=== PATIENT | male | born 1950 | race Caucasian/White ===

== ENCOUNTER → 2018-04-02 11:16 | Outpatient (CLI) | payer MEDICARE, OTHER, SELFPAY ==
[2018-04-02 12:12] LABS: Albumin 4.2 g/dL (3.5-5.0); BUN Creatinine Ratio 23.3 (6-22); Blood Urea Nitrogen 21 mg/dL (9-20); Calcium 9.9 mg/dL (8.4-10.2); Carbon Dioxide 26 mmol/L (22-32); Chloride 108 mmol/L (98-107); Estimated Glomerular Filt Rate > 60.0 mL/min (>60); Glucose 103 mg/dL (80-110); HEMOLYSIS < 15 (0-50); Phosphorous 3.5 mg/dL (2.3-3.7); Potassium 4.7 mmol/L (3.4-5.1); Sodium 144 mmol/L (137-145)
== END ==
PROVIDERS: Family Provider Internal Medicine; PCP Internal Medicine; Visit Provider Internal Medicine Nephrology
DX: E26.9 Hyperaldosteronism, unspecified (principal)
CPT/HCPCS: 36415; 80069

== ENCOUNTER → 2018-07-09 14:02 | Outpatient (CLI) | payer MEDICARE, OTHER, SELFPAY ==
[2018-07-09 14:53] LABS: Albumin 4.2 g/dL (3.5-5.0); Blood Urea Nitrogen 21 mg/dL (9-20); Calcium 9.4 mg/dL (8.4-10.2); Carbon Dioxide 25 mmol/L (22-32); Chloride 106 mmol/L (98-107); Estimated Glomerular Filt Rate > 60.0 mL/min (>60); Glucose 106 mg/dL (80-110); HEMOLYSIS < 15 (0-50); Phosphorous 3.3 mg/dL (2.3-3.7); Potassium 4.1 mmol/L (3.4-5.1); Sodium 140 mmol/L (137-145)
== END ==
PROVIDERS: PCP Internal Medicine; Visit Provider Internal Medicine Nephrology
DX: E26.9 Hyperaldosteronism, unspecified (principal)
CPT/HCPCS: 36415; 80069

== ENCOUNTER → 2018-08-05 13:42 | Outpatient (CLI) | payer MEDICARE, OTHER, SELFPAY ==
[2018-08-05 14:01] LABS: Add Manual Diff / Slide Review NO; Basophils Absolute Auto 100 /uL (0-100); Basophils Percent Auto 1.2 % (0-2); Eosinophils Absolute Auto 200 /uL (0-450); Hematocrit 43.5 % (41-53); Hemoglobin 14.8 g/dL (13.5-17.5); Lymphocytes Absolute Auto 1500 /uL (1100-4500); Lymphocytes Percent Auto 25.1 % (25-40); Mean Corpuscular Hemoglobin 28.9 PG (26-34); Mean Corpuscular Volume 84.9 fL (80-100); Monocytes Absolute Auto 700 /uL (0-900); Neutrophils Absolute Auto 3700 /uL (1500-7000); Neutrophils Percent Auto 59.7 % (50-75); Platelet Count 132 X10^3/uL (150-400); Red Blood Cell Count 5.13 X10^6/uL (4.5-5.9); Red Cell Distribution Width 14.1 % (11.6-14.8); White Blood Cell Count 6.1 X10^3/uL (4.5-11.0)
[2018-08-05 14:09] LABS: Prothrombin Time 11.7 SECONDS (10.1-12.7)
[2018-08-05 14:12] LABS: PTT Partial Thromboplastin Tim 37 SECONDS (26.4-36.2)
[2018-08-05 14:14] LABS: Alanine Aminotransferase 44 IU/L (21-72); Albumin 4.4 g/dL (3.5-5.0); Albumin Globulin Ratio 1.4 (1.0-2.8); Alkaline Phosphatase 84 U/L (38-126); Aspartate Aminotransferase 32 IU/L (17-59); BUN Creatinine Ratio 13.6 (6-22); Bilirubin Total 0.5 mg/dL (0.2-1.3); Blood Urea Nitrogen 15 mg/dL (9-20); Calcium 9.4 mg/dL (8.4-10.2); Carbon Dioxide 24 mmol/L (22-32); Chloride 105 mmol/L (98-107); Estimated Glomerular Filt Rate > 60.0 mL/min (>60); Globulin 3.1 g/dL (1.7-4.1); Glucose 84 mg/dL (80-110); HEMOLYSIS < 15 (0-50); Potassium 4.4 mmol/L (3.4-5.1); Sodium 138 mmol/L (137-145); Total Protein 7.5 g/dL (6.3-8.2)
== END ==
PROVIDERS: PCP Internal Medicine; Visit Provider Physician Assistant
DX: K92.1 Melena (principal)
CPT/HCPCS: 36415; 80053; 85025; 85610; 85730

== ENCOUNTER → 2018-08-08 10:45 | Outpatient (CLI) | payer MEDICARE, OTHER, SELFPAY ==
[2018-08-08 11:08] LABS: Occult Blood 1 Negative (Negative); Occult Blood 2 Negative (Negative); Occult Blood 3 Negative (Negative)
== END ==
PROVIDERS: PCP Internal Medicine; Visit Provider Physician Assistant
DX: K92.1 Melena (principal)
CPT/HCPCS: 82270

== ENCOUNTER → 2018-09-24 11:10 | Outpatient (CLI) | payer MEDICARE, OTHER, SELFPAY ==
[2018-09-24 12:48] LABS: Blood Urea Nitrogen 18 mg/dL (9-20); Calcium 9.6 mg/dL (8.4-10.2); Carbon Dioxide 23 mmol/L (22-32); Chloride 108 mmol/L (98-107); Estimated Glomerular Filt Rate > 60.0 mL/min (>60); Glucose 100 mg/dL (80-110); HEMOLYSIS 15 (0-50); Potassium 4.3 mmol/L (3.4-5.1); Sodium 140 mmol/L (137-145)
== END ==
PROVIDERS: Family Provider Internal Medicine; PCP Internal Medicine; Visit Provider Internal Medicine
DX: I25.10 Atherosclerotic heart disease of native coronary artery without angina pectoris (principal)
CPT/HCPCS: 36415; 80048

== ENCOUNTER → 2018-10-27 08:27 | Outpatient (CLI) | payer MEDICARE, OTHER, SELFPAY ==
--- NOTE | 2018-10-27 | DI.US.S_ITS ---
PROCEDURE: US ABDOMEN COMPLETE INDICATIONS: EPIGASTRIC PAIN TECHNIQUE: Real-time scanning was performed of the abdominal and retroperitoneal organs, with image documentation. COMPARISON: [facility], CT, KIDNEY/ URETER/BLADDER, 10/05/2014, 8:01. [facility], CT, ABDOMEN/PELVIS WITH CONTRAST, 09/15/2013, 11:38. FINDINGS: Liver: Liver is diffusely increased in echogenicity. No focal hepatic abnormalities identified. Normal hepatic size. Focal fatty sparing seen adjacent to the gallbladder. Gallbladder: No gallstones identified. Normal gallbladder wall. No pericholecystic fluid. Negative sonographic Oscar sign. Biliary ducts: Intrahepatic bile ducts are non-dilated. Extrahepatic bile duct caliber measures 6.4 mm. Normal is 6-7 mm or less in diameter, or 10 mm or less post-cholecystectomy. Pancreas: Visualized portions of the pancreas are sonographically normal. Spleen: Spleen is increased in size at 14.4 cm and homogeneous in echotexture. Kidneys: Kidneys are normal in size and echotexture. Right kidney measures 11.9 cm long; left kidney measures 13.8 cm long. No hydronephrosis. There are multiple bilateral renal calcifications largest on the right measuring 3.4 cm and 3.0 cm on the left. Simple midpole left renal cyst measuring 2.9 cm. Solitary hypoechoic mass present involving the anterior inferior aspect of the right kidney measuring 2.9 x 2.7 x 2.7 cm. Aorta: Visualized aorta is normal in caliber at less than 3 cm. Iliacs: Not well-seen. IVC: Intrahepatic inferior vena cava is patent. Miscellaneous: No free abdominal fluid. IMPRESSION: 1. Increased hepatic echogenicity noted possibly related to hepatic steatosis but other sources of hepatocellular disease cannot be excluded. Recommend clinical correlation. 2. Solid-appearing hypoechoic mass involving the right kidney. Neoplasm cannot be excluded and renal protocol CT is recommended for further characterization. 3. Multiple bilateral nonobstructing renal calcifications. 4. Sonographic splenomegaly. Dictated by: Jean Claude Yanez Raheem Interpreted: Neisha Romo MD on 10/27/2018 at 13:20 Approved by: Neisha Romo MD, PhD on 10/27/2018 at 15:38
== END ==
PROVIDERS: PCP Internal Medicine; Visit Provider Registered Nurse
DX: N28.89 Other specified disorders of kidney and ureter (principal); R16.1 Splenomegaly, not elsewhere classified
CPT/HCPCS: 76700

== ENCOUNTER → 2018-11-05 13:50 | Outpatient (CLI) | payer MEDICARE, OTHER, SELFPAY ==
--- NOTE | 2018-11-05 | DI.CT.S_ITS ---
PROCEDURE: CT ABDOMEN WO/W CON INDICATIONS: Neoplasm of unspecified behavior of unspecified ki TECHNIQUE: Optional 5 mm thick noncontrast images acquired from the diaphragm to the iliac crests. After the administration of intravenous contrast, 5 mm thick images again acquired from the diaphragm to the iliac crests in the arterial and urographic phases. 5 mm thick coronal and sagittal reformats were then acquired. For radiation dose reduction, the following was used: automated exposure control, adjustment of mA and/or kV according to patient size. COMPARISON: [facility], CT, IVP (ABD & PEL WWO CONTRAST), 01/08/2012, 14:25. [facility], CT, KIDNEY/ URETER/BLADDER, 11/20/2007, 15:26. [facility], US, US ABDOMEN COMPLETE, 10/27/2018, 9:09. [facility], CT, KIDNEY/ URETER/BLADDER, 10/05/2014, 8:01. FINDINGS: Image quality: Excellent. Lung bases: Lung bases are clear. Heart size is normal. Genitourinary: The kidneys demonstrate normal size and symmetric enhancement. Staghorn calculi are visualized bilaterally. These are present within the upper and lower poles of the right kidney and within the lower pole left kidney. No hydronephrosis. No hydroureter or ureterolithiasis. There is a simple cortical cyst within the left midpole. A heterogeneously enhancing 2.1 x 2.3 x 2.5 cm mass is present off the lower pole of the right kidney which corresponds with the findings by ultrasound dated 10/27/18. This was not definitely visualized on the comparison CT of the kidneys dated 01/08/[address] dated 10/05/14. No other suspicious renal mass lesions. Other solid organs: Liver is normal in size and enhancement. Gallbladder is unremarkable. Biliary system is non dilated. Pancreas enhances normally. Spleen is normal in size and enhancement. No adrenal nodules. Peritoneum and bowel: Unenhanced bowel loops are normal in wall thickness and caliber. No free fluid or air. Nodes and vessels: No retroperitoneal or mesenteric adenopathy by size criteria. Aorta and inferior vena cava are normal in caliber. There are scattered atheromatous calcifications throughout the aorta and iliac arteries bilaterally. Bones: No suspicious bony lesions. Severe degenerative changes are visualized throughout the thoracolumbar spine. No vertebral body compression fractures. Miscellaneous: No ventral hernias. IMPRESSION: 1. Heterogeneously enhancing right lower pole renal mass suspicious for small renal neoplasm. This corresponds with the ultrasound abnormality on the study dated 10/27/18. 2. Bilateral staghorn calculi. No hydronephrosis. Dictated by: Allyson Huang M.D. on 11/05/2018 at 16:48 Approved by: Allyson Huang M.D. on 11/05/2018 at 16:56
== END ==
PROVIDERS: Family Provider Internal Medicine Nephrology; PCP Internal Medicine; Visit Provider Registered Nurse
DX: N20.0 Calculus of kidney (principal); N28.89 Other specified disorders of kidney and ureter
CPT/HCPCS: 74160; Q9967

== ENCOUNTER → 2019-05-17 14:15 | Outpatient (CLI) | payer MEDICARE, OTHER, SELFPAY ==
[2019-05-17 19:19] LABS: Alanine Aminotransferase 27 IU/L (<50); Albumin 4.2 g/dL (3.5-5.0); Albumin Globulin Ratio 1.4 (1.0-2.8); Alkaline Phosphatase 89 U/L (38-126); Aspartate Aminotransferase 25 IU/L (17-59); Bilirubin Total 0.3 mg/dL (0.2-1.3); Bilirubin Unconjugated 0.3 mg/dL (0.0-1.1); Globulin 2.9 g/dL (1.7-4.1); HEMOLYSIS < 15 (0-50); Total Protein 7.1 g/dL (6.3-8.2)
[2019-05-17 19:26] LABS: BUN Creatinine Ratio 15.9 (6-22); Blood Urea Nitrogen 18 mg/dL (9-20); Calcium 9.8 mg/dL (8.4-10.2); Carbon Dioxide 24 mmol/L (22-32); Chloride 105 mmol/L (98-107); Estimated Glomerular Filt Rate > 60.0 mL/min (>60); Glucose 91 mg/dL (80-110); HEMOLYSIS < 15 (0-50); Potassium 4.3 mmol/L (3.4-5.1); Sodium 138 mmol/L (137-145)
== END ==
PROVIDERS: Family Provider Internal Medicine Nephrology; PCP Internal Medicine; Referring Provider Urology; Visit Provider Internal Medicine Nephrology
DX: Z85.528 Personal history of other malignant neoplasm of kidney (principal); N20.0 Calculus of kidney
CPT/HCPCS: 36415; 80048; 80076

== ENCOUNTER → 2019-05-21 08:05 | Outpatient (CLI) | payer MEDICARE, OTHER, SELFPAY ==
--- NOTE | 2019-05-21 | DI.CT.S_ITS ---
PROCEDURE: CT ABDOMEN PELVIS WO/W CON INDICATIONS: Personal history of other malignant neoplasm of right kidney TECHNIQUE: Optional 5 mm thick noncontrast images acquired from the diaphragm to the symphysis pubis. After the administration of intravenous contrast, 5 mm thick images acquired from the diaphragm to the symphysis pubis after a 10-minute delay. 2 mm thick coronal and sagittal reformats were then performed of the kidneys and ureters. For radiation dose reduction, the following was used: automated exposure control, adjustment of mA and/or kV according to patient size. COMPARISON: [facility], CT, KIDNEY/ URETER/BLADDER, 10/05/2014, 8:01. [facility], CT, CT ABDOMEN WO/W CON, 11/05/2018, 14:57. FINDINGS: Image quality: Excellent. Lung bases: Mild bibasilar atelectasis. No effusion. Heart size is normal. Gynecomastia. Post median sternotomy. Urinary system: Right kidney inferior pole of related lesion measures 2.5 x 2.2 cm, (3/87), previously 2.9 x 2.4 cm. On the precontrast images the lesion measures 12 Hounsfield units and on the 10 minute delayed images the lesion measures 19 Hounsfield units; where previously the lesion demonstrate enhancement on the 10 minute delayed series. Mild scarring at at the inferior pole the right kidney. No renal vein thrombosis seen. Large bilateral renal calculi which are not significantly changed compared to 11/05/2018. No hydronephrosis. Simple cyst in the mid left kidney. There are several cortical hypodensities which are too small to further characterize which appear similar to the prior exam. Opacified portions of both ureters demonstrate normal caliber. No ureteral filling defect identified. Bladder is within normal limits. No calcified bladder stones. Other solid organs: Liver is normal in size. Hepatic steatosis. Gallbladder is unremarkable. Biliary system is non dilated. Pancreas enhances normally. Spleen is mildly enlarged measuring 14.1 cm in craniocaudal dimension, (5/150). No adrenal nodules. Peritoneum and bowel: Bowel loops demonstrate normal wall thickness and caliber. Sigmoid colon diverticulosis. No free fluid or air. Appendix not identified. Nodes and vessels: No retroperitoneal or mesenteric adenopathy by size criteria. Aorta and inferior vena cava are normal in size. Mild calcified atherosclerotic plaque. Abdominal wall: Tiny fat-containing periumbilical hernia. Pelvis: No pathologic free pelvic fluid. Bilateral fat containing inguinal hernias. No adenopathy. Bones: No suspicious bony lesions. Mild sclerosis and ankylosis of the SI joints. Ankylosis of L4-L5 and multiple bridging anterior osteophytes. Extensive degenerative change in the lumbar spine. No vertebral body compression fractures. IMPRESSION: 1. Slight interval decrease in size in the right lower pole renal mass. There is decreased enhancement post ablation. -Recommend continued surveillance with CT or MRI (renal protocol with multiphase enhancement) in 6-12 months to ensure that the lesion continues to decrease in size and for further confirmation that the lesion is nonenhancing. 2. No hydronephrosis. Multiple large kidney stones bilaterally. 3. Hepatic steatosis. Dictated by: Elmer Hinojosa M.D. on 05/21/2019 at 9:06 Approved by: Elmer Hinojosa M.D. on 05/21/2019 at 9:28
== END ==
PROVIDERS: Family Provider Internal Medicine Nephrology; PCP Internal Medicine; Referring Provider Urology; Visit Provider Urology
DX: N28.89 Other specified disorders of kidney and ureter (principal); N20.0 Calculus of kidney; N28.1 Cyst of kidney, acquired; Z85.528 Personal history of other malignant neoplasm of kidney; K76.0 Fatty (change of) liver, not elsewhere classified; M47.816 Spondylosis without myelopathy or radiculopathy, lumbar region; K40.20 Bilateral inguinal hernia, without obstruction or gangrene, not specified as recurrent; K57.30 Diverticulosis of large intestine without perforation or abscess without bleeding; N62 Hypertrophy of breast; R16.1 Splenomegaly, not elsewhere classified
CPT/HCPCS: 74178; Q9967

== ENCOUNTER → 2019-09-02 10:00 | Outpatient (CLI) | payer MEDICARE, OTHER, SELFPAY ==
--- NOTE | 2019-09-02 10:03 | DI.RAD.S_ITS ---
PROCEDURE: XR KUB INDICATIONS: Kidney stones TECHNIQUE: One view of the abdomen acquired. COMPARISON: [facility], CT, CT ABDOMEN PELVIS WO/W CON, 05/21/2019, 8:06. [facility], CR, KUB XRAY (1 VIEW ABDOMEN), 10/22/2016, 11:12. [facility], CR, KUB XRAY (1 VIEW ABDOMEN), 12/20/2013, 8:47. FINDINGS: Surgical changes and devices: None. Bowel: Bowel gas pattern is normal. Soft tissues: Central large calculi are present bilaterally at the kidneys, without visualized evidence of obstructive hydrocephalus, and these calculi can be seen by plain film imaging and CT scanning, but are relatively faintly visualized and partially obscured by overlying bowel content and bowel gas.. Visualized solid organ contours appear normal in size. Bones: No suspicious bony lesions. IMPRESSION: Large central calculi have been documented by prior recent CT scanning, and considering differences in technique no definite change has occurred. As discussed calculi are relatively lucent and easily obscured by overlying stool and bowel gas which is relatively prominent in this patient. No change when this is taken into account. Dictated by: Zachary Schwarz M.D. on 09/02/2019 at 12:05 Approved by: Zachary Schwarz M.D. on 09/02/2019 at 12:07
[2019-09-02 10:42] LABS: Blood Urea Nitrogen 20 mg/dL (9-20); Calcium 10.3 mg/dL (8.4-10.2); Carbon Dioxide 23 mmol/L (22-32); Chloride 109 mmol/L (98-107); Estimated Glomerular Filt Rate > 60.0 mL/min (>60); Glucose 130 mg/dL (80-110); HEMOLYSIS < 15 (0-50); Potassium 4.4 mmol/L (3.4-5.1); Sodium 139 mmol/L (137-145)
== END ==
PROVIDERS: Family Provider Internal Medicine Nephrology; PCP Internal Medicine; Referring Provider Specialist; Visit Provider Specialist
DX: N20.0 Calculus of kidney (principal)
CPT/HCPCS: 36415; 74018; 80048

== ENCOUNTER → 2019-12-04 10:50 | Outpatient (CLI) | payer MEDICARE, OTHER, SELFPAY ==
[2019-12-04 12:26] LABS: BUN Creatinine Ratio 21.2 (6-22); Blood Urea Nitrogen 24 mg/dL (9-20); Calcium 9.6 mg/dL (8.4-10.2); Carbon Dioxide 24 mmol/L (22-32); Chloride 109 mmol/L (98-107); Estimated Glomerular Filt Rate > 60.0 mL/min (>60); Glucose 119 mg/dL (80-110); HEMOLYSIS < 15 (0-50); Potassium 4.5 mmol/L (3.4-5.1); Sodium 141 mmol/L (137-145)
== END ==
PROVIDERS: Family Provider Internal Medicine Nephrology; PCP Internal Medicine; Referring Provider Internal Medicine; Visit Provider Internal Medicine
DX: I25.10 Atherosclerotic heart disease of native coronary artery without angina pectoris (principal)
CPT/HCPCS: 36415; 80048

== ENCOUNTER → 2019-12-21 15:11 | Outpatient (CLI) | payer MEDICARE, OTHER, SELFPAY ==
--- NOTE | 2019-12-21 15:12 | DI.RAD.S_ITS ---
PROCEDURE: XR KUB INDICATIONS: kidney stone TECHNIQUE: One view of the abdomen acquired. COMPARISON: [facility], , XR KUB, 09/02/2019, 9:13. FINDINGS: Surgical changes and devices: None. Bowel: Bowel gas pattern is normal. Soft tissues: No change in calcifications projecting over the bilateral kidneys.. Visualized solid organ contours appear normal in size. Bones: No suspicious bony lesions. IMPRESSION: No change in bilateral renal calcifications. Dictated by: Stephie Wheatley M.D. on 12/21/2019 at 17:05 Approved by: Stephie Wheatley M.D. on 12/21/2019 at 17:05
== END ==
PROVIDERS: Family Provider Internal Medicine Nephrology; PCP Internal Medicine; Referring Provider Internal Medicine; Visit Provider Specialist
DX: N20.0 Calculus of kidney (principal)
CPT/HCPCS: 74018

== ENCOUNTER → 2020-02-16 13:05 | Outpatient (CLI) | payer MEDICARE, OTHER, SELFPAY | PROVIDERS: Family Provider Internal Medicine Nephrology; PCP Internal Medicine; Visit Provider Specialist | DX: N39.0 Urinary tract infection, site not specified (principal); N20.0 Calculus of kidney; N40.1 Benign prostatic hyperplasia with lower urinary tract symptoms; N13.8 Other obstructive and reflux uropathy; N18.9 Chronic kidney disease, unspecified | CPT/HCPCS: 51798; 81002; 87086; 99214 ==

== ENCOUNTER → 2020-04-13 10:01 | Outpatient (CLI) | payer MEDICARE, OTHER, SELFPAY ==
[2020-04-13] MEDS: COVID-19 VACC #1, MRNA(MOD) 100 MCG/0.5 ML VIAL IM (10:11)
== END ==
PROVIDERS: Family Provider Internal Medicine Nephrology; PCP Internal Medicine; Visit Provider Internal Medicine
DX: Z23 Encounter for immunization (principal)
CPT/HCPCS: 0011A; 91301

== ENCOUNTER → 2020-05-11 12:10 | Outpatient (CLI) | payer MEDICARE, OTHER, SELFPAY ==
[2020-05-11] MEDS: COVID-19 VACC #2, MRNA(MOD) 100 MCG/0.5 ML VIAL IM (12:17)
== END ==
PROVIDERS: Family Provider Internal Medicine Nephrology; PCP Internal Medicine; Visit Provider Internal Medicine
DX: Z23 Encounter for immunization (principal)
CPT/HCPCS: 0012A; 91301

== ENCOUNTER → 2020-05-18 12:58 | Outpatient (CLI) | payer MEDICARE, OTHER, SELFPAY ==
--- NOTE | 2020-05-18 13:00 | DI.CT.S_ITS ---
PROCEDURE: CT KIDNEY URETER BLADDER (KUB) INDICATIONS: Kidney stones TECHNIQUE: Noncontrast 5 mm thick sections acquired from the diaphragms to the symphysis. 5 mm thick coronal and sagittal reformats were then performed. For radiation dose reduction, the following was used: automated exposure control, adjustment of mA and/or kV according to patient size. COMPARISON: [facility], CT, CT ABDOMEN PELVIS WO/W CON, 05/21/2019, 8:06. [facility], CT, KIDNEY/ URETER/BLADDER, 10/05/2014, 8:01. FINDINGS: Image quality: Excellent. Lung bases: Lung bases are clear. Heart size is normal. Median sternotomy wires and surgical clips are seen. Moderate atherosclerotic calcifications are noted in coronary vessels. Urinary system: Both kidneys are normal in size. Large bilateral nonobstructing renal stones are again seen, not significantly changed in size and appearance from 2019 study. Patient's known lower pole right renal lesion as further decreased in size compared to previous study in 2019 with evidence of ablation. Well-circumscribed hypodensity in midpole of left kidney is again seen consistent with left renal cyst. No hydronephrosis or perinephric fat stranding. Both ureters appear non-dilated throughout their expected courses. Bladder wall thickness is normal; no calcified bladder stones. Other solid organs: Liver is normal in size. Gallbladder is within normal limits. Pancreas is normal in contours. Spleen is normal in size. No adrenal nodules. Peritoneum and bowel: Unenhanced bowel loops demonstrate normal wall thickness and caliber. No free fluid or air. Nodes and vessels: No retroperitoneal or mesenteric adenopathy by size criteria. Aorta and inferior vena cava are normal in caliber. Abdominal wall: No ventral hernias. Pelvis: No free pelvic fluid. No adenopathy. Small bilateral inguinal hernia are seen containing fat only. Bones: No suspicious bony lesions. No vertebral body compression fractures. IMPRESSION: 1. Interval further decrease in size of patient's known lower pole right renal lesion with evidence of prior ablation. Stable appearing left renal cyst. 2. Multiple large bilateral renal stones unchanged in size and appearance from previous study in 2019. No hydronephrosis. No gross abnormality is seen in bilateral ureters and urinary bladder. 3. No abdominal or pelvic lymphadenopathy. Dictated by: Ben Montilla M.D. on 05/18/2020 at 14:37 Approved by: Ben Montilla M.D. on 05/18/2020 at 14:58
[2020-05-18 14:17] LABS: Prostate Specific Antigen 1.13 ng/mL (0.10-4.00)
== END ==
PROVIDERS: Family Provider Internal Medicine Nephrology; PCP Internal Medicine; Referring Provider Specialist; Visit Provider Specialist
DX: N20.0 Calculus of kidney (principal); N28.1 Cyst of kidney, acquired; R97.20 Elevated prostate specific antigen [PSA]
CPT/HCPCS: 36415; 74176; 84153

== ENCOUNTER → 2020-07-20 08:21 | Outpatient (CLI) | payer MEDICARE, OTHER, SELFPAY | PROVIDERS: Family Provider Internal Medicine Nephrology; PCP Internal Medicine; Visit Provider Specialist | DX: N39.0 Urinary tract infection, site not specified (principal); N20.0 Calculus of kidney; N40.1 Benign prostatic hyperplasia with lower urinary tract symptoms; N13.8 Other obstructive and reflux uropathy; N18.9 Chronic kidney disease, unspecified | CPT/HCPCS: 51798; 81002; 87077; 87086; 87186; 99215 ==

== ENCOUNTER → 2020-07-27 19:12 | Outpatient (ROUT) | payer MEDICARE, OTHER, SELFPAY ==
[2020-07-27 19:41] LABS: Add Manual Diff / Slide Review NO; Basophils Absolute Auto 100 /uL (0-100); Basophils Percent Auto 0.9 % (0-2); Eosinophils Absolute Auto 200 /uL (0-450); Eosinophils Percent Auto 3.2 % (2-4); Hematocrit 41.5 % (41-53); Hemoglobin 13.6 g/dL (13.5-17.5); Lymphocytes Absolute Auto 1400 /uL (1100-4500); Mean Corpuscular HGB Conc 32.7 % (30-36); Mean Corpuscular Volume 88.6 fL (80-100); Monocytes Absolute Auto 700 /uL (0-900); Monocytes Percent Auto 11.8 % (3-14); Neutrophils Absolute Auto 3800 /uL (1500-7000); Neutrophils Percent Auto 61.1 % (50-75); Platelet Count 144 X10^3/uL (150-400); Red Blood Cell Count 4.68 X10^6/uL (4.5-5.9); Red Cell Distribution Width 13.6 % (11.6-14.8); White Blood Cell Count 6.3 X10^3/uL (4.5-11.0)
[2020-07-27 19:51] LABS: Aspartate Aminotransferase 23 IU/L (17-59); BUN Creatinine Ratio 17.5 (6-22); Blood Urea Nitrogen 20 mg/dL (9-20); Calcium 9.5 mg/dL (8.4-10.2); Carbon Dioxide 24 mmol/L (22-32); Chloride 108 mmol/L (98-107); Cholesterol 184 mg/dL (140-199); Estimated Glomerular Filt Rate > 60.0 mL/min (>60); Glucose 104 mg/dL (80-110); HDL Cholesterol 30 mg/dL (40-60); HEMOLYSIS 19 (0-50); LDL Cholesterol Calculated 124 mg/dL (<100); Potassium 4.4 mmol/L (3.4-5.1); Sodium 142 mmol/L (137-145); Triglycerides 148 mg/dL (35-150); Uric Acid 5.8 mg/dL (3.5-8.5)
[2020-07-27 20:00] LABS: Hemoglobin A1C% w Est Avg Glu 5.7 % (4.0-6.0)
== END ==
PROVIDERS: Family Provider Internal Medicine Nephrology; PCP Internal Medicine; Visit Provider Internal Medicine
DX: N20.0 Calculus of kidney (principal); E11.59 Type 2 diabetes mellitus with other circulatory complications; I10 Essential (primary) hypertension; E78.2 Mixed hyperlipidemia
CPT/HCPCS: 80048; 80061; 83036; 84450; 84550; 85025

== ENCOUNTER → 2021-03-27 09:04 | Outpatient (CLI) | payer MEDICARE, OTHER, SELFPAY ==
--- NOTE | 2021-03-27 09:08 | DI.RAD.S_ITS ---
PROCEDURE: XR KUB INDICATIONS: calculi of kidney. benign prostatic hyperplasia. TECHNIQUE: One view of the abdomen acquired. COMPARISON: [facility], CT, CT KIDNEY URETER BLADDER (KUB), 05/18/2020, 13:26. [facility], CR, XR KUB, 12/21/2019, 15:00. [facility], CR, XR KUB, 09/02/2019, 9:13. FINDINGS: Surgical changes and devices: Post CABG. Bowel: Bowel gas pattern is normal. Soft tissues: Right renal calculus measuring 2.5 cm. Left renal calculus measuring 4 cm. No suspicious abdominal calcifications. Bones: No suspicious bony lesions. IMPRESSION: Staghorn like renal calcifications are similar to the prior CT. Dictated by: Elmer Hinojosa M.D. on 03/27/2021 at 10:07 Approved by: Elmer Hinojosa M.D. on 03/27/2021 at 10:09
[2021-03-27 11:38] LABS: Prostate Specific Antigen 0.402 ng/mL (0.10-4.00)
== END ==
PROVIDERS: Family Provider Internal Medicine Nephrology; PCP Internal Medicine; Referring Provider Specialist; Visit Provider Specialist
DX: N20.0 Calculus of kidney (principal); N40.1 Benign prostatic hyperplasia with lower urinary tract symptoms; N13.8 Other obstructive and reflux uropathy
CPT/HCPCS: 36415; 74018; 84153

== ENCOUNTER → 2021-09-20 16:46 | Outpatient (CLI) | payer MEDICARE, OTHER, SELFPAY ==
--- NOTE | 2021-09-20 | DI.US.S_ITS ---
PROCEDURE: US RENAL COMPLETE INDICATIONS: personal history of urinary calculis TECHNIQUE: Real-time scanning was performed of the kidneys and bladder, with image documentation. COMPARISON: [facility], CT, CT KIDNEY URETER BLADDER (KUB), 05/18/2020, 13:26. [facility], CR, XR KUB, 03/27/2021, 9:12. FINDINGS: Kidneys: Kidneys are normal in size. Right kidney measures 11.1 cm long; left kidney measures 11.9 cm long. Renal cortical echotexture is normal. No hydronephrosis. Multiple shadowing bilateral renal stones are again noted. On the right, 2 renal stones are visualized. 1 noted superiorly and 1 noted inferiorly. Largest is noted inferiorly and measures 2.1 x 1.8 cm. There is a inferior right renal pole hypoechoic lesion measuring 1.7 x 1.5 x 2.0 cm. This is compatible with previously described inferior pole right renal lesion that was treated with ablation. No suspicious cyst noted on the right. In the left kidney, there is also a shadowing stone measuring 2.7 x 2.4 cm. This is seen in the inferior pole. There also 2 midpole renal cysts. Largest measures 3.5 x 3.8 x 4.3 cm. Bladder: Pre-void bladder volume is 88.7 mL. Post-void residual is 48.3 mL. Pre-void images demonstrate no intraluminal masses or stones. On pre-void images, bilateral ureteral jets are noted with color Doppler interrogation. (Of note, ureteral jets may not be detectable in up to 25% of cases due to insufficient differences in specific gravity between ureteral and bladder urine). Miscellaneous: No free pelvic fluid. IMPRESSION: 1. Bilateral nephrolithiasis without evidence for hydronephrosis. 2. Redemonstration of 2.0 cm inferior right renal lesion compatible with previously ablated lesion. 3. Left renal cysts. Dictated by: Vicente Portillo M.D. on 09/21/2021 at 10:07 Approved by: Vicente Portillo M.D. on 09/21/2021 at 10:24
== END ==
PROVIDERS: Family Provider Internal Medicine Nephrology; PCP Internal Medicine
DX: N18.30 Chronic kidney disease, stage 3 unspecified (principal); Z87.442 Personal history of urinary calculi; N20.0 Calculus of kidney; N28.1 Cyst of kidney, acquired
CPT/HCPCS: 76770

== ENCOUNTER → 2021-10-03 09:04 | Outpatient (CLI) | payer MEDICARE, OTHER, SELFPAY ==
[2021-10-03 09:57] LABS: Add Manual Diff / Slide Review NO; Basophils Absolute Auto 100 /uL (0-100); Basophils Percent Auto 0.9 % (0-2); Eosinophils Absolute Auto 200 /uL (0-450); Hematocrit 38.9 % (41-53); Lymphocytes Absolute Auto 1400 /uL (1100-4500); Lymphocytes Percent Auto 21.3 % (25-40); Mean Corpuscular HGB Conc 33.5 % (30-36); Mean Corpuscular Hemoglobin 29.2 PG (26-34); Mean Corpuscular Volume 87.3 fL (80-100); Monocytes Absolute Auto 900 /uL (0-900); Monocytes Percent Auto 14.1 % (3-14); Neutrophils Absolute Auto 3900 /uL (1500-7000); Neutrophils Percent Auto 60.7 % (50-75); Platelet Count 139 X10^3/uL (150-400); Red Blood Cell Count 4.46 X10^6/uL (4.5-5.9); Red Cell Distribution Width 13.4 % (11.6-14.8); White Blood Cell Count 6.4 X10^3/uL (4.5-11.0)
[2021-10-03 10:10] LABS: Alanine Aminotransferase 12 IU/L (<50); Albumin Globulin Ratio 1.5 (1.0-2.8); Alkaline Phosphatase 68 U/L (38-126); Aspartate Aminotransferase 17 IU/L (17-59); BUN Creatinine Ratio 16.1 (6-22); Bilirubin Total 0.6 mg/dL (0.2-1.3); Blood Urea Nitrogen 23 mg/dL (9-20); Calcium 9.1 mg/dL (8.4-10.2); Carbon Dioxide 24 mmol/L (22-32); Chloride 103 mmol/L (98-107); Estimated Glomerular Filt Rate 52 mL/min (>60); Globulin 2.6 g/dL (1.7-4.1); Glucose 101 mg/dL (80-110); HEMOLYSIS < 15 (0-50); Potassium 4.8 mmol/L (3.4-5.1); Sodium 138 mmol/L (137-145); Total Protein 6.6 g/dL (6.3-8.2); Uric Acid 7.5 mg/dL (3.5-8.5)
== END ==
PROVIDERS: Family Provider Internal Medicine Nephrology; PCP Internal Medicine; Referring Provider Internal Medicine Nephrology; Visit Provider Internal Medicine Nephrology
DX: N17.9 Acute kidney failure, unspecified (principal)
CPT/HCPCS: 36415; 80053; 84550; 85025

== ENCOUNTER → 2021-10-04 12:41 | Outpatient (CLI) | payer MEDICARE, OTHER, SELFPAY ==
--- NOTE | 2021-10-04 12:43 | DI.US.S_ITS ---
PROCEDURE: US ARTERIAL DUPLEX LE BI INDICATIONS: Other specified peripheral vascular diseases TECHNIQUE: Color and pulse Doppler interrogation was performed of both lower extremity arterial systems, with image documentation. COMPARISON: None. FINDINGS: Right lower extremity: Common femoral artery: 100 cm/sec, with triphasic flow. Deep femoral artery: 104 cm/sec, with triphasic flow. Proximal superficial femoral artery: 93 cm/sec, with triphasic flow. Mid superficial femoral artery: 101 cm/sec, with triphasic flow. Distal superficial femoral artery: 82 cm/sec, with triphasic flow. Popliteal artery: 60 cm/sec, with triphasic flow. Posterior tibial artery: 48 cm/sec, with monophasic flow. Anterior tibial artery/dorsalis pedis: 118 cm/sec, with monophasic flow. Zamudio-scale imaging description: Mild diffuse plaque. No stenosis from the common femoral through the popliteal. Monophasic waveforms in the anterior tibial and posterior tibial arteries are consistent with distal disease. Left lower extremity: Common femoral artery: 123 cm/sec, with triphasic flow. Deep femoral artery: 80 cm/sec, with triphasic flow. Proximal superficial femoral artery: 83 cm/sec, with triphasic flow. Mid superficial femoral artery: 81 cm/sec, with triphasic flow. Distal superficial femoral artery: 103 cm/sec, with triphasic flow. Popliteal artery: 68 cm/sec, with triphasic flow. Posterior tibial artery: 34 cm/sec, with biphasic flow. Anterior tibial artery/dorsalis pedis: 47 cm/sec, with biphasic flow. Zamudio-scale imaging description: Diffuse plaque. No significant stenosis from the common femoral through the popliteal. Luminal narrowings involving the posterior tibial and dorsalis pedis are consistent with small vessel disease. IMPRESSION: 1. No evidence of inflow stenosis. 2. No hemodynamically significant stenosis from the common femoral through the popliteal bilaterally. All waveforms from the common femoral through the popliteals are triphasic. 3. Evidence of bilateral infrapopliteal disease, right greater than left. Dictated by: Yeyo Valenzuela M.D. on 10/04/2021 at 16:15 Approved by: Yeyo Valenzuela M.D. on 10/04/2021 at 16:20
== END ==
PROVIDERS: Family Provider Internal Medicine Nephrology; PCP Internal Medicine; Referring Provider Podiatrist; Visit Provider Podiatrist
DX: I73.89 Other specified peripheral vascular diseases (principal)
CPT/HCPCS: 93925

== ENCOUNTER → 2021-10-24 11:08 | Outpatient (CLI) | payer MEDICARE, OTHER, SELFPAY ==
--- NOTE | 2021-10-24 | DI.CT.S_ITS ---
PROCEDURE: CT KIDNEY URETER BLADDER (KUB) INDICATIONS: Calculus of kidney TECHNIQUE: Axial sections were acquired from the lung bases to the pubic symphysis. Coronal and sagittal reformats were performed. For radiation dose reduction, the following was used: automated exposure control, adjustment of mA and/or kV according to patient size. COMPARISON: [facility], CT, CT KIDNEY URETER BLADDER (KUB), 05/18/2020, 13:26. FINDINGS: Image quality: Excellent. Lung bases: No pleural effusion. URINARY: Right Kidney: Previously demonstrated lamellated stone at the inferior kidney measuring 2.2 centimeters has slightly migrated downstream, and is now near the renal pelvis. There is dilation of the upstream calices. Two small stones are also present in the dilated upstream calyx. A large calyceal stone at the upper kidney is not substantially changed. Probable post treatment change at the inferior kidney not obviously changed. Right Ureter: No ureteral stone or hydroureter. Left Kidney: Large calyceal stone at the inferior kidney is similar to before. No hydronephrosis. Similar cortical cyst at the mid kidney without definite suspicious features. Left Ureter: No ureteral stone or hydroureter. Bladder: Normal wall thickness. No stones. ABDOMEN: Liver: Unremarkable. Gallbladder: Unremarkable. Biliary ducts: Unremarkable. Pancreas: Unremarkable. Spleen: Unremarkable. 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 Stomach and Bowel: No evidence of mechanical bowel obstruction. Peritoneum: No abnormal intraperitoneal fluid. No free air. Ventral Wall: No hernia. Abdominal Nodes: No enlarged retroperitoneal or mesenteric lymph nodes. Vessels: Aorta and inferior vena cava are normal in size. PELVIS: Pelvic Organs: Unremarkable. Pelvic Nodes: Unremarkable. Bones: Multilevel degenerative change of the visualized spine. IMPRESSION: 1. Large bilateral renal stones are present as before. Since the previous examination, one large stone at the right inferior kidney has migrated slightly downstream, now near the renal pelvis. There is now dilation of the upstream calices. 2. No ureteral stone or hydroureter bilaterally. Dictated by: Corey Calderon M.D. on 10/24/2021 at 20:44 Approved by: Corey Calderon M.D. on 10/24/2021 at 21:01
== END ==
PROVIDERS: Family Provider Internal Medicine Nephrology; PCP Internal Medicine; Referring Provider Physician Assistant Surgical; Visit Provider Physician Assistant Surgical
DX: N20.0 Calculus of kidney (principal); N20.9 Urinary calculus, unspecified
CPT/HCPCS: 74176

== ENCOUNTER → 2021-11-07 10:05 | Outpatient (CLI) | payer MEDICARE, OTHER, SELFPAY | PROVIDERS: Family Provider Internal Medicine Nephrology; PCP Internal Medicine; Visit Provider Specialist | DX: N13.8 Other obstructive and reflux uropathy (principal); N20.0 Calculus of kidney; N40.1 Benign prostatic hyperplasia with lower urinary tract symptoms | CPT/HCPCS: 81002; 87086; 99215 ==

== ENCOUNTER → 2021-12-13 11:04 | Outpatient (CLI) | payer MEDICARE, OTHER, SELFPAY ==
[2021-12-13 12:25] LABS: Respiratory Syncytial Virus NEGATIVE (Not Detect)
== END ==
PROVIDERS: Family Provider Internal Medicine Nephrology; PCP Internal Medicine; Visit Provider Student in an Organized Health Care Education/Training Program
DX: R05.9 Cough, unspecified (principal)
CPT/HCPCS: 87634

== ENCOUNTER → 2021-12-13 11:12 | Outpatient (CLI) | payer MEDICARE, OTHER, SELFPAY ==
[2021-12-13 11:50] LABS: Appearance Urine UA CLEAR; Bilirubin Urine UA NEGATIVE (NEGATIVE); Color Urine UA YELLOW; Glucose Urine UA NEGATIVE (Negative); Ketones Urine UA NEGATIVE (NEGATIVE); Leukocyte Esterase Urine UA 1+ (NEGATIVE); Nitrite Urine UA NEGATIVE (Negative); Occult Blood Urine UA 2+ (Negative); Protein Urine UA NEGATIVE (Negative); Urobilinogen Urine UA 0.2 E.U./dL (0.2); pH Urine UA 6.5 (4.5-8.0)
[2021-12-13 11:56] LABS: Bacteria Urine None Seen; RBC Urine 1-5/HPF (0-5/HPF); Squamous Epithelial Cell Urine 0-1 /HPF (0-5/HPF); WBC Urine 5-10/HPF (0-5/HPF)
== END ==
PROVIDERS: Family Provider Internal Medicine Nephrology; PCP Internal Medicine; Referring Provider Physician Assistant Surgical; Visit Provider Physician Assistant Surgical
DX: N20.0 Calculus of kidney (principal); R05.9 Cough, unspecified
CPT/HCPCS: 81001; 87086; 87634

== ENCOUNTER 2021-12-16 00:51 | Emergency (ER) | payer MEDICARE, OTHER, SELFPAY ==
[2021-12-16] VITALS (13 sets, daily range): BP systolic 96–169; BP diastolic 52–77; PULSE 75–100; RESP 20; TEMP 36.6; O2SAT 90–96; BMI 31.4
--- NOTE | 2021-12-16 00:52 | DI.RAD.S_ITS ---
PROCEDURE: XR CHEST 2V INDICATIONS: SOB TECHNIQUE: 2 views of the chest were acquired. COMPARISON: [facility], CHEST 1 VIEW, 09/19/2016, 11:56. [facility], CHEST 2 VIEW, 04/21/2006, 14:10. FINDINGS: Surgical changes and devices: None. Lungs and pleura: Lungs are mildly edematous. No pleural effusions or pneumothorax. Mediastinum: Mediastinal contours are normal. Heart size is at the upper limits of normal. Bones and chest wall: No suspicious bony abnormalities. Soft tissues appear unremarkable. IMPRESSION: Mild pulmonary edema pattern, heart size at the upper limits of normal. No focal pneumonia found. Dictated by: Zachary Schwarz M.D. on 12/16/2021 at 1:27 Approved by: Zachary Schwarz M.D. on 12/16/2021 at 1:28
--- NOTE | 2021-12-16 00:58 | ED_ITS ---
HPI - SOB/Dyspnea General Chief Complaint: Upper Respiratory Symptoms Stated Complaint: resp s/s x 3 weeks Time Seen by Provider: 12/16/21 00:57 History of Present Illness HPI Narrative: 71-year-old male former smoker with history of kidney stones, cardiac disease with prior NSTEMI, and chronic kidney disease presents by EMS with a chief complaint of 3 weeks of mild, dry hacking cough and shortness of breath. He is had other upper respiratory symptoms including nasal congestion and runny nose but denies sore throat. He denies any chest pain or significant fatigue. He denies any nausea, vomiting or diarrhea. He denies abdominal pain or constipation. She denies dysuria, frequency or urgency. He had been seen by primary care and there was some discussion about whether not he may benefit from a cough suppressant but they decided against it. He called EMS tonight because his cough and shortness of breath seemed to worsen and he developed subjective fever and shaking chills. Related Data Home Medications Medication Instructions Recorded Confirmed cholecalciferol (vitamin D3) 125 125 mcg PO DAILY 06/11/19 12/16/21 mcg (5,000 unit) capsule losartan 100 mg tablet 100 mg PO DAILY 06/11/19 12/16/21 vitamin k2 480 mg PO DAILY 06/11/19 12/16/21 carvedilol 25 mg tablet 25 mg BID 12/16/21 12/16/21 magnesium citrate 417 mg DAILY 12/16/21 12/16/21 melatonin 15 mg BEDTIME 12/16/21 12/16/21 nitroglycerin 0.4 mg/hr 1 patch DAILY 12/16/21 12/16/21 transdermal 24 hour patch rosuvastatin 5 mg BEDTIME 12/16/21 12/16/21 spironolactone 25 mg tablet 75 mg DAILY 12/16/21 12/16/21 Previous Rx's Medication Instructions Recorded finasteride 5 mg tablet 5 mg PO DAILY #90 tabs 03/28/21 tamsulosin 0.4 mg capsule 0.8 mg PO BEDTIME #28 caps 10/15/21 amoxicillin 875 mg-potassium 1 tab PO Q12H #10 tabs 12/16/21 clavulanate 125 mg tablet doxycycline hyclate 100 mg tablet 100 mg PO BID #10 tabs 12/16/21 Allergies Allergy/AdvReac Type Severity Reaction Status Date / Time No Known Drug Allergies Allergy Verified 11/07/21 09:58 Review of Systems Review of Systems Narrative: GENERAL: See HPI HEENT: See HPI RESPIRATORY: See HPI CARDIOVASCULAR: Denies chest pain, palpitations, orthopnea, edema, GASTROINTESTINAL: See HPI : Denies dysuria, frequency, incontinence, hematuria, urinary retention. MUSCULOSKELETAL: denies weakness, joint pain, or bony pain SKIN: Denies rash, skin lesions, or other NEUROLOGIC: Denies weakness, headache, numbness, change in speech, confusion, seizures, incoordination. PSYCHIATRIC: No concerning psychosocial issues. 12 point review of systems is negative except for those stated above Patient History Medical History Anemia Angina pectoris Arthritis Atrial fibrillation Bilateral nephrolithiasis BPH (benign prostatic hyperplasia) BPH w urinary obs/LUTS CAD (coronary artery disease) Cardiomyopathy Cataracts, bilateral Chicken pox Chronic kidney disease Detached retina, right (~1983) Diabetes Duodenal ulcer hemorrhage Hearing loss (~2012) HLD (hyperlipidemia) Hx of nephrolithotomy with removal of calculi (2008) Hyperaldosteronism Hypertension Measles Mumps Myocardial infarction (~2016) Nephrolithiasis ANA (obstructive sleep apnea) Osteoarthritis Partial blindness (~1948) Peptic ulcer disease (~2015) Peripheral neuropathy Right renal mass Sleep apnea Staph infection (1979) Tinnitus Upper GI bleed Vision disorder Surgical History Anesthesia H/O circumcision H/O lithotripsy H/O vasectomy History of appendectomy Hx of coronary angioplasty Hx of heart artery stent S/P CABG x 3 (1991) Family History Father History of heart disease Mother History of heart disease Hypertension Brother Leukemia Social History household members: spouse Smoking Status: Former smoker alcohol intake: current substance use type: does not use Smoking Status: Former smoker alcohol intake frequency: holidays/special occasions only Substance Use Type: does not use Exam Narrative Exam Narrative: GENERAL: [71] year old patient appears stated age. Well-developed patient, in mild distress. Occasional dry hacking cough HEAD: Atraumatic. Normocephalic. EYES: Pupils equal round and reactive. Extraocular motions intact. No scleral icterus. No injection or drainage. ENT: Nose without bleeding, purulent drainage. Throat without erythema, tonsillar hypertrophy or exudate. Airway patent. NECK: Trachea midline. Non tender CARDIOVASCULAR: Regular rate and rhythm without murmurs, gallops, or rubs. RESPIRATORY: Prolonged expiratory phase without obvious rales, rhonchi or wheeze GASTROINTESTINAL: Abdomen soft, non-tender, nondistended. EXTREMITIES: No edema or joint tenderness. BACK: Nontender without deformity or crepitance. No flank tenderness. NEURO: AOx3. SKIN: No rash or erythema of visible areas Initial Vital Signs Initial Vital Signs: Vital Signs Temperature 97.9 F 12/16/21 00:56 Pulse Rate 75 12/16/21 00:56 Respiratory Rate 20 12/16/21 00:56 Blood Pressure 169/77 H 12/16/21 00:56 Pulse Oximetry 96 12/16/21 00:56 Oxygen Delivery Method 12/16/21 00:56 Course Orders Ordered: ED Orders 12/16/21 00:52 XR chest 2V Stat EKG-12 Lead Stat 12/16/21 01:00 Blood Culture Stat C-Reactive Protein Quant Stat COVID19 -Nasal RAPID/Pre-Proc Stat Complete Blood Count AUTO DIFF Stat Comprehensive Metabolic Panel Stat D Dimer Stat Lactate (Lactic Acid) Stat NT-proBNP (BNP-Adult 18+) Stat Procalcitonin Stat Troponin & CK Cardiac Panel Stat 12/16/21 01:58 CT angio chest PE protocol Stat Discontinued Medications Amoxicillin/Clavulanate Potassium (Amoxicillin/Clav 875/125 Mg) 1 tab PO NOW ONE Stop: 12/16/21 04:41 Doxycycline Hyclate (Doxycycline Hyclate 100 Mg Tablet) 100 mg PO NOW ONE Stop: 12/16/21 04:41 Furosemide (Furosemide 40 Mg/4 Ml Vial) 40 mg IV NOW ONE Stop: 12/16/21 01:45 Last Admin: 12/16/21 01:55 Dose: 40 mg Documented By: KRISTEN Vital Signs Vital signs: Vital Signs - 8 hr 12/16/21 00:56 12/16/21 01:39 12/16/21 02:00 Temperature 97.9 F Pulse Rate 75 76 Respiratory Rate 20 Blood Pressure 169/77 H 157/75 H Pulse Oximetry 96 96 Oxygen Delivery Method Room Air 12/16/21 02:00 12/16/21 02:30 12/16/21 02:30 Temperature Pulse Rate 79 86 Respiratory Rate Blood Pressure 157/71 H Pulse Oximetry 96 95 Oxygen Delivery Method 12/16/21 03:00 Temperature Pulse Rate 86 Respiratory Rate Blood Pressure Pulse Oximetry 94 Oxygen Delivery Method MDM - SOB/Dyspnea Lab Data Result diagrams: 12/16/21 01:00 12/16/21 01:00 Labs: Lab Results 12/16/21 12/16/21 12/16/21 Range/Units 01:00 01:00 01:00 WBC 14.9 H (4.5-11.0) X10^3/uL RBC 4.37 L (4.5-5.9) X10^6/uL Hgb 12.3 L (13.5-17.5) g/dL Hct 37.9 L (41-53) % MCV 86.8 (80-100) fL MCH 28.2 (26-34) PG MCHC 32.5 (30-36) % RDW 13.2 (11.6-14.8) % Plt Count 183 (150-400) X10^3/uL Neut % (Auto) 87.6 H (50-75) % Lymph % (Auto) 5.1 L (25-40) % [place] % (Auto) 6.1 (3-14) % Eos % (Auto) 0.6 L (2-4) % Baso % (Auto) 0.6 (0-2) % Neut # (Auto) 42898 H (1541-2928) /uL Lymph # (Auto) 800 L (7250-3089) /uL [place] # (Auto) 900 (0-900) /uL Eos # (Auto) 100 (0-450) /uL Baso # (Auto) 100 (0-100) /uL D-Dimer (<500) ng/ml Sodium 141 (137-145) mmol/L Potassium 4.5 (3.4-5.1) mmol/L Chloride 104 (98-107) mmol/L Carbon Dioxide 29 (22-32) mmol/L BUN 29 H (9-20) mg/dL Creatinine 1.56 H (0.66-1.25) mg/dL Estimated GFR 47 L (>60) mL/min BUN/Creatinine Ratio 18.6 (6-22) Glucose 124 H (80-110) mg/dL Lactate 1.4 (0.7-2.1) mmol/L Calcium 9.0 (8.4-10.2) mg/dL Total Bilirubin 0.3 (0.2-1.3) mg/dL AST 15 L (17-59) IU/L ALT 12 (<50) IU/L Alkaline Phosphatase 72 (38-126) U/L Total Creatine Kinase 37 L (55-170) U/L CK-MB (CK-2) TNP CK-MB (CK-2) Rel Index TNP Troponin I 0.059 H (0.01-0.034) ng/mL C-Reactive Protein 1.8 H (<1.0) mg/dL NT-Pro-B Natriuret Pep 2030 H (<125) pg/mL Total Protein 7.4 (6.3-8.2) g/dL Albumin 3.9 (3.5-5.0) g/dL Globulin 3.5 (1.7-4.1) g/dL Albumin/Globulin Ratio 1.1 (1.0-2.8) Procalcitonin (<0.5) ng/mL SARS-CoV-2 (PCR) (Negative) 12/16/21 12/16/21 12/16/21 Range/Units 01:00 01:00 01:00 WBC (4.5-11.0) X10^3/uL RBC (4.5-5.9) X10^6/uL Hgb (13.5-17.5) g/dL Hct (41-53) % MCV (80-100) fL MCH (26-34) PG MCHC (30-36) % RDW (11.6-14.8) % Plt Count (150-400) X10^3/uL Neut % (Auto) (50-75) % Lymph % (Auto) (25-40) % [place] % (Auto) (3-14) % Eos % (Auto) (2-4) % Baso % (Auto) (0-2) % Neut # (Auto) (2443-8044) /uL Lymph # (Auto) (9588-4799) /uL [place] # (Auto) (0-900) /uL Eos # (Auto) (0-450) /uL Baso # (Auto) (0-100) /uL D-Dimer 755 H (<500) ng/ml Sodium (137-145) mmol/L Potassium (3.4-5.1) mmol/L Chloride (98-107) mmol/L Carbon Dioxide (22-32) mmol/L BUN (9-20) mg/dL Creatinine (0.66-1.25) mg/dL Estimated GFR (>60) mL/min BUN/Creatinine Ratio (6-22) Glucose (80-110) mg/dL Lactate (0.7-2.1) mmol/L Calcium (8.4-10.2) mg/dL Total Bilirubin (0.2-1.3) mg/dL AST (17-59) IU/L ALT (<50) IU/L Alkaline Phosphatase (38-126) U/L Total Creatine Kinase (55-170) U/L CK-MB (CK-2) CK-MB (CK-2) Rel Index Troponin I (0.01-0.034) ng/mL C-Reactive Protein (<1.0) mg/dL NT-Pro-B Natriuret Pep (<125) pg/mL Total Protein (6.3-8.2) g/dL Albumin (3.5-5.0) g/dL Globulin (1.7-4.1) g/dL Albumin/Globulin Ratio (1.0-2.8) Procalcitonin 0.09 (<0.5) ng/mL SARS-CoV-2 (PCR) Negative (Negative) [facility] Narrative Medical decision making narrative: Patient with reassuring history and physical exam with report of subjective fever and chills with elevated white blood cell count and a harsh sounding cough. CT angiogram performed given ongoing respiratory symptoms with elevated D-dimer demonstrates no large central clot but does suggest an infectious process consistent with pneumonia. Patient is ambulatory to the department and requires no supplemental oxygen. Blood pressures in the 110s, heart rate in the 80s with pulse ox in the upper 90s. Patient given return precautions and questions answered to his apparent satisfaction. He does have multiple comorbidities hence decision to use Augmentin and doxycycline Discharge Plan Departure Patient Disposition: Home Clinical Impression: Pneumonia Instructions: DI for Pneumonia -- Adult Activity Restrictions/Additional Instructions: *You have been diagnosed with [community-acquired pneumonia] *What to do: *Please continue to take your regular medications as directed. [x ] New medication prescriptions sent to your pharmacy: [[facility] ] [ ] New medication written as a paper prescription [ ] No new medications given *Please follow up with your primary care provider in 2-3 days, call for an ap pointment. Let them know you were seen in the Emergency Department and that we ask that you be seen in follow up. We will electronically transmit a record of today's note if your PCP is in our system *If you do not have a primary care provider please contact the [facility] Resource line at [phone]. They will ask some questions about your medical history and help get you set up with a doctor in the community. *Return to Emergency Department if you should have any new, worsening or co ncerning symptoms, such as [fever greater than 101 F, shaking chills, worsening pain, persistent vomiting or other bothersome symptoms] Prescriptions: New doxycycline hyclate 100 mg tablet 100 mg PO BID Qty: 10 0RF amoxicillin-pot clavulanate 875-125 mg tablet 1 tab PO Q12H Qty: 10 0RF No Action tamsulosin 0.4 mg capsule 0.8 mg PO BEDTIME Qty: 28 0RF losartan 100 mg tablet 100 mg PO DAILY cholecalciferol (vitamin D3) 125 mcg (5,000 unit) capsule 125 mcg PO DAILY vitamin k2 480 mg 480 mg PO DAILY carvedilol 25 mg tablet 25 mg BID spironolactone 25 mg tablet 75 mg DAILY nitroglycerin 0.4 mg/hr patch 24 hour 1 patch DAILY magnesium citrate tablet 417 mg DAILY melatonin 3 mg tablet 15 mg BEDTIME rosuvastatin 5 mg 5 mg BEDTIME finasteride 5 mg tablet 5 mg PO DAILY Qty: 90 3RF Referrals: Koko Ramires MD [Primary Care Provider] -
[2021-12-16 01:22] LABS: Add Manual Diff / Slide Review NO; Basophils Absolute Auto 100 /uL (0-100); Basophils Percent Auto 0.6 % (0-2); Eosinophils Absolute Auto 100 /uL (0-450); Eosinophils Percent Auto 0.6 % (2-4); Hematocrit 37.9 % (41-53); Hemoglobin 12.3 g/dL (13.5-17.5); Lymphocytes Absolute Auto 800 /uL (1100-4500); Lymphocytes Percent Auto 5.1 % (25-40); Mean Corpuscular HGB Conc 32.5 % (30-36); Mean Corpuscular Hemoglobin 28.2 PG (26-34); Mean Corpuscular Volume 86.8 fL (80-100); Monocytes Absolute Auto 900 /uL (0-900); Monocytes Percent Auto 6.1 % (3-14); Neutrophils Absolute Auto 13100 /uL (1500-7000); Neutrophils Percent Auto 87.6 % (50-75); Platelet Count 183 X10^3/uL (150-400); Red Blood Cell Count 4.37 X10^6/uL (4.5-5.9); Red Cell Distribution Width 13.2 % (11.6-14.8); White Blood Cell Count 14.9 X10^3/uL (4.5-11.0)
[2021-12-16 01:24] LABS: Lactate (Lactic Acid) 1.4 mmol/L (0.7-2.1)
[2021-12-16 01:25] LABS: Alanine Aminotransferase 12 IU/L (<50); Albumin 3.9 g/dL (3.5-5.0); Albumin Globulin Ratio 1.1 (1.0-2.8); Alkaline Phosphatase 72 U/L (38-126); Aspartate Aminotransferase 15 IU/L (17-59); BUN Creatinine Ratio 18.6 (6-22); Bilirubin Total 0.3 mg/dL (0.2-1.3); Blood Urea Nitrogen 29 mg/dL (9-20); Carbon Dioxide 29 mmol/L (22-32); Chloride 104 mmol/L (98-107); Creatine Kinase 37 U/L (55-170); Estimated Glomerular Filt Rate 47 mL/min (>60); Globulin 3.5 g/dL (1.7-4.1); Glucose 124 mg/dL (80-110); HEMOLYSIS 18 (0-50); Potassium 4.5 mmol/L (3.4-5.1); Sodium 141 mmol/L (137-145); Total Protein 7.4 g/dL (6.3-8.2)
[2021-12-16 01:36] LABS: NT-proBNP (BNP-Adult 18+) 2030 pg/mL (<125); Troponin I 0.059 ng/mL (0.01-0.034)
[2021-12-16 01:42] LABS: Procalcitonin 0.09 ng/mL (<0.5)
[2021-12-16 01:47] LABS: C-Reactive Protein Quant 1.8 mg/dL (<1.0)
[2021-12-16 01:50] LABS: COVID19 -Nasal RAPID Negative (Negative)
[2021-12-16 01:52] LABS: D Dimer 755 ng/ml (<500)
[2021-12-16] MEDS: FUROSEMIDE 40 MG/4 ML VIAL IV (01:55)
--- NOTE | 2021-12-16 01:58 | DI.CT.S_ITS ---
PROCEDURE: CT ANGIO CHEST PE PROTOCOL INDICATIONS: Short of breath, cough, elevated Dimer TECHNIQUE: After the administration of intravenous contrast, 2 mm thick sections acquired from the pulmonary apices to the posterior costophrenic angles. 3-dimensional maximum intensity projection (MIP) coronal and sagittal reformats were then acquired through the thorax. For radiation dose reduction, the following was used: automated exposure control, adjustment of mA and/or kV according to patient size. COMPARISON: [facility], CT, CT KIDNEY URETER BLADDER (KUB), 10/24/2021, 11:17. [facility], CR, XR CHEST 2V, 12/16/2021, 0:56. FINDINGS: Image quality: This examination is limited by involuntary motion artifact. Pulmonary arteries: Pulmonary arteries are normal in size, and demonstrate no intraluminal filling defects to suggest central pulmonary embolism. Lungs and pleura: Lungs are clear. No pleural effusions or pneumothorax. Central and peripheral airways are patent. Mediastinum: Post CABG changes are seen. Heart size is mildly enlarged, without pericardial effusion. No mediastinal or hilar adenopathy. Thoracic aorta is normal in caliber and enhancement. These in the thoracic aorta measures within normal limits transversely on coronal images, measuring up to 3.8 cm. The aorta is tortuous. Esophagus is normal in caliber, without hiatal hernia. Bones and chest wall: No suspicious bony lesions. Ribs and thoracic spine appear intact throughout. Accentuated thoracic kyphosis is seen. Age-appropriate bony degenerative changes are seen. Thyroid gland demonstrates no significant abnormality. No axillary or supraclavicular adenopathy. Incidental note is made of bilateral gynecomastia. Abdomen: Visualized upper abdominal solid organs appear normal in the early arterial phase of enhancement. IMPRESSION: Negative for pulmonary embolism. Left lower lobe infiltrate. There is mild cardiomegaly. Borderline enlargement of the ascending thoracic aorta, 3.8 cm, without arline enlargement. Incidental note is made of: CABG Dependent atelectasis Note: No significant discrepancy from the preliminary report. Dictated by: Remberto García M.D. on 12/16/2021 at 6:59 Approved by: Remberto García M.D. on 12/16/2021 at 7:04
[2021-12-16] MEDS: DOXYCYCLINE HYCLATE 100 MG TABLET PO (04:51)
[2021-12-16] MEDS: AMOXICILLIN/CLAV 875/125 MG 1 TAB PO (04:51)
== END 2021-12-16 05:15 | disposition home or self-care (01) ==
PROVIDERS: Emergency Provider Emergency Medicine; Family Provider Internal Medicine Nephrology; PCP Internal Medicine
DX: J18.9 Pneumonia, unspecified organism (principal); R06.02 Shortness of breath; Z20.822 Contact with and (suspected) exposure to COVID-19
CPT/HCPCS: 36415; 71046; 71275; 80053; 82550; 83605; 83880; 84145; 84484; 85025; 85379; 86140; 87040; 87635; 93005; 93010; 96374; 99284; C9803; J1940; Q9967

== ENCOUNTER 2021-12-30 00:43 | Emergency (ER) | payer MEDICARE, OTHER, SELFPAY ==
--- NOTE | 2021-12-30 00:59 | DI.RAD.S_ITS ---
PROCEDURE: XR ABDOMEN 1V INDICATIONS: constipation and ABD distention TECHNIQUE: One view of the abdomen acquired. COMPARISON: None. FINDINGS: Surgical changes and devices: A double pigtail right ureteral catheter has been placed with upper tip in the expected position of the right renal pelvis and lower tip at the central portion of the low bladder area.. Bowel: Bowel gas pattern is normal. Soft tissues: No suspicious abdominal calcifications. Visualized solid organ contours appear normal in size. Bones: No suspicious bony lesions. IMPRESSION: Normal placement of double pigtail right ureteral stent. Dictated by: Zachary Schwarz M.D. on 12/30/2021 at 1:23 Approved by: Zachary Schwarz M.D. on 12/30/2021 at 1:24
--- NOTE | 2021-12-30 00:59 | ED.GENADULT ---
HPI - General Adult General Chief complaint: Abdominal Pain Stated complaint: constipation Time Seen by Provider: 12/30/21 00:44 Source: patient Mode of arrival: Ambulatory Limitations: no limitations History of Present Illness HPI narrative: Patient is a 71-year-old male who is here for evaluation what he states is constipation. He states it is abdomen feels distended. No nausea vomiting. Is still passing flatus. No urinary symptoms. He did recently have a lithotripsy. Has not had a bowel movement in several days. Was on opioid medications but not currently. For the past couple days he has been using MiraLax without any resolution. He states he does feel like there is stool in his rectum. Has not tried an enema. Related Data Home Medications Medication Instructions Recorded Confirmed cholecalciferol (vitamin D3) 125 125 mcg PO DAILY 06/11/19 12/16/21 mcg (5,000 unit) capsule losartan 100 mg tablet 100 mg PO DAILY 06/11/19 12/16/21 vitamin k2 480 mg PO DAILY 06/11/19 12/16/21 carvedilol 25 mg tablet 25 mg BID 12/16/21 12/16/21 magnesium citrate 417 mg DAILY 12/16/21 12/16/21 melatonin 15 mg BEDTIME 12/16/21 12/16/21 nitroglycerin 0.4 mg/hr 1 patch DAILY 12/16/21 12/16/21 transdermal 24 hour patch rosuvastatin 5 mg BEDTIME 12/16/21 12/16/21 spironolactone 25 mg tablet 75 mg DAILY 12/16/21 12/16/21 Previous Rx's Medication Instructions Recorded finasteride 5 mg tablet 5 mg PO DAILY #90 tabs 03/28/21 tamsulosin 0.4 mg capsule 0.8 mg PO BEDTIME #28 caps 10/15/21 amoxicillin 875 mg-potassium 1 tab PO Q12H #10 tabs 12/16/21 clavulanate 125 mg tablet doxycycline hyclate 100 mg tablet 100 mg PO BID #10 tabs 12/16/21 ondansetron 4 mg disintegrating 4 mg PO TID-QID PRN nausea and 12/16/21 tablet vomiting #20 tabs Allergies Allergy/AdvReac Type Severity Reaction Status Date / Time No Known Drug Allergies Allergy Verified 12/30/21 00:57 Review of Systems Constitutional Constitutional: Reports system reviewed and no additional complaints, except as documented Cardiovascular Cardiovascular: Reports system reviewed and no additional complaints, except as documented Respiratory Respiratory: Reports system reviewed and no additional complaints, except as documented Gastrointestinal Gastrointestinal: Reports system reviewed and no additional complaints, except as documented Genitourinary Genitourinary: Reports system reviewed and no additional complaints, except as documented Integumentary/Breasts Skin/Breast: Reports system reviewed and no additional complaints, except as documented Patient History Medical History Anemia Angina pectoris Arthritis Atrial fibrillation Bilateral nephrolithiasis BPH (benign prostatic hyperplasia) BPH w urinary obs/LUTS CAD (coronary artery disease) Cardiomyopathy Cataracts, bilateral Chicken pox Chronic kidney disease Detached retina, right (~1983) Diabetes Duodenal ulcer hemorrhage Hearing loss (~2012) HLD (hyperlipidemia) Hx of nephrolithotomy with removal of calculi (2008) Hyperaldosteronism Hypertension Measles Mumps Myocardial infarction (~2016) Nephrolithiasis ANA (obstructive sleep apnea) Osteoarthritis Partial blindness (~1948) Peptic ulcer disease (~2015) Peripheral neuropathy Right renal mass Sleep apnea Staph infection (1979) Tinnitus Upper GI bleed Vision disorder Surgical History Anesthesia H/O circumcision H/O lithotripsy H/O vasectomy History of appendectomy Hx of coronary angioplasty Hx of heart artery stent S/P CABG x 3 (1991) Family History Father History of heart disease Mother History of heart disease Hypertension Brother Leukemia Social History household members: spouse Smoking Status: Former smoker alcohol intake: current substance use type: does not use Smoking Status: Former smoker alcohol intake frequency: holidays/special occasions only Substance Use Type: does not use Exam Initial Vital Signs Initial Vital Signs: Vital Signs Temperature 97.6 F 12/30/21 01:00 Pulse Rate 67 12/30/21 01:00 Respiratory Rate 14 12/30/21 01:00 Blood Pressure 174/75 H 12/30/21 01:00 Pulse Oximetry 98 12/30/21 01:00 Oxygen Delivery Method 12/30/21 01:00 HENMT Head: normal to inspection and normocephalic Resp Effort & Inspection: normal respiratory effort Auscultation: clear to auscultation bilaterally Cardio Rate: regular rate Rhythm: regular rhythm GI Palpation: soft and No firm Skin General: no rashes or lesions noted Neuro General: patient alert, patient awake and moves all extremities Extrem General: normal to inspection and capillary refill normal Psych Appearance: well kempt Course Orders Ordered: ED Orders 12/30/21 00:59 XR abdomen 1V Stat Discontinued Medications Magnesium Citrate (Magnesium Citrate 300 Ml Solution) 300 ml PO NOW ONE Stop: 12/30/21 02:29 Last Admin: 12/30/21 02:53 Dose: Not Given Documented By: KRISTEN Mineral Oil (Mineral Oil 1 Each Enema) 1 each [place] NOW ONE Stop: 12/30/21 02:28 Last Admin: 12/30/21 02:35 Dose: 1 each Documented By: KRISTEN Sodium Biphosphate/Sodium Phosphate (Fleets Enema) 1 each [place] NOW ONE Stop: 12/30/21 01:00 Last Admin: 12/30/21 01:55 Dose: 1 each Documented By: KRISTEN Vital Signs Vital signs: Vital Signs - 8 hr 12/30/21 01:00 Temperature 97.6 F Pulse Rate 67 Respiratory Rate 14 Blood Pressure 174/75 H Pulse Oximetry 98 Oxygen Delivery Method Room Air Medical Decision Making Imaging Data Abdominal x-ray: Radiologist's Impression: [address] [address] XRay Report Signed Patient: Rc Bray MR#: [id number] : 1950 Acct:[id number] Age/Sex: 71 / M Date of Service: 12/30/21 Loc: ED Accession Number: [id number] ?? Procedure: XR abdomen 1V Ordering Provider: Brian Rendon D.O. PROCEDURE:? XR ABDOMEN 1V ? INDICATIONS:? constipation and ABD distention ? TECHNIQUE:? One view of the abdomen acquired.? ? COMPARISON:? None. ? FINDINGS:? ? Surgical changes and devices:? A double pigtail right ureteral catheter has been placed with upper tip in the expected position of the right renal pelvis and lower tip at the central portion of the low bladder area..? ? Bowel:? Bowel gas pattern is normal.? ? Soft tissues:? No suspicious abdominal calcifications.? Visualized solid organ contours appear normal in size.? ? Bones:? No suspicious bony lesions.? ? IMPRESSION:? Normal placement of double pigtail right ureteral stent. ? ? Dictated by: Zachary Schwarz M.D. on 12/30/2021 at 1:23 ? ? Approved by: Zachary Schwarz M.D. on 12/30/2021 at 1:24?? MDM Narrative Medical decision making narrative: His abdominal x-ray shows no signs of obstructions. Initially tried a Fleet's enema without any resolution. We then tried a mineral oil enema and again without any resolution. I then performed a manual disimpaction. We were able to remove quite a bit of fairly hard stool. He was able to have a very small bowel movement after that. He states that he feels much better/resolved. We did discuss use of stool softeners at home. He was given return precautions. He expressed understanding and agreement. Discharge Plan Departure Patient Disposition: Home Clinical Impression: Constipation Instructions: DI for Constipation Activity Restrictions/Additional Instructions: Recommend that she stay hydrated. Use the stool softeners and laxatives like we discussed. Return to the emergency department for any new or worsening symptoms. Prescriptions: No Action tamsulosin 0.4 mg capsule 0.8 mg PO BEDTIME Qty: 28 0RF losartan 100 mg tablet 100 mg PO DAILY cholecalciferol (vitamin D3) 125 mcg (5,000 unit) capsule 125 mcg PO DAILY vitamin k2 480 mg 480 mg PO DAILY carvedilol 25 mg tablet 25 mg BID spironolactone 25 mg tablet 75 mg DAILY nitroglycerin 0.4 mg/hr patch 24 hour 1 patch DAILY magnesium citrate tablet 417 mg DAILY melatonin 3 mg tablet 15 mg BEDTIME rosuvastatin 5 mg 5 mg BEDTIME doxycycline hyclate 100 mg tablet 100 mg PO BID Qty: 10 0RF amoxicillin-pot clavulanate 875-125 mg tablet 1 tab PO Q12H Qty: 10 0RF ondansetron 4 mg tablet,disintegrating 4 mg PO TID-QID PRN (Reason: nausea and vomiting) Qty: 20 0RF finasteride 5 mg tablet 5 mg PO DAILY Qty: 90 3RF Referrals: Koko Ramires MD [Primary Care Provider] -
[2021-12-30 01:00] VITALS: BP 174/75; PULSE 67; RESP 14; TEMP 36.4; O2SAT 98; BMI 30.8
[2021-12-30] MEDS: FLEETS ENEMA 1 EACH PR (01:55)
[2021-12-30] MEDS: MINERAL OIL 1 EACH ENEMA PR (02:35)
== END 2021-12-30 04:03 | disposition home or self-care (01) ==
PROVIDERS: Emergency Provider Emergency Medicine; Family Provider Internal Medicine Nephrology; PCP Internal Medicine
DX: K59.00 Constipation, unspecified (principal)
CPT/HCPCS: 74018; 99283; 99284

== ENCOUNTER 2022-01-11 17:53 | Inpatient (IN) | payer MEDICARE, OTHER, SELFPAY ==
[2022-01-11] VITALS (45 sets, daily range): BP systolic 106–163; BP diastolic 51–70; PULSE 78–99; RESP 20–32; TEMP 37.3–39.6; O2SAT 88–97; BMI 30.8
--- NOTE | 2022-01-11 17:59 | DI.RAD.S_ITS ---
PROCEDURE: XR CHEST 1V INDICATIONS: suspected sepsis TECHNIQUE: One view of the chest was acquired. COMPARISON: [facility], CT, CT ANGIO CHEST PE PROTOCOL, 12/16/2021, 2:05. [facility], CR, XR CHEST 2V, 12/16/2021, 0:56. FINDINGS: Surgical changes and devices: Sternotomy wires and mediastinal clips are again seen. Lungs and pleura: On this semiupright portable chest examination, no large pneumothorax or large pleural effusions are seen. No focal infiltrates are seen. Low lung volumes are noted. This causes a crowded appearance to the lung markings and limits evaluation. Mediastinum: The cardiac contours are within normal limits. The aorta demonstrates calcification and tortuosity. Bones and chest wall: Age-appropriate bony degenerative changes are seen. No suspicious bony lesions. Overlying soft tissues appear unremarkable. IMPRESSION: Limited portable chest examination, without a significant cardiopulmonary abnormality identified. Dictated by: Remberto García M.D. on 01/11/2022 at 18:08 Approved by: Remberto García M.D. on 01/11/2022 at 18:09
--- NOTE | 2022-01-11 18:12 | DI.CT.S_ITS ---
PROCEDURE: CT ABDOMEN PELVIS W CON INDICATIONS: Perc lithotripsy 12/26, R sided abd pain TECHNIQUE: After the administration of oral and IV contrast, axial sections were acquired from the lung bases to the pubic symphysis. Coronal and sagittal reformats were performed. For radiation dose reduction, the following was used: automated exposure control, adjustment of mA and/or kV according to patient size. COMPARISON: [facility], CT, CT KIDNEY URETER BLADDER (KUB), 05/18/2020, 13:26. [facility], CT, ABDOMEN/PELVIS WITH CONTRAST, 09/15/2013, 11:38. [facility], CR, XR CHEST 1V, 01/11/2022, 18:06. [facility], CT, CT KIDNEY URETER BLADDER (KUB), 10/24/2021, 11:17. FINDINGS: Image quality: Excellent. Lung bases: Mild areas of lung consolidation can be seen involving both dependent lower lobes. Incidental note is made of bilateral gynecomastia. Heart: No significant findings. Prior CABG change. Moderate coronary artery calcification is seen. ABDOMEN: Liver: Unremarkable. Gallbladder: Unremarkable. Biliary ducts: Unremarkable. Pancreas: Unremarkable. Spleen: Unremarkable. Adrenal Glands: Unremarkable. Kidneys and Ureters: There is a staghorn type calculus seen involving the left kidney that measures at least 3.9 cm. This measures 500 Hounsfield units. Along the lateral aspect of the left kidney, there is a simple nonenhancing cyst that measures water density and 4 cm. No hydronephrosis can be seen on either side. No stone fragments are seen along the courses of the ureters. The right kidney is mildly atrophic. Stomach and Bowel: Stomach, small bowel loops, and colon are unremarkable. Peritoneum: No abnormal intraperitoneal fluid. No free air. Ventral Wall: No hernia. Abdominal Nodes: No retroperitoneal or mesenteric adenopathy by size criteria. Vessels: Aorta and inferior vena cava are normal in size. Atherosclerotic calcification is noted. PELVIS: Pelvic Organs: Unremarkable. Bladder: Unremarkable. Pelvic Nodes: No enlarged lymph nodes. Miscellaneous: Bilateral fat containing inguinal hernias are seen. Bones: Relatively prominent lumbar spine degenerative changes are seen. Fusion of the sacroiliac joints can be seen. IMPRESSION: No hydronephrosis is seen on either side. The previously seen prominent right-sided kidney stone is no longer seen. There remains a large left staghorn type calculus, without findings of obstruction. At the lung bases, likely dependent atelectasis is seen. Differential diagnosis includes mild infiltrate, yet this is considered to be less likely. Incidental note is made of: Gynecomastia Prior CABG Moderate coronary artery calcification Simple appearing left lateral renal cyst Mild right renal atrophy. Relatively prominent lumbar spine degenerative change Fusion of the sacroiliac joints Bilateral fat containing inguinal hernias Dictated by: Remberto García M.D. on 01/11/2022 at 19:11 Approved by: Remberto García M.D. on 01/11/2022 at 19:16
[2022-01-11] MEDS: SODIUM CHLORIDE 0.9% 1,000 ML 1000 ML IV (18:15)
--- NOTE | 2022-01-11 18:18 | ED_ITS ---
HPI - Sepsis General Chief Complaint: Fever Mode of arrival: Family Vehicle Source: patient Evaluation Sepsis Infection Criteria Present: Suspected New Infection Narrative: This is a 71-year-old male with history of CABG, cardiac stents, hypertension, dyslipidemia, chronic kidney disease and recent percutaneous lithotripsy at [facility] on December 26. Patient presents today with complaint of fever, cough and some mild right lower abdominal pain. Patient notes he is had some difficulty initiating stream to urinate but no dysuria, urgency or frequency. He denies any flank pain. Patient denies any chest pain or shortness of breath. He states his cough has been nonproductive. He denies rc al congestion. Patient denies vomiting but has felt very nauseated. He has not had any diarrhea he describes some constipation but has had bowel movements. Patient denies any rash or skin change. He denies any confusion or mentation changes. Patient notes he is had a prior CABG, cardiac stents and has percutaneous lithotripsy for kidney stone. 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 Campo for Urology locally and Dr. Ramires for his primary care. No known drug allergies. Denies tobacco, alcohol or recreational drug use. Review of Systems Review of Systems ROS Unobtainable: All systems reviewed & are unremarkable except as noted in HPI and below Patient History Medical History Anemia Angina pectoris Arthritis Atrial fibrillation Bilateral nephrolithiasis BPH (benign prostatic hyperplasia) BPH w urinary obs/LUTS CAD (coronary artery disease) Cardiomyopathy Cataracts, bilateral Chicken pox Chronic kidney disease Detached retina, right (~1983) Diabetes Duodenal ulcer hemorrhage Hearing loss (~2012) HLD (hyperlipidemia) Hx of nephrolithotomy with removal of calculi (2008) Hyperaldosteronism Hypertension Measles Mumps Myocardial infarction (~2017) Nephrolithiasis ANA (obstructive sleep apnea) Osteoarthritis Partial blindness (~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) Peptic ulcer disease (~2015) Peripheral neuropathy Right renal mass Sleep apnea Staph infection (1979) Tinnitus Upper GI bleed Vision disorder Surgical History Anesthesia H/O circumcision H/O lithotripsy H/O vasectomy History of appendectomy Hx of coronary angioplasty Hx of heart artery stent S/P CABG x 3 (1991) Family History Father History of heart disease Aneurysm Mother History of heart disease Hypertension Heart failure Brother Leukemia Social History household members: spouse Smoking Status: Former smoker alcohol intake: current substance use type: does not use Smoking Status: Former smoker alcohol intake frequency: holidays/special occasions only Substance Use Type: does not use Exam Narrative Exam Narrative: GEN: well nourished, well appearing male, alert and oriented x 3, patient appears to be in mild distress. HEENT: Atraumatic, pupils show anisocoria bilaterally (patient states is his usual), patient states is his normal, they are round reactive to light, extraocular movements are intact, nares are clear, TMs are clear with no fluid, there is no conjunctival pallor. Throat is clear without any exudates, erythema, tonsillar enlargement or uvular deviation HEART: Regular rate and rhythm without murmur, clicks, rubs. Pulses are equal in upper and lower extremities LUNGS:Lungs clear to auscultation, no wheezes, rales, crackles, chest moves symmetrically, patient has mild dry cough. No tachypnea. ABD:bowel sounds normal, soft, non-tender, no guarding, rebound, rigidity, no masses noted, no hepatosplenomegaly :No CVA tenderness, patient has healing incision right flank which is clean, dry and intact and nontender. There is no erythema or drainage. MSCL: Non-tender, no muscle atrophy, muscles strength 5/5 upper and lower extremities, full range of motion, normal gait NEURO:CN 2-12 intact, sensation normal SKIN: No rash, erythema or other skin changes. Initial Vital Signs Initial Vital Signs: Vital Signs Temperature 103.2 F H 01/11/22 17:55 Pulse Rate 99 H 01/11/22 17:55 Respiratory Rate 30 H 01/11/22 17:55 Blood Pressure 148/68 H 01/11/22 17:55 Pulse Oximetry 94 01/11/22 17:55 Oxygen Delivery Method 01/11/22 17:55 Scores CURB-65 Respiratory rate greater or equal to 30: No SBP <90mmHg or DBP less or equal to 60mmHg: No Age 65 or Older: Yes Score 0-1 Outpatient care, Score 2 Inpt vs. Obs, Score 3 or over Inpt admit with ICU for score of 4-5 GCS [place] coma scale eye opening: Spontaneous [place] coma scale verbal response: Orientated [place] coma scale motor response: Obey commands Reggie coma scale total score: 15 Course Orders Ordered: ED Orders 01/11/22 20:47 Trop I [Troponin I] Stat Hydrocodone Bitart/Acetaminophen (Hydrocodone/Acet 5/325 Tablet) 1 tab PO Q4H PRN PRN Reason: Pain, Moderate (4-6) Atorvastatin Calcium (Atorvastatin 20 Mg Tablet) 10 mg PO BEDTIME KELLE Carvedilol (Carvedilol 12.5 Mg Tablet) 25 mg PO BID [facility] Dexamethasone (Dexamethasone 10 Mg/Ml Vial) 6 mg IV DAILY [facility] Last Admin: 01/11/22 23:37 Dose: 6 mg Documented By: Enoxaparin Sodium (Enoxaparin 150 Mg/Ml Syringe) 40 mg SUBCUT DAILY [facility] Remdesivir 100 mg/ Sodium (Chloride) 250 mls @ 250 mls/hr IV Q24H KELLE Stop: 01/15/22 21:59 Ceftriaxone Sodium 1,000 mg/ (Sodium Chloride) 100 mls @ 200 mls/hr IV Q24H KELLE Last Admin: 01/12/22 01:23 Dose: 200 mls/hr Documented By: DAT Losartan Potassium (Losartan 50 Mg Tablet) 100 mg PO DAILY [facility] Melatonin (Melatonin 3 Mg Tablet) 15 mg PO BEDTIME [facility] Naloxone HCl (Naloxone 0.4 Mg/Ml Vial) 0.2 mg IV Q2MIN PRN PRN Reason: Opiate Reversal Ondansetron HCl (Ondansetron 4 Mg/2 Ml Inj) 4 mg IV Q6HR PRN PRN Reason: Nausea And Vomiting Polyethylene Glycol (Polyethylene Glycol 3350 17 Gm Powd.Pack) 17 gm PO DAILY PRN PRN Reason: Constipation Sodium Chloride (Sodium Chloride 0.9% Flush) 10 ml IV PRN PRN PRN Reason: Flush Last Admin: 01/11/22 23:38 Dose: 10 ml Documented By: Sodium Chloride (Sodium Chloride 0.9% Flush) 10 ml IV BID [facility] Tamsulosin HCl (Tamsulosin 0.4 Mg Capsule) 0.8 mg PO BEDTIME [facility] Discontinued Medications Acetaminophen (Acetaminophen 325 Mg Tablet) 975 mg PO NOW ONE Stop: 01/11/22 18:16 Last Admin: 01/11/22 18:28 Dose: 975 mg Documented By: MINERVA Dexamethasone (Dexamethasone 10 Mg/Ml Vial) 6 mg IV DAILY [facility] Enoxaparin Sodium (Enoxaparin 150 Mg/Ml Syringe) 110 mg SUBCUT DAILY KELLE Sodium Chloride (Normal Saline 0.9%) 1,000 mls @ 1,000 mls/hr IV BOLUS ONE Stop: 01/11/22 18:58 Last Infusion: 01/11/22 19:32 Dose: 0 mls/hr Documented By: Admin: 01/11/22 18:15 Dose: 1,000 mls/hr Documented By: JEWELL Piperacillin Sod/Tazobactam (Sod 4.5 gm/ Sodium Chloride) 100 mls @ 200 mls/hr IV NOW ONE Stop: 01/11/22 20:04 Last Infusion: 01/11/22 21:28 Dose: 0 mls/hr Documented By: Admin: 01/11/22 20:18 Dose: 200 mls/hr Documented By: PHILLY Remdesivir 200 mg/ Sodium (Chloride) 250 mls @ 250 mls/hr IV NOW ONE Stop: 01/11/22 23:06 Last Infusion: 01/12/22 01:24 Dose: 0 mls/hr Documented By: Admin: 01/11/22 23:35 Dose: 250 mls/hr Documented By: Ondansetron HCl (Ondansetron 4 Mg/2 Ml Inj) 4 mg IV NOW ONE Stop: 01/11/22 18:16 Last Admin: 01/11/22 18:27 Dose: 4 mg Documented By: MINERVA Vital Signs Vital signs: Vital Signs - 8 hr 01/11/22 17:55 01/11/22 18:28 01/11/22 18:07 Temperature 103.2 F H 103 F H Pulse Rate 99 H 92 H Respiratory Rate 30 H 25 H Blood Pressure 148/68 H Pulse Oximetry 94 95 Oxygen Delivery Method Room Air Oxygen Flow Rate 01/11/22 18:08 01/11/22 18:08 01/11/22 18:10 Temperature Pulse Rate 92 H Respiratory Rate 25 H Blood Pressure 163/70 H 149/67 H Pulse Oximetry 96 Oxygen Delivery Method Oxygen Flow Rate 01/11/22 18:10 01/11/22 18:15 01/11/22 18:15 Temperature Pulse Rate 91 H 91 H Respiratory Rate 27 H 29 H Blood Pressure 148/68 H Pulse Oximetry 96 95 Oxygen Delivery Method Room Air Oxygen Flow Rate 01/11/22 18:20 01/11/22 18:20 01/11/22 18:25 Temperature Pulse Rate 91 H Respiratory Rate 32 H Blood Pressure 146/67 H 146/65 H Pulse Oximetry 96 Oxygen Delivery Method Oxygen Flow Rate 01/11/22 18:25 01/11/22 18:30 01/11/22 18:30 Temperature Pulse Rate 91 H 93 H Respiratory Rate 31 H 27 H Blood Pressure 153/67 H Pulse Oximetry 97 92 Oxygen Delivery Method Oxygen Flow Rate 01/11/22 18:35 01/11/22 18:40 01/11/22 18:45 Temperature Pulse Rate 91 H 92 H Respiratory Rate 27 H 24 Blood Pressure 140/58 L Pulse Oximetry 94 94 Oxygen Delivery Method Oxygen Flow Rate 01/11/22 18:45 01/11/22 18:50 01/11/22 18:55 Temperature Pulse Rate 92 H 92 H 92 H Respiratory Rate 24 24 24 Blood Pressure Pulse Oximetry 92 94 92 Oxygen Delivery Method Oxygen Flow Rate 01/11/22 19:12 01/11/22 19:23 01/11/22 19:25 Temperature 101.6 F H Pulse Rate 92 H 95 H Respiratory Rate 22 Blood Pressure 128/58 L Pulse Oximetry 95 Oxygen Delivery Method Oxygen Flow Rate 01/11/22 19:30 01/11/22 19:30 01/11/22 19:35 Temperature Pulse Rate 91 H 91 H Respiratory Rate 25 H 24 Blood Pressure 110/53 L Pulse Oximetry 90 L 91 Oxygen Delivery Method Oxygen Flow Rate 01/11/22 19:40 01/11/22 19:45 01/11/22 19:45 Temperature Pulse Rate 93 H 93 H Respiratory Rate 27 H 28 H Blood Pressure 116/58 L Pulse Oximetry 88 L 90 L Oxygen Delivery Method Oxygen Flow Rate 01/11/22 19:50 01/11/22 19:55 01/11/22 20:00 Temperature Pulse Rate 93 H 91 H Respiratory Rate 29 H 24 Blood Pressure 116/58 L Pulse Oximetry 88 L 92 Oxygen Delivery Method Room Air Nasal Cannula Oxygen Flow Rate 2 01/11/22 20:00 01/11/22 20:05 01/11/22 20:10 Temperature Pulse Rate 91 H 88 90 Respiratory Rate 24 Blood Pressure Pulse Oximetry 94 92 92 Oxygen Delivery Method Oxygen Flow Rate 01/11/22 20:15 01/11/22 20:15 01/11/22 20:20 Temperature Pulse Rate 90 90 Respiratory Rate 23 27 H Blood Pressure 122/60 Pulse Oximetry 94 93 Oxygen Delivery Method Oxygen Flow Rate 01/11/22 20:25 01/11/22 20:30 01/11/22 20:30 Temperature Pulse Rate 89 93 H Respiratory Rate 32 H 22 Blood Pressure 127/59 L Pulse Oximetry 93 93 Oxygen Delivery Method Oxygen Flow Rate 01/11/22 20:35 01/11/22 20:40 01/11/22 20:45 Temperature 99.8 F H Pulse Rate 91 H 91 H 93 H Respiratory Rate 24 21 23 Blood Pressure Pulse Oximetry 95 94 94 Oxygen Delivery Method Nasal Cannula Oxygen Flow Rate 2 01/11/22 20:46 01/11/22 20:46 01/11/22 20:50 Temperature Pulse Rate 91 H 91 H Respiratory Rate 21 28 H Blood Pressure 106/51 L Pulse Oximetry 95 94 Oxygen Delivery Method Oxygen Flow Rate 01/11/22 20:55 01/11/22 21:00 01/11/22 21:01 Temperature Pulse Rate 87 83 84 Respiratory Rate 22 24 28 H Blood Pressure Pulse Oximetry 95 92 92 Oxygen Delivery Method Nasal Cannula Oxygen Flow Rate 2 01/11/22 21:01 Temperature Pulse Rate Respiratory Rate Blood Pressure 113/55 L Pulse Oximetry Oxygen Delivery Method Oxygen Flow Rate Sepsis Evaluation (ED) Level 1 - Infection Sepsis Infection Criteria Present: Suspected New Infection Level 2 - SIRS Sepsis SIRS Criteria Present: Temperature > 101.0 or < 96.8 F Response It is my opinion that his patient have a likely infectious etiology for meeting sepsis criteria: Does Fluid calculation based on 30 mL/kg within 1hr of criteria: ABW used (30cc/kg bolus not given 2nd to CHF) Antibiotics initiated within 1 hr of Sepis dx: Yes Tissue Perfusion Reassessed within 6 hrs of infusion start time: Yes Date of Tissue Perfusion Reassessment completed: 01/12/22 Time Tissue Perfusion Reassessment completed: 22:00 MDM - Sepsis Lab Data Result diagrams: 01/12/22 03:13 01/12/22 03:13 Labs: Lab Results 01/11/22 01/11/22 01/11/22 Range/Units 18:00 18:00 18:00 WBC 9.1 (4.5-11.0) X10^3/uL RBC 4.47 L (4.5-5.9) X10^6/uL Hgb 12.8 L (13.5-17.5) g/dL Hct 38.5 L (41-53) % MCV 86.1 (80-100) fL MCH 28.7 (26-34) PG MCHC 33.4 (30-36) % RDW 14.9 H (11.6-14.8) % Plt Count 141 L (150-400) X10^3/uL Neut % (Auto) 87.7 H (50-75) % Lymph % (Auto) 5.3 L (25-40) % Esmeralda % (Auto) 5.7 (3-14) % Eos % (Auto) 0.7 L (2-4) % Baso % (Auto) 0.6 (0-2) % Neut # (Auto) 8000 H (2475-4785) /uL Lymph # (Auto) 500 L (4509-0213) /uL Esmeralda # (Auto) 500 (0-900) /uL Eos # (Auto) 100 (0-450) /uL Baso # (Auto) 100 (0-100) /uL PT (10.1-12.7) SECONDS INR (0.9-1.3) APTT (26-36) SECONDS Sodium 137 (137-145) mmol/L Potassium 4.0 (3.4-5.1) mmol/L Chloride 101 (98-107) mmol/L Carbon Dioxide 26 (22-32) mmol/L BUN 24 H (9-20) mg/dL Creatinine 1.41 H (0.66-1.25) mg/dL Estimated GFR 53 L (>60) mL/min BUN/Creatinine Ratio 17.0 (6-22) Glucose 106 (80-110) mg/dL Lactate 1.3 (0.7-2.1) mmol/L Calcium 9.2 (8.4-10.2) mg/dL Magnesium (1.6-2.3) mg/dL Total Bilirubin 0.5 (0.2-1.3) mg/dL AST 18 (17-59) IU/L ALT 17 (<50) IU/L Alkaline Phosphatase 77 (38-126) U/L Total Creatine Kinase (55-170) U/L CK-MB (CK-2) CK-MB (CK-2) Rel Index Troponin I (0.01-0.034) ng/mL NT-Pro-B Natriuret Pep (<125) pg/mL Total Protein 7.7 (6.3-8.2) g/dL Albumin 4.2 (3.5-5.0) g/dL Globulin 3.5 (1.7-4.1) g/dL Albumin/Globulin Ratio 1.2 (1.0-2.8) Lipase 85 (23-300) U/L Procalcitonin 0.17 (<0.5) ng/mL TSH (0.47-4.68) uIU/mL Urine Color Urine Appearance Urine pH (4.5-8.0) Ur Specific [place] (1.000-1.035) Urine Protein (Negative) Urine Glucose (UA) (Negative) g/dL Urine Ketones (NEGATIVE) Urine Occult Blood (Negative) Urine Nitrate (Negative) Urine Bilirubin (NEGATIVE) Urine Urobilinogen (0.2) E.U./dL Ur Leukocyte Esterase (NEGATIVE) Urine RBC (0-5/HPF) Urine WBC (0-5/HPF) Ur Renal Epithelial Cell (0-1/HPF) Amorphous Sediment Urine Bacteria (None) Ur Culture Indicated? SARS-CoV-2 (PCR) (Negative) Influenza A (RT-PCR) (NEGATIVE) Influenza B (RT-PCR) (NEGATIVE) RSV (PCR) (Negative) 01/11/22 01/11/22 01/11/22 Range/Units 18:00 18:00 18:00 WBC (4.5-11.0) X10^3/uL RBC (4.5-5.9) X10^6/uL Hgb (13.5-17.5) g/dL Hct (41-53) % MCV (80-100) fL MCH (26-34) PG MCHC (30-36) % RDW (11.6-14.8) % Plt Count (150-400) X10^3/uL Neut % (Auto) (50-75) % Lymph % (Auto) (25-40) % Esmeralda % (Auto) (3-14) % Eos % (Auto) (2-4) % Baso % (Auto) (0-2) % Neut # (Auto) (1570-7886) /uL Lymph # (Auto) (3686-6036) /uL Esmeralda # (Auto) (0-900) /uL Eos # (Auto) (0-450) /uL Baso # (Auto) (0-100) /uL PT (10.1-12.7) SECONDS INR (0.9-1.3) APTT (26-36) SECONDS Sodium (137-145) mmol/L Potassium (3.4-5.1) mmol/L Chloride (98-107) mmol/L Carbon Dioxide (22-32) mmol/L BUN (9-20) mg/dL Creatinine (0.66-1.25) mg/dL Estimated GFR (>60) mL/min BUN/Creatinine Ratio (6-22) Glucose (80-110) mg/dL Lactate (0.7-2.1) mmol/L Calcium (8.4-10.2) mg/dL Magnesium (1.6-2.3) mg/dL Total Bilirubin (0.2-1.3) mg/dL AST (17-59) IU/L ALT (<50) IU/L Alkaline Phosphatase (38-126) U/L Total Creatine Kinase 37 L (55-170) U/L CK-MB (CK-2) TNP CK-MB (CK-2) Rel Index TNP Troponin I 0.071 H (0.01-0.034) ng/mL NT-Pro-B Natriuret Pep 2760 H (<125) pg/mL Total Protein (6.3-8.2) g/dL Albumin (3.5-5.0) g/dL Globulin (1.7-4.1) g/dL Albumin/Globulin Ratio (1.0-2.8) Lipase (23-300) U/L Procalcitonin (<0.5) ng/mL TSH (0.47-4.68) uIU/mL Urine Color Urine Appearance Urine pH (4.5-8.0) Ur Specific [place] (1.000-1.035) Urine Protein (Negative) Urine Glucose (UA) (Negative) g/dL Urine Ketones (NEGATIVE) Urine Occult Blood (Negative) Urine Nitrate (Negative) Urine Bilirubin (NEGATIVE) Urine Urobilinogen (0.2) E.U./dL Ur Leukocyte Esterase (NEGATIVE) Urine RBC (0-5/HPF) Urine WBC (0-5/HPF) Ur Renal Epithelial Cell (0-1/HPF) Amorphous Sediment Urine Bacteria (None) Ur Culture Indicated? SARS-CoV-2 (PCR) Positive H (Negative) Influenza A (RT-PCR) Flu a negative (NEGATIVE) Influenza B (RT-PCR) Flu b negative (NEGATIVE) RSV (PCR) Negative (Negative) 01/11/22 01/11/22 01/11/22 Range/Units 18:00 18:00 18:04 WBC (4.5-11.0) X10^3/uL RBC (4.5-5.9) X10^6/uL Hgb (13.5-17.5) g/dL Hct (41-53) % MCV (80-100) fL MCH (26-34) PG MCHC (30-36) % RDW (11.6-14.8) % Plt Count (150-400) X10^3/uL Neut % (Auto) (50-75) % Lymph % (Auto) (25-40) % Esmeralda % (Auto) (3-14) % Eos % (Auto) (2-4) % Baso % (Auto) (0-2) % Neut # (Auto) (0540-0468) /uL Lymph # (Auto) (1300-5851) /uL Esmeralda # (Auto) (0-900) /uL Eos # (Auto) (0-450) /uL Baso # (Auto) (0-100) /uL PT 14.1 H (10.1-12.7) SECONDS INR 1.2 (0.9-1.3) APTT (26-36) SECONDS Sodium (137-145) mmol/L Potassium (3.4-5.1) mmol/L Chloride (98-107) mmol/L Carbon Dioxide (22-32) mmol/L BUN (9-20) mg/dL Creatinine (0.66-1.25) mg/dL Estimated GFR (>60) mL/min BUN/Creatinine Ratio (6-22) Glucose (80-110) mg/dL Lactate (0.7-2.1) mmol/L Calcium (8.4-10.2) mg/dL Magnesium 1.8 (1.6-2.3) mg/dL Total Bilirubin (0.2-1.3) mg/dL AST (17-59) IU/L ALT (<50) IU/L Alkaline Phosphatase (38-126) U/L Total Creatine Kinase (55-170) U/L CK-MB (CK-2) CK-MB (CK-2) Rel Index Troponin I (0.01-0.034) ng/mL NT-Pro-B Natriuret Pep (<125) pg/mL Total Protein (6.3-8.2) g/dL Albumin (3.5-5.0) g/dL Globulin (1.7-4.1) g/dL Albumin/Globulin Ratio (1.0-2.8) Lipase (23-300) U/L Procalcitonin (<0.5) ng/mL TSH 0.432 L (0.47-4.68) uIU/mL Urine Color Urine Appearance Urine pH (4.5-8.0) Ur Specific [place] (1.000-1.035) Urine Protein (Negative) Urine Glucose (UA) (Negative) g/dL Urine Ketones (NEGATIVE) Urine Occult Blood (Negative) Urine Nitrate (Negative) Urine Bilirubin (NEGATIVE) Urine Urobilinogen (0.2) E.U./dL Ur Leukocyte Esterase (NEGATIVE) Urine RBC (0-5/HPF) Urine WBC (0-5/HPF) Ur Renal Epithelial Cell (0-1/HPF) Amorphous Sediment Urine Bacteria (None) Ur Culture Indicated? SARS-CoV-2 (PCR) (Negative) Influenza A (RT-PCR) (NEGATIVE) Influenza B (RT-PCR) (NEGATIVE) RSV (PCR) (Negative) 01/11/22 01/11/22 01/11/22 Range/Units 18:04 19:25 20:47 WBC (4.5-11.0) X10^3/uL RBC (4.5-5.9) X10^6/uL Hgb (13.5-17.5) g/dL Hct (41-53) % MCV (80-100) fL MCH (26-34) PG MCHC (30-36) % RDW (11.6-14.8) % Plt Count (150-400) X10^3/uL Neut % (Auto) (50-75) % Lymph % (Auto) (25-40) % Esmeralda % (Auto) (3-14) % Eos % (Auto) (2-4) % Baso % (Auto) (0-2) % Neut # (Auto) (0866-2007) /uL Lymph # (Auto) (4164-8444) /uL Esmeralda # (Auto) (0-900) /uL Eos # (Auto) (0-450) /uL Baso # (Auto) (0-100) /uL PT (10.1-12.7) SECONDS INR (0.9-1.3) APTT 31 (26-36) SECONDS Sodium (137-145) mmol/L Potassium (3.4-5.1) mmol/L Chloride (98-107) mmol/L Carbon Dioxide (22-32) mmol/L BUN (9-20) mg/dL Creatinine (0.66-1.25) mg/dL Estimated GFR (>60) mL/min BUN/Creatinine Ratio (6-22) Glucose (80-110) mg/dL Lactate (0.7-2.1) mmol/L Calcium (8.4-10.2) mg/dL Magnesium (1.6-2.3) mg/dL Total Bilirubin (0.2-1.3) mg/dL AST (17-59) IU/L ALT (<50) IU/L Alkaline Phosphatase (38-126) U/L Total Creatine Kinase (55-170) U/L CK-MB (CK-2) CK-MB (CK-2) Rel Index Troponin I 0.082 H (0.01-0.034) ng/mL NT-Pro-B Natriuret Pep (<125) pg/mL Total Protein (6.3-8.2) g/dL Albumin (3.5-5.0) g/dL Globulin (1.7-4.1) g/dL Albumin/Globulin Ratio (1.0-2.8) Lipase (23-300) U/L Procalcitonin (<0.5) ng/mL TSH (0.47-4.68) uIU/mL Urine Color Yellow Urine Appearance Clear Urine pH 5.0 (4.5-8.0) Ur Specific [place] 1.015 (1.000-1.035) Urine Protein Trace H (Negative) Urine Glucose (UA) Negative (Negative) g/dL Urine Ketones Negative (NEGATIVE) Urine Occult Blood 3+ H (Negative) Urine Nitrate Negative (Negative) Urine Bilirubin Negative (NEGATIVE) Urine Urobilinogen 0.2 (0.2) E.U./dL Ur Leukocyte Esterase Negative (NEGATIVE) Urine RBC 10-30/hpf H (0-5/HPF) Urine WBC 0-1/hpf (0-5/HPF) Ur Renal Epithelial Cell 0-1/hpf (0-1/HPF) Amorphous Sediment 1+ Urine Bacteria Occasional (0-1) (None) Ur Culture Indicated? Cult not indicated SARS-CoV-2 (PCR) (Negative) Influenza A (RT-PCR) (NEGATIVE) Influenza B (RT-PCR) (NEGATIVE) RSV (PCR) (Negative) Imaging Data Chest x-ray: Radiologist's Impression: [address] [address] XRay Report Signed Patient: Rc Bray MR#: [id number] : 1950 Acct:[id number] Age/Sex: 71 / M Date of Service: 01/11/22 Loc: ED Accession Number: [id number] ?? Procedure: XR chest 1V Ordering Provider: Joi Goodwin D.O. PROCEDURE:? XR CHEST 1V ? INDICATIONS:? suspected sepsis ? TECHNIQUE:? One view of the chest was acquired.? ? COMPARISON:? [facility], CT, CT ANGIO CHEST PE PROTOCOL, 12/16/2021, 2:05.? [facility], CR, XR CHEST 2V, 12/16/2021, 0:56. ? FINDINGS:? ? Surgical changes and devices:? Sternotomy wires and mediastinal clips are again seen. ? Lungs and pleura:? On this semiupright portable chest examination, no large pneumothorax or large pleural effusions are seen.? No focal infiltrates are seen.? Low lung volumes are noted. This causes a crowded appearance to the lung markings and limits evaluation.? ? Mediastinum:? The cardiac contours are within normal limits. The aorta demonstrates calcification and tortuosity. ? Bones and chest wall:? Age-appropriate bony degenerative changes are seen.? No suspicious bony lesions.? Overlying soft tissues appear unremarkable.? IMPRESSION:? ? Limited portable chest examination, without a significant cardiopulmonary abnormality identified.? ? ? Dictated by: Remberto García M.D. on 01/11/2022 at 18:08 ? ? Approved by: Remberto García M.D. on 01/11/2022 at 18:09?? ECG Data Attestation: I personally reviewed and interpreted this ECG as follows: Prior ECG tracings: available for review Interpretation: Flutter, 41 av conduction, rate of 92 QRS of [address] QTC [address] No acute ST elevation, depression in 1, 2 and aVL, V4 through V6. Patient has prior EKGs from 12/16/2021 as well as 09/19/2016 which showed depression in same leads. Sinus rhythm first-degree AV block with a rate of 78 MN 1-58 QRS of 104 and QTC 440. Patient has frequent PVC occasionally almost a bigeminal pattern. MDM Narrative Medical decision making narrative: This is a 71-year-old male who presents with fever, tachycardia, tachypnea and meets sepsis criteria. Patient it is COVID positive, chest x-ray does not show significant change, CT PE does show quite a bit atelectasis versus infiltrate. He was covered with IV antibiotics, patient has no major electrolyte abnormalities, BUN 21 creatinine 1.3 which appears close to his baseline, troponin was indeterminate, has been indeterminate in the past on prior visit with a slight upward trend but no positive on repeated [address] changes appreciated. Patient does require 2 L O2, patient is not having significant work of breathing and O2 improves with 2 L not requiring high-flow a t this time but was requested by hospitalist be evaluated for this with the respiratory therapist. They do not feel patient requires high-flow O2 currently. Patient did not receive a 30 cc/kilos bolus secondary to CHF 3, no hypotension and felt would actually worsen patient's outcome if given a large fluid bolus. Patient accepted by hospitalist for admission. Discharge Plan Departure Patient Disposition: Admitted As Inpatient Clinical Impression: COVID-19 virus infection, Hypoxia Admit Date/Time: 01/11/22 21:02 Admit Provider: Kiana Dc
[2022-01-11 18:22] LABS: Add Manual Diff / Slide Review NO; Basophils Absolute Auto 100 /uL (0-100); Basophils Percent Auto 0.6 % (0-2); Eosinophils Absolute Auto 100 /uL (0-450); Eosinophils Percent Auto 0.7 % (2-4); Hematocrit 38.5 % (41-53); Hemoglobin 12.8 g/dL (13.5-17.5); Lymphocytes Absolute Auto 500 /uL (1100-4500); Lymphocytes Percent Auto 5.3 % (25-40); Mean Corpuscular HGB Conc 33.4 % (30-36); Mean Corpuscular Hemoglobin 28.7 PG (26-34); Mean Corpuscular Volume 86.1 fL (80-100); Monocytes Absolute Auto 500 /uL (0-900); Monocytes Percent Auto 5.7 % (3-14); Neutrophils Absolute Auto 8000 /uL (1500-7000); Neutrophils Percent Auto 87.7 % (50-75); Platelet Count 141 X10^3/uL (150-400); Red Blood Cell Count 4.47 X10^6/uL (4.5-5.9); Red Cell Distribution Width 14.9 % (11.6-14.8); White Blood Cell Count 9.1 X10^3/uL (4.5-11.0)
[2022-01-11] MEDS: ONDANSETRON 4 MG/2 ML INJ IV (18:27)
[2022-01-11] MEDS: ACETAMINOPHEN 325 MG TABLET 975 MG PO (18:28)
[2022-01-11 18:37] LABS: Alanine Aminotransferase 17 IU/L (<50); Albumin 4.2 g/dL (3.5-5.0); Albumin Globulin Ratio 1.2 (1.0-2.8); Alkaline Phosphatase 77 U/L (38-126); Aspartate Aminotransferase 18 IU/L (17-59); Bilirubin Total 0.5 mg/dL (0.2-1.3); Blood Urea Nitrogen 24 mg/dL (9-20); Calcium 9.2 mg/dL (8.4-10.2); Carbon Dioxide 26 mmol/L (22-32); Chloride 101 mmol/L (98-107); Estimated Glomerular Filt Rate 53 mL/min (>60); Globulin 3.5 g/dL (1.7-4.1); Glucose 106 mg/dL (80-110); HEMOLYSIS < 15 (0-50); Lactate (Lactic Acid) 1.3 mmol/L (0.7-2.1); Lipase 85 U/L (23-300); Sodium 137 mmol/L (137-145); Total Protein 7.7 g/dL (6.3-8.2)
[2022-01-11 18:38] LABS: INR 1.2 (0.9-1.3); Prothrombin Time 14.1 SECONDS (10.1-12.7)
[2022-01-11 18:52] LABS: PTT Partial Thromboplastin Tim 31 SECONDS (26-36)
[2022-01-11 18:53] LABS: Procalcitonin 0.17 ng/mL (<0.5)
[2022-01-11 19:31] LABS: NT-proBNP (BNP-Adult 18+) 2760 pg/mL (<125)
[2022-01-11 19:36] LABS: Appearance Urine UA CLEAR; Bilirubin Urine UA NEGATIVE (NEGATIVE); Color Urine UA YELLOW; Glucose Urine UA NEGATIVE (Negative); Ketones Urine UA NEGATIVE (NEGATIVE); Leukocyte Esterase Urine UA NEGATIVE (NEGATIVE); Nitrite Urine UA NEGATIVE (Negative); Occult Blood Urine UA 3+ (Negative); Protein Urine UA TRACE (Negative); Specific Gravity Urine UA 1.015 (1.000-1.035); Urobilinogen Urine UA 0.2 E.U./dL (0.2)
[2022-01-11 19:46] LABS: Influenza A - CEPHEID Flu A NEGATIVE (NEGATIVE); Influenza B - CEPHEID Flu B NEGATIVE (NEGATIVE); Respiratory Syncytial Virus Negative (Negative)
[2022-01-11 19:52] LABS: RBC Urine 10-30/HPF (0-5/HPF); Renal Epithelial Cells Urine 0-1/HPF (0-1/HPF); WBC Urine 0-1/HPF (0-5/HPF)
[2022-01-11 19:53] LABS: Amorphous Sediment Urine 1+; Bacteria Urine Occasional (0-1); Culture Indicated Urine Cult Not Indicated
[2022-01-11 20:07] LABS: Creatine Kinase 37 U/L (55-170)
[2022-01-11 20:11] LABS: COVID-19 CEPHEID 4-PLEX PCR POSITIVE (Negative)
[2022-01-11] MEDS: PIPERACILLIN/TAZO 4.5 GM in SODIUM CHLORIDE 0.9% 100 ML IV (20:18)
[2022-01-11 20:20] LABS: Troponin I 0.071 ng/mL (0.01-0.034)
[2022-01-11 21:13] LABS: Troponin I 0.082 ng/mL (0.01-0.034)
--- NOTE | 2022-01-11 21:29 | PC.NURSE ---
Pt assessed for high flow oxygen. Per RT not necessary at this time. Noted to now be in bigeminy, RT in room for EKG. Provider notified of cardiac rhythm. Pt denies chest pain.
[2022-01-11 23:06] LABS: Thyroid Stimulating Hormone 0.432 uIU/mL (0.47-4.68)
[2022-01-11 23:07] LABS: Magnesium 1.8 mg/dL (1.6-2.3)
--- NOTE | 2022-01-11 23:12 | P.HP_ITS ---
History of Present Illness History of Present Illness Date Patient Seen: 01/11/22 Time Patient Seen: 23:12 Chief complaint: Fever, cough found to be COVID positive Narrative: Rc is a pleasant 71 y.o. male with a history of cardiac stants, CABG, hypertension, dyslipidemia, CKD, and recent percutaneous lithotripsy done at the [facility] on December 26 presented with complaints of fever and mildly productive cough, he is unable to tell me the color of his sputum because he states he swallowed it. He did endorse having some nausea. He denies s hortness of breath chest pain, vomiting, constipation or diarrhea. Patient is fully vaccinated and boostered with the exception of the last omicron variant booster. He was concerned because this is the 2nd time he is ever had pneumonia. Patient was administered IV Zosyn 4.5 g in the ED. Chest x-ray was unremarkable, CT of the abdomen and pelvis noted staghorn kidney stones seen on priors, and l ikely dependent bilateral atelectasis seen at the lung bases. His T-max was 103.2?, current temperature is 99.1? blood pressure 122/58, heart rate 80, respiratory rate 20, oxygen saturation of 94% on 3 L he weighs 109 kg with a BMI of 30.8. He is mildly anemic with a H&H of 12.8 and 30.5 respectively, his platelet count is 141 does have a mild elevation in neutrophils of 8000 he is lymphopenic his creatinine is 1.41 with an EGFR of 53 BUN 24 total creatinine kinase is 37 units, 2nd troponin 0.082 which is increased over the 1st and the 3rd is pending at 3:00 a.m., proBNP is 27 60 and TSH is low at 0.432,. UA is clear with some occult blood and RBCs but no nitrites, bacteria or leukocytes COVID 19 PCR is positive FH: Reviewed with the patient and updated as below. Patient History Medical History Anemia Angina pectoris Arthritis Atrial fibrillation Bilateral nephrolithiasis BPH (benign prostatic hyperplasia) BPH w urinary obs/LUTS CAD (coronary artery disease) Cardiomyopathy Cataracts, bilateral Chicken pox Chronic kidney disease Detached retina, right (~1983) Diabetes Duodenal ulcer hemorrhage Hearing loss (~2012) HLD (hyperlipidemia) Hx of nephrolithotomy with removal of calculi (2008) Hyperaldosteronism Hypertension Measles Mumps Myocardial infarction (~2017) Nephrolithiasis ANA (obstructive sleep apnea) Osteoarthritis Partial blindness (~1949) Peptic ulcer disease (~2016) Peripheral neuropathy Right renal mass Sleep apnea Staph infection (1979) Tinnitus Upper GI bleed Vision disorder Surgical History Anesthesia H/O circumcision H/O lithotripsy H/O vasectomy History of appendectomy Hx of coronary angioplasty Hx of heart artery stent S/P CABG x 3 (1991) Family & Social History Family History Father History of heart disease Aneurysm Mother History of heart disease Hypertension Heart failure Brother Leukemia Social History: household members spouse Prior Living Arrangements House Safety & Behavioral: Feels Safe in Current Yes Environment Been Physically Hurt or No Threatened By a Person Tobacco & Substance use: Tobacco type cigarettes Smoking Status Former smoker alcohol intake current alcohol intake frequency holiday/special occasion Substance Use Type does not use Comment: 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 Meds Home Medications and Allergies Home Medications Medication Instructions Recorded Confirmed Type cholecalciferol (vitamin D3) 125 125 mcg PO DAILY 06/11/19 12/16/21 History mcg (5,000 unit) capsule losartan 100 mg tablet 100 mg PO DAILY 06/11/19 12/16/21 History vitamin k2 480 mg PO DAILY 06/11/19 12/16/21 History finasteride 5 mg tablet 5 mg PO DAILY #90 tabs 03/28/21 12/16/21 Rx tamsulosin 0.4 mg capsule 0.8 mg PO BEDTIME #28 caps 10/15/21 12/16/21 Rx amoxicillin 875 mg-potassium 1 tab PO Q12H #10 tabs 12/16/21 Rx clavulanate 125 mg tablet carvedilol 25 mg tablet 25 mg BID 12/16/21 12/16/21 History doxycycline hyclate 100 mg tablet 100 mg PO BID #10 tabs 12/16/21 Rx magnesium citrate 417 mg DAILY 12/16/21 12/16/21 History melatonin 15 mg BEDTIME 12/16/21 12/16/21 History nitroglycerin 0.4 mg/hr 1 patch DAILY 12/16/21 12/16/21 History transdermal 24 hour patch ondansetron 4 mg disintegrating 4 mg PO TID-QID PRN nausea and 12/16/21 Rx tablet vomiting #20 tabs rosuvastatin 5 mg BEDTIME 12/16/21 12/16/21 History spironolactone 25 mg tablet 75 mg DAILY 12/16/21 12/16/21 History Allergies Allergy/AdvReac Type Severity Reaction Status Date / Time No Known Drug Allergies Allergy Verified 12/30/21 00:57 Review of Systems Review of Systems ROS: Yes All systems reviewed with the patient and are negative except as otherwise documented Exam Vital Signs (past 8 hours): - 01/11/22 17:55 01/11/22 18:28 01/11/22 18:07 Temperature 103.2 F H 103 F H Pulse Rate 99 H 92 H Respiratory Rate 30 H 25 H Blood Pressure 148/68 H Pulse Oximetry 94 95 Oxygen Delivery Method Room Air Oxygen Flow Rate 01/11/22 18:08 01/11/22 18:08 01/11/22 18:10 Temperature Pulse Rate 92 H Respiratory Rate 25 H Blood Pressure 163/70 H 149/67 H Pulse Oximetry 96 Oxygen Delivery Method Oxygen Flow Rate 01/11/22 18:10 01/11/22 18:15 01/11/22 18:15 Temperature Pulse Rate 91 H 91 H Respiratory Rate 27 H 29 H Blood Pressure 148/68 H Pulse Oximetry 96 95 Oxygen Delivery Method Room Air Oxygen Flow Rate 01/11/22 18:20 01/11/22 18:20 01/11/22 18:25 Temperature Pulse Rate 91 H Respiratory Rate 32 H Blood Pressure 146/67 H 146/65 H Pulse Oximetry 96 Oxygen Delivery Method Oxygen Flow Rate 01/11/22 18:25 01/11/22 18:30 01/11/22 18:30 Temperature Pulse Rate 91 H 93 H Respiratory Rate 31 H 27 H Blood Pressure 153/67 H Pulse Oximetry 97 92 Oxygen Delivery Method Oxygen Flow Rate 01/11/22 18:35 01/11/22 18:40 01/11/22 18:45 Temperature Pulse Rate 91 H 92 H Respiratory Rate 27 H 24 Blood Pressure 140/58 L Pulse Oximetry 94 94 Oxygen Delivery Method Oxygen Flow Rate 01/11/22 18:45 01/11/22 18:50 01/11/22 18:55 Temperature Pulse Rate 92 H 92 H 92 H Respiratory Rate 24 24 24 Blood Pressure Pulse Oximetry 92 94 92 Oxygen Delivery Method Oxygen Flow Rate 01/11/22 19:12 01/11/22 19:23 01/11/22 19:25 Temperature 101.6 F H Pulse Rate 92 H 95 H Respiratory Rate 22 Blood Pressure 128/58 L Pulse Oximetry 95 Oxygen Delivery Method Oxygen Flow Rate 01/11/22 19:30 01/11/22 19:30 01/11/22 19:35 Temperature Pulse Rate 91 H 91 H Respiratory Rate 25 H 24 Blood Pressure 110/53 L Pulse Oximetry 90 L 91 Oxygen Delivery Method Oxygen Flow Rate 01/11/22 19:40 01/11/22 19:45 01/11/22 19:45 Temperature Pulse Rate 93 H 93 H Respiratory Rate 27 H 28 H Blood Pressure 116/58 L Pulse Oximetry 88 L 90 L Oxygen Delivery Method Oxygen Flow Rate 01/11/22 19:50 01/11/22 19:55 01/11/22 20:00 Temperature Pulse Rate 93 H 91 H Respiratory Rate 29 H 24 Blood Pressure 116/58 L Pulse Oximetry 88 L 92 Oxygen Delivery Method Room Air Nasal Cannula Oxygen Flow Rate 2 01/11/22 20:00 01/11/22 20:05 01/11/22 20:10 Temperature Pulse Rate 91 H 88 90 Respiratory Rate 24 Blood Pressure Pulse Oximetry 94 92 92 Oxygen Delivery Method Oxygen Flow Rate 01/11/22 20:15 01/11/22 20:15 01/11/22 20:20 Temperature Pulse Rate 90 90 Respiratory Rate 23 27 H Blood Pressure 122/60 Pulse Oximetry 94 93 Oxygen Delivery Method Oxygen Flow Rate 01/11/22 20:25 01/11/22 20:30 01/11/22 20:30 Temperature Pulse Rate 89 93 H Respiratory Rate 32 H 22 Blood Pressure 127/59 L Pulse Oximetry 93 93 Oxygen Delivery Method Oxygen Flow Rate 01/11/22 20:35 01/11/22 20:40 01/11/22 20:45 Temperature 99.8 F H Pulse Rate 91 H 91 H 93 H Respiratory Rate 24 21 23 Blood Pressure Pulse Oximetry 95 94 94 Oxygen Delivery Method Nasal Cannula Oxygen Flow Rate 2 01/11/22 20:46 01/11/22 20:46 01/11/22 20:50 Temperature Pulse Rate 91 H 91 H Respiratory Rate 21 28 H Blood Pressure 106/51 L Pulse Oximetry 95 94 Oxygen Delivery Method Oxygen Flow Rate 01/11/22 20:55 01/11/22 21:00 01/11/22 21:01 Temperature Pulse Rate 87 83 84 Respiratory Rate 22 24 28 H Blood Pressure Pulse Oximetry 95 92 92 Oxygen Delivery Method Nasal Cannula Oxygen Flow Rate 2 01/11/22 21:01 01/11/22 21:05 01/11/22 21:10 Temperature Pulse Rate 83 79 Respiratory Rate 24 23 Blood Pressure 113/55 L Pulse Oximetry 91 92 Oxygen Delivery Method Oxygen Flow Rate 01/11/22 21:15 01/11/22 21:15 01/11/22 21:20 Temperature Pulse Rate 79 82 Respiratory Rate 25 H 26 H Blood Pressure 107/53 L Pulse Oximetry 93 95 Oxygen Delivery Method Oxygen Flow Rate 01/11/22 21:25 01/11/22 21:30 01/11/22 21:30 Temperature Pulse Rate 82 78 Respiratory Rate 21 21 Blood Pressure 113/56 L Pulse Oximetry 95 94 Oxygen Delivery Method Nasal Cannula Oxygen Flow Rate 3 Oxygen Delivery Method Nasal Cannula Oxygen Flow Rate 3 Narrative Exam Narrative: Gen: Alert, oriented, well-developed 71 y.o. male, NAD HEENT: normocephalic, atraumatic, conjunctiva clear, sclera non-icteric, oral mucosa pink and moist Neck: supple, full ROM, no JVD, trachea is midline Resp: Lungs CTA, non-labored breathing CV: RRR, no murmur or rubs Abd: soft, non-tender, normoactive BTs Skin: no lesions or rashes, dry and intact Neuro: Alert and oriented X 4 w/no focal deficits. Speech clear and coherent. Extremities: moves all 4 extremities, is ambulatory, negative Matthew?s sign Psyche: normal mood and affect. Objective Labs Result Diagrams: 01/11/22 18:00 01/11/22 18:00 Labs: Laboratory Results - last 24 hr 01/11/22 01/11/22 01/11/22 18:00 18:00 18:00 WBC 9.1 RBC 4.47 L Hgb 12.8 L Hct 38.5 L MCV 86.1 MCH 28.7 MCHC 33.4 RDW 14.9 H Plt Count 141 L Neut % (Auto) 87.7 H Lymph % (Auto) 5.3 L [place] % (Auto) 5.7 Eos % (Auto) 0.7 L Baso % (Auto) 0.6 Neut # (Auto) 8000 H Lymph # (Auto) 500 L [place] # (Auto) 500 Eos # (Auto) 100 Baso # (Auto) 100 PT INR APTT Sodium 137 Potassium 4.0 Chloride 101 Carbon Dioxide 26 BUN 24 H Creatinine 1.41 H Estimated GFR 53 L BUN/Creatinine Ratio 17.0 Glucose 106 Lactate 1.3 Calcium 9.2 Magnesium Total Bilirubin 0.5 AST 18 ALT 17 Alkaline Phosphatase 77 Total Creatine Kinase CK-MB (CK-2) CK-MB (CK-2) Rel Index Troponin I NT-Pro-B Natriuret Pep Total Protein 7.7 Albumin 4.2 Globulin 3.5 Albumin/Globulin Ratio 1.2 Lipase 85 Procalcitonin 0.17 TSH Urine Color Urine Appearance Urine pH Ur Specific [place] Urine Protein Urine Glucose (UA) Urine Ketones Urine Occult Blood Urine Nitrate Urine Bilirubin Urine Urobilinogen Ur Leukocyte Esterase Urine RBC Urine WBC Ur Renal Epithelial Cell Amorphous Sediment Urine Bacteria Ur Culture Indicated? SARS-CoV-2 (PCR) Influenza A (RT-PCR) Influenza B (RT-PCR) RSV (PCR) 01/11/22 01/11/22 01/11/22 18:00 18:00 18:00 WBC RBC Hgb Hct MCV MCH MCHC RDW Plt Count Neut % (Auto) Lymph % (Auto) [place] % (Auto) Eos % (Auto) Baso % (Auto) Neut # (Auto) Lymph # (Auto) [place] # (Auto) Eos # (Auto) Baso # (Auto) PT INR APTT Sodium Potassium Chloride Carbon Dioxide BUN Creatinine Estimated GFR BUN/Creatinine Ratio Glucose Lactate Calcium Magnesium Total Bilirubin AST ALT Alkaline Phosphatase Total Creatine Kinase 37 L CK-MB (CK-2) TNP CK-MB (CK-2) Rel Index TNP Troponin I 0.071 H NT-Pro-B Natriuret Pep 2760 H Total Protein Albumin Globulin Albumin/Globulin Ratio Lipase Procalcitonin TSH Urine Color Urine Appearance Urine pH Ur Specific [place] Urine Protein Urine Glucose (UA) Urine Ketones Urine Occult Blood Urine Nitrate Urine Bilirubin Urine Urobilinogen Ur Leukocyte Esterase Urine RBC Urine WBC Ur Renal Epithelial Cell Amorphous Sediment Urine Bacteria Ur Culture Indicated? SARS-CoV-2 (PCR) Positive H Influenza A (RT-PCR) Flu a negative Influenza B (RT-PCR) Flu b negative RSV (PCR) Negative 01/11/22 01/11/22 01/11/22 18:00 18:00 18:04 WBC RBC Hgb Hct MCV MCH MCHC RDW Plt Count Neut % (Auto) Lymph % (Auto) [place] % (Auto) Eos % (Auto) Baso % (Auto) Neut # (Auto) Lymph # (Auto) [place] # (Auto) Eos # (Auto) Baso # (Auto) PT 14.1 H INR 1.2 APTT Sodium Potassium Chloride Carbon Dioxide BUN Creatinine Estimated GFR BUN/Creatinine Ratio Glucose Lactate Calcium Magnesium 1.8 Total Bilirubin AST ALT Alkaline Phosphatase Total Creatine Kinase CK-MB (CK-2) CK-MB (CK-2) Rel Index Troponin I NT-Pro-B Natriuret Pep Total Protein Albumin Globulin Albumin/Globulin Ratio Lipase Procalcitonin TSH 0.432 L Urine Color Urine Appearance Urine pH Ur Specific [place] Urine Protein Urine Glucose (UA) Urine Ketones Urine Occult Blood Urine Nitrate Urine Bilirubin Urine Urobilinogen Ur Leukocyte Esterase Urine RBC Urine WBC Ur Renal Epithelial Cell Amorphous Sediment Urine Bacteria Ur Culture Indicated? SARS-CoV-2 (PCR) Influenza A (RT-PCR) Influenza B (RT-PCR) RSV (PCR) 01/11/22 01/11/22 01/11/22 18:04 19:25 20:47 WBC RBC Hgb Hct MCV MCH MCHC RDW Plt Count Neut % (Auto) Lymph % (Auto) [place] % (Auto) Eos % (Auto) Baso % (Auto) Neut # (Auto) Lymph # (Auto) [place] # (Auto) Eos # (Auto) Baso # (Auto) PT INR APTT 31 Sodium Potassium Chloride Carbon Dioxide BUN Creatinine Estimated GFR BUN/Creatinine Ratio Glucose Lactate Calcium Magnesium Total Bilirubin AST ALT Alkaline Phosphatase Total Creatine Kinase CK-MB (CK-2) CK-MB (CK-2) Rel Index Troponin I 0.082 H NT-Pro-B Natriuret Pep Total Protein Albumin Globulin Albumin/Globulin Ratio Lipase Procalcitonin TSH Urine Color Yellow Urine Appearance Clear Urine pH 5.0 Ur Specific [place] 1.015 Urine Protein Trace H Urine Glucose (UA) Negative Urine Ketones Negative Urine Occult Blood 3+ H Urine Nitrate Negative Urine Bilirubin Negative Urine Urobilinogen 0.2 Ur Leukocyte Esterase Negative Urine RBC 10-30/hpf H Urine WBC 0-1/hpf Ur Renal Epithelial Cell 0-1/hpf Amorphous Sediment 1+ Urine Bacteria Occasional (0-1) Ur Culture Indicated? Cult not indicated SARS-CoV-2 (PCR) Influenza A (RT-PCR) Influenza B (RT-PCR) RSV (PCR) Assessment & Plan Assessment & Plan narrative: Rc Bray is admitted for symptomatic COVID-19. COVID-19, acute an present on admission * He is started on a loading dose of IV remdesivir 200 mg today and will be con tinued on 100 mg daily for 5 days * IV dexamethasone 6 mg IV daily * Oral Tylenol for fevers * Initially was placed on intermediate dose enoxaparin however upon review of the guidelines it appears that the patient only needs DVT prophylaxis with normal dose low molecular weight heparin. * RT consult to closely monitory respiratory status and possible, now unlikely need for heated high flow humidified O1. Coronary artery disease, chronic * Continue carvedilol 25 mg p.o. b.i.d. * Continue atorvastatin 10 mg Essential hypertension, chronic * Continue losartan 100 mg p.o. daily BPH, chronic * Continue home dose of tamsulosin 0.8 mg p.o. at bedtime VTE Prophylaxis: Wells risk score 0 X Enoxaparin 40 mg subQ once daily Bilateral SCDs Patient is admitted to the inpatient service due to the severity of disease, risks of further disease progression and this stay is expected to exceed 2 midnights. FEN: IV fluids: saline lock, diet: heart healthy, labs: CBC, C/BMP, liver enzymes, Mag, PT/INR Consultants None Dispo: likely discharge to home Code status: Full code as discussed with the patient who identifies his daughter Precious Newman as his surrogate and POA. [X] I have utilized all available immediate resources to obtain, update, or review of the patient's current medications VTE Deep Vein Thrombosis/Pulmonary Embolism Present on Admission: No MIPS - Admit I confirm the patient?s Advance Care Plan is present, Code status is documented, Surrogate decision maker is in patient?s record: Yes MIPS - DC The patient has current or prior documentation of left ventricular ejection f raction (LVEF) less than 40%, or moderate or severely depressed left ventricular systolic function.: No COVID-19 COVID-19 status: Positive Result date/Date tested (Pos, Neg/Pending): 01/11/22 Scores Wells' Criteria for PE Clinical signs and symptoms of DVT: No PE is #1 Dx or equally likely: No Heart rate > 100: No Immobilization at least 3 days or surg in previous 4 weeks: No History of PE or DVT: No Hemoptysis: No Malignancy w/Treatment within 6 months or palliative: No Wells' PE Score total: 0 Quality VTE Deep Vein Thrombosis/Pulmonary Embolism Present on Admission: No
[2022-01-11] MEDS: REMDESIVIR 200 MG in SODIUM CHLORIDE 0.9% 210 ML 250 MG IV (23:35)
[2022-01-11] MEDS: DEXAMETHASONE 10 MG/ML VIAL 6 MG IV (23:37)
[2022-01-11] MEDS: SODIUM CHLORIDE 0.9% FLUSH 10 ML IV (23:38)
[2022-01-12] VITALS (9 sets, daily range): BP systolic 106–128; BP diastolic 53–61; PULSE 59–71; RESP 16–24; TEMP 35.9–36.9; O2SAT 93–97
[2022-01-12] MEDS: cefTRIAXone 1,000 MG in SODIUM CHLORIDE 0.9% 100 ML 200 MG IV (01:23)
[2022-01-12 03:30] LABS: Add Manual Diff / Slide Review NO; Basophils Absolute Auto 0 /uL (0-100); Basophils Percent Auto 0.2 % (0-2); Eosinophils Absolute Auto 0 /uL (0-450); Hematocrit 36.3 % (41-53); Hemoglobin 11.9 g/dL (13.5-17.5); Lymphocytes Absolute Auto 500 /uL (1100-4500); Lymphocytes Percent Auto 4.8 % (25-40); Mean Corpuscular HGB Conc 32.7 % (30-36); Mean Corpuscular Hemoglobin 28.4 PG (26-34); Mean Corpuscular Volume 86.8 fL (80-100); Monocytes Absolute Auto 500 /uL (0-900); Monocytes Percent Auto 5.3 % (3-14); Neutrophils Absolute Auto 8500 /uL (1500-7000); Neutrophils Percent Auto 89.7 % (50-75); Platelet Count 113 X10^3/uL (150-400); Red Blood Cell Count 4.19 X10^6/uL (4.5-5.9); White Blood Cell Count 9.5 X10^3/uL (4.5-11.0)
[2022-01-12 03:43] LABS: Alanine Aminotransferase 15 IU/L (<50); Albumin 3.5 g/dL (3.5-5.0); Albumin Globulin Ratio 1.1 (1.0-2.8); Alkaline Phosphatase 59 U/L (38-126); Aspartate Aminotransferase 18 IU/L (17-59); BUN Creatinine Ratio 16.2 (6-22); Bilirubin Total 0.4 mg/dL (0.2-1.3); Blood Urea Nitrogen 21 mg/dL (9-20); C-Reactive Protein Quant 5.2 mg/dL (<1.0); Calcium 8.6 mg/dL (8.4-10.2); Carbon Dioxide 24 mmol/L (22-32); Chloride 103 mmol/L (98-107); Creatine Kinase 31 U/L (55-170); Estimated Glomerular Filt Rate 58 mL/min (>60); Globulin 3.1 g/dL (1.7-4.1); Glucose 131 mg/dL (80-110); HEMOLYSIS < 15 (0-50); Lactate Dehydrogenase 128 U/L (120-246); Magnesium 1.8 mg/dL (1.6-2.3); Potassium 4.1 mmol/L (3.4-5.1); Sodium 139 mmol/L (137-145); Total Protein 6.6 g/dL (6.3-8.2)
[2022-01-12 03:54] LABS: Troponin I 0.181 ng/mL (0.01-0.034)
[2022-01-12 04:15] LABS: Ferritin 106 ng/mL (18-464)
--- NOTE | 2022-01-12 06:25 | PC.NURSE ---
Admit/Night Note-Patient brought to ICU Isolation room 230, Covid positive. A/Ox4, blind right eye and [place], steady during transfer to bed. On 3L NC SpO2 >92%, mild shortness of breath with activity, no cough, breath sounds diminished with underlying coarseness. SR, 1st degree AVB, BBB. Troponin I increased to 0.181, reported to Provider, no new orders, patient denies chest pain or pressure. Remdesivir, Decadron, and ceftriaxone started. Wallet sent to [facility].
[2022-01-12] MEDS: ENOXAPARIN 40 MG/0.4 ML SYRINGE SUBCUT (08:29)
[2022-01-12] MEDS: DEXAMETHASONE 10 MG/ML VIAL 6 MG IV (08:29)
[2022-01-12] MEDS: SODIUM CHLORIDE 0.9% FLUSH 10 ML IV ×2 (08:31→21:15)
[2022-01-12] MEDS: carvediloL 12.5 MG TABLET 25 MG PO ×2 (08:34→21:13)
--- NOTE | 2022-01-12 10:45 | DI.ECHO.S_ITS ---
[facility] +---------+ Hospital +---------+ : : [address] : [address] [place] : : : : [id number] : : : : Phone: [phone] Echocardiogram Report + + :Name: RYAN PARKER Study Date: 01/12/2022 Height: 74 in : :[facility] ReadingLocation: Weight: 240 lb : : Gender: Male BSA: 2.3 m2 : :: 1950 Age: 71 yrs BP: 121/61 mmHg: :Reason For Study: NSTEMI : :Ordering Physician: WALE, : :MARYAN PEARCE Performed By: Nohelia Herrera : :Referring: MARYAN ECHEVARRIA : + + Interpretation Summary Patient states he had prior reaction after using echo contrast The patient was in sinus bradycardia with heart rates between 53-59 bpm during the exam. The left ventricle is normal in size. There is mild concentric left ventricular hypertrophy. The ejection fraction is estimated to be 45-50%. Hypokinesis of the basal to apical inferior, inferoseptal wall segments. Similar to 09/20/2016 given chronic wall motion abnormalites redemonstrated as noted above. Procedure: A two-dimensional transthoracic echocardiogram with color flow and Doppler was performed in limited views only to assess ejection fraction and wall motion. The study quality was technically adequate. Comparison is made with the echocardiogram of 09/20/2016. The patient was in sinus bradycardia with heart rates between 53-59 bpm during the exam. Left Ventricle: The left ventricle is normal in size. There is mild concentric left ventricular hypertrophy. The ejection fraction is estimated to be 45-50%. Hypokinesis of the basal to apical inferior, inferoseptal wall segments. Atria: Right atrial size is normal. Pericardium/ Pleura There is no pericardial effusion. There is no pleural effusion. MMode/2D Measurements & Calculations LVIDd: 5.1 cm LA A4 area: 21.9 cm2 LVIDs: 3.9 cm LA length (vol): 5.6 cm FS: 24.7 % EPSS: 1.2 cm IVSd: 1.5 cm LVPWd: 1.1 cm LV sow. diameter/BSA (cm/m^2): 2.2 LV sys. diameter/BSA (cm/m^2): 1.6 RA long axis: 5.0 cm RA area: 20.6 cm2 RA vol: 71.6 ml RA : 30.5 ml/m2 Reading Physician:REY
[2022-01-12] MEDS: HEPARIN DRIP 25,000 UNIT/500 ML IV.SOLN 20 UNIT IV (11:20)
[2022-01-12 11:41] LABS: PTT Partial Thromboplastin Tim 35 SECONDS (26-36)
[2022-01-12] MEDS: INSULIN LISPRO 100 UNIT/ML 3ML VIAL SUBCUT ×2 (12:21→17:01)
[2022-01-12] MEDS: NITROGLYCERIN 0.4 MG PATCH TOP (12:23)
[2022-01-12] MEDS: polyethylene glycoL 3350 17 GM POWD.PACK PO ×2 (12:23→21:40)
--- NOTE | 2022-01-12 13:13 | P.PN_ITS ---
Subjective Subjective Date Patient Seen: 01/12/22 Interval history: Patient feels well today, denies chest pain and shortness of breath. No longer on oxygen, remdesevir and decadron was stopped. He does have some new T wave inversions on lateral leads, with a rising troponin today he was started on heparin infusion. Caridology recommended medical management at this time, no need for further evaluation with [facility]. Exam Vital Signs (past 8 hours): - 01/12/22 08:34 01/12/22 07:00 01/12/22 09:13 Temperature 96.7 F L Pulse Rate 67 65 Respiratory Rate 18 Blood Pressure 121/61 121/61 Pulse Oximetry 94 Oxygen Delivery Method Room Air Oxygen Flow Rate 3 01/12/22 12:23 01/12/22 12:00 Temperature 96.8 F L Pulse Rate 68 65 Respiratory Rate 16 Blood Pressure 114/60 115/53 L Pulse Oximetry 95 Oxygen Delivery Method Oxygen Flow Rate 0 Oxygen Delivery Method Room Air Oxygen Flow Rate 0 Narrative Exam Narrative: Gen: Alert, oriented, well-developed 71 y.o. male, NAD HEENT: normocephalic, atraumatic, conjunctiva clear, sclera non-icteric, oral mucosa pink and moist Neck: supple, full ROM, no JVD, trachea is midline Resp: Lungs CTA, non-labored breathing CV: RRR, no murmur or rubs Abd: soft, non-tender, normoactive BTs Skin: no lesions or rashes, dry and intact Neuro: Alert and oriented X 4 w/no focal deficits. Speech clear and coherent. Extremities: no edema or joint effusions Psyche: normal mood and affect. Objective Labs Result Diagrams: 01/12/22 03:13 01/12/22 03:13 Labs: Laboratory Results - last 24 hr 01/11/22 01/11/22 01/11/22 18:00 18:00 18:00 WBC 9.1 RBC 4.47 L Hgb 12.8 L Hct 38.5 L MCV 86.1 MCH 28.7 MCHC 33.4 RDW 14.9 H Plt Count 141 L Neut % (Auto) 87.7 H Lymph % (Auto) 5.3 L [place] % (Auto) 5.7 Eos % (Auto) 0.7 L Baso % (Auto) 0.6 Neut # (Auto) 8000 H Lymph # (Auto) 500 L [place] # (Auto) 500 Eos # (Auto) 100 Baso # (Auto) 100 PT INR APTT Sodium 137 Potassium 4.0 Chloride 101 Carbon Dioxide 26 BUN 24 H Creatinine 1.41 H Estimated GFR 53 L BUN/Creatinine Ratio 17.0 Glucose 106 Lactate 1.3 Calcium 9.2 Magnesium Ferritin Total Bilirubin 0.5 AST 18 ALT 17 Alkaline Phosphatase 77 Lactate Dehydrogenase Total Creatine Kinase CK-MB (CK-2) CK-MB (CK-2) Rel Index Troponin I C-Reactive Protein NT-Pro-B Natriuret Pep Total Protein 7.7 Albumin 4.2 Globulin 3.5 Albumin/Globulin Ratio 1.2 Lipase 85 Procalcitonin 0.17 TSH Urine Color Urine Appearance Urine pH Ur Specific [place] Urine Protein Urine Glucose (UA) Urine Ketones Urine Occult Blood Urine Nitrate Urine Bilirubin Urine Urobilinogen Ur Leukocyte Esterase Urine RBC Urine WBC Ur Renal Epithelial Cell Amorphous Sediment Urine Bacteria Ur Culture Indicated? Nasal Screen MRSA (PCR) SARS-CoV-2 (PCR) Influenza A (RT-PCR) Influenza B (RT-PCR) RSV (PCR) 01/11/22 01/11/22 01/11/22 18:00 18:00 18:00 WBC RBC Hgb Hct MCV MCH MCHC RDW Plt Count Neut % (Auto) Lymph % (Auto) [place] % (Auto) Eos % (Auto) Baso % (Auto) Neut # (Auto) Lymph # (Auto) [place] # (Auto) Eos # (Auto) Baso # (Auto) PT INR APTT Sodium Potassium Chloride Carbon Dioxide BUN Creatinine Estimated GFR BUN/Creatinine Ratio Glucose Lactate Calcium Magnesium Ferritin Total Bilirubin AST ALT Alkaline Phosphatase Lactate Dehydrogenase Total Creatine Kinase 37 L CK-MB (CK-2) TNP CK-MB (CK-2) Rel Index TNP Troponin I 0.071 H C-Reactive Protein NT-Pro-B Natriuret Pep 2760 H Total Protein Albumin Globulin Albumin/Globulin Ratio Lipase Procalcitonin TSH Urine Color Urine Appearance Urine pH Ur Specific [place] Urine Protein Urine Glucose (UA) Urine Ketones Urine Occult Blood Urine Nitrate Urine Bilirubin Urine Urobilinogen Ur Leukocyte Esterase Urine RBC Urine WBC Ur Renal Epithelial Cell Amorphous Sediment Urine Bacteria Ur Culture Indicated? Nasal Screen MRSA (PCR) SARS-CoV-2 (PCR) Positive H Influenza A (RT-PCR) Flu a negative Influenza B (RT-PCR) Flu b negative RSV (PCR) Negative 01/11/22 01/11/22 01/11/22 18:00 18:00 18:04 WBC RBC Hgb Hct MCV MCH MCHC RDW Plt Count Neut % (Auto) Lymph % (Auto) [place] % (Auto) Eos % (Auto) Baso % (Auto) Neut # (Auto) Lymph # (Auto) [place] # (Auto) Eos # (Auto) Baso # (Auto) PT 14.1 H INR 1.2 APTT Sodium Potassium Chloride Carbon Dioxide BUN Creatinine Estimated GFR BUN/Creatinine Ratio Glucose Lactate Calcium Magnesium 1.8 Ferritin Total Bilirubin AST ALT Alkaline Phosphatase Lactate Dehydrogenase Total Creatine Kinase CK-MB (CK-2) CK-MB (CK-2) Rel Index Troponin I C-Reactive Protein NT-Pro-B Natriuret Pep Total Protein Albumin Globulin Albumin/Globulin Ratio Lipase Procalcitonin TSH 0.432 L Urine Color Urine Appearance Urine pH Ur Specific [place] Urine Protein Urine Glucose (UA) Urine Ketones Urine Occult Blood Urine Nitrate Urine Bilirubin Urine Urobilinogen Ur Leukocyte Esterase Urine RBC Urine WBC Ur Renal Epithelial Cell Amorphous Sediment Urine Bacteria Ur Culture Indicated? Nasal Screen MRSA (PCR) SARS-CoV-2 (PCR) Influenza A (RT-PCR) Influenza B (RT-PCR) RSV (PCR) 01/11/22 01/11/22 01/11/22 18:04 19:25 20:47 WBC RBC Hgb Hct MCV MCH MCHC RDW Plt Count Neut % (Auto) Lymph % (Auto) [place] % (Auto) Eos % (Auto) Baso % (Auto) Neut # (Auto) Lymph # (Auto) [place] # (Auto) Eos # (Auto) Baso # (Auto) PT INR APTT 31 Sodium Potassium Chloride Carbon Dioxide BUN Creatinine Estimated GFR BUN/Creatinine Ratio Glucose Lactate Calcium Magnesium Ferritin Total Bilirubin AST ALT Alkaline Phosphatase Lactate Dehydrogenase Total Creatine Kinase CK-MB (CK-2) CK-MB (CK-2) Rel Index Troponin I 0.082 H C-Reactive Protein NT-Pro-B Natriuret Pep Total Protein Albumin Globulin Albumin/Globulin Ratio Lipase Procalcitonin TSH Urine Color Yellow Urine Appearance Clear Urine pH 5.0 Ur Specific [place] 1.015 Urine Protein Trace H Urine Glucose (UA) Negative Urine Ketones Negative Urine Occult Blood 3+ H Urine Nitrate Negative Urine Bilirubin Negative Urine Urobilinogen 0.2 Ur Leukocyte Esterase Negative Urine RBC 10-30/hpf H Urine WBC 0-1/hpf Ur Renal Epithelial Cell 0-1/hpf Amorphous Sediment 1+ Urine Bacteria Occasional (0-1) Ur Culture Indicated? Cult not indicated Nasal Screen MRSA (PCR) SARS-CoV-2 (PCR) Influenza A (RT-PCR) Influenza B (RT-PCR) RSV (PCR) 01/11/22 01/12/22 01/12/22 22:00 03:13 03:13 WBC 9.5 RBC 4.19 L Hgb 11.9 L Hct 36.3 L MCV 86.8 MCH 28.4 MCHC 32.7 RDW 15.0 H Plt Count 113 L Neut % (Auto) 89.7 H Lymph % (Auto) 4.8 L [place] % (Auto) 5.3 Eos % (Auto) 0.0 L Baso % (Auto) 0.2 Neut # (Auto) 8500 H Lymph # (Auto) 500 L [place] # (Auto) 500 Eos # (Auto) 0 Baso # (Auto) 0 PT INR APTT Sodium Potassium Chloride Carbon Dioxide BUN Creatinine Estimated GFR BUN/Creatinine Ratio Glucose Lactate Calcium Magnesium Ferritin Total Bilirubin AST ALT Alkaline Phosphatase Lactate Dehydrogenase Total Creatine Kinase CK-MB (CK-2) CK-MB (CK-2) Rel Index Troponin I 0.181 H* C-Reactive Protein NT-Pro-B Natriuret Pep Total Protein Albumin Globulin Albumin/Globulin Ratio Lipase Procalcitonin TSH Urine Color Urine Appearance Urine pH Ur Specific [place] Urine Protein Urine Glucose (UA) Urine Ketones Urine Occult Blood Urine Nitrate Urine Bilirubin Urine Urobilinogen Ur Leukocyte Esterase Urine RBC Urine WBC Ur Renal Epithelial Cell Amorphous Sediment Urine Bacteria Ur Culture Indicated? Nasal Screen MRSA (PCR) Negative for mrsa SARS-CoV-2 (PCR) Influenza A (RT-PCR) Influenza B (RT-PCR) RSV (PCR) 01/12/22 01/12/22 01/12/22 03:13 09:06 11:15 WBC RBC Hgb Hct MCV MCH MCHC RDW Plt Count Neut % (Auto) Lymph % (Auto) [place] % (Auto) Eos % (Auto) Baso % (Auto) Neut # (Auto) Lymph # (Auto) [place] # (Auto) Eos # (Auto) Baso # (Auto) PT INR APTT 35 Sodium 139 Potassium 4.1 Chloride 103 Carbon Dioxide 24 BUN 21 H Creatinine 1.30 H Estimated GFR 58 L BUN/Creatinine Ratio 16.2 Glucose 131 H Lactate Calcium 8.6 Magnesium 1.8 Ferritin 106 Total Bilirubin 0.4 AST 18 ALT 15 Alkaline Phosphatase 59 Lactate Dehydrogenase 128 Total Creatine Kinase 31 L CK-MB (CK-2) CK-MB (CK-2) Rel Index Troponin I 0.320 H* C-Reactive Protein 5.2 H NT-Pro-B Natriuret Pep Total Protein 6.6 Albumin 3.5 Globulin 3.1 Albumin/Globulin Ratio 1.1 Lipase Procalcitonin TSH Urine Color Urine Appearance Urine pH Ur Specific [place] Urine Protein Urine Glucose (UA) Urine Ketones Urine Occult Blood Urine Nitrate Urine Bilirubin Urine Urobilinogen Ur Leukocyte Esterase Urine RBC Urine WBC Ur Renal Epithelial Cell Amorphous Sediment Urine Bacteria Ur Culture Indicated? Nasal Screen MRSA (PCR) SARS-CoV-2 (PCR) Influenza A (RT-PCR) Influenza B (RT-PCR) RSV (PCR) PFSH Medical History Anemia Angina pectoris Arthritis Atrial fibrillation Bilateral nephrolithiasis BPH (benign prostatic hyperplasia) BPH w urinary obs/LUTS CAD (coronary artery disease) Cardiomyopathy Cataracts, bilateral Chicken pox Chronic kidney disease Detached retina, right (~1983) Diabetes Duodenal ulcer hemorrhage Hearing loss (~2012) HLD (hyperlipidemia) Hx of nephrolithotomy with removal of calculi (2008) Hyperaldosteronism Hypertension Measles Mumps Myocardial infarction (~2016) Nephrolithiasis ANA (obstructive sleep apnea) Osteoarthritis Partial blindness (~194) Peptic ulcer disease (~2015) Peripheral neuropathy Right renal mass Sleep apnea Staph infection (1979) Tinnitus Upper GI bleed Vision disorder Surgical History Anesthesia H/O circumcision H/O lithotripsy H/O vasectomy History of appendectomy Hx of coronary angioplasty Hx of heart artery stent S/P CABG x 3 (1991) Family History Father History of heart disease Aneurysm Mother History of heart disease Hypertension Heart failure Brother Leukemia Social History household members: spouse Smoking Status: Former smoker alcohol intake: current substance use type: does not use Assessment & Plan Assessment & Plan narrative: Sepsis secondary to COVID-19, acute an present on admission, with acute respiratory failure, hyperbilirubinemia, NSTEMI, thrombocytopenia, and possible BALBINA * was given decadron and remdesevir in setting of covid 19 infection. Will stop as he is much improved today and no longer on oxygen. * initially started on antibiotics for possible bacterial infection but no evidence of this thus far so will stop antibiotic therapy. * mild thrombocytopenia and possible BALBINA as well. Creatinine 1 month ago was 1.56, but previously was around 1.0 one year ago. Baseline not apparent at this time. NSTEMI with hx of Coronary artery disease, chronic - Rising troponin since admission with new ST depression in lateral leads. Patient without chest pain. Will start on heparin infusion. Discussed with cardiology whom recommended medical management, no need for LHC at this time. - Continue carvedilol 25 mg p.o. b.i.d. - patient no longer taking aspirin or statin therapy at home. Will restart. - follow troponins until downtrending, currently 0.320 Essential hypertension, chronic * Continue losartan 100 mg p.o. daily BPH, chronic * Continue home dose of tamsulosin 0.8 mg p.o. at bedtime VTE Prophylaxis: Wells risk score 0 X Enoxaparin 40 mg subQ once daily Bilateral SCDs Patient is admitted to the inpatient service due to the severity of disease, risks of further disease progression and this stay is expected to exceed 2 midnights. Dispo: likely discharge to home Code status: Full code as discussed with the patient who identifies his daughter Precious Newman as his surrogate and POA. [X] I have utilized all available immediate resources to obtain, update, or review of the patient's current medications VTE Deep Vein Thrombosis/Pulmonary Embolism Present on Admission: No MIPS - Admit I confirm the patient?s Advance Care Plan is present, Code status is documented, Surrogate decision maker is in patient?s record: Yes MIPS - DC The patient has current or prior documentation of left ventricular ejection fraction (LVEF) less than 40%, or moderate or severely depressed left ventricular systolic function.: No COVID-19 COVID-19 status: Positive Result date/Date tested (Pos, Neg/Pending): 01/11/22 Time Spent With Patient Critical Care time: I spent a total of [] minutes of critical care time on this patient's care today; this time is exclusive of procedural time. Scores SOFA PaO2/FIO2: < 400 mmHg Platelets: < 150 Bilirubin: 1.2-1.9 mg/dL Hypotension: MAP >= 70 mmHg Winger Coma Scale: 15 Renal: Creatinine 1.2-1.9 mg/dL SOFA Score: 4 Quality VTE Deep Vein Thrombosis/Pulmonary Embolism Present on Admission: No
--- NOTE | 2022-01-12 14:50 | CM.DANOTE ---
Initial DCP Assessment Note Pt is a 71 yo male, resident of [place], arrives w/suspected infection, found to be COVID+ w/recent pneumonia, and very recent loss of his spouse Nov 2021; admitted for management of resp failure related to COVID-19 and rising troponin, started on heparin drip today PMH includes CABG, cardiac stents, hypertension, dyslipidemia, chronic kidney disease and recent percutaneous lithotripsy at [facility] on December 26 PCP: Koko Ramires Payer: ROBERT/Valente Reviewed chart, placed call into patient's room d/t COVID-19 precautions. Patient familiar to this QA TECH as his late spouse, Amanda Bray, worked as a Grain Loader at for many years; discussed patient's grief, briefly, and patient explains he is trying to keep busy, but it's been hard Patient eager to return home as soon as possible, states his dtr Precious or son, Efe can transport him home and check on him during his recovery once home. Patient denies needs or barriers, at this time, to safe discharge home w/family to assist; close outpatient f/u recommended. CM team will plan to follow closely in case any DC needs or concerns arise ALYSON Acuna Discharge Planning/Care Management CM Discharge Assessment Start: 01/12/22 14:47 Freq: Status: Active Protocol: Document 01/12/22 14:47 BILL (Rec: 01/12/22 14:50 BILL [id number]) Discharge Planning Assessment Assigned Veterinary Virus Serum Inspector ALYSON Villagran DPOA/Assigned Designee Name Precious Newman dtr Contact Information [phone] Advance Directives? No History Provided By Patient,Medical Record Prior Living Arrangements House Household Members none Type of transporation used prior to Drives own vehicle admit Independent with ADL's Yes Is patient alert and oriented? Yes Barriers to Discharge No Comment Home w/family and friends Discharge Plan Home Transportation Arrangement Family Referrals Initiated None needed
[2022-01-12 15:46] LABS: Troponin I 0.331 ng/mL (0.01-0.034)
[2022-01-12] MEDS: guaiFENesin Solution 100 MG/5 ML UDC PO (16:37)
[2022-01-12 17:08] LABS: PTT Partial Thromboplastin Tim 54 SECONDS (26-36)
[2022-01-12] MEDS: ATORVASTATIN 20 MG TABLET 40 MG PO (21:13)
[2022-01-12] MEDS: TAMSULOSIN 0.4 MG CAPSULE 0.8 MG PO (21:13)
[2022-01-12] MEDS: ENOXAPARIN 150 MG/ML SYRINGE 110 MG SUBCUT (21:14)
[2022-01-12] MEDS: MELATONIN 3 MG TABLET 15 MG PO (21:14)
[2022-01-12 23:09] LABS: Troponin I 0.278 ng/mL (0.01-0.034)
--- NOTE | 2022-01-12 23:43 | PC.NURSE ---
Pt hr lowering down to low 40s. Other vitals WNL and pt stated he feels fine. Hospitalist notified. No new orders given.
[2022-01-13] VITALS (8 sets, daily range): BP systolic 101–126; BP diastolic 49–62; PULSE 51–62; RESP 15–22; TEMP 36.3–36.8; O2SAT 94–97
[2022-01-13] MEDS: LORazepam 1 MG TABLET PO ×2 (01:59→20:47)
[2022-01-13 06:16] LABS: Add Manual Diff / Slide Review NO; Basophils Absolute Auto 0 /uL (0-100); Basophils Percent Auto 0.1 % (0-2); Eosinophils Absolute Auto 0 /uL (0-450); Hematocrit 34.1 % (41-53); Hemoglobin 11.3 g/dL (13.5-17.5); Lymphocytes Absolute Auto 800 /uL (1100-4500); Lymphocytes Percent Auto 12.3 % (25-40); Mean Corpuscular HGB Conc 33.1 % (30-36); Mean Corpuscular Hemoglobin 28.5 PG (26-34); Mean Corpuscular Volume 86.1 fL (80-100); Monocytes Absolute Auto 800 /uL (0-900); Monocytes Percent Auto 12.3 % (3-14); Neutrophils Absolute Auto 5200 /uL (1500-7000); Neutrophils Percent Auto 75.3 % (50-75); Platelet Count 124 X10^3/uL (150-400); Red Blood Cell Count 3.96 X10^6/uL (4.5-5.9); White Blood Cell Count 6.9 X10^3/uL (4.5-11.0)
[2022-01-13 06:25] LABS: C-Reactive Protein Quant 8.2 mg/dL (<1.0); Creatine Kinase 22 U/L (55-170); Lactate Dehydrogenase 112 U/L (120-246); Magnesium 1.9 mg/dL (1.6-2.3)
[2022-01-13 06:38] LABS: Troponin I 0.171 ng/mL (0.01-0.034)
[2022-01-13 06:58] LABS: Ferritin 200 ng/mL (18-464)
[2022-01-13 07:26] LABS: PTT Partial Thromboplastin Tim 71 SECONDS (26-36)
[2022-01-13] MEDS: NITROGLYCERIN 0.4 MG PATCH TOP (08:09)
[2022-01-13] MEDS: polyethylene glycoL 3350 17 GM POWD.PACK PO ×2 (08:09→20:28)
[2022-01-13] MEDS: carvediloL 12.5 MG TABLET 25 MG PO (08:09)
[2022-01-13] MEDS: SPIRONOLACTONE 25 MG TABLET 75 MG PO (08:09)
[2022-01-13] MEDS: ENOXAPARIN 150 MG/ML SYRINGE 110 MG SUBCUT ×2 (08:09→20:32)
[2022-01-13] MEDS: FINASTERIDE 5 MG TABLET PO (08:09)
[2022-01-13] MEDS: SODIUM CHLORIDE 0.9% FLUSH 10 ML IV (08:10)
--- NOTE | 2022-01-13 10:34 | CM.DPC ---
DCP Cont: Discussed patient during team rounds. He will not be yet ready for discharge today, possibly tomorrow. Patient is here with NSTEMI, and is COVID positive. Patient had recently lost his spouse, lives alone, but has supportive family. P: DCP to continue to follow for any needs. Plan is for patient to go home when deemed medically stable. Anneliese Chang RN/Paint Mixer Hand
[2022-01-13] MEDS: INSULIN LISPRO 100 UNIT/ML 3ML VIAL SUBCUT (11:49)
[2022-01-13] MEDS: MAGNESIUM HYDROXIDE 30 ML UDC PO (12:05)
--- NOTE | 2022-01-13 17:56 | P.PN_ITS ---
Subjective Subjective Date Patient Seen: 01/13/22 Time Patient Seen: 08:00 Interval history: He feels improved. He has no shortness of breath or chest pain. Exam Vital Signs (past 8 hours): - 01/13/22 13:04 Temperature 98.1 F Pulse Rate 60 Respiratory Rate 17 Blood Pressure 114/59 L Pulse Oximetry 97 Oxygen Flow Rate 0 Oxygen Delivery Method Room Air Oxygen Flow Rate 0 Narrative Exam Narrative: GEN: no acute distress CV: regular rate and rhythm, no murmurs PULM: clear bilaterally Objective Labs Result Diagrams: 01/13/22 06:00 01/12/22 03:13 Labs: Laboratory Results - last 24 hr 01/12/22 01/13/22 01/13/22 21:30 06:00 06:00 WBC 6.9 RBC 3.96 L Hgb 11.3 L Hct 34.1 L MCV 86.1 MCH 28.5 MCHC 33.1 RDW 15.0 H Plt Count 124 L Neut % (Auto) 75.3 H Lymph % (Auto) 12.3 L [place] % (Auto) 12.3 Eos % (Auto) 0.0 L Baso % (Auto) 0.1 Neut # (Auto) 5200 Lymph # (Auto) 800 L [place] # (Auto) 800 Eos # (Auto) 0 Baso # (Auto) 0 APTT Magnesium 1.9 Ferritin 200 Lactate Dehydrogenase 112 L Total Creatine Kinase 22 L Troponin I 0.278 H* C-Reactive Protein 8.2 H 01/13/22 01/13/22 06:00 07:10 WBC RBC Hgb Hct MCV MCH MCHC RDW Plt Count Neut % (Auto) Lymph % (Auto) [place] % (Auto) Eos % (Auto) Baso % (Auto) Neut # (Auto) Lymph # (Auto) [place] # (Auto) Eos # (Auto) Baso # (Auto) APTT 71 H D Magnesium Ferritin Lactate Dehydrogenase Total Creatine Kinase Troponin I 0.171 H* C-Reactive Protein [facility] Medical History Anemia Angina pectoris Arthritis Atrial fibrillation Bilateral nephrolithiasis BPH (benign prostatic hyperplasia) BPH w urinary obs/LUTS CAD (coronary artery disease) Cardiomyopathy Cataracts, bilateral Chicken pox Chronic kidney disease Detached retina, right (~1983) Diabetes Duodenal ulcer hemorrhage Hearing loss (~2012) HLD (hyperlipidemia) Hx of nephrolithotomy with removal of calculi (2008) Hyperaldosteronism Hypertension Measles Mumps Myocardial infarction (~2017) Nephrolithiasis ANA (obstructive sleep apnea) Osteoarthritis Partial blindness (~1949) Peptic ulcer disease (~2016) Peripheral neuropathy Right renal mass Sleep apnea Staph infection (1979) Tinnitus Upper GI bleed Vision disorder Surgical History Anesthesia H/O circumcision H/O lithotripsy H/O vasectomy History of appendectomy Hx of coronary angioplasty Hx of heart artery stent S/P CABG x 3 (1991) Family History Father History of heart disease Aneurysm Mother History of heart disease Hypertension Heart failure Brother Leukemia Social History household members: none Smoking Status: Former smoker alcohol intake: current substance use type: does not use Assessment & Plan Assessment & Plan narrative: Sepsis secondary to COVID-19, acute an present on admission, with acute respiratory failure, hyperbilirubinemia, NSTEMI, thrombocytopenia, and possible BALBINA -was given decadron and remdesevir in setting of covid 19 infection. now stopped as off oxygen -initially started on antibiotics for possible bacterial infection, but this is unlikely so abx were stopped Thrombocytopenia -mild, no indication for transfusion Elevated creatinine -possilby mild CKD vs BALBINA -continue to trend NSTEMI with hx of Coronary artery disease, chronic -no chest pain, possibly in setting of COVID -plan 48 hrs of anticoagulation - Continue carvedilol 25 mg p.o. b.i.d. - patient no longer taking aspirin or statin therapy at home. Will restart. Essential hypertension, chronic -Continue losartan 100 mg p.o. daily BPH, chronic -Continue home dose of tamsulosin 0.8 mg p.o. at bedtime COVID-19 COVID-19 status: Positive Result date/Date tested (Pos, Neg/Pending): 01/11/22 Time Spent With Patient Critical Care time: I spent a total of [] minutes of critical care time on this patient's care today; this time is exclusive of procedural time. Quality VTE Deep Vein Thrombosis/Pulmonary Embolism Present on Admission: No
[2022-01-13] MEDS: ATORVASTATIN 20 MG TABLET 40 MG PO (20:28)
[2022-01-13] MEDS: TAMSULOSIN 0.4 MG CAPSULE 0.8 MG PO (20:28)
[2022-01-13] MEDS: MELATONIN 3 MG TABLET 15 MG PO (20:30)
[2022-01-14] VITALS: BP 118/56; PULSE 67; RESP 18; TEMP 36.6; O2SAT 94
[2022-01-14 04:00] VITALS: BP 126/62; PULSE 60; RESP 18; TEMP 37; O2SAT 91
[2022-01-14 06:08] LABS: Add Manual Diff / Slide Review NO; Basophils Absolute Auto 0 /uL (0-100); Basophils Percent Auto 0.9 % (0-2); Eosinophils Absolute Auto 0 /uL (0-450); Eosinophils Percent Auto 0.4 % (2-4); Hematocrit 36.3 % (41-53); Hemoglobin 11.9 g/dL (13.5-17.5); Lymphocytes Absolute Auto 1200 /uL (1100-4500); Lymphocytes Percent Auto 22.7 % (25-40); Mean Corpuscular HGB Conc 32.6 % (30-36); Mean Corpuscular Hemoglobin 28.1 PG (26-34); Mean Corpuscular Volume 86.1 fL (80-100); Monocytes Absolute Auto 800 /uL (0-900); Monocytes Percent Auto 14.6 % (3-14); Neutrophils Absolute Auto 3200 /uL (1500-7000); Neutrophils Percent Auto 61.4 % (50-75); Platelet Count 121 X10^3/uL (150-400); Red Blood Cell Count 4.22 X10^6/uL (4.5-5.9); Red Cell Distribution Width 14.6 % (11.6-14.8); White Blood Cell Count 5.2 X10^3/uL (4.5-11.0)
[2022-01-14 06:14] LABS: PTT Partial Thromboplastin Tim 40 SECONDS (26-36)
[2022-01-14 06:16] LABS: BUN Creatinine Ratio 26.2 (6-22); Blood Urea Nitrogen 32 mg/dL (9-20); Calcium 8.4 mg/dL (8.4-10.2); Carbon Dioxide 26 mmol/L (22-32); Chloride 104 mmol/L (98-107); Estimated Glomerular Filt Rate > 60 mL/min (>60); Glucose 86 mg/dL (80-110); HEMOLYSIS 21 (0-50); Potassium 4.2 mmol/L (3.4-5.1); Sodium 136 mmol/L (137-145)
[2022-01-14 06:24] LABS: Magnesium 1.7 mg/dL (1.6-2.3)
[2022-01-14 07:55] VITALS: BP 120/68; PULSE 69
[2022-01-14] MEDS: NITROGLYCERIN 0.4 MG PATCH TOP (07:55)
[2022-01-14 07:56] VITALS: BP 122/68; PULSE 68
[2022-01-14] MEDS: carvediloL 12.5 MG TABLET 25 MG PO (07:56)
[2022-01-14] MEDS: ENOXAPARIN 150 MG/ML SYRINGE 110 MG SUBCUT (07:56)
[2022-01-14] MEDS: FINASTERIDE 5 MG TABLET PO (07:58)
[2022-01-14] MEDS: SPIRONOLACTONE 25 MG TABLET 75 MG PO (07:58)
--- NOTE | 2022-01-14 09:17 | PC.NURSE ---
0991 Pt discharged with instructions to see PCP in 3-4 days, quarantine for remainder of the week. Belonging from safe given to the patient. Left with son, discharged per WC
--- NOTE | 2022-01-14 17:33 | PM.DS.1 ---
History of Present Illness History of Present Illness Date Patient Seen: 01/11/22 Time Patient Seen: 23:12 Chief complaint: Fever, cough found to be COVID positive Narrative: Per admitting provider: Rc is a pleasant 71 y.o. male with a history of cardiac stants, CABG, hypertension, dyslipidemia, CKD, and recent percutaneous lithotripsy done at the [facility] on December 26 presented with complaints of fever and mildly productive cough, he is unable to tell me the color of his sputum because he states he swallowed it. He did endorse having some nausea. He denies shortness of breath chest pain, vomiting, constipation or diarrhea. Patient is fully vaccinated and boostered with the exception of the last omicron variant booster. He was concerned because this is the 2nd time he is ever had pneumonia. Patient was administered IV Zosyn 4.5 g in the ED. Chest x-ray was unremarkable, CT of the abdomen and pelvis noted staghorn kidney stones seen on priors, and likely dependent bilateral atelectasis seen at the lung bases. His T-max was 103.2?, current temperature is 99.1? blood pressure 122/58, heart rate 80, respiratory rate 20, oxygen saturation of 94% on 3 L he weighs 109 kg with a BMI of 30.8. He is mildly anemic with a H&H of 12.8 and 30.5 respectively, his platelet count is 141 does have a mild elevation in neutrophils of 8000 he is lymphopenic his creatinine is 1.41 with an EGFR of 53 BUN 24 total creatinine kinase is 37 units, 2nd troponin 0.082 which is increased over the 1st and the 3rd is pending at 3:00 a.m., proBNP is 27 60 and TSH is low at 0.432,. UA is clear with some occult blood and RBCs but no nitrites, bacteria or leukocytes COVID 19 PCR is positive FH: Reviewed with the patient and updated as below. Discharge Providers Provider Date of admission: 01/11/22 21:02 Discharge Date: 01/14/22 Primary care physician: Koko Ramires MD Discharge provider: Can Reagan MD Summary Hospital Course Discharge Diagnosis: 1. Sepsis, acute hypoxic respiratory failure secondary to COVID 2. NSTEMI and history of CAD 3. Thrombocytopenia 4. HTN 5. BPH 6. [place] Hospital Course: Mr. Bray was initially admitted with COVID and difficulty breathing with hypoxia. He improved with treatment quickly and this was stopped. However he also developed a rising troponin, possibly secondary to COVID, consistent with NSTEMI. Case was discussed with engineer specialist who recommended medical management and he was anticoagulated for 48 hours. His ECHO showed chronic focal wall motion abnormality and EF 45-50% no significant change from prior. He was able to be discharged home. He should follow up with his PCP within one week and also follow up with cardiology. On day of discharge he had no respiratory symptoms and no chest pain. Exam Vital Signs (past 8 hours): Oxygen Delivery Method Room Air Oxygen Flow Rate 0 Narrative Exam Narrative: GEN: no acute distress CV: regular rate and rhythm, no murmurs PULM: clear bilaterally Objective Labs Result Diagrams: 01/14/22 05:51 01/14/22 05:51 Labs: Laboratory Results - last 24 hr 01/14/22 01/14/22 01/14/22 05:51 05:51 05:51 WBC 5.2 RBC 4.22 L Hgb 11.9 L Hct 36.3 L MCV 86.1 MCH 28.1 MCHC 32.6 RDW 14.6 Plt Count 121 L Neut % (Auto) 61.4 Lymph % (Auto) 22.7 L Burnet % (Auto) 14.6 H Eos % (Auto) 0.4 L Baso % (Auto) 0.9 Neut # (Auto) 3200 Lymph # (Auto) 1200 Burnet # (Auto) 800 Eos # (Auto) 0 Baso # (Auto) 0 APTT 40 H D Sodium Potassium Chloride Carbon Dioxide BUN Creatinine Estimated GFR BUN/Creatinine Ratio Glucose Calcium Magnesium 1.7 01/14/22 05:51 WBC RBC Hgb Hct MCV MCH MCHC RDW Plt Count Neut % (Auto) Lymph % (Auto) Burnet % (Auto) Eos % (Auto) Baso % (Auto) Neut # (Auto) Lymph # (Auto) Burnet # (Auto) Eos # (Auto) Baso # (Auto) APTT Sodium 136 L Potassium 4.2 Chloride 104 Carbon Dioxide 26 BUN 32 H Creatinine 1.22 Estimated GFR > 60 BUN/Creatinine Ratio 26.2 H Glucose 86 Calcium 8.4 Magnesium [facility] Medical History Anemia Angina pectoris Arthritis Atrial fibrillation Bilateral nephrolithiasis BPH (benign prostatic hyperplasia) BPH w urinary obs/LUTS CAD (coronary artery disease) Cardiomyopathy Cataracts, bilateral Chicken pox Chronic kidney disease Detached retina, right (~1983) Diabetes Duodenal ulcer hemorrhage Hearing loss (~2012) HLD (hyperlipidemia) Hx of nephrolithotomy with removal of calculi (2008) Hyperaldosteronism Hypertension Measles Mumps Myocardial infarction (~2017) Nephrolithiasis ANA (obstructive sleep apnea) Osteoarthritis Partial blindness (~1949) Peptic ulcer disease (~2015) Peripheral neuropathy Right renal mass Sleep apnea Staph infection (1979) Tinnitus Upper GI bleed Vision disorder Surgical History Anesthesia H/O circumcision H/O lithotripsy H/O vasectomy History of appendectomy Hx of coronary angioplasty Hx of heart artery stent S/P CABG x 3 (1991) Family History Father History of heart disease Aneurysm Mother History of heart disease Hypertension Heart failure Brother Leukemia Social History household members: none Smoking Status: Former smoker alcohol intake: current substance use type: does not use Discharge Plan Discharge Plan Patient Disposition: Home Provider Discharge Comment: Mr. Bray came in to the hospital with COVID. He improved with treatment. He also appeared to have a minor heart attack, which was possibly secondary to COVID. He was restarted on aspirin and a statin to help protect his heart. He should try to isolate as best as possible for one week. Discharge orders & Medications Prescriptions: New atorvastatin [Lipitor] 20 mg Tablet 40 mg PO BEDTIME Qty: 30 0RF aspirin 81 mg tablet,delayed release (DR/EC) 81 mg PO DAILY Qty: 30 0RF Continued tamsulosin 0.4 mg capsule 0.8 mg PO BEDTIME Qty: 28 0RF cholecalciferol (vitamin D3) 125 mcg (5,000 unit) capsule 125 mcg PO DAILY vitamin k2 480 mg 480 mg PO DAILY carvedilol 25 mg tablet 25 mg BID spironolactone 25 mg tablet 75 mg DAILY nitroglycerin 0.4 mg/hr patch 24 hour 1 patch DAILY magnesium citrate tablet 417 mg DAILY melatonin 3 mg tablet 15 mg BEDTIME finasteride 5 mg tablet 5 mg PO DAILY Qty: 90 3RF Follow up/Referrals: Koko Ramires MD [Primary Care Provider] - 3-5 Days (hospitalized for covid and nstemi) Diet/Activity/Treatments Diet: Regular Visit Report/Discharge Packet Instructions: DI for Heart Failure Discharge Data Primary Care Provider: Koko Ramires Quality VTE Deep Vein Thrombosis/Pulmonary Embolism Present on Admission: No
== END 2022-01-14 09:19 | disposition home or self-care (01) | DRG 871 ==
LOC: ED 18:05 → AC 21:03 → ICU 21:20
PROVIDERS: Internal Medicine; Admitting Provider Nurse Practitioner Family; Emergency Provider Emergency Medicine; Family Provider Internal Medicine Nephrology; PCP Internal Medicine; Referring Provider Emergency Medicine; Visit Provider Nurse Practitioner Family
DX: A41.9 Sepsis, unspecified organism (principal); I21.4 Non-ST elevation (NSTEMI) myocardial infarction; U07.1 COVID-19; J96.01 Acute respiratory failure with hypoxia; N17.9 Acute kidney failure, unspecified; R65.20 Severe sepsis without septic shock; I25.10 Atherosclerotic heart disease of native coronary artery without angina pectoris; I10 Essential (primary) hypertension; N40.0 Benign prostatic hyperplasia without lower urinary tract symptoms; D69.6 Thrombocytopenia, unspecified; Z95.1 Presence of aortocoronary bypass graft; Z95.5 Presence of coronary angioplasty implant and graft; Z87.891 Personal history of nicotine dependence
CPT/HCPCS: 0241U; 36415; 51798; 71045; 74177; 80048; 80053; 81001; 82550; 82728; 82962; 83605; 83615; 83690; 83735; 83880; 84145; 84443; 84484; 85025; 85610; 85730; 86140; 87040; 87797; 93005; 93307; 96365; 96375; 99285; J0696; J1100; J1644; J1650; J1815; J2405; J2543; Q9967

== ENCOUNTER → 2022-01-17 09:23 | Outpatient (CLI) | payer MEDICARE, OTHER, SELFPAY ==
[2022-01-11 21:53] VITALS: BMI 30.8
[2022-01-17 11:44] LABS: Appearance Urine UA CLEAR; Bilirubin Urine UA NEGATIVE (NEGATIVE); Color Urine UA YELLOW; Glucose Urine UA NEGATIVE (Negative); Ketones Urine UA NEGATIVE (NEGATIVE); Leukocyte Esterase Urine UA TRACE (NEGATIVE); Nitrite Urine UA NEGATIVE (Negative); Occult Blood Urine UA 1+ (Negative); Protein Urine UA NEGATIVE (Negative); Specific Gravity Urine UA 1.015 (1.000-1.035); Urobilinogen Urine UA 0.2 E.U./dL (0.2); pH Urine UA 6.5 (4.5-8.0)
[2022-01-17 11:55] LABS: RBC Urine 1-5/HPF (0-5/HPF); Squamous Epithelial Cell Urine None Seen (0-5/HPF); WBC Urine 0-1/HPF (0-5/HPF)
[2022-01-17 11:56] LABS: Bacteria Urine None Seen; Culture Indicated Urine Specimen Cultured
== END ==
PROVIDERS: Family Provider Internal Medicine Nephrology; PCP Internal Medicine; Referring Provider Physician Assistant Surgical; Visit Provider Physician Assistant Surgical
DX: R35.0 Frequency of micturition (principal)
CPT/HCPCS: 81001; 87086

== ENCOUNTER 2022-01-21 07:55 | Emergency (ER) | payer MEDICARE, OTHER, SELFPAY ==
[2022-01-11 21:53] VITALS: BMI 30.8
[2022-01-21 08:03] VITALS: BP 154/69; PULSE 68; RESP 22; TEMP 35.9; O2SAT 98; BMI 30.8
--- NOTE | 2022-01-21 08:03 | ED_ITS ---
HPI - SOB/Dyspnea General Chief Complaint: Shortness of Breath/Dyspnea Stated Complaint: SOB t-7 covid+ 11/4 history of heart attack Time Seen by Provider: 01/21/22 08:02 Source: patient Mode of arrival: Ambulatory Limitations: no limitations History of Present Illness HPI Narrative: This is a 71-year-old male with history of CABG, cardiac stents, hypertension, dyslipidemia, chronic kidney disease and had percutaneous lithotripsy at [facility] in December. Patient developed COVID-19 infection and was hospi talized here for sepsis, acute hypoxic respiratory failure secondary to COVID on 01/11/2022 had a subsequent NSTEMI during his hospital stay and was discharged home on 01/14/2022. Is echo showed chronic focal wall motion abnormality and EF of 45-50% with no significant change from prior during his hospital stay. Patient was discharged home on atorvastatin and aspirin in addition his normal medications. Patient states he has had persistent shortness of breath since his hospitalization but does not have worsening shortness of breath. He notes he has a home pulse oximetry which has been in the mid to high 90s without any dips or lows. He denies fevers or chills he states he is had clear productive sputum. He denies chest pain or pressure. Patient denies any nausea or vomiting, no constipation but has had frequent diarrhea, no black or bloody stools. No dysuria urgency or frequency. He denies any new swelling in his extremities. Patient is quite clear he does not wish to be admitted to the hospital again. Related Data Home Medications Medication Instructions Recorded Confirmed cholecalciferol (vitamin D3) 125 125 mcg PO DAILY 06/11/19 01/12/22 mcg (5,000 unit) capsule vitamin k2 480 mg PO DAILY 06/11/19 01/12/22 carvedilol 25 mg tablet 25 mg BID 12/16/21 01/12/22 magnesium citrate 417 mg DAILY 12/16/21 01/12/22 melatonin 15 mg BEDTIME 12/16/21 01/12/22 nitroglycerin 0.4 mg/hr 1 patch DAILY 12/16/21 01/12/22 transdermal 24 hour patch spironolactone 25 mg tablet 75 mg DAILY 12/16/21 01/12/22 Previous Rx's Medication Instructions Recorded finasteride 5 mg tablet 5 mg PO DAILY #90 tabs 03/28/21 tamsulosin 0.4 mg capsule 0.8 mg PO BEDTIME #28 caps 10/15/21 aspirin 81 mg tablet,delayed 81 mg PO DAILY #30 tabs 01/14/22 release atorvastatin 20 mg tablet (Lipitor) 40 mg PO BEDTIME #30 tabs 01/14/22 benzonatate 100 mg capsule 100 mg PO QID PRN cough #14 caps 01/21/22 Allergies Allergy/AdvReac Type Severity Reaction Status Date / Time No Known Drug Allergies Allergy Verified 01/21/22 08:04 Review of Systems Review of Systems ROS Unobtainable: All systems reviewed & are unremarkable except as noted in HPI and below Patient History Medical History Anemia Angina pectoris Arthritis Atrial fibrillation Bilateral nephrolithiasis BPH (benign prostatic hyperplasia) BPH w urinary obs/LUTS CAD (coronary artery disease) Cardiomyopathy Cataracts, bilateral Chicken pox Chronic kidney disease Detached retina, right (~1983) Diabetes Duodenal ulcer hemorrhage Hearing loss (~2012) HLD (hyperlipidemia) Hx of nephrolithotomy with removal of calculi (2008) Hyperaldosteronism Hypertension Measles Mumps Myocardial infarction (~2016) Nephrolithiasis ANA (obstructive sleep apnea) Osteoarthritis Partial blindness (~1948) Peptic ulcer disease (~2015) Peripheral neuropathy Right renal mass Sleep apnea Staph infection (1979) Tinnitus Upper GI bleed Vision disorder Surgical History Anesthesia H/O circumcision H/O lithotripsy H/O vasectomy History of appendectomy Hx of coronary angioplasty Hx of heart artery stent S/P CABG x 3 (1991) Family History Father History of heart disease Aneurysm Mother History of heart disease Hypertension Heart failure Brother Leukemia Social History household members: none Smoking Status: Former smoker alcohol intake: current substance use type: does not use Smoking Status: Former smoker alcohol intake frequency: holidays/special occasions only Substance Use Type: does not use Exam Narrative Exam Narrative: GENERAL: Alert and oriented x three, mild distress HEENT: Head normocephalic, atraumatic, EOMI, pupils reactive patient does have anisocoria, right pupil is enlarged compared to left patient states this is his baseline, face symmetric, moist mucous membranes NECK: Supple, full range of motion CARDIOVASCULAR: Regular rate and rhythm without murmurs, rubs or gallops. RESPIRATORY: Breath sounds equal bilaterally, no wheezes rales or rhonchi. ABDOMEN: Soft, nontender. Normoactive bowel sounds all 4 quadrants. No guarding or rebound, rigidity, no mass : No CVA tenderness EXTREMITIES: Normal range of motion, no clubbing or edema. Neurovascularly intact NEUROLOGICAL: Cranial nerves II through XII grossly intact. Moving all extremities SKIN: Warm, dry, no petechiae, no rashes or lesions. Initial Vital Signs Initial Vital Signs: Vital Signs Temperature 96.6 F L 01/21/22 08:03 Pulse Rate 68 01/21/22 08:03 Respiratory Rate 22 01/21/22 08:03 Blood Pressure 154/69 H 01/21/22 08:03 Pulse Oximetry 98 01/21/22 08:03 Oxygen Delivery Method 01/21/22 08:03 Course Orders Ordered: ED Orders 01/21/22 08:05 Chest [XR chest 2V] Stat EKG-12 Lead Stat 01/21/22 08:20 BNP [NT-proBNP (BNP-Adult 18+)] Stat CBC Auto Diff [Complete Blood Count AUTO DIFF] Stat CMP [Comprehensive Metabolic Panel] Stat Lipase Stat Troponin & CK Cardiac Panel Stat Vital Signs Vital signs: Vital Signs - 8 hr 01/21/22 08:03 Temperature 96.6 F L Pulse Rate 68 Respiratory Rate 22 Blood Pressure 154/69 H Pulse Oximetry 98 Oxygen Delivery Method Room Air MDM - SOB/Dyspnea Lab Data Result diagrams: 01/21/22 08:20 01/21/22 08:20 Labs: Lab Results 01/21/22 01/21/22 Range/Units 08:20 08:20 WBC 5.0 (4.5-11.0) X10^3/uL RBC 4.36 L (4.5-5.9) X10^6/uL Hgb 12.3 L (13.5-17.5) g/dL Hct 37.0 L (41-53) % MCV 84.7 (80-100) fL MCH 28.1 (26-34) PG MCHC 33.2 (30-36) % RDW 14.9 H (11.6-14.8) % Plt Count 114 L (150-400) X10^3/uL Neut % (Auto) 64.5 (50-75) % Lymph % (Auto) 18.6 L (25-40) % Orange % (Auto) 15.5 H (3-14) % Eos % (Auto) 1.0 L (2-4) % Baso % (Auto) 0.4 (0-2) % Neut # (Auto) 3200 (0997-4534) /uL Lymph # (Auto) 900 L (8306-9839) /uL Orange # (Auto) 800 (0-900) /uL Eos # (Auto) 100 (0-450) /uL Baso # (Auto) 0 (0-100) /uL Sodium 139 (137-145) mmol/L Potassium 4.4 (3.4-5.1) mmol/L Chloride 106 (98-107) mmol/L Carbon Dioxide 27 (22-32) mmol/L BUN 30 H (9-20) mg/dL Creatinine 1.26 H (0.66-1.25) mg/dL Estimated GFR > 60 (>60) mL/min BUN/Creatinine Ratio 23.8 H (6-22) Glucose 92 (80-110) mg/dL Calcium 8.7 (8.4-10.2) mg/dL Total Bilirubin 0.5 (0.2-1.3) mg/dL AST 22 (17-59) IU/L ALT 22 (<50) IU/L Alkaline Phosphatase 72 (38-126) U/L Total Creatine Kinase 26 L (55-170) U/L CK-MB (CK-2) TNP CK-MB (CK-2) Rel Index TNP Troponin I 0.039 H (0.01-0.034) ng/mL NT-Pro-B Natriuret Pep 929 H (<125) pg/mL Total Protein 7.0 (6.3-8.2) g/dL Albumin 3.8 (3.5-5.0) g/dL Globulin 3.2 (1.7-4.1) g/dL Albumin/Globulin Ratio 1.2 (1.0-2.8) Lipase 146 D (23-300) U/L Imaging Data Chest x-ray: Radiologist's Impression: [address] [address] XRay Report Signed Patient: Rc Bray MR#: [id number] : 1950 Acct:[id number] Age/Sex: 71 / M Date of Service: 01/21/22 Loc: ED Accession Number: [id number] ?? Procedure: XR chest 2V Ordering Provider: Joi Goodwin D.O. PROCEDURE:? XR CHEST 2V ? INDICATIONS:? sob ? TECHNIQUE:? 2 views of the chest were acquired.? ? COMPARISON:? [facility], CR, XR CHEST 1V, 01/11/2022, 18:06. ? FINDINGS:? ? Surgical changes and devices:? Median sternotomy. ? Lungs and pleura:? Lungs are clear.? No pleural effusions or pneumothorax.? ? Mediastinum:? Mediastinal contours are normal.? Heart size is normal.? ? Bones and chest wall:? No suspicious bony abnormalities.? Soft tissues appear unremarkable.? ? IMPRESSION:? No acute process. ? ? Dictated by: Stephie Wheatley M.D. on 01/21/2022 at 8:50 ? ? Approved by: Stephie Wheatley M.D. on 01/21/2022 at 8:51? ECG Data Attestation: I personally reviewed and interpreted this ECG as follows: Prior ECG tracings: available for review Interpretation: Patient has sinus bradycardia with first-degree AV block, rate of 58 TX 246 QRS 100 and QTC of 404. Patient has ST depression 1 and aVL, lateral leads slight elevation in 3 but not appreciated in AVF or 2. Patient has prior from 01/12/2022 which appears similar with no dynamic changes. Patient rate was 60- 90s on prior EKGs. MDM Narrative Medical decision making narrative: This is a 71-year-old male with recent hospitalization for acute hypoxic respiratory failure with COVID/sepsis responded well to treatment but had an NSTEMI during stay was anticoagulated had echo which showed chronic focal wall motion changes but no acute changes and was medically managed. Patient presents with complaint of persistent shortness of breath. Patient chronic kidney disease appears stable. CBC and CMP otherwise do not show any other major acute changes patient does have some baseline anemia. EKG does not show any acute changes. Chest x-ray does not show any acute changes as well. Troponin and BNP show indeterminant which is improved from his prior 01/13/2022, BNP is 929 also significantly improved from 2700. Patient is only 10 days from his initial hospitalization for COVID infection required a short course of oxygen and likely is having some persistent symptoms as they are not worsening with normal O2 at home. Discharge Plan Departure Patient Disposition: Home Clinical Impression: Dyspnea Instructions: DI for Shortness of Breath Activity Restrictions/Additional Instructions: Follow-up with your physician for recheck. Your labs today show improvement from your prior hospitalization. I suspect your shortness of breath is persistent from your recent COVID infection. Prescription for Cristian Segura sent to [facility] in [place]. Please return if you are having new or worsening chest pain, increasing shortness of breath, low oxygen below 90% on your pulse oximetry, persistent vomiting, black or bloody stools, new swelling in her extremities or other new or concerning changes. Prescriptions: New benzonatate 100 mg capsule 100 mg PO QID PRN (Reason: cough) Qty: 14 0RF No Action tamsulosin 0.4 mg capsule 0.8 mg PO BEDTIME Qty: 28 0RF cholecalciferol (vitamin D3) 125 mcg (5,000 unit) capsule 125 mcg PO DAILY vitamin k2 480 mg 480 mg PO DAILY carvedilol 25 mg tablet 25 mg BID spironolactone 25 mg tablet 75 mg DAILY nitroglycerin 0.4 mg/hr patch 24 hour 1 patch DAILY magnesium citrate tablet 417 mg DAILY melatonin 3 mg tablet 15 mg BEDTIME atorvastatin [Lipitor] 20 mg Tablet 40 mg PO BEDTIME Qty: 30 0RF aspirin 81 mg tablet,delayed release (DR/EC) 81 mg PO DAILY Qty: 30 0RF finasteride 5 mg tablet 5 mg PO DAILY Qty: 90 3RF Referrals: Koko Ramires MD [Primary Care Provider] - Visit Report Forms: Patient Portal/API
--- NOTE | 2022-01-21 08:05 | DI.RAD.S_ITS ---
PROCEDURE: XR CHEST 2V INDICATIONS: sob TECHNIQUE: 2 views of the chest were acquired. COMPARISON: [facility], , XR CHEST 1V, 01/11/2022, 18:06. FINDINGS: Surgical changes and devices: Median sternotomy. Lungs and pleura: Lungs are clear. No pleural effusions or pneumothorax. Mediastinum: Mediastinal contours are normal. Heart size is normal. Bones and chest wall: No suspicious bony abnormalities. Soft tissues appear unremarkable. IMPRESSION: No acute process. Dictated by: Stephie Wheatley M.D. on 01/21/2022 at 8:50 Approved by: Stephie Wheatley M.D. on 01/21/2022 at 8:51
[2022-01-21 08:32] LABS: Add Manual Diff / Slide Review NO; Basophils Absolute Auto 0 /uL (0-100); Basophils Percent Auto 0.4 % (0-2); Eosinophils Absolute Auto 100 /uL (0-450); Hemoglobin 12.3 g/dL (13.5-17.5); Lymphocytes Absolute Auto 900 /uL (1100-4500); Lymphocytes Percent Auto 18.6 % (25-40); Mean Corpuscular HGB Conc 33.2 % (30-36); Mean Corpuscular Hemoglobin 28.1 PG (26-34); Mean Corpuscular Volume 84.7 fL (80-100); Monocytes Absolute Auto 800 /uL (0-900); Monocytes Percent Auto 15.5 % (3-14); Neutrophils Absolute Auto 3200 /uL (1500-7000); Neutrophils Percent Auto 64.5 % (50-75); Platelet Count 114 X10^3/uL (150-400); Red Blood Cell Count 4.36 X10^6/uL (4.5-5.9); Red Cell Distribution Width 14.9 % (11.6-14.8)
[2022-01-21 08:45] LABS: Alanine Aminotransferase 22 IU/L (<50); Albumin 3.8 g/dL (3.5-5.0); Albumin Globulin Ratio 1.2 (1.0-2.8); Alkaline Phosphatase 72 U/L (38-126); Aspartate Aminotransferase 22 IU/L (17-59); BUN Creatinine Ratio 23.8 (6-22); Bilirubin Total 0.5 mg/dL (0.2-1.3); Blood Urea Nitrogen 30 mg/dL (9-20); Calcium 8.7 mg/dL (8.4-10.2); Carbon Dioxide 27 mmol/L (22-32); Chloride 106 mmol/L (98-107); Creatine Kinase 26 U/L (55-170); Estimated Glomerular Filt Rate > 60 mL/min (>60); Globulin 3.2 g/dL (1.7-4.1); Glucose 92 mg/dL (80-110); HEMOLYSIS 40 (0-50); Lipase 146 U/L (23-300); Potassium 4.4 mmol/L (3.4-5.1); Sodium 139 mmol/L (137-145)
[2022-01-21 08:57] LABS: NT-proBNP (BNP-Adult 18+) 929 pg/mL (<125); Troponin I 0.039 ng/mL (0.01-0.034)
[2022-01-21 09:00] VITALS: BP 112/59; PULSE 59; RESP 18; O2SAT 98
== END 2022-01-21 09:10 | disposition home or self-care (01) ==
PROVIDERS: Emergency Provider Emergency Medicine; Family Provider Internal Medicine Nephrology; PCP Internal Medicine
DX: R06.00 Dyspnea, unspecified (principal); R00.1 Bradycardia, unspecified; Z86.16 Personal history of COVID-19
CPT/HCPCS: 36415; 71046; 80053; 82550; 83690; 83880; 84484; 85025; 93005; 99284

== ENCOUNTER 2022-01-22 10:21 | Emergency (ER) | payer MEDICARE, OTHER, SELFPAY ==
[2022-01-11 21:53] VITALS: BMI 30.8
[2022-01-22] VITALS (45 sets, daily range): BP systolic 90–157; BP diastolic 51–76; PULSE 51–113; RESP 16–23; TEMP 36.5; O2SAT 92–100; BMI 32.5
--- NOTE | 2022-01-22 10:45 | ED.SOB ---
HPI - SOB/Dyspnea <Joi Goodwin, DO - Last Filed: 01/26/22 14:52> General Chief Complaint: Shortness of Breath/Dyspnea Stated Complaint: difficulty breathing Time Seen by Provider: 01/22/22 10:44 Source: patient Mode of arrival: Wheelchair Limitations: no limitations History of Present Illness HPI Narrative: This is a 71-year-old male with history of CABG, cardiac stents, hypertension, dyslipidemia, chronic kidney disease, percutaneous lithotripsy and recent COVID-19 infection was hospitalized with sepsis, acute hypoxic respiratory failure and subsequent NSTEMI and was discharged home on 01/14/2022. Patient re-presented yesterday with complaint of shortness of breath had indeterminate troponin significantly lower than his priors in the hospital. He returns today he states he had an episode where he felt much more short of breath this morning. He denies any chest pain or pressure at any point. He felt like he be lightheaded earlier today but no syncope. He denies nausea or vomiting. He did feel sweaty and felt chilled earlier. He denies any new swelling in his extremities. He does note some cramping yesterday in his legs. States he was discharged home with aspirin and statin on top of his normal home medications. He is in appreciated any low pulse ox extremities yesterday but was having trouble picking up today. Patient does follow with Dr. Blanco for Cardiology. Dr. Ramires is his primary care. Related Data Home Medications Medication Instructions Recorded Confirmed cholecalciferol (vitamin D3) 125 125 mcg PO DAILY 06/11/19 05/14/22 mcg (5,000 unit) capsule nitroglycerin 0.4 mg/hr 1 patch transdermal DAILY 12/16/21 05/14/22 transdermal 24 hour patch magnesium citrate 4 gram oral 400 mg PO DAILY 01/24/22 05/14/22 packet melatonin 3 mg tablet 3 mg PO BEDTIME PRN Insomnia 01/24/22 05/14/22 vitamin K2 100 mcg capsule 480 mcg PO DAILY 01/24/22 05/14/22 amlodipine 5 mg tablet 5 mg PO DAILY 04/16/22 05/14/22 buspirone 10 mg tablet 10 mg PO BID 04/16/22 05/14/22 clopidogrel 75 mg tablet 75 mg PO DAILY 04/16/22 05/14/22 ipratropium bromide 42 mcg (0.06 intranasal 04/16/22 05/14/22 %) nasal spray metoprolol tartrate 50 mg tablet 50 mg PO BID 04/16/22 05/14/22 rosuvastatin 40 mg tablet 40 mg PO DAILY 04/16/22 05/14/22 valsartan 40 mg tablet 20 mg PO DAILY 04/16/22 05/14/22 Previous Rx's Medication Instructions Recorded finasteride 5 mg tablet 5 mg PO DAILY #90 tabs 03/28/21 tamsulosin 0.4 mg capsule 0.8 mg PO BEDTIME #28 caps 10/15/21 aspirin 81 mg tablet,delayed 81 mg PO DAILY #30 tabs 01/14/22 release temazepam 30 mg capsule 30 mg PO BEDTIME PRN sleep #30 caps 05/24/22 Allergies Allergy/AdvReac Type Severity Reaction Status Date / Time gabapentin Allergy Verified 05/14/22 09:01 Review of Systems <Joi Goodwin DO - Last Filed: 01/26/22 14:52> Review of Systems ROS Unobtainable: All systems reviewed & are unremarkable except as noted in HPI and below Patient History <Joi Goodwin DO - Last Filed: 01/26/22 14:52> Medical History (Updated 05/24/22 @ 00:00 by ) Anemia Angina pectoris Arthritis Atrial fibrillation Bilateral nephrolithiasis BPH (benign prostatic hyperplasia) BPH w urinary obs/LUTS CAD (coronary artery disease) CAD (coronary artery disease) (~1991) Cardiomyopathy Chicken pox Chronic kidney disease Detached retina, right (~1983) Diabetes Duodenal ulcer hemorrhage Grieving Hearing loss Hemorrhoid History of nephrolithiasis HLD (hyperlipidemia) Hx of nephrolithotomy with removal of calculi (2008) Hyperaldosteronism Hypertension Insomnia Measles Mumps Myocardial infarction (~2016) ANA (obstructive sleep apnea) Partial blindness (~194) Peptic ulcer disease (~2015) Peripheral arterial disease Peripheral neuropathy Right renal mass Sleep apnea Staph infection (1979) Tinnitus Upper GI bleed Surgical History Anesthesia H/O circumcision H/O lithotripsy H/O vasectomy History of appendectomy Hx of coronary angioplasty Hx of heart artery stent S/P CABG x 3 (1991) Family History Father History of heart disease Aneurysm Mother History of heart disease Hypertension Heart failure Brother Leukemia Social History household members: none Smoking Status: Former smoker alcohol intake: current substance use type: does not use Smoking Status: Former smoker alcohol intake frequency: holidays/special occasions only Substance Use Type: does not use Exam <Joi Goodwin DO - Last Filed: 01/26/22 14:52> Narrative Exam Narrative: GENERAL: Alert and oriented x three, male in mild distress. HEENT: Head normocephalic, atraumatic, EOMI, pupils reactive, face symmetric, moist mucous membranes NECK: Supple, full range of motion CARDIOVASCULAR: Regular rate and rhythm without murmurs, rubs or gallops. RESPIRATORY: Breath sounds equal bilaterally, no wheezes rales or rhonchi. Tachypnea. No accessory muscle use. Patient speaks in full sentences. ABDOMEN: Soft, nontender. Normoactive bowel sounds all 4 quadrants. No guarding or rebound, rigidity, no mass : No CVA tenderness EXTREMITIES: Normal range of motion, no clubbing or edema. Neurovascularly intact NEUROLOGICAL: Cranial nerves II through XII grossly intact. Moving all extremities SKIN: Warm, dry, no petechiae, no rashes or lesions. Initial Vital Signs Initial Vital Signs: Vital Signs Pulse Rate 60 01/22/22 10:31 Respiratory Rate 20 01/22/22 10:31 Blood Pressure 108/55 L 01/22/22 10:31 Pulse Oximetry 99 01/22/22 10:31 Oxygen Delivery Method Room Air 01/22/22 10:31 <Eleuterio Strickland DO - Last Filed: 01/26/22 18:24> Initial Vital Signs Initial Vital Signs: Vital Signs Pulse Rate 60 01/22/22 10:31 Respiratory Rate 20 01/22/22 10:31 Blood Pressure 108/55 L 01/22/22 10:31 Pulse Oximetry 99 01/22/22 10:31 Oxygen Delivery Method Room Air 01/22/22 10:31 <Karel Julian MD - Last Filed: 02/02/22 08:22> Initial Vital Signs Initial Vital Signs: Vital Signs Pulse Rate 60 01/22/22 10:31 Respiratory Rate 20 01/22/22 10:31 Blood Pressure 108/55 L 01/22/22 10:31 Pulse Oximetry 99 01/22/22 10:31 Oxygen Delivery Method Room Air 01/22/22 10:31 <Jo Saucedo MD - Last Filed: 02/07/22 18:30> Initial Vital Signs Initial Vital Signs: Vital Signs Pulse Rate 60 01/22/22 10:31 Respiratory Rate 20 01/22/22 10:31 Blood Pressure 108/55 L 01/22/22 10:31 Pulse Oximetry 99 01/22/22 10:31 Oxygen Delivery Method Room Air 01/22/22 10:31 Course <Joi Goodwin DO - Last Filed: 01/26/22 14:52> Course Course Narrative: January 23, 2022 at 7:00 p.m.. Sign out from Dr. Strickland, patient has been boarding awaiting for bed placement. Non-STEMI protocol placed with heparin on board. Medications are automated already. May need Valium as needed tilt for anxiety. Troponins have been trending down. January 24, 2022 at 7:00 a.m.. Sign out to Dr. Goodwin, patient remains on waiting list for several hospitalist for transfer needing hospital or heart catheterization. Patient remains on heparin drip. Of recent, [facility] was contacted earlier this morning and will call back after 7:00 a.m. in hopes of more staff to accommodate transfer of patient. Orders Ordered: Discontinued Medications Aspirin (Aspirin 81 Mg Chew Tab) 324 mg PO NOW ONE Stop: 01/22/22 12:45 Last Admin: 01/22/22 13:23 Dose: 324 mg Documented By: RB Aspirin (Aspirin Ec 325 Mg Tablet) 325 mg PO DAILY [facility] Last Admin: 01/26/22 09:59 Dose: 325 mg Documented By: Admin: 01/25/22 09:22 Dose: 325 mg Documented By: Admin: 01/24/22 10:30 Dose: 325 mg Documented By: Admin: 01/23/22 09:21 Dose: 325 mg Documented By: KRISTEN Atorvastatin Calcium (Atorvastatin 20 Mg Tablet) 80 mg PO BEDTIME [facility] Last Admin: 01/25/22 21:32 Dose: 80 mg Documented By: Admin: 01/24/22 23:30 Dose: 80 mg Documented By: Admin: 01/23/22 21:53 Dose: 80 mg Documented By: Admin: 01/22/22 21:17 Dose: 80 mg Documented By: RADHA Atorvastatin Calcium (Atorvastatin 20 Mg Tablet) 20 mg PO NOW ONE Stop: 01/22/22 21:12 Last Admin: 01/22/22 21:14 Dose: Not Given Documented By: RB Carvedilol (Carvedilol 12.5 Mg Tablet) 25 mg PO BID KELLE Last Admin: 01/26/22 09:58 Dose: 25 mg Documented By: Admin: 01/25/22 21:32 Dose: 25 mg Documented By: Admin: 01/25/22 09:22 Dose: 25 mg Documented By: Admin: 01/24/22 23:29 Dose: 25 mg Documented By: Admin: 01/24/22 10:29 Dose: 25 mg Documented By: Admin: 01/23/22 21:53 Dose: 25 mg Documented By: Admin: 01/23/22 09:21 Dose: 25 mg Documented By: Admin: 01/22/22 21:06 Dose: Not Given Documented By: RADHA Carvedilol (Carvedilol 12.5 Mg Tablet) 25 mg PO NOW ONE Stop: 01/22/22 19:26 Last Admin: 01/22/22 19:42 Dose: 25 mg Documented By: RADHA Diazepam (Diazepam 10 Mg/2 Ml Syringe) 2 mg IV NOW ONE Stop: 01/23/22 09:33 Last Admin: 01/23/22 10:04 Dose: 2 mg Documented By: KRISTEN Diazepam (Diazepam 10 Mg/2 Ml Syringe) 2 mg IV NOW ONE Stop: 01/23/22 12:46 Last Admin: 01/23/22 12:52 Dose: 2 mg Documented By: RADHA Diazepam (Diazepam 5 Mg Tablet) 5 mg PO NOW ONE Stop: 01/24/22 04:57 Last Admin: 01/24/22 05:04 Dose: 5 mg Documented By: LENORE Diazepam (Diazepam 5 Mg Tablet) 5 mg PO Q6HR PRN PRN Reason: Anxiety Last Admin: 01/26/22 15:22 Dose: 5 mg Documented By: Admin: 01/25/22 22:46 Dose: 5 mg Documented By: Admin: 01/24/22 23:28 Dose: 5 mg Documented By: Admin: 01/24/22 16:31 Dose: 5 mg Documented By: Admin: 01/24/22 10:30 Dose: 5 mg Documented By: DELMER Finasteride (Finasteride 5 Mg Tablet) 5 mg PO DAILY [facility] Last Admin: 01/26/22 09:59 Dose: 5 mg Documented By: Admin: 01/25/22 09:22 Dose: 5 mg Documented By: Admin: 01/24/22 14:11 Dose: 5 mg Documented By: ZAINAB Furosemide (Furosemide 40 Mg/4 Ml Vial) 40 mg IV NOW ONE Stop: 01/22/22 15:45 Last Admin: 01/22/22 16:03 Dose: 40 mg Documented By: RB Furosemide (Furosemide 40 Mg/4 Ml Vial) 40 mg IV NOW ONE Stop: 01/24/22 10:02 Last Admin: 01/24/22 10:46 Dose: 40 mg Documented By: DELMER Furosemide (Furosemide 100 Mg/10 Ml Vial) 80 mg IV NOW ONE Stop: 01/25/22 00:11 Last Admin: 01/25/22 00:50 Dose: 80 mg Documented By: LENORE Guaifenesin/Codeine Phosphate (Codeine/Guaifenesin Liquid 5ml Udc) 10 ml PO NOW ONE Stop: 01/22/22 15:21 Last Admin: 01/22/22 15:36 Dose: Not Given Documented By: RADHA Heparin Sodium (Porcine) (Heparin 5,000 Unit/Ml Vial) 5,000 unit IV NOW ONE Stop: 01/22/22 13:21 Last Admin: 01/22/22 13:28 Dose: 5,000 unit Documented By: PHILLY Sodium Chloride (Normal Saline 0.9%) 1,000 mls @ 500 mls/hr IV BOLUS ONE Stop: 01/22/22 14:20 Last Infusion: 01/22/22 14:30 Dose: 0 mls/hr Documented By: Admin: 01/22/22 12:38 Dose: 500 mls/hr Documented By: RADHA Heparin Sodium/Dextrose (Heparin Drip) 25,000 unit in 500 mls @ 20 mls/hr IV CONT KELLE; Protocol Last Titration: 01/23/22 12:25 Dose: 0 units/hr, 0 mls/hr Documented By: Titration: 01/23/22 10:15 Dose: 1,150 units/hr, 23 mls/hr Documented By: Titration: 01/23/22 03:30 Dose: 1,100 units/hr, 22 mls/hr Documented By: Titration: 01/22/22 20:21 Dose: 1,050 units/hr, 21 mls/hr Documented By: Admin: 01/22/22 13:28 Dose: 1,000 units/hr, 20 mls/hr Documented By: PHILLY Heparin Sodium/Dextrose (Heparin Drip) 25,000 unit in 500 mls @ 20 mls/hr IV CONT KELLE; Protocol Last Titration: 01/26/22 15:36 Dose: 1,250 units/hr, 25 mls/hr Documented By: Admin: 01/25/22 22:47 Dose: 1,250 units/hr, 25 mls/hr Documented By: Titration: 01/25/22 22:33 Dose: 1,250 units/hr, 25 mls/hr Documented By: Admin: 01/25/22 02:33 Dose: 1,250 units/hr, 25 mls/hr Documented By: Titration: 01/25/22 02:33 Dose: 1,250 units/hr, 25 mls/hr Documented By: Admin: 01/24/22 09:21 Dose: 1,250 units/hr, 25 mls/hr Documented By: Titration: 01/24/22 08:55 Dose: 1,250 units/hr, 25 mls/hr Documented By: Titration: 01/24/22 01:00 Dose: 1,250 units/hr, 25 mls/hr Documented By: Titration: 01/23/22 17:30 Dose: 1,200 units/hr, 24 mls/hr Documented By: Admin: 01/23/22 12:11 Dose: 1,150 units/hr, 23 mls/hr Documented By: LORENZA Ceftriaxone Sodium 1,000 mg/ (Sodium Chloride) 100 mls @ 200 mls/hr IV NOW ONE Stop: 01/23/22 17:52 Last Infusion: 01/23/22 20:20 Dose: 0 mls/hr Documented By: Admin: 01/23/22 19:46 Dose: 200 mls/hr Documented By: RB Ceftriaxone Sodium 2,000 mg/ (Sodium Chloride) 100 mls @ 200 mls/hr IV NOW ONE Stop: 01/25/22 22:24 Last Infusion: 01/25/22 23:45 Dose: 0 mls/hr Documented By: Admin: 01/25/22 22:46 Dose: 200 mls/hr Documented By: DKB Nitroglycerin (Nitroglycerin 0.4 Mg Sl Tab) 0.4 mg SL NOW ONE Stop: 01/22/22 22:36 Last Admin: 01/22/22 22:38 Dose: 0.4 mg Documented By: RB Spironolactone (Spironolactone 25 Mg Tablet) 25 mg PO DAILY [facility] Last Admin: 01/26/22 09:58 Dose: 25 mg Documented By: Admin: 01/25/22 09:22 Dose: 25 mg Documented By: Admin: 01/24/22 14:11 Dose: 25 mg Documented By: KB Tamsulosin HCl (Tamsulosin 0.4 Mg Capsule) 0.8 mg PO BEDTIME [facility] Last Admin: 01/25/22 21:32 Dose: 0.8 mg Documented By: Admin: 01/24/22 23:29 Dose: 0.8 mg Documented By: AT Temazepam (Temazepam 15 Mg Capsule) 15 mg PO BEDTIME PRN PRN Reason: Sleep Last Admin: 01/24/22 01:52 Dose: 15 mg Documented By: Admin: 01/23/22 21:53 Dose: 15 mg Documented By: Admin: 01/23/22 04:10 Dose: 15 mg Documented By: FANNIE Consultations Consultation #1: Tanya, patient could potentially have COVID induced myocarditis but would recommend transfer for cardiac catheterization to rule out ACS as well. Heparin started, statin, difficult treatment. Recommend CK if not done will often be elevated with myocarditis. Consultation #2: [facility], agrees with current plan for, 80 mg statin, continue patient's beta-veronica, they are unable to accept this time they have multiple patient's bending that need treatment but do recommend echo has not been obtained. Consultation #3: 01/25 1207am bed was available at [facility]. Spoke with the hospitalist service who felt that this was a purely cardiac presentation and should be admitted by the cardiology service. Spoke with the cardiology service who felt that this had ?many other reasons to explain his type 2 NSTEMI? and did not need immediate cardiac pathology evaluation she was not entirely sure that she felt catheterization would even be recommended. In reviewing his records, again he has been dyspneic with no chest pain. He has been heparinized now for greater than 55 hours. His BNP is slightly elevated and he has been given a single dose of Lasix. He had an echocardiogram with his January 11 hospital admission with an ejection fraction in the 40-50% range and no significant changes to the left wall motion abnormalities appreciated in comparison to prior echocardiograms. He has had no chest pain, palpitations or arrhythmias while observed in the emergency department. At this time, with no other beds available this evening, I am going to give him an additional dose of Lasix now and again in the morning. We will see if echocardiogram can be repeated in the morning. If not significantly changed may be an appropriate candidate for home discharge and outpatient follow-up with his acid treater. Vital Signs Vital signs: Vital Signs - 8 hr 01/26/22 14:55 Pulse Rate 88 Respiratory Rate 16 Blood Pressure 119/73 Pulse Oximetry 93 Oxygen Delivery Method Room Air <Eleuterio Strickland DO - Last Filed: 01/26/22 18:24> Orders Ordered: Discontinued Medications Aspirin (Aspirin 81 Mg Chew Tab) 324 mg PO NOW ONE Stop: 01/22/22 12:45 Last Admin: 01/22/22 13:23 Dose: 324 mg Documented By: RB Aspirin (Aspirin Ec 325 Mg Tablet) 325 mg PO DAILY [facility] Last Admin: 01/26/22 09:59 Dose: 325 mg Documented By: Admin: 01/25/22 09:22 Dose: 325 mg Documented By: Admin: 01/24/22 10:30 Dose: 325 mg Documented By: Admin: 01/23/22 09:21 Dose: 325 mg Documented By: KRISTEN Atorvastatin Calcium (Atorvastatin 20 Mg Tablet) 80 mg PO BEDTIME [facility] Last Admin: 01/25/22 21:32 Dose: 80 mg Documented By: Admin: 01/24/22 23:30 Dose: 80 mg Documented By: Admin: 01/23/22 21:53 Dose: 80 mg Documented By: Admin: 01/22/22 21:17 Dose: 80 mg Documented By: RB Atorvastatin Calcium (Atorvastatin 20 Mg Tablet) 20 mg PO NOW ONE Stop: 01/22/22 21:12 Last Admin: 01/22/22 21:14 Dose: Not Given Documented By: RADHA Carvedilol (Carvedilol 12.5 Mg Tablet) 25 mg PO BID [facility] Last Admin: 01/26/22 09:58 Dose: 25 mg Documented By: Admin: 01/25/22 21:32 Dose: 25 mg Documented By: Admin: 01/25/22 09:22 Dose: 25 mg Documented By: Admin: 01/24/22 23:29 Dose: 25 mg Documented By: Admin: 01/24/22 10:29 Dose: 25 mg Documented By: Admin: 01/23/22 21:53 Dose: 25 mg Documented By: Admin: 01/23/22 09:21 Dose: 25 mg Documented By: Admin: 01/22/22 21:06 Dose: Not Given Documented By: RADHA Carvedilol (Carvedilol 12.5 Mg Tablet) 25 mg PO NOW ONE Stop: 01/22/22 19:26 Last Admin: 01/22/22 19:42 Dose: 25 mg Documented By: RADHA Diazepam (Diazepam 10 Mg/2 Ml Syringe) 2 mg IV NOW ONE Stop: 01/23/22 09:33 Last Admin: 01/23/22 10:04 Dose: 2 mg Documented By: KRISTEN Diazepam (Diazepam 10 Mg/2 Ml Syringe) 2 mg IV NOW ONE Stop: 01/23/22 12:46 Last Admin: 01/23/22 12:52 Dose: 2 mg Documented By: RADHA Diazepam (Diazepam 5 Mg Tablet) 5 mg PO NOW ONE Stop: 01/24/22 04:57 Last Admin: 01/24/22 05:04 Dose: 5 mg Documented By: LENORE Diazepam (Diazepam 5 Mg Tablet) 5 mg PO Q6HR PRN PRN Reason: Anxiety Last Admin: 01/26/22 15:22 Dose: 5 mg Documented By: Admin: 01/25/22 22:46 Dose: 5 mg Documented By: Admin: 01/24/22 23:28 Dose: 5 mg Documented By: Admin: 01/24/22 16:31 Dose: 5 mg Documented By: Admin: 01/24/22 10:30 Dose: 5 mg Documented By: DELMER Finasteride (Finasteride 5 Mg Tablet) 5 mg PO DAILY [facility] Last Admin: 01/26/22 09:59 Dose: 5 mg Documented By: Admin: 01/25/22 09:22 Dose: 5 mg Documented By: Admin: 01/24/22 14:11 Dose: 5 mg Documented By: ZAINAB Furosemide (Furosemide 40 Mg/4 Ml Vial) 40 mg IV NOW ONE Stop: 01/22/22 15:45 Last Admin: 01/22/22 16:03 Dose: 40 mg Documented By: RB Furosemide (Furosemide 40 Mg/4 Ml Vial) 40 mg IV NOW ONE Stop: 01/24/22 10:02 Last Admin: 01/24/22 10:46 Dose: 40 mg Documented By: DELMER Furosemide (Furosemide 100 Mg/10 Ml Vial) 80 mg IV NOW ONE Stop: 01/25/22 00:11 Last Admin: 01/25/22 00:50 Dose: 80 mg Documented By: LENORE Guaifenesin/Codeine Phosphate (Codeine/Guaifenesin Liquid 5ml Udc) 10 ml PO NOW ONE Stop: 01/22/22 15:21 Last Admin: 01/22/22 15:36 Dose: Not Given Documented By: RADHA Heparin Sodium (Porcine) (Heparin 5,000 Unit/Ml Vial) 5,000 unit IV NOW ONE Stop: 01/22/22 13:21 Last Admin: 01/22/22 13:28 Dose: 5,000 unit Documented By: PHILLY Sodium Chloride (Normal Saline 0.9%) 1,000 mls @ 500 mls/hr IV BOLUS ONE Stop: 01/22/22 14:20 Last Infusion: 01/22/22 14:30 Dose: 0 mls/hr Documented By: Admin: 01/22/22 12:38 Dose: 500 mls/hr Documented By: RADHA Heparin Sodium/Dextrose (Heparin Drip) 25,000 unit in 500 mls @ 20 mls/hr IV CONT KELLE; Protocol Last Titration: 01/23/22 12:25 Dose: 0 units/hr, 0 mls/hr Documented By: Titration: 01/23/22 10:15 Dose: 1,150 units/hr, 23 mls/hr Documented By: Titration: 01/23/22 03:30 Dose: 1,100 units/hr, 22 mls/hr Documented By: Titration: 01/22/22 20:21 Dose: 1,050 units/hr, 21 mls/hr Documented By: Admin: 01/22/22 13:28 Dose: 1,000 units/hr, 20 mls/hr Documented By: PHILLY Heparin Sodium/Dextrose (Heparin Drip) 25,000 unit in 500 mls @ 20 mls/hr IV CONT KELLE; Protocol Last Titration: 01/26/22 15:36 Dose: 1,250 units/hr, 25 mls/hr Documented By: Admin: 01/25/22 22:47 Dose: 1,250 units/hr, 25 mls/hr Documented By: Titration: 01/25/22 22:33 Dose: 1,250 units/hr, 25 mls/hr Documented By: Admin: 01/25/22 02:33 Dose: 1,250 units/hr, 25 mls/hr Documented By: Titration: 01/25/22 02:33 Dose: 1,250 units/hr, 25 mls/hr Documented By: Admin: 01/24/22 09:21 Dose: 1,250 units/hr, 25 mls/hr Documented By: Titration: 01/24/22 08:55 Dose: 1,250 units/hr, 25 mls/hr Documented By: Titration: 01/24/22 01:00 Dose: 1,250 units/hr, 25 mls/hr Documented By: Titration: 01/23/22 17:30 Dose: 1,200 units/hr, 24 mls/hr Documented By: Admin: 01/23/22 12:11 Dose: 1,150 units/hr, 23 mls/hr Documented By: LORENZA Ceftriaxone Sodium 1,000 mg/ (Sodium Chloride) 100 mls @ 200 mls/hr IV NOW ONE Stop: 01/23/22 17:52 Last Infusion: 01/23/22 20:20 Dose: 0 mls/hr Documented By: Admin: 01/23/22 19:46 Dose: 200 mls/hr Documented By: RB Ceftriaxone Sodium 2,000 mg/ (Sodium Chloride) 100 mls @ 200 mls/hr IV NOW ONE Stop: 01/25/22 22:24 Last Infusion: 01/25/22 23:45 Dose: 0 mls/hr Documented By: Admin: 01/25/22 22:46 Dose: 200 mls/hr Documented By: LENORE Nitroglycerin (Nitroglycerin 0.4 Mg Sl Tab) 0.4 mg SL NOW ONE Stop: 01/22/22 22:36 Last Admin: 01/22/22 22:38 Dose: 0.4 mg Documented By: RB Spironolactone (Spironolactone 25 Mg Tablet) 25 mg PO DAILY [facility] Last Admin: 01/26/22 09:58 Dose: 25 mg Documented By: Admin: 01/25/22 09:22 Dose: 25 mg Documented By: Admin: 01/24/22 14:11 Dose: 25 mg Documented By: ZAINAB Tamsulosin HCl (Tamsulosin 0.4 Mg Capsule) 0.8 mg PO BEDTIME [facility] Last Admin: 01/25/22 21:32 Dose: 0.8 mg Documented By: Admin: 01/24/22 23:29 Dose: 0.8 mg Documented By: AT Temazepam (Temazepam 15 Mg Capsule) 15 mg PO BEDTIME PRN PRN Reason: Sleep Last Admin: 01/24/22 01:52 Dose: 15 mg Documented By: Admin: 01/23/22 21:53 Dose: 15 mg Documented By: Admin: 01/23/22 04:10 Dose: 15 mg Documented By: FANNIE Vital Signs Vital signs: Vital Signs - 8 hr 01/26/22 14:55 Pulse Rate 88 Respiratory Rate 16 Blood Pressure 119/73 Pulse Oximetry 93 Oxygen Delivery Method Room Air <Karel Julian MD - Last Filed: 02/02/22 08:22> Course Course Narrative: January 23, 2022 at 7:00 p.m.. Sign out from Dr. Strickland, patient has been boarding awaiting for bed placement. Non-STEMI protocol placed with heparin on board. Medications are automated already. May need Valium as needed tilt for anxiety. Troponins have been trending down. January 24, 2022 at 7:00 a.m.. Sign out to Dr. Goodwin, patient remains on waiting list for several hospitalist for transfer needing hospital or heart catheterization. Patient remains on heparin drip. Of recent, [facility] was contacted earlier this morning and will call back after 7:00 a.m. in hopes of more staff to accommodate transfer of patient. Orders Ordered: Discontinued Medications Aspirin (Aspirin 81 Mg Chew Tab) 324 mg PO NOW ONE Stop: 01/22/22 12:45 Last Admin: 01/22/22 13:23 Dose: 324 mg Documented By: RADHA Aspirin (Aspirin Ec 325 Mg Tablet) 325 mg PO DAILY [facility] Last Admin: 01/26/22 09:59 Dose: 325 mg Documented By: Admin: 01/25/22 09:22 Dose: 325 mg Documented By: Admin: 01/24/22 10:30 Dose: 325 mg Documented By: Admin: 01/23/22 09:21 Dose: 325 mg Documented By: KRISTEN Atorvastatin Calcium (Atorvastatin 20 Mg Tablet) 80 mg PO BEDTIME [facility] Last Admin: 01/25/22 21:32 Dose: 80 mg Documented By: Admin: 01/24/22 23:30 Dose: 80 mg Documented By: Admin: 01/23/22 21:53 Dose: 80 mg Documented By: Admin: 01/22/22 21:17 Dose: 80 mg Documented By: RADHA Atorvastatin Calcium (Atorvastatin 20 Mg Tablet) 20 mg PO NOW ONE Stop: 01/22/22 21:12 Last Admin: 01/22/22 21:14 Dose: Not Given Documented By: RADHA Carvedilol (Carvedilol 12.5 Mg Tablet) 25 mg PO BID [facility] Last Admin: 01/26/22 09:58 Dose: 25 mg Documented By: Admin: 01/25/22 21:32 Dose: 25 mg Documented By: Admin: 01/25/22 09:22 Dose: 25 mg Documented By: Admin: 01/24/22 23:29 Dose: 25 mg Documented By: Admin: 01/24/22 10:29 Dose: 25 mg Documented By: Admin: 01/23/22 21:53 Dose: 25 mg Documented By: Admin: 01/23/22 09:21 Dose: 25 mg Documented By: Admin: 01/22/22 21:06 Dose: Not Given Documented By: RADHA Carvedilol (Carvedilol 12.5 Mg Tablet) 25 mg PO NOW ONE Stop: 01/22/22 19:26 Last Admin: 01/22/22 19:42 Dose: 25 mg Documented By: RADHA Diazepam (Diazepam 10 Mg/2 Ml Syringe) 2 mg IV NOW ONE Stop: 01/23/22 09:33 Last Admin: 01/23/22 10:04 Dose: 2 mg Documented By: KRISTEN Diazepam (Diazepam 10 Mg/2 Ml Syringe) 2 mg IV NOW ONE Stop: 01/23/22 12:46 Last Admin: 01/23/22 12:52 Dose: 2 mg Documented By: RADHA Diazepam (Diazepam 5 Mg Tablet) 5 mg PO NOW ONE Stop: 01/24/22 04:57 Last Admin: 01/24/22 05:04 Dose: 5 mg Documented By: LENORE Diazepam (Diazepam 5 Mg Tablet) 5 mg PO Q6HR PRN PRN Reason: Anxiety Last Admin: 01/26/22 15:22 Dose: 5 mg Documented By: Admin: 01/25/22 22:46 Dose: 5 mg Documented By: Admin: 01/24/22 23:28 Dose: 5 mg Documented By: Admin: 01/24/22 16:31 Dose: 5 mg Documented By: Admin: 01/24/22 10:30 Dose: 5 mg Documented By: DELMER Finasteride (Finasteride 5 Mg Tablet) 5 mg PO DAILY [facility] Last Admin: 01/26/22 09:59 Dose: 5 mg Documented By: Admin: 01/25/22 09:22 Dose: 5 mg Documented By: Admin: 01/24/22 14:11 Dose: 5 mg Documented By: ZAINAB Furosemide (Furosemide 40 Mg/4 Ml Vial) 40 mg IV NOW ONE Stop: 01/22/22 15:45 Last Admin: 01/22/22 16:03 Dose: 40 mg Documented By: RADHA Furosemide (Furosemide 40 Mg/4 Ml Vial) 40 mg IV NOW ONE Stop: 01/24/22 10:02 Last Admin: 01/24/22 10:46 Dose: 40 mg Documented By: DELMER Furosemide (Furosemide 100 Mg/10 Ml Vial) 80 mg IV NOW ONE Stop: 01/25/22 00:11 Last Admin: 01/25/22 00:50 Dose: 80 mg Documented By: LENORE Guaifenesin/Codeine Phosphate (Codeine/Guaifenesin Liquid 5ml Udc) 10 ml PO NOW ONE Stop: 01/22/22 15:21 Last Admin: 01/22/22 15:36 Dose: Not Given Documented By: RADHA Heparin Sodium (Porcine) (Heparin 5,000 Unit/Ml Vial) 5,000 unit IV NOW ONE Stop: 01/22/22 13:21 Last Admin: 01/22/22 13:28 Dose: 5,000 unit Documented By: PHILLY Sodium Chloride (Normal Saline 0.9%) 1,000 mls @ 500 mls/hr IV BOLUS ONE Stop: 01/22/22 14:20 Last Infusion: 01/22/22 14:30 Dose: 0 mls/hr Documented By: Admin: 01/22/22 12:38 Dose: 500 mls/hr Documented By: RB Heparin Sodium/Dextrose (Heparin Drip) 25,000 unit in 500 mls @ 20 mls/hr IV CONT KELLE; Protocol Last Titration: 01/23/22 12:25 Dose: 0 units/hr, 0 mls/hr Documented By: Titration: 01/23/22 10:15 Dose: 1,150 units/hr, 23 mls/hr Documented By: Titration: 01/23/22 03:30 Dose: 1,100 units/hr, 22 mls/hr Documented By: Titration: 01/22/22 20:21 Dose: 1,050 units/hr, 21 mls/hr Documented By: Admin: 01/22/22 13:28 Dose: 1,000 units/hr, 20 mls/hr Documented By: PHILLY Heparin Sodium/Dextrose (Heparin Drip) 25,000 unit in 500 mls @ 20 mls/hr IV CONT KELLE; Protocol Last Titration: 01/26/22 15:36 Dose: 1,250 units/hr, 25 mls/hr Documented By: Admin: 01/25/22 22:47 Dose: 1,250 units/hr, 25 mls/hr Documented By: Titration: 01/25/22 22:33 Dose: 1,250 units/hr, 25 mls/hr Documented By: Admin: 01/25/22 02:33 Dose: 1,250 units/hr, 25 mls/hr Documented By: Titration: 01/25/22 02:33 Dose: 1,250 units/hr, 25 mls/hr Documented By: Admin: 01/24/22 09:21 Dose: 1,250 units/hr, 25 mls/hr Documented By: Titration: 01/24/22 08:55 Dose: 1,250 units/hr, 25 mls/hr Documented By: Titration: 01/24/22 01:00 Dose: 1,250 units/hr, 25 mls/hr Documented By: Titration: 01/23/22 17:30 Dose: 1,200 units/hr, 24 mls/hr Documented By: Admin: 01/23/22 12:11 Dose: 1,150 units/hr, 23 mls/hr Documented By: LORENZA Ceftriaxone Sodium 1,000 mg/ (Sodium Chloride) 100 mls @ 200 mls/hr IV NOW ONE Stop: 01/23/22 17:52 Last Infusion: 01/23/22 20:20 Dose: 0 mls/hr Documented By: Admin: 01/23/22 19:46 Dose: 200 mls/hr Documented By: RB Ceftriaxone Sodium 2,000 mg/ (Sodium Chloride) 100 mls @ 200 mls/hr IV NOW ONE Stop: 01/25/22 22:24 Last Infusion: 01/25/22 23:45 Dose: 0 mls/hr Documented By: Admin: 01/25/22 22:46 Dose: 200 mls/hr Documented By: LENORE Nitroglycerin (Nitroglycerin 0.4 Mg Sl Tab) 0.4 mg SL NOW ONE Stop: 01/22/22 22:36 Last Admin: 01/22/22 22:38 Dose: 0.4 mg Documented By: RADHA Spironolactone (Spironolactone 25 Mg Tablet) 25 mg PO DAILY [facility] Last Admin: 01/26/22 09:58 Dose: 25 mg Documented By: Admin: 01/25/22 09:22 Dose: 25 mg Documented By: Admin: 01/24/22 14:11 Dose: 25 mg Documented By: ZAINAB Tamsulosin HCl (Tamsulosin 0.4 Mg Capsule) 0.8 mg PO BEDTIME [facility] Last Admin: 01/25/22 21:32 Dose: 0.8 mg Documented By: Admin: 01/24/22 23:29 Dose: 0.8 mg Documented By: AT Temazepam (Temazepam 15 Mg Capsule) 15 mg PO BEDTIME PRN PRN Reason: Sleep Last Admin: 01/24/22 01:52 Dose: 15 mg Documented By: Admin: 01/23/22 21:53 Dose: 15 mg Documented By: Admin: 01/23/22 04:10 Dose: 15 mg Documented By: FANNIE Vital Signs Vital signs: Vital Signs - 8 hr 01/26/22 14:55 Pulse Rate 88 Respiratory Rate 16 Blood Pressure 119/73 Pulse Oximetry 93 Oxygen Delivery Method Room Air <Jo Saucedo MD - Last Filed: 02/07/22 18:30> Orders Ordered: Discontinued Medications Aspirin (Aspirin 81 Mg Chew Tab) 324 mg PO NOW ONE Stop: 01/22/22 12:45 Last Admin: 01/22/22 13:23 Dose: 324 mg Documented By: RB Aspirin (Aspirin Ec 325 Mg Tablet) 325 mg PO DAILY [facility] Last Admin: 01/26/22 09:59 Dose: 325 mg Documented By: Admin: 01/25/22 09:22 Dose: 325 mg Documented By: Admin: 01/24/22 10:30 Dose: 325 mg Documented By: Admin: 01/23/22 09:21 Dose: 325 mg Documented By: KRISTEN Atorvastatin Calcium (Atorvastatin 20 Mg Tablet) 80 mg PO BEDTIME [facility] Last Admin: 01/25/22 21:32 Dose: 80 mg Documented By: Admin: 01/24/22 23:30 Dose: 80 mg Documented By: Admin: 01/23/22 21:53 Dose: 80 mg Documented By: Admin: 01/22/22 21:17 Dose: 80 mg Documented By: RADHA Atorvastatin Calcium (Atorvastatin 20 Mg Tablet) 20 mg PO NOW ONE Stop: 01/22/22 21:12 Last Admin: 01/22/22 21:14 Dose: Not Given Documented By: RADHA Carvedilol (Carvedilol 12.5 Mg Tablet) 25 mg PO BID [facility] Last Admin: 01/26/22 09:58 Dose: 25 mg Documented By: Admin: 01/25/22 21:32 Dose: 25 mg Documented By: Admin: 01/25/22 09:22 Dose: 25 mg Documented By: Admin: 01/24/22 23:29 Dose: 25 mg Documented By: Admin: 01/24/22 10:29 Dose: 25 mg Documented By: Admin: 01/23/22 21:53 Dose: 25 mg Documented By: Admin: 01/23/22 09:21 Dose: 25 mg Documented By: Admin: 01/22/22 21:06 Dose: Not Given Documented By: RB Carvedilol (Carvedilol 12.5 Mg Tablet) 25 mg PO NOW ONE Stop: 01/22/22 19:26 Last Admin: 01/22/22 19:42 Dose: 25 mg Documented By: RADHA Diazepam (Diazepam 10 Mg/2 Ml Syringe) 2 mg IV NOW ONE Stop: 01/23/22 09:33 Last Admin: 01/23/22 10:04 Dose: 2 mg Documented By: KRISTEN Diazepam (Diazepam 10 Mg/2 Ml Syringe) 2 mg IV NOW ONE Stop: 01/23/22 12:46 Last Admin: 01/23/22 12:52 Dose: 2 mg Documented By: RADHA Diazepam (Diazepam 5 Mg Tablet) 5 mg PO NOW ONE Stop: 01/24/22 04:57 Last Admin: 01/24/22 05:04 Dose: 5 mg Documented By: LENORE Diazepam (Diazepam 5 Mg Tablet) 5 mg PO Q6HR PRN PRN Reason: Anxiety Last Admin: 01/26/22 15:22 Dose: 5 mg Documented By: Admin: 01/25/22 22:46 Dose: 5 mg Documented By: Admin: 01/24/22 23:28 Dose: 5 mg Documented By: Admin: 01/24/22 16:31 Dose: 5 mg Documented By: Admin: 01/24/22 10:30 Dose: 5 mg Documented By: DELMER Finasteride (Finasteride 5 Mg Tablet) 5 mg PO DAILY [facility] Last Admin: 01/26/22 09:59 Dose: 5 mg Documented By: Admin: 01/25/22 09:22 Dose: 5 mg Documented By: Admin: 01/24/22 14:11 Dose: 5 mg Documented By: ZAINAB Furosemide (Furosemide 40 Mg/4 Ml Vial) 40 mg IV NOW ONE Stop: 01/22/22 15:45 Last Admin: 01/22/22 16:03 Dose: 40 mg Documented By: RADHA Furosemide (Furosemide 40 Mg/4 Ml Vial) 40 mg IV NOW ONE Stop: 01/24/22 10:02 Last Admin: 01/24/22 10:46 Dose: 40 mg Documented By: DELMER Furosemide (Furosemide 100 Mg/10 Ml Vial) 80 mg IV NOW ONE Stop: 01/25/22 00:11 Last Admin: 01/25/22 00:50 Dose: 80 mg Documented By: LENORE Guaifenesin/Codeine Phosphate (Codeine/Guaifenesin Liquid 5ml Udc) 10 ml PO NOW ONE Stop: 01/22/22 15:21 Last Admin: 01/22/22 15:36 Dose: Not Given Documented By: RADHA Heparin Sodium (Porcine) (Heparin 5,000 Unit/Ml Vial) 5,000 unit IV NOW ONE Stop: 01/22/22 13:21 Last Admin: 01/22/22 13:28 Dose: 5,000 unit Documented By: PHILLY Sodium Chloride (Normal Saline 0.9%) 1,000 mls @ 500 mls/hr IV BOLUS ONE Stop: 01/22/22 14:20 Last Infusion: 01/22/22 14:30 Dose: 0 mls/hr Documented By: Admin: 01/22/22 12:38 Dose: 500 mls/hr Documented By: RADHA Heparin Sodium/Dextrose (Heparin Drip) 25,000 unit in 500 mls @ 20 mls/hr IV CONT KELLE; Protocol Last Titration: 01/23/22 12:25 Dose: 0 units/hr, 0 mls/hr Documented By: Titration: 01/23/22 10:15 Dose: 1,150 units/hr, 23 mls/hr Documented By: Titration: 01/23/22 03:30 Dose: 1,100 units/hr, 22 mls/hr Documented By: Titration: 01/22/22 20:21 Dose: 1,050 units/hr, 21 mls/hr Documented By: Admin: 01/22/22 13:28 Dose: 1,000 units/hr, 20 mls/hr Documented By: PHILLY Heparin Sodium/Dextrose (Heparin Drip) 25,000 unit in 500 mls @ 20 mls/hr IV CONT KELLE; Protocol Last Titration: 01/26/22 15:36 Dose: 1,250 units/hr, 25 mls/hr Documented By: Admin: 01/25/22 22:47 Dose: 1,250 units/hr, 25 mls/hr Documented By: Titration: 01/25/22 22:33 Dose: 1,250 units/hr, 25 mls/hr Documented By: Admin: 01/25/22 02:33 Dose: 1,250 units/hr, 25 mls/hr Documented By: Titration: 01/25/22 02:33 Dose: 1,250 units/hr, 25 mls/hr Documented By: Admin: 01/24/22 09:21 Dose: 1,250 units/hr, 25 mls/hr Documented By: Titration: 01/24/22 08:55 Dose: 1,250 units/hr, 25 mls/hr Documented By: Titration: 01/24/22 01:00 Dose: 1,250 units/hr, 25 mls/hr Documented By: Titration: 01/23/22 17:30 Dose: 1,200 units/hr, 24 mls/hr Documented By: Admin: 01/23/22 12:11 Dose: 1,150 units/hr, 23 mls/hr Documented By: LORENZA Ceftriaxone Sodium 1,000 mg/ (Sodium Chloride) 100 mls @ 200 mls/hr IV NOW ONE Stop: 01/23/22 17:52 Last Infusion: 01/23/22 20:20 Dose: 0 mls/hr Documented By: Admin: 01/23/22 19:46 Dose: 200 mls/hr Documented By: RB Ceftriaxone Sodium 2,000 mg/ (Sodium Chloride) 100 mls @ 200 mls/hr IV NOW ONE Stop: 01/25/22 22:24 Last Infusion: 01/25/22 23:45 Dose: 0 mls/hr Documented By: Admin: 01/25/22 22:46 Dose: 200 mls/hr Documented By: LENORE Nitroglycerin (Nitroglycerin 0.4 Mg Sl Tab) 0.4 mg SL NOW ONE Stop: 01/22/22 22:36 Last Admin: 01/22/22 22:38 Dose: 0.4 mg Documented By: RB Spironolactone (Spironolactone 25 Mg Tablet) 25 mg PO DAILY [facility] Last Admin: 01/26/22 09:58 Dose: 25 mg Documented By: Admin: 01/25/22 09:22 Dose: 25 mg Documented By: Admin: 01/24/22 14:11 Dose: 25 mg Documented By: ZAINAB Tamsulosin HCl (Tamsulosin 0.4 Mg Capsule) 0.8 mg PO BEDTIME [facility] Last Admin: 01/25/22 21:32 Dose: 0.8 mg Documented By: Admin: 01/24/22 23:29 Dose: 0.8 mg Documented By: AT Temazepam (Temazepam 15 Mg Capsule) 15 mg PO BEDTIME PRN PRN Reason: Sleep Last Admin: 01/24/22 01:52 Dose: 15 mg Documented By: Admin: 01/23/22 21:53 Dose: 15 mg Documented By: Admin: 01/23/22 04:10 Dose: 15 mg Documented By: FANNIE Consultations Consultation #3: 01/25 1207am bed was available at [facility]. Spoke with the hospitalist service who felt that this was a purely cardiac presentation and should be admitted by the cardiology service. Spoke with the cardiology service who felt that this had ?many other reasons to explain his type 2 NSTEMI? and did not need immediate cardiac pathology evaluation she was not entirely sure that she felt catheterization would even be recommended. In reviewing his records, again he has been dyspneic with no chest pain. He has been heparinized now for greater than 55 hours. His BNP is slightly elevated and he has been given a single dose of Lasix. He had an echocardiogram with his January 11 hospital admission with an ejection fraction in the 40-50% range and no significant changes to the left wall motion abnormalities appreciated in comparison to prior echocardiograms. He has had no chest pain, palpitations or arrhythmias while observed in the emergency department. At this time, with no other beds available this evening, I am going to give him an additional dose of Lasix now and again in the morning. We will see if echocardiogram can be repeated in the morning. If not significantly changed may be an appropriate candidate for home discharge and outpatient follow-up with his acid treater. Vital Signs Vital signs: Vital Signs - 8 hr 01/26/22 14:55 Pulse Rate 88 Respiratory Rate 16 Blood Pressure 119/73 Pulse Oximetry 93 Oxygen Delivery Method Room Air MDM - SOB/Dyspnea <Joi Goodwin, DO - Last Filed: 01/26/22 14:52> Lab Data 01/26/22 06:30 01/26/22 06:30 Labs: Lab Results 01/22/22 01/22/22 01/22/22 Range/Units 10:50 10:50 10:50 WBC 6.5 (4.5-11.0) X10^3/uL RBC 4.41 L (4.5-5.9) X10^6/uL Hgb 12.2 L (13.5-17.5) g/dL Hct 37.8 L (41-53) % MCV 85.6 (80-100) fL MCH 27.7 (26-34) PG MCHC 32.4 (30-36) % RDW 14.9 H (11.6-14.8) % Plt Count 134 L (150-400) X10^3/uL Neut % (Auto) 69.6 (50-75) % Lymph % (Auto) 17.5 L (25-40) % [place] % (Auto) 12.1 (3-14) % Eos % (Auto) 0.6 L (2-4) % Baso % (Auto) 0.2 (0-2) % Neut # (Auto) 4500 (3622-3900) /uL Lymph # (Auto) 1100 (3775-8230) /uL [place] # (Auto) 800 (0-900) /uL Eos # (Auto) 0 (0-450) /uL Baso # (Auto) 0 (0-100) /uL PT 13.4 H (10.1-12.7) SECONDS INR 1.2 (0.9-1.3) APTT 29 (26-36) SECONDS D-Dimer 620 H (<500) ng/ml Sodium 139 (137-145) mmol/L Potassium 4.4 (3.4-5.1) mmol/L Chloride 105 (98-107) mmol/L Carbon Dioxide 24 (22-32) mmol/L BUN 23 H (9-20) mg/dL Creatinine 1.25 (0.66-1.25) mg/dL Estimated GFR > 60 (>60) mL/min BUN/Creatinine Ratio 18.4 (6-22) Glucose 103 (80-110) mg/dL Calcium 8.7 (8.4-10.2) mg/dL Total Bilirubin 0.6 (0.2-1.3) mg/dL AST 29 (17-59) IU/L ALT 21 (<50) IU/L Alkaline Phosphatase 74 (38-126) U/L Total Creatine Kinase 60 (55-170) U/L CK-MB (CK-2) TNP CK-MB (CK-2) Rel Index TNP Troponin I 2.820 H* (0.01-0.034) ng/mL NT-Pro-B Natriuret Pep 2070 H (<125) pg/mL Total Protein 6.8 (6.3-8.2) g/dL Albumin 3.7 (3.5-5.0) g/dL Globulin 3.1 (1.7-4.1) g/dL Albumin/Globulin Ratio 1.2 (1.0-2.8) Lipase 107 (23-300) U/L Urine Color Urine Appearance Urine pH (4.5-8.0) Ur Specific [place] (1.000-1.035) Urine Protein (Negative) Urine Glucose (UA) (Negative) g/dL Urine Ketones (NEGATIVE) Urine Occult Blood (Negative) Urine Nitrate (Negative) Urine Bilirubin (NEGATIVE) Urine Urobilinogen (0.2) E.U./dL Ur Leukocyte Esterase (NEGATIVE) Urine RBC (0-5/HPF) Urine WBC (0-5/HPF) Ur Squamous Epith Cells (0-5/HPF) Other Crystals Urine Bacteria (None) Ur Culture Indicated? SARS-CoV-2 (PCR) (Negative) Influenza A (RT-PCR) (NEGATIVE) Influenza B (RT-PCR) (NEGATIVE) RSV (PCR) (Negative) 01/22/22 01/22/22 01/22/22 Range/Units 12:25 14:28 19:30 WBC (4.5-11.0) X10^3/uL RBC (4.5-5.9) X10^6/uL Hgb (13.5-17.5) g/dL Hct (41-53) % MCV (80-100) fL MCH (26-34) PG MCHC (30-36) % RDW (11.6-14.8) % Plt Count (150-400) X10^3/uL Neut % (Auto) (50-75) % Lymph % (Auto) (25-40) % [place] % (Auto) (3-14) % Eos % (Auto) (2-4) % Baso % (Auto) (0-2) % Neut # (Auto) (4694-8430) /uL Lymph # (Auto) (5382-0634) /uL [place] # (Auto) (0-900) /uL Eos # (Auto) (0-450) /uL Baso # (Auto) (0-100) /uL PT (10.1-12.7) SECONDS INR (0.9-1.3) APTT 42 H D (26-36) SECONDS D-Dimer (<500) ng/ml Sodium (137-145) mmol/L Potassium (3.4-5.1) mmol/L Chloride (98-107) mmol/L Carbon Dioxide (22-32) mmol/L BUN (9-20) mg/dL Creatinine (0.66-1.25) mg/dL Estimated GFR (>60) mL/min BUN/Creatinine Ratio (6-22) Glucose (80-110) mg/dL Calcium (8.4-10.2) mg/dL Total Bilirubin (0.2-1.3) mg/dL AST (17-59) IU/L ALT (<50) IU/L Alkaline Phosphatase (38-126) U/L Total Creatine Kinase (55-170) U/L CK-MB (CK-2) CK-MB (CK-2) Rel Index Troponin I 2.940 H* (0.01-0.034) ng/mL NT-Pro-B Natriuret Pep (<125) pg/mL Total Protein (6.3-8.2) g/dL Albumin (3.5-5.0) g/dL Globulin (1.7-4.1) g/dL Albumin/Globulin Ratio (1.0-2.8) Lipase (23-300) U/L Urine Color Urine Appearance Urine pH (4.5-8.0) Ur Specific [place] (1.000-1.035) Urine Protein (Negative) Urine Glucose (UA) (Negative) g/dL Urine Ketones (NEGATIVE) Urine Occult Blood (Negative) Urine Nitrate (Negative) Urine Bilirubin (NEGATIVE) Urine Urobilinogen (0.2) E.U./dL Ur Leukocyte Esterase (NEGATIVE) Urine RBC (0-5/HPF) Urine WBC (0-5/HPF) Ur Squamous Epith Cells (0-5/HPF) Other Crystals Urine Bacteria (None) Ur Culture Indicated? SARS-CoV-2 (PCR) Positive H (Negative) Influenza A (RT-PCR) Flu a negative (NEGATIVE) Influenza B (RT-PCR) Flu b negative (NEGATIVE) RSV (PCR) Negative (Negative) 01/22/22 01/23/22 01/23/22 Range/Units 20:30 01:31 08:51 WBC 5.8 (4.5-11.0) X10^3/uL RBC 4.47 L (4.5-5.9) X10^6/uL Hgb 12.3 L (13.5-17.5) g/dL Hct 38.1 L (41-53) % MCV 85.0 (80-100) fL MCH 27.5 (26-34) PG MCHC 32.3 (30-36) % RDW 15.0 H (11.6-14.8) % Plt Count 112 L (150-400) X10^3/uL Neut % (Auto) 68.1 (50-75) % Lymph % (Auto) 17.5 L (25-40) % [place] % (Auto) 13.4 (3-14) % Eos % (Auto) 0.8 L (2-4) % Baso % (Auto) 0.2 (0-2) % Neut # (Auto) 3900 (5218-6861) /uL Lymph # (Auto) 1000 L (3582-1956) /uL [place] # (Auto) 800 (0-900) /uL Eos # (Auto) 0 (0-450) /uL Baso # (Auto) 0 (0-100) /uL PT (10.1-12.7) SECONDS INR (0.9-1.3) APTT 43 H (26-36) SECONDS D-Dimer (<500) ng/ml Sodium (137-145) mmol/L Potassium (3.4-5.1) mmol/L Chloride (98-107) mmol/L Carbon Dioxide (22-32) mmol/L BUN (9-20) mg/dL Creatinine (0.66-1.25) mg/dL Estimated GFR (>60) mL/min BUN/Creatinine Ratio (6-22) Glucose (80-110) mg/dL Calcium (8.4-10.2) mg/dL Total Bilirubin (0.2-1.3) mg/dL AST (17-59) IU/L ALT (<50) IU/L Alkaline Phosphatase (38-126) U/L Total Creatine Kinase (55-170) U/L CK-MB (CK-2) CK-MB (CK-2) Rel Index Troponin I 2.480 H* (0.01-0.034) ng/mL NT-Pro-B Natriuret Pep (<125) pg/mL Total Protein (6.3-8.2) g/dL Albumin (3.5-5.0) g/dL Globulin (1.7-4.1) g/dL Albumin/Globulin Ratio (1.0-2.8) Lipase (23-300) U/L Urine Color Urine Appearance Urine pH (4.5-8.0) Ur Specific [place] (1.000-1.035) Urine Protein (Negative) Urine Glucose (UA) (Negative) g/dL Urine Ketones (NEGATIVE) Urine Occult Blood (Negative) Urine Nitrate (Negative) Urine Bilirubin (NEGATIVE) Urine Urobilinogen (0.2) E.U./dL Ur Leukocyte Esterase (NEGATIVE) Urine RBC (0-5/HPF) Urine WBC (0-5/HPF) Ur Squamous Epith Cells (0-5/HPF) Other Crystals Urine Bacteria (None) Ur Culture Indicated? SARS-CoV-2 (PCR) (Negative) Influenza A (RT-PCR) (NEGATIVE) Influenza B (RT-PCR) (NEGATIVE) RSV (PCR) (Negative) 01/23/22 01/23/22 01/23/22 Range/Units 08:51 08:58 16:30 WBC (4.5-11.0) X10^3/uL RBC (4.5-5.9) X10^6/uL Hgb (13.5-17.5) g/dL Hct (41-53) % MCV (80-100) fL MCH (26-34) PG MCHC (30-36) % RDW (11.6-14.8) % Plt Count (150-400) X10^3/uL Neut % (Auto) (50-75) % Lymph % (Auto) (25-40) % [place] % (Auto) (3-14) % Eos % (Auto) (2-4) % Baso % (Auto) (0-2) % Neut # (Auto) (6665-2301) /uL Lymph # (Auto) (6690-1361) /uL [place] # (Auto) (0-900) /uL Eos # (Auto) (0-450) /uL Baso # (Auto) (0-100) /uL PT (10.1-12.7) SECONDS INR (0.9-1.3) APTT 45 H 39 H (26-36) SECONDS D-Dimer (<500) ng/ml Sodium 140 (137-145) mmol/L Potassium 3.8 (3.4-5.1) mmol/L Chloride 104 (98-107) mmol/L Carbon Dioxide 27 (22-32) mmol/L BUN 18 (9-20) mg/dL Creatinine 1.28 H (0.66-1.25) mg/dL Estimated GFR 59 L (>60) mL/min BUN/Creatinine Ratio 14.1 (6-22) Glucose 88 (80-110) mg/dL Calcium 8.6 (8.4-10.2) mg/dL Total Bilirubin 0.4 (0.2-1.3) mg/dL AST 22 (17-59) IU/L ALT 18 (<50) IU/L Alkaline Phosphatase 75 (38-126) U/L Total Creatine Kinase 29 L (55-170) U/L CK-MB (CK-2) TNP CK-MB (CK-2) Rel Index TNP Troponin I 1.410 H* (0.01-0.034) ng/mL NT-Pro-B Natriuret Pep 2570 H (<125) pg/mL Total Protein 6.6 (6.3-8.2) g/dL Albumin 3.6 (3.5-5.0) g/dL Globulin 3.0 (1.7-4.1) g/dL Albumin/Globulin Ratio 1.2 (1.0-2.8) Lipase (23-300) U/L Urine Color Urine Appearance Urine pH (4.5-8.0) Ur Specific [place] (1.000-1.035) Urine Protein (Negative) Urine Glucose (UA) (Negative) g/dL Urine Ketones (NEGATIVE) Urine Occult Blood (Negative) Urine Nitrate (Negative) Urine Bilirubin (NEGATIVE) Urine Urobilinogen (0.2) E.U./dL Ur Leukocyte Esterase (NEGATIVE) Urine RBC (0-5/HPF) Urine WBC (0-5/HPF) Ur Squamous Epith Cells (0-5/HPF) Other Crystals Urine Bacteria (None) Ur Culture Indicated? SARS-CoV-2 (PCR) (Negative) Influenza A (RT-PCR) (NEGATIVE) Influenza B (RT-PCR) (NEGATIVE) RSV (PCR) (Negative) 01/23/22 01/23/22 01/24/22 Range/Units 16:40 23:20 05:55 WBC (4.5-11.0) X10^3/uL RBC (4.5-5.9) X10^6/uL Hgb (13.5-17.5) g/dL Hct (41-53) % MCV (80-100) fL MCH (26-34) PG MCHC (30-36) % RDW (11.6-14.8) % Plt Count (150-400) X10^3/uL Neut % (Auto) (50-75) % Lymph % (Auto) (25-40) % [place] % (Auto) (3-14) % Eos % (Auto) (2-4) % Baso % (Auto) (0-2) % Neut # (Auto) (0557-5243) /uL Lymph # (Auto) (6660-5923) /uL [place] # (Auto) (0-900) /uL Eos # (Auto) (0-450) /uL Baso # (Auto) (0-100) /uL PT (10.1-12.7) SECONDS INR (0.9-1.3) APTT 37 H 49 H D (26-36) SECONDS D-Dimer (<500) ng/ml Sodium (137-145) mmol/L Potassium (3.4-5.1) mmol/L Chloride (98-107) mmol/L Carbon Dioxide (22-32) mmol/L BUN (9-20) mg/dL Creatinine (0.66-1.25) mg/dL Estimated GFR (>60) mL/min BUN/Creatinine Ratio (6-22) Glucose (80-110) mg/dL Calcium (8.4-10.2) mg/dL Total Bilirubin (0.2-1.3) mg/dL AST (17-59) IU/L ALT (<50) IU/L Alkaline Phosphatase (38-126) U/L Total Creatine Kinase (55-170) U/L CK-MB (CK-2) CK-MB (CK-2) Rel Index Troponin I (0.01-0.034) ng/mL NT-Pro-B Natriuret Pep (<125) pg/mL Total Protein (6.3-8.2) g/dL Albumin (3.5-5.0) g/dL Globulin (1.7-4.1) g/dL Albumin/Globulin Ratio (1.0-2.8) Lipase (23-300) U/L Urine Color Yellow Urine Appearance Sl cloudy Urine pH 5.0 (4.5-8.0) Ur Specific [place] 1.025 (1.000-1.035) Urine Protein 1+ H (Negative) Urine Glucose (UA) Negative (Negative) g/dL Urine Ketones Trace H (NEGATIVE) Urine Occult Blood 3+ H (Negative) Urine Nitrate Negative (Negative) Urine Bilirubin Negative (NEGATIVE) Urine Urobilinogen 0.2 (0.2) E.U./dL Ur Leukocyte Esterase Negative (NEGATIVE) Urine RBC >100/hpf H (0-5/HPF) Urine WBC 5-10/hpf H (0-5/HPF) Ur Squamous Epith Cells 0-1 /hpf (0-5/HPF) Other Crystals 1+ amorphous Urine Bacteria Few (2-10) H (None) Ur Culture Indicated? Specimen cultured SARS-CoV-2 (PCR) (Negative) Influenza A (RT-PCR) (NEGATIVE) Influenza B (RT-PCR) (NEGATIVE) RSV (PCR) (Negative) 01/24/22 01/24/22 01/24/22 Range/Units 07:25 07:25 13:05 WBC (4.5-11.0) X10^3/uL RBC (4.5-5.9) X10^6/uL Hgb (13.5-17.5) g/dL Hct (41-53) % MCV (80-100) fL MCH (26-34) PG MCHC (30-36) % RDW (11.6-14.8) % Plt Count (150-400) X10^3/uL Neut % (Auto) (50-75) % Lymph % (Auto) (25-40) % [place] % (Auto) (3-14) % Eos % (Auto) (2-4) % Baso % (Auto) (0-2) % Neut # (Auto) (3400-8213) /uL Lymph # (Auto) (0918-9779) /uL [place] # (Auto) (0-900) /uL Eos # (Auto) (0-450) /uL Baso # (Auto) (0-100) /uL PT (10.1-12.7) SECONDS INR (0.9-1.3) APTT 49 H (26-36) SECONDS D-Dimer (<500) ng/ml Sodium (137-145) mmol/L Potassium (3.4-5.1) mmol/L Chloride (98-107) mmol/L Carbon Dioxide (22-32) mmol/L BUN (9-20) mg/dL Creatinine (0.66-1.25) mg/dL Estimated GFR (>60) mL/min BUN/Creatinine Ratio (6-22) Glucose (80-110) mg/dL Calcium (8.4-10.2) mg/dL Total Bilirubin (0.2-1.3) mg/dL AST (17-59) IU/L ALT (<50) IU/L Alkaline Phosphatase (38-126) U/L Total Creatine Kinase (55-170) U/L CK-MB (CK-2) CK-MB (CK-2) Rel Index Troponin I 1.450 H* (0.01-0.034) ng/mL NT-Pro-B Natriuret Pep 2640 H (<125) pg/mL Total Protein (6.3-8.2) g/dL Albumin (3.5-5.0) g/dL Globulin (1.7-4.1) g/dL Albumin/Globulin Ratio (1.0-2.8) Lipase (23-300) U/L Urine Color Urine Appearance Urine pH (4.5-8.0) Ur Specific [place] (1.000-1.035) Urine Protein (Negative) Urine Glucose (UA) (Negative) g/dL Urine Ketones (NEGATIVE) Urine Occult Blood (Negative) Urine Nitrate (Negative) Urine Bilirubin (NEGATIVE) Urine Urobilinogen (0.2) E.U./dL Ur Leukocyte Esterase (NEGATIVE) Urine RBC (0-5/HPF) Urine WBC (0-5/HPF) Ur Squamous Epith Cells (0-5/HPF) Other Crystals Urine Bacteria (None) Ur Culture Indicated? SARS-CoV-2 (PCR) (Negative) Influenza A (RT-PCR) (NEGATIVE) Influenza B (RT-PCR) (NEGATIVE) RSV (PCR) (Negative) 01/25/22 01/25/22 01/25/22 Range/Units 06:06 06:06 06:06 WBC 5.6 (4.5-11.0) X10^3/uL RBC 4.82 (4.5-5.9) X10^6/uL Hgb 13.4 L (13.5-17.5) g/dL Hct 40.5 L (41-53) % MCV 83.9 (80-100) fL MCH 27.7 (26-34) PG MCHC 33.0 (30-36) % RDW 14.8 (11.6-14.8) % Plt Count 122 L (150-400) X10^3/uL Neut % (Auto) 62.5 (50-75) % Lymph % (Auto) 21.5 L (25-40) % [place] % (Auto) 14.8 H (3-14) % Eos % (Auto) 0.9 L (2-4) % Baso % (Auto) 0.3 (0-2) % Neut # (Auto) 3500 (1434-0830) /uL Lymph # (Auto) 1200 (4485-2459) /uL [place] # (Auto) 800 (0-900) /uL Eos # (Auto) 0 (0-450) /uL Baso # (Auto) 0 (0-100) /uL PT (10.1-12.7) SECONDS INR (0.9-1.3) APTT 52 H (26-36) SECONDS D-Dimer (<500) ng/ml Sodium 140 (137-145) mmol/L Potassium 3.8 (3.4-5.1) mmol/L Chloride 103 (98-107) mmol/L Carbon Dioxide 28 (22-32) mmol/L BUN 23 H (9-20) mg/dL Creatinine 1.39 H (0.66-1.25) mg/dL Estimated GFR 54 L (>60) mL/min BUN/Creatinine Ratio 16.5 (6-22) Glucose 109 (80-110) mg/dL Calcium 9.0 (8.4-10.2) mg/dL Total Bilirubin (0.2-1.3) mg/dL AST (17-59) IU/L ALT (<50) IU/L Alkaline Phosphatase (38-126) U/L Total Creatine Kinase (55-170) U/L CK-MB (CK-2) CK-MB (CK-2) Rel Index Troponin I (0.01-0.034) ng/mL NT-Pro-B Natriuret Pep (<125) pg/mL Total Protein (6.3-8.2) g/dL Albumin (3.5-5.0) g/dL Globulin (1.7-4.1) g/dL Albumin/Globulin Ratio (1.0-2.8) Lipase (23-300) U/L Urine Color Urine Appearance Urine pH (4.5-8.0) Ur Specific [place] (1.000-1.035) Urine Protein (Negative) Urine Glucose (UA) (Negative) g/dL Urine Ketones (NEGATIVE) Urine Occult Blood (Negative) Urine Nitrate (Negative) Urine Bilirubin (NEGATIVE) Urine Urobilinogen (0.2) E.U./dL Ur Leukocyte Esterase (NEGATIVE) Urine RBC (0-5/HPF) Urine WBC (0-5/HPF) Ur Squamous Epith Cells (0-5/HPF) Other Crystals Urine Bacteria (None) Ur Culture Indicated? SARS-CoV-2 (PCR) (Negative) Influenza A (RT-PCR) (NEGATIVE) Influenza B (RT-PCR) (NEGATIVE) RSV (PCR) (Negative) 01/25/22 01/26/22 01/26/22 Range/Units 06:06 06:30 06:30 WBC 5.7 (4.5-11.0) X10^3/uL RBC 4.73 (4.5-5.9) X10^6/uL Hgb 13.0 L (13.5-17.5) g/dL Hct 39.9 L (41-53) % MCV 84.4 (80-100) fL MCH 27.4 (26-34) PG MCHC 32.5 (30-36) % RDW 14.8 (11.6-14.8) % Plt Count 126 L (150-400) X10^3/uL Neut % (Auto) 63.8 (50-75) % Lymph % (Auto) 21.8 L (25-40) % [place] % (Auto) 13.2 (3-14) % Eos % (Auto) 0.7 L (2-4) % Baso % (Auto) 0.5 (0-2) % Neut # (Auto) 3600 (2277-5040) /uL Lymph # (Auto) 1200 (2091-1892) /uL [place] # (Auto) 800 (0-900) /uL Eos # (Auto) 0 (0-450) /uL Baso # (Auto) 0 (0-100) /uL PT (10.1-12.7) SECONDS INR (0.9-1.3) APTT (26-36) SECONDS D-Dimer (<500) ng/ml Sodium 141 (137-145) mmol/L Potassium 3.5 (3.4-5.1) mmol/L Chloride 101 (98-107) mmol/L Carbon Dioxide 31 (22-32) mmol/L BUN 29 H (9-20) mg/dL Creatinine 1.53 H (0.66-1.25) mg/dL Estimated GFR 48 L (>60) mL/min BUN/Creatinine Ratio 19.0 (6-22) Glucose 154 H (80-110) mg/dL Calcium 8.9 (8.4-10.2) mg/dL Total Bilirubin (0.2-1.3) mg/dL AST (17-59) IU/L ALT (<50) IU/L Alkaline Phosphatase (38-126) U/L Total Creatine Kinase (55-170) U/L CK-MB (CK-2) CK-MB (CK-2) Rel Index Troponin I 1.180 H* 0.733 H* (0.01-0.034) ng/mL NT-Pro-B Natriuret Pep 2000 H (<125) pg/mL Total Protein (6.3-8.2) g/dL Albumin (3.5-5.0) g/dL Globulin (1.7-4.1) g/dL Albumin/Globulin Ratio (1.0-2.8) Lipase (23-300) U/L Urine Color Urine Appearance Urine pH (4.5-8.0) Ur Specific [place] (1.000-1.035) Urine Protein (Negative) Urine Glucose (UA) (Negative) g/dL Urine Ketones (NEGATIVE) Urine Occult Blood (Negative) Urine Nitrate (Negative) Urine Bilirubin (NEGATIVE) Urine Urobilinogen (0.2) E.U./dL Ur Leukocyte Esterase (NEGATIVE) Urine RBC (0-5/HPF) Urine WBC (0-5/HPF) Ur Squamous Epith Cells (0-5/HPF) Other Crystals Urine Bacteria (None) Ur Culture Indicated? SARS-CoV-2 (PCR) (Negative) Influenza A (RT-PCR) (NEGATIVE) Influenza B (RT-PCR) (NEGATIVE) RSV (PCR) (Negative) 01/26/22 Range/Units 06:30 WBC (4.5-11.0) X10^3/uL RBC (4.5-5.9) X10^6/uL Hgb (13.5-17.5) g/dL Hct (41-53) % MCV (80-100) fL MCH (26-34) PG MCHC (30-36) % RDW (11.6-14.8) % Plt Count (150-400) X10^3/uL Neut % (Auto) (50-75) % Lymph % (Auto) (25-40) % [place] % (Auto) (3-14) % Eos % (Auto) (2-4) % Baso % (Auto) (0-2) % Neut # (Auto) (3230-9946) /uL Lymph # (Auto) (3326-8094) /uL [place] # (Auto) (0-900) /uL Eos # (Auto) (0-450) /uL Baso # (Auto) (0-100) /uL PT (10.1-12.7) SECONDS INR (0.9-1.3) APTT 61 H D (26-36) SECONDS D-Dimer (<500) ng/ml Sodium (137-145) mmol/L Potassium (3.4-5.1) mmol/L Chloride (98-107) mmol/L Carbon Dioxide (22-32) mmol/L BUN (9-20) mg/dL Creatinine (0.66-1.25) mg/dL Estimated GFR (>60) mL/min BUN/Creatinine Ratio (6-22) Glucose (80-110) mg/dL Calcium (8.4-10.2) mg/dL Total Bilirubin (0.2-1.3) mg/dL AST (17-59) IU/L ALT (<50) IU/L Alkaline Phosphatase (38-126) U/L Total Creatine Kinase (55-170) U/L CK-MB (CK-2) CK-MB (CK-2) Rel Index Troponin I (0.01-0.034) ng/mL NT-Pro-B Natriuret Pep (<125) pg/mL Total Protein (6.3-8.2) g/dL Albumin (3.5-5.0) g/dL Globulin (1.7-4.1) g/dL Albumin/Globulin Ratio (1.0-2.8) Lipase (23-300) U/L Urine Color Urine Appearance Urine pH (4.5-8.0) Ur Specific [place] (1.000-1.035) Urine Protein (Negative) Urine Glucose (UA) (Negative) g/dL Urine Ketones (NEGATIVE) Urine Occult Blood (Negative) Urine Nitrate (Negative) Urine Bilirubin (NEGATIVE) Urine Urobilinogen (0.2) E.U./dL Ur Leukocyte Esterase (NEGATIVE) Urine RBC (0-5/HPF) Urine WBC (0-5/HPF) Ur Squamous Epith Cells (0-5/HPF) Other Crystals Urine Bacteria (None) Ur Culture Indicated? SARS-CoV-2 (PCR) (Negative) Influenza A (RT-PCR) (NEGATIVE) Influenza B (RT-PCR) (NEGATIVE) RSV (PCR) (Negative) Imaging Data Chest x-ray: Radiologist's Impression: Rc Bray??71??M??1950 ? Allergy/Adv: gabapentin Close Chest X-Ray (Signed) Porfirio Arzola - 01/22/22 Chest X-Ray (Signed) Stephie Wheatley - 01/21/22 Echocardiogram Ultrasound (Cancelled) 01/12/22 Telemetry Strips 01/11/22 Telemetry Strips 01/11/22 Abdomen/Pelvis CT (Signed) Remberto García - 01/11/22 Chest X-Ray (Signed) Remberto García - 01/11/22 Abdomen X-Ray (Signed) Zachary Schwarz - 12/30/21 Chest CTA (Signed) Remberto García - 12/16/21 Chest X-Ray (Signed) Zachary Schwarz - 12/16/21 Abdomen/Pelvis CT (Signed) Corey Calderon - 10/24/21 Duplex Scan Lower Extremity Artery (Signed) Yeyo Valenzuela - 10/04/21 Renal Ultrasound (Signed) Vicente Portillo - 09/20/21 KUB X-Ray (Signed) Call,Elmer - 03/27/21 Abdomen/Pelvis CT (Signed) Ben Montilla - 05/18/20 KUB X-Ray (Signed) Stephie Wheatley - 12/21/19 KUB X-Ray (Signed) Zachary Schwarz - 09/02/19 Abdomen/Pelvis CT (Signed) Call,Elmer - 05/21/[address] (Signed) Allyson Huang - 11/05/18 Abdomen Ultrasound (Signed) Neisha Romo - 10/27/18 Launch?Image [address] [address] XRay Report Signed Patient: Rc Bray MR#: [id number] : 1950 Acct:[id number] Age/Sex: 71 / M Date of Service: 01/22/22 Loc: ED Accession Number: [id number] ?? Procedure: XR chest 1V Ordering Provider: Joi Goodwin D.O. PROCEDURE:? XR CHEST 1V ? INDICATIONS:? Shortness of breath ? TECHNIQUE:? One view of the chest was acquired.? ? COMPARISON:? [facility], CR, XR CHEST 2V, 01/21/2022, 8:28.? [facility], CR, XR CHEST 1V, 01/11/2022, 18:06. ? FINDINGS:? ? Surgical changes and devices:? Median sternotomy and CABG changes. ? Lungs and pleura:? Small bilateral pleural effusions.? No pneumothorax.? No acute airspace opacity. ? Mediastinum:? Mediastinal contours appear normal.? Heart size is normal.? ? Bones and chest wall:? No suspicious bony lesions.? Overlying soft tissues appear unremarkable.? ? IMPRESSION:? New small bilateral pleural effusions. ? ? Dictated by: Porfirio Arzola M.D. on 01/22/2022 at 12:54 ? ? Approved by: Porfirio Arzola M.D. on 01/22/2022 at 12:55?? ECG Data Attestation: I personally reviewed and interpreted this ECG as follows: Interpretation: Sinus rhythm, first-degree AV block rate of 60 1p are 226, QRS of 92, QTC of 406. Patient has T-wave inversion in 1 2 and aVL, inversion V4 through V6 which appears similar to 01/21/2022 with no acute change. Patient has prior from 01/12/2022 which also appears similar. EKG 2. Sinus bradycardia first-degree AV block rate of 57 HI 1-2 6, QRS of 98 QTC of 406. Patient does not have acute elevation but has new depressions in V2 V3 today depression 1 and aVL as well as other lateral leads is consistent with prior as well as biphasic P waves in 2 3 AVF. MDM Narrative Medical decision making narrative: This is a 71-year-old male with persistent shortness of breath post COVID with recent NSTEMI patient was seen yesterday returns with increasing shortness of breath and an episode of no chest pain or pressure but sudden shortness of breath and diaphoresis. Patient is not hypoxic, was slightly hypotensive initially. Respond to fluids. EKG does not show dynamic changes but troponin is positive today. He does have some potential for pulmonary emboli with his recent COVID infection and hospitalization so PE scan was obtained. Patient PE scan is negative, troponin continues to trend upwards patient had heparin initiated, aspirin, statin was increased 80 mg plan to reinitiate patient's Coreg was given a dose of Lasix. Case was discussed with Cardiology [facility] as well as both agree with current plan. Patient has been chest pain free and not really more short of breath during his stay so nitro was not initiated. Patient is full code. Is quite anxious about possibly catheterization but we discussed that he would very much benefit from this. Patient did have run of tachycardia, he felt tight in his throat for 2nd but no other changes. EKG was repeated. Patient continues to be positive for COVID he is within 10-12 days of his initial test. Echo was obtained does show mild concentric left hypertrophy, EF is 50-55% regional wall abnormalities can not be excluded secondary to limited visualization. Right ventricle mildly dilated, left atrium severely dilated and mildly dilated right atrium. Pericardial effusion or pleural effusion appreciated on ECHO. Patient signed out to Dr. Alas, while awaiting potential transfer. [[id number]] (Marco A) Patient received in sign out from [Bishop]. I have reviewed the clinical course and performed an independent history and physical exam. Patient in no significant current distress. He is made aware of or current status and plan, he is in agreement and questions have been answered. 01/24/22 Mank:? Patient signed out to myself by Dr. Julian.? Patient is known to myself from his initial evaluation in the emergency department.? He had recent COVID infection, NSTEMI was discharged home labs had trended down and returned and now has a new NSTEMI with significantly higher troponins.? He is on, aspirin, atorvastatin, carvedilol and we are currently seeking placement.? Patient is otherwise asymptomatic.? He does get very anxious and finds Valium to be helpful and has had several doses during his stay.? Patient had a dose Lasix today added as his BNP is elevated.? We also added back his spironolactone, finasteride.? Patient signed out to Dr. Saucedo while awaiting possible transfer. 01/25/22 Mank: Patient signed back out to myself by Dr. Saucedo. Patient overnight had no acute events troponin continues to trend down words. Echo result are appreciated. Patient has been in the department 70 hours with downward trending troponin who continues to be asymptomatic on and heparin. We have been unable to get him transferred to anywhere despite multiple times throughout the region. Will reach out to patients personal cardiology team to see if appropriate for discharge home with outpatient follow up and catherization vs. continue to hold and seek placement for cardiac catherization. Spoke with Dr. Randall Cardiology at [facility], he would recommend new med stress test if shows reversible ischemia then patient does need cardiac catheterization if it does not could be discharged home. Spoke with administration, DI were unable to get new med is resting today for through the weekend until Friday. I spoke with Dr. Martínez, cards at [facility] and Dr. Randall again at [facility], they were unable to do a ship and return for new med we also asked at [facility] see regional hotline. Patient is reportedly 1st on list for [facility] for transfer hopefully today or tomorrow. Patient signed out to Dr. Saucedo while hopefully going to have transfer shortly. 01/25 1020 pm patient urine culture from the 16th returns with greater than 100,000 colony-forming units of Gram-negative bacilli. This is treated with 2 g of IV ceftriaxone. Patient is asymptomatic at this time. 01/26/22 Mank: Patient signed back out to myself, patient has had multiple irregular beats but is not persistent appears to be in sinus rhythm on EKG does have new T-wave inversions in lateral leads V4 through 6. Had an episode of shortness of breath for a few minutes which resolved, EKG was obtained shows new T-wave inversions but no elevation. He became asymptomatic. His troponin is still trending down words. I was able to speak with Dr. Rolon, hospitalist at [facility] who accepts. He has been on aspirin, heparin, statin as well as beta-veronica, his spironolactone and finasteride. He did have a positive urine culture with Gram-negative bacilli no significant urinary symptoms but was covered with a dose of Rocephin last night. <Eleuterio Strickland, - Last Filed: 01/26/22 18:24> Lab Data Labs: Lab Results 01/22/22 01/22/22 01/22/22 Range/Units 10:50 10:50 10:50 WBC 6.5 (4.5-11.0) X10^3/uL RBC 4.41 L (4.5-5.9) X10^6/uL Hgb 12.2 L (13.5-17.5) g/dL Hct 37.8 L (41-53) % MCV 85.6 (80-100) fL MCH 27.7 (26-34) PG MCHC 32.4 (30-36) % RDW 14.9 H (11.6-14.8) % Plt Count 134 L (150-400) X10^3/uL Neut % (Auto) 69.6 (50-75) % Lymph % (Auto) 17.5 L (25-40) % [place] % (Auto) 12.1 (3-14) % Eos % (Auto) 0.6 L (2-4) % Baso % (Auto) 0.2 (0-2) % Neut # (Auto) 4500 (8298-3713) /uL Lymph # (Auto) 1100 (9317-7533) /uL [place] # (Auto) 800 (0-900) /uL Eos # (Auto) 0 (0-450) /uL Baso # (Auto) 0 (0-100) /uL PT 13.4 H (10.1-12.7) SECONDS INR 1.2 (0.9-1.3) APTT 29 (26-36) SECONDS D-Dimer 620 H (<500) ng/ml Sodium 139 (137-145) mmol/L Potassium 4.4 (3.4-5.1) mmol/L Chloride 105 (98-107) mmol/L Carbon Dioxide 24 (22-32) mmol/L BUN 23 H (9-20) mg/dL Creatinine 1.25 (0.66-1.25) mg/dL Estimated GFR > 60 (>60) mL/min BUN/Creatinine Ratio 18.4 (6-22) Glucose 103 (80-110) mg/dL Calcium 8.7 (8.4-10.2) mg/dL Total Bilirubin 0.6 (0.2-1.3) mg/dL AST 29 (17-59) IU/L ALT 21 (<50) IU/L Alkaline Phosphatase 74 (38-126) U/L Total Creatine Kinase 60 (55-170) U/L CK-MB (CK-2) TNP CK-MB (CK-2) Rel Index TNP Troponin I 2.820 H* (0.01-0.034) ng/mL NT-Pro-B Natriuret Pep 2070 H (<125) pg/mL Total Protein 6.8 (6.3-8.2) g/dL Albumin 3.7 (3.5-5.0) g/dL Globulin 3.1 (1.7-4.1) g/dL Albumin/Globulin Ratio 1.2 (1.0-2.8) Lipase 107 (23-300) U/L Urine Color Urine Appearance Urine pH (4.5-8.0) Ur Specific Green[place] (1.000-1.035) Urine Protein (Negative) Urine Glucose (UA) (Negative) g/dL Urine Ketones (NEGATIVE) Urine Occult Blood (Negative) Urine Nitrate (Negative) Urine Bilirubin (NEGATIVE) Urine Urobilinogen (0.2) E.U./dL Ur Leukocyte Esterase (NEGATIVE) Urine RBC (0-5/HPF) Urine WBC (0-5/HPF) Ur Squamous Epith Cells (0-5/HPF) Other Crystals Urine Bacteria (None) Ur Culture Indicated? SARS-CoV-2 (PCR) (Negative) Influenza A (RT-PCR) (NEGATIVE) Influenza B (RT-PCR) (NEGATIVE) RSV (PCR) (Negative) 01/22/22 01/22/22 01/22/22 Range/Units 12:25 14:28 19:30 WBC (4.5-11.0) X10^3/uL RBC (4.5-5.9) X10^6/uL Hgb (13.5-17.5) g/dL Hct (41-53) % MCV (80-100) fL MCH (26-34) PG MCHC (30-36) % RDW (11.6-14.8) % Plt Count (150-400) X10^3/uL Neut % (Auto) (50-75) % Lymph % (Auto) (25-40) % [place] % (Auto) (3-14) % Eos % (Auto) (2-4) % Baso % (Auto) (0-2) % Neut # (Auto) (6289-6000) /uL Lymph # (Auto) (4282-2644) /uL [place] # (Auto) (0-900) /uL Eos # (Auto) (0-450) /uL Baso # (Auto) (0-100) /uL PT (10.1-12.7) SECONDS INR (0.9-1.3) APTT 42 H D (26-36) SECONDS D-Dimer (<500) ng/ml Sodium (137-145) mmol/L Potassium (3.4-5.1) mmol/L Chloride (98-107) mmol/L Carbon Dioxide (22-32) mmol/L BUN (9-20) mg/dL Creatinine (0.66-1.25) mg/dL Estimated GFR (>60) mL/min BUN/Creatinine Ratio (6-22) Glucose (80-110) mg/dL Calcium (8.4-10.2) mg/dL Total Bilirubin (0.2-1.3) mg/dL AST (17-59) IU/L ALT (<50) IU/L Alkaline Phosphatase (38-126) U/L Total Creatine Kinase (55-170) U/L CK-MB (CK-2) CK-MB (CK-2) Rel Index Troponin I 2.940 H* (0.01-0.034) ng/mL NT-Pro-B Natriuret Pep (<125) pg/mL Total Protein (6.3-8.2) g/dL Albumin (3.5-5.0) g/dL Globulin (1.7-4.1) g/dL Albumin/Globulin Ratio (1.0-2.8) Lipase (23-300) U/L Urine Color Urine Appearance Urine pH (4.5-8.0) Ur Specific [place] (1.000-1.035) Urine Protein (Negative) Urine Glucose (UA) (Negative) g/dL Urine Ketones (NEGATIVE) Urine Occult Blood (Negative) Urine Nitrate (Negative) Urine Bilirubin (NEGATIVE) Urine Urobilinogen (0.2) E.U./dL Ur Leukocyte Esterase (NEGATIVE) Urine RBC (0-5/HPF) Urine WBC (0-5/HPF) Ur Squamous Epith Cells (0-5/HPF) Other Crystals Urine Bacteria (None) Ur Culture Indicated? SARS-CoV-2 (PCR) Positive H (Negative) Influenza A (RT-PCR) Flu a negative (NEGATIVE) Influenza B (RT-PCR) Flu b negative (NEGATIVE) RSV (PCR) Negative (Negative) 01/22/22 01/23/22 01/23/22 Range/Units 20:30 01:31 08:51 WBC 5.8 (4.5-11.0) X10^3/uL RBC 4.47 L (4.5-5.9) X10^6/uL Hgb 12.3 L (13.5-17.5) g/dL Hct 38.1 L (41-53) % MCV 85.0 (80-100) fL MCH 27.5 (26-34) PG MCHC 32.3 (30-36) % RDW 15.0 H (11.6-14.8) % Plt Count 112 L (150-400) X10^3/uL Neut % (Auto) 68.1 (50-75) % Lymph % (Auto) 17.5 L (25-40) % [place] % (Auto) 13.4 (3-14) % Eos % (Auto) 0.8 L (2-4) % Baso % (Auto) 0.2 (0-2) % Neut # (Auto) 3900 (0097-6765) /uL Lymph # (Auto) 1000 L (3915-1414) /uL [place] # (Auto) 800 (0-900) /uL Eos # (Auto) 0 (0-450) /uL Baso # (Auto) 0 (0-100) /uL PT (10.1-12.7) SECONDS INR (0.9-1.3) APTT 43 H (26-36) SECONDS D-Dimer (<500) ng/ml Sodium (137-145) mmol/L Potassium (3.4-5.1) mmol/L Chloride (98-107) mmol/L Carbon Dioxide (22-32) mmol/L BUN (9-20) mg/dL Creatinine (0.66-1.25) mg/dL Estimated GFR (>60) mL/min BUN/Creatinine Ratio (6-22) Glucose (80-110) mg/dL Calcium (8.4-10.2) mg/dL Total Bilirubin (0.2-1.3) mg/dL AST (17-59) IU/L ALT (<50) IU/L Alkaline Phosphatase (38-126) U/L Total Creatine Kinase (55-170) U/L CK-MB (CK-2) CK-MB (CK-2) Rel Index Troponin I 2.480 H* (0.01-0.034) ng/mL NT-Pro-B Natriuret Pep (<125) pg/mL Total Protein (6.3-8.2) g/dL Albumin (3.5-5.0) g/dL Globulin (1.7-4.1) g/dL Albumin/Globulin Ratio (1.0-2.8) Lipase (23-300) U/L Urine Color Urine Appearance Urine pH (4.5-8.0) Ur Specific Green[place] (1.000-1.035) Urine Protein (Negative) Urine Glucose (UA) (Negative) g/dL Urine Ketones (NEGATIVE) Urine Occult Blood (Negative) Urine Nitrate (Negative) Urine Bilirubin (NEGATIVE) Urine Urobilinogen (0.2) E.U./dL Ur Leukocyte Esterase (NEGATIVE) Urine RBC (0-5/HPF) Urine WBC (0-5/HPF) Ur Squamous Epith Cells (0-5/HPF) Other Crystals Urine Bacteria (None) Ur Culture Indicated? SARS-CoV-2 (PCR) (Negative) Influenza A (RT-PCR) (NEGATIVE) Influenza B (RT-PCR) (NEGATIVE) RSV (PCR) (Negative) 01/23/22 01/23/22 01/23/22 Range/Units 08:51 08:58 16:30 WBC (4.5-11.0) X10^3/uL RBC (4.5-5.9) X10^6/uL Hgb (13.5-17.5) g/dL Hct (41-53) % MCV (80-100) fL MCH (26-34) PG MCHC (30-36) % RDW (11.6-14.8) % Plt Count (150-400) X10^3/uL Neut % (Auto) (50-75) % Lymph % (Auto) (25-40) % [place] % (Auto) (3-14) % Eos % (Auto) (2-4) % Baso % (Auto) (0-2) % Neut # (Auto) (9034-7749) /uL Lymph # (Auto) (6811-6850) /uL [place] # (Auto) (0-900) /uL Eos # (Auto) (0-450) /uL Baso # (Auto) (0-100) /uL PT (10.1-12.7) SECONDS INR (0.9-1.3) APTT 45 H 39 H (26-36) SECONDS D-Dimer (<500) ng/ml Sodium 140 (137-145) mmol/L Potassium 3.8 (3.4-5.1) mmol/L Chloride 104 (98-107) mmol/L Carbon Dioxide 27 (22-32) mmol/L BUN 18 (9-20) mg/dL Creatinine 1.28 H (0.66-1.25) mg/dL Estimated GFR 59 L (>60) mL/min BUN/Creatinine Ratio 14.1 (6-22) Glucose 88 (80-110) mg/dL Calcium 8.6 (8.4-10.2) mg/dL Total Bilirubin 0.4 (0.2-1.3) mg/dL AST 22 (17-59) IU/L ALT 18 (<50) IU/L Alkaline Phosphatase 75 (38-126) U/L Total Creatine Kinase 29 L (55-170) U/L CK-MB (CK-2) TNP CK-MB (CK-2) Rel Index TNP Troponin I 1.410 H* (0.01-0.034) ng/mL NT-Pro-B Natriuret Pep 2570 H (<125) pg/mL Total Protein 6.6 (6.3-8.2) g/dL Albumin 3.6 (3.5-5.0) g/dL Globulin 3.0 (1.7-4.1) g/dL Albumin/Globulin Ratio 1.2 (1.0-2.8) Lipase (23-300) U/L Urine Color Urine Appearance Urine pH (4.5-8.0) Ur Specific [place] (1.000-1.035) Urine Protein (Negative) Urine Glucose (UA) (Negative) g/dL Urine Ketones (NEGATIVE) Urine Occult Blood (Negative) Urine Nitrate (Negative) Urine Bilirubin (NEGATIVE) Urine Urobilinogen (0.2) E.U./dL Ur Leukocyte Esterase (NEGATIVE) Urine RBC (0-5/HPF) Urine WBC (0-5/HPF) Ur Squamous Epith Cells (0-5/HPF) Other Crystals Urine Bacteria (None) Ur Culture Indicated? SARS-CoV-2 (PCR) (Negative) Influenza A (RT-PCR) (NEGATIVE) Influenza B (RT-PCR) (NEGATIVE) RSV (PCR) (Negative) 01/23/22 01/23/22 01/24/22 Range/Units 16:40 23:20 05:55 WBC (4.5-11.0) X10^3/uL RBC (4.5-5.9) X10^6/uL Hgb (13.5-17.5) g/dL Hct (41-53) % MCV (80-100) fL MCH (26-34) PG MCHC (30-36) % RDW (11.6-14.8) % Plt Count (150-400) X10^3/uL Neut % (Auto) (50-75) % Lymph % (Auto) (25-40) % [place] % (Auto) (3-14) % Eos % (Auto) (2-4) % Baso % (Auto) (0-2) % Neut # (Auto) (1946-1218) /uL Lymph # (Auto) (2535-4730) /uL [place] # (Auto) (0-900) /uL Eos # (Auto) (0-450) /uL Baso # (Auto) (0-100) /uL PT (10.1-12.7) SECONDS INR (0.9-1.3) APTT 37 H 49 H D (26-36) SECONDS D-Dimer (<500) ng/ml Sodium (137-145) mmol/L Potassium (3.4-5.1) mmol/L Chloride (98-107) mmol/L Carbon Dioxide (22-32) mmol/L BUN (9-20) mg/dL Creatinine (0.66-1.25) mg/dL Estimated GFR (>60) mL/min BUN/Creatinine Ratio (6-22) Glucose (80-110) mg/dL Calcium (8.4-10.2) mg/dL Total Bilirubin (0.2-1.3) mg/dL AST (17-59) IU/L ALT (<50) IU/L Alkaline Phosphatase (38-126) U/L Total Creatine Kinase (55-170) U/L CK-MB (CK-2) CK-MB (CK-2) Rel Index Troponin I (0.01-0.034) ng/mL NT-Pro-B Natriuret Pep (<125) pg/mL Total Protein (6.3-8.2) g/dL Albumin (3.5-5.0) g/dL Globulin (1.7-4.1) g/dL Albumin/Globulin Ratio (1.0-2.8) Lipase (23-300) U/L Urine Color Yellow Urine Appearance Sl cloudy Urine pH 5.0 (4.5-8.0) Ur Specific [place] 1.025 (1.000-1.035) Urine Protein 1+ H (Negative) Urine Glucose (UA) Negative (Negative) g/dL Urine Ketones Trace H (NEGATIVE) Urine Occult Blood 3+ H (Negative) Urine Nitrate Negative (Negative) Urine Bilirubin Negative (NEGATIVE) Urine Urobilinogen 0.2 (0.2) E.U./dL Ur Leukocyte Esterase Negative (NEGATIVE) Urine RBC >100/hpf H (0-5/HPF) Urine WBC 5-10/hpf H (0-5/HPF) Ur Squamous Epith Cells 0-1 /hpf (0-5/HPF) Other Crystals 1+ amorphous Urine Bacteria Few (2-10) H (None) Ur Culture Indicated? Specimen cultured SARS-CoV-2 (PCR) (Negative) Influenza A (RT-PCR) (NEGATIVE) Influenza B (RT-PCR) (NEGATIVE) RSV (PCR) (Negative) 01/24/22 01/24/22 01/24/22 Range/Units 07:25 07:25 13:05 WBC (4.5-11.0) X10^3/uL RBC (4.5-5.9) X10^6/uL Hgb (13.5-17.5) g/dL Hct (41-53) % MCV (80-100) fL MCH (26-34) PG MCHC (30-36) % RDW (11.6-14.8) % Plt Count (150-400) X10^3/uL Neut % (Auto) (50-75) % Lymph % (Auto) (25-40) % [place] % (Auto) (3-14) % Eos % (Auto) (2-4) % Baso % (Auto) (0-2) % Neut # (Auto) (2641-8764) /uL Lymph # (Auto) (4889-5955) /uL [place] # (Auto) (0-900) /uL Eos # (Auto) (0-450) /uL Baso # (Auto) (0-100) /uL PT (10.1-12.7) SECONDS INR (0.9-1.3) APTT 49 H (26-36) SECONDS D-Dimer (<500) ng/ml Sodium (137-145) mmol/L Potassium (3.4-5.1) mmol/L Chloride (98-107) mmol/L Carbon Dioxide (22-32) mmol/L BUN (9-20) mg/dL Creatinine (0.66-1.25) mg/dL Estimated GFR (>60) mL/min BUN/Creatinine Ratio (6-22) Glucose (80-110) mg/dL Calcium (8.4-10.2) mg/dL Total Bilirubin (0.2-1.3) mg/dL AST (17-59) IU/L ALT (<50) IU/L Alkaline Phosphatase (38-126) U/L Total Creatine Kinase (55-170) U/L CK-MB (CK-2) CK-MB (CK-2) Rel Index Troponin I 1.450 H* (0.01-0.034) ng/mL NT-Pro-B Natriuret Pep 2640 H (<125) pg/mL Total Protein (6.3-8.2) g/dL Albumin (3.5-5.0) g/dL Globulin (1.7-4.1) g/dL Albumin/Globulin Ratio (1.0-2.8) Lipase (23-300) U/L Urine Color Urine Appearance Urine pH (4.5-8.0) Ur Specific [place] (1.000-1.035) Urine Protein (Negative) Urine Glucose (UA) (Negative) g/dL Urine Ketones (NEGATIVE) Urine Occult Blood (Negative) Urine Nitrate (Negative) Urine Bilirubin (NEGATIVE) Urine Urobilinogen (0.2) E.U./dL Ur Leukocyte Esterase (NEGATIVE) Urine RBC (0-5/HPF) Urine WBC (0-5/HPF) Ur Squamous Epith Cells (0-5/HPF) Other Crystals Urine Bacteria (None) Ur Culture Indicated? SARS-CoV-2 (PCR) (Negative) Influenza A (RT-PCR) (NEGATIVE) Influenza B (RT-PCR) (NEGATIVE) RSV (PCR) (Negative) 01/25/22 01/25/22 01/25/22 Range/Units 06:06 06:06 06:06 WBC 5.6 (4.5-11.0) X10^3/uL RBC 4.82 (4.5-5.9) X10^6/uL Hgb 13.4 L (13.5-17.5) g/dL Hct 40.5 L (41-53) % MCV 83.9 (80-100) fL MCH 27.7 (26-34) PG MCHC 33.0 (30-36) % RDW 14.8 (11.6-14.8) % Plt Count 122 L (150-400) X10^3/uL Neut % (Auto) 62.5 (50-75) % Lymph % (Auto) 21.5 L (25-40) % [place] % (Auto) 14.8 H (3-14) % Eos % (Auto) 0.9 L (2-4) % Baso % (Auto) 0.3 (0-2) % Neut # (Auto) 3500 (8257-9961) /uL Lymph # (Auto) 1200 (1544-0289) /uL [place] # (Auto) 800 (0-900) /uL Eos # (Auto) 0 (0-450) /uL Baso # (Auto) 0 (0-100) /uL PT (10.1-12.7) SECONDS INR (0.9-1.3) APTT 52 H (26-36) SECONDS D-Dimer (<500) ng/ml Sodium 140 (137-145) mmol/L Potassium 3.8 (3.4-5.1) mmol/L Chloride 103 (98-107) mmol/L Carbon Dioxide 28 (22-32) mmol/L BUN 23 H (9-20) mg/dL Creatinine 1.39 H (0.66-1.25) mg/dL Estimated GFR 54 L (>60) mL/min BUN/Creatinine Ratio 16.5 (6-22) Glucose 109 (80-110) mg/dL Calcium 9.0 (8.4-10.2) mg/dL Total Bilirubin (0.2-1.3) mg/dL AST (17-59) IU/L ALT (<50) IU/L Alkaline Phosphatase (38-126) U/L Total Creatine Kinase (55-170) U/L CK-MB (CK-2) CK-MB (CK-2) Rel Index Troponin I (0.01-0.034) ng/mL NT-Pro-B Natriuret Pep (<125) pg/mL Total Protein (6.3-8.2) g/dL Albumin (3.5-5.0) g/dL Globulin (1.7-4.1) g/dL Albumin/Globulin Ratio (1.0-2.8) Lipase (23-300) U/L Urine Color Urine Appearance Urine pH (4.5-8.0) Ur Specific [place] (1.000-1.035) Urine Protein (Negative) Urine Glucose (UA) (Negative) g/dL Urine Ketones (NEGATIVE) Urine Occult Blood (Negative) Urine Nitrate (Negative) Urine Bilirubin (NEGATIVE) Urine Urobilinogen (0.2) E.U./dL Ur Leukocyte Esterase (NEGATIVE) Urine RBC (0-5/HPF) Urine WBC (0-5/HPF) Ur Squamous Epith Cells (0-5/HPF) Other Crystals Urine Bacteria (None) Ur Culture Indicated? SARS-CoV-2 (PCR) (Negative) Influenza A (RT-PCR) (NEGATIVE) Influenza B (RT-PCR) (NEGATIVE) RSV (PCR) (Negative) 01/25/22 01/26/22 01/26/22 Range/Units 06:06 06:30 06:30 WBC 5.7 (4.5-11.0) X10^3/uL RBC 4.73 (4.5-5.9) X10^6/uL Hgb 13.0 L (13.5-17.5) g/dL Hct 39.9 L (41-53) % MCV 84.4 (80-100) fL MCH 27.4 (26-34) PG MCHC 32.5 (30-36) % RDW 14.8 (11.6-14.8) % Plt Count 126 L (150-400) X10^3/uL Neut % (Auto) 63.8 (50-75) % Lymph % (Auto) 21.8 L (25-40) % [place] % (Auto) 13.2 (3-14) % Eos % (Auto) 0.7 L (2-4) % Baso % (Auto) 0.5 (0-2) % Neut # (Auto) 3600 (7116-9666) /uL Lymph # (Auto) 1200 (2056-3746) /uL [place] # (Auto) 800 (0-900) /uL Eos # (Auto) 0 (0-450) /uL Baso # (Auto) 0 (0-100) /uL PT (10.1-12.7) SECONDS INR (0.9-1.3) APTT (26-36) SECONDS D-Dimer (<500) ng/ml Sodium 141 (137-145) mmol/L Potassium 3.5 (3.4-5.1) mmol/L Chloride 101 (98-107) mmol/L Carbon Dioxide 31 (22-32) mmol/L BUN 29 H (9-20) mg/dL Creatinine 1.53 H (0.66-1.25) mg/dL Estimated GFR 48 L (>60) mL/min BUN/Creatinine Ratio 19.0 (6-22) Glucose 154 H (80-110) mg/dL Calcium 8.9 (8.4-10.2) mg/dL Total Bilirubin (0.2-1.3) mg/dL AST (17-59) IU/L ALT (<50) IU/L Alkaline Phosphatase (38-126) U/L Total Creatine Kinase (55-170) U/L CK-MB (CK-2) CK-MB (CK-2) Rel Index Troponin I 1.180 H* 0.733 H* (0.01-0.034) ng/mL NT-Pro-B Natriuret Pep 2000 H (<125) pg/mL Total Protein (6.3-8.2) g/dL Albumin (3.5-5.0) g/dL Globulin (1.7-4.1) g/dL Albumin/Globulin Ratio (1.0-2.8) Lipase (23-300) U/L Urine Color Urine Appearance Urine pH (4.5-8.0) Ur Specific [place] (1.000-1.035) Urine Protein (Negative) Urine Glucose (UA) (Negative) g/dL Urine Ketones (NEGATIVE) Urine Occult Blood (Negative) Urine Nitrate (Negative) Urine Bilirubin (NEGATIVE) Urine Urobilinogen (0.2) E.U./dL Ur Leukocyte Esterase (NEGATIVE) Urine RBC (0-5/HPF) Urine WBC (0-5/HPF) Ur Squamous Epith Cells (0-5/HPF) Other Crystals Urine Bacteria (None) Ur Culture Indicated? SARS-CoV-2 (PCR) (Negative) Influenza A (RT-PCR) (NEGATIVE) Influenza B (RT-PCR) (NEGATIVE) RSV (PCR) (Negative) 01/26/22 Range/Units 06:30 WBC (4.5-11.0) X10^3/uL RBC (4.5-5.9) X10^6/uL Hgb (13.5-17.5) g/dL Hct (41-53) % MCV (80-100) fL MCH (26-34) PG MCHC (30-36) % RDW (11.6-14.8) % Plt Count (150-400) X10^3/uL Neut % (Auto) (50-75) % Lymph % (Auto) (25-40) % [place] % (Auto) (3-14) % Eos % (Auto) (2-4) % Baso % (Auto) (0-2) % Neut # (Auto) (8489-1303) /uL Lymph # (Auto) (5294-6014) /uL [place] # (Auto) (0-900) /uL Eos # (Auto) (0-450) /uL Baso # (Auto) (0-100) /uL PT (10.1-12.7) SECONDS INR (0.9-1.3) APTT 61 H D (26-36) SECONDS D-Dimer (<500) ng/ml Sodium (137-145) mmol/L Potassium (3.4-5.1) mmol/L Chloride (98-107) mmol/L Carbon Dioxide (22-32) mmol/L BUN (9-20) mg/dL Creatinine (0.66-1.25) mg/dL Estimated GFR (>60) mL/min BUN/Creatinine Ratio (6-22) Glucose (80-110) mg/dL Calcium (8.4-10.2) mg/dL Total Bilirubin (0.2-1.3) mg/dL AST (17-59) IU/L ALT (<50) IU/L Alkaline Phosphatase (38-126) U/L Total Creatine Kinase (55-170) U/L CK-MB (CK-2) CK-MB (CK-2) Rel Index Troponin I (0.01-0.034) ng/mL NT-Pro-B Natriuret Pep (<125) pg/mL Total Protein (6.3-8.2) g/dL Albumin (3.5-5.0) g/dL Globulin (1.7-4.1) g/dL Albumin/Globulin Ratio (1.0-2.8) Lipase (23-300) U/L Urine Color Urine Appearance Urine pH (4.5-8.0) Ur Specific [place] (1.000-1.035) Urine Protein (Negative) Urine Glucose (UA) (Negative) g/dL Urine Ketones (NEGATIVE) Urine Occult Blood (Negative) Urine Nitrate (Negative) Urine Bilirubin (NEGATIVE) Urine Urobilinogen (0.2) E.U./dL Ur Leukocyte Esterase (NEGATIVE) Urine RBC (0-5/HPF) Urine WBC (0-5/HPF) Ur Squamous Epith Cells (0-5/HPF) Other Crystals Urine Bacteria (None) Ur Culture Indicated? SARS-CoV-2 (PCR) (Negative) Influenza A (RT-PCR) (NEGATIVE) Influenza B (RT-PCR) (NEGATIVE) RSV (PCR) (Negative) MDM Narrative Medical decision making narrative: This is a 71-year-old male with persistent shortness of breath post COVID with recent NSTEMI patient was seen yesterday returns with increasing shortness of breath and an episode of no chest pain or pressure but sudden shortness of breath and diaphoresis. Patient is not hypoxic, was slightly hypotensive initially. Respond to fluids. EKG does not show dynamic changes but troponin is positive today. He does have some potential for pulmonary emboli with his recent COVID infection and hospitalization so PE scan was obtained. Patient PE scan is negative, troponin continues to trend upwards patient had heparin initiated, aspirin, statin was increased 80 mg plan to reinitiate patient's Coreg was given a dose of Lasix. Case was discussed with Cardiology [facility] as well as both agree with current plan. Patient has been chest pain free and not really more short of breath during his stay so nitro was not initiated. Patient is full code. Is quite anxious about possibly catheterization but we discussed that he would very much benefit from this. Patient did have run of tachycardia, he felt tight in his throat for 2nd but no other changes. EKG was repeated. Patient continues to be positive for COVID he is within 10-12 days of his initial test. Echo was obtained does show mild concentric left hypertrophy, EF is 50-55% regional wall abnormalities can not be excluded secondary to limited visualization. Right ventricle mildly dilated, left atrium severely dilated and mildly dilated right atrium. Pericardial effusion or pleural effusion appreciated on ECHO. Patient signed out to Dr. Alas, while awaiting potential transfer. [[id number]] ([place]) Patient received in sign out from Dr. Peres]. I have reviewed the clinical course and performed an independent history and physical exam. Patient in no significant current distress. He is made aware of or current status and plan, he is in agreement and questions have been answered. <Karel Julian MD - Last Filed: 02/02/22 08:22> Lab Data Labs: Lab Results 01/22/22 01/22/22 01/22/22 Range/Units 10:50 10:50 10:50 WBC 6.5 (4.5-11.0) X10^3/uL RBC 4.41 L (4.5-5.9) X10^6/uL Hgb 12.2 L (13.5-17.5) g/dL Hct 37.8 L (41-53) % MCV 85.6 (80-100) fL MCH 27.7 (26-34) PG MCHC 32.4 (30-36) % RDW 14.9 H (11.6-14.8) % Plt Count 134 L (150-400) X10^3/uL Neut % (Auto) 69.6 (50-75) % Lymph % (Auto) 17.5 L (25-40) % [place] % (Auto) 12.1 (3-14) % Eos % (Auto) 0.6 L (2-4) % Baso % (Auto) 0.2 (0-2) % Neut # (Auto) 4500 (8947-8235) /uL Lymph # (Auto) 1100 (8886-6008) /uL [place] # (Auto) 800 (0-900) /uL Eos # (Auto) 0 (0-450) /uL Baso # (Auto) 0 (0-100) /uL PT 13.4 H (10.1-12.7) SECONDS INR 1.2 (0.9-1.3) APTT 29 (26-36) SECONDS D-Dimer 620 H (<500) ng/ml Sodium 139 (137-145) mmol/L Potassium 4.4 (3.4-5.1) mmol/L Chloride 105 (98-107) mmol/L Carbon Dioxide 24 (22-32) mmol/L BUN 23 H (9-20) mg/dL Creatinine 1.25 (0.66-1.25) mg/dL Estimated GFR > 60 (>60) mL/min BUN/Creatinine Ratio 18.4 (6-22) Glucose 103 (80-110) mg/dL Calcium 8.7 (8.4-10.2) mg/dL Total Bilirubin 0.6 (0.2-1.3) mg/dL AST 29 (17-59) IU/L ALT 21 (<50) IU/L Alkaline Phosphatase 74 (38-126) U/L Total Creatine Kinase 60 (55-170) U/L CK-MB (CK-2) TNP CK-MB (CK-2) Rel Index TNP Troponin I 2.820 H* (0.01-0.034) ng/mL NT-Pro-B Natriuret Pep 2070 H (<125) pg/mL Total Protein 6.8 (6.3-8.2) g/dL Albumin 3.7 (3.5-5.0) g/dL Globulin 3.1 (1.7-4.1) g/dL Albumin/Globulin Ratio 1.2 (1.0-2.8) Lipase 107 (23-300) U/L Urine Color Urine Appearance Urine pH (4.5-8.0) Ur Specific [place] (1.000-1.035) Urine Protein (Negative) Urine Glucose (UA) (Negative) g/dL Urine Ketones (NEGATIVE) Urine Occult Blood (Negative) Urine Nitrate (Negative) Urine Bilirubin (NEGATIVE) Urine Urobilinogen (0.2) E.U./dL Ur Leukocyte Esterase (NEGATIVE) Urine RBC (0-5/HPF) Urine WBC (0-5/HPF) Ur Squamous Epith Cells (0-5/HPF) Other Crystals Urine Bacteria (None) Ur Culture Indicated? SARS-CoV-2 (PCR) (Negative) Influenza A (RT-PCR) (NEGATIVE) Influenza B (RT-PCR) (NEGATIVE) RSV (PCR) (Negative) 01/22/22 01/22/22 01/22/22 Range/Units 12:25 14:28 19:30 WBC (4.5-11.0) X10^3/uL RBC (4.5-5.9) X10^6/uL Hgb (13.5-17.5) g/dL Hct (41-53) % MCV (80-100) fL MCH (26-34) PG MCHC (30-36) % RDW (11.6-14.8) % Plt Count (150-400) X10^3/uL Neut % (Auto) (50-75) % Lymph % (Auto) (25-40) % [place] % (Auto) (3-14) % Eos % (Auto) (2-4) % Baso % (Auto) (0-2) % Neut # (Auto) (1906-4591) /uL Lymph # (Auto) (4252-9290) /uL [place] # (Auto) (0-900) /uL Eos # (Auto) (0-450) /uL Baso # (Auto) (0-100) /uL PT (10.1-12.7) SECONDS INR (0.9-1.3) APTT 42 H D (26-36) SECONDS D-Dimer (<500) ng/ml Sodium (137-145) mmol/L Potassium (3.4-5.1) mmol/L Chloride (98-107) mmol/L Carbon Dioxide (22-32) mmol/L BUN (9-20) mg/dL Creatinine (0.66-1.25) mg/dL Estimated GFR (>60) mL/min BUN/Creatinine Ratio (6-22) Glucose (80-110) mg/dL Calcium (8.4-10.2) mg/dL Total Bilirubin (0.2-1.3) mg/dL AST (17-59) IU/L ALT (<50) IU/L Alkaline Phosphatase (38-126) U/L Total Creatine Kinase (55-170) U/L CK-MB (CK-2) CK-MB (CK-2) Rel Index Troponin I 2.940 H* (0.01-0.034) ng/mL NT-Pro-B Natriuret Pep (<125) pg/mL Total Protein (6.3-8.2) g/dL Albumin (3.5-5.0) g/dL Globulin (1.7-4.1) g/dL Albumin/Globulin Ratio (1.0-2.8) Lipase (23-300) U/L Urine Color Urine Appearance Urine pH (4.5-8.0) Ur Specific [place] (1.000-1.035) Urine Protein (Negative) Urine Glucose (UA) (Negative) g/dL Urine Ketones (NEGATIVE) Urine Occult Blood (Negative) Urine Nitrate (Negative) Urine Bilirubin (NEGATIVE) Urine Urobilinogen (0.2) E.U./dL Ur Leukocyte Esterase (NEGATIVE) Urine RBC (0-5/HPF) Urine WBC (0-5/HPF) Ur Squamous Epith Cells (0-5/HPF) Other Crystals Urine Bacteria (None) Ur Culture Indicated? SARS-CoV-2 (PCR) Positive H (Negative) Influenza A (RT-PCR) Flu a negative (NEGATIVE) Influenza B (RT-PCR) Flu b negative (NEGATIVE) RSV (PCR) Negative (Negative) 01/22/22 01/23/22 01/23/22 Range/Units 20:30 01:31 08:51 WBC 5.8 (4.5-11.0) X10^3/uL RBC 4.47 L (4.5-5.9) X10^6/uL Hgb 12.3 L (13.5-17.5) g/dL Hct 38.1 L (41-53) % MCV 85.0 (80-100) fL MCH 27.5 (26-34) PG MCHC 32.3 (30-36) % RDW 15.0 H (11.6-14.8) % Plt Count 112 L (150-400) X10^3/uL Neut % (Auto) 68.1 (50-75) % Lymph % (Auto) 17.5 L (25-40) % [place] % (Auto) 13.4 (3-14) % Eos % (Auto) 0.8 L (2-4) % Baso % (Auto) 0.2 (0-2) % Neut # (Auto) 3900 (9108-5378) /uL Lymph # (Auto) 1000 L (3811-9967) /uL [place] # (Auto) 800 (0-900) /uL Eos # (Auto) 0 (0-450) /uL Baso # (Auto) 0 (0-100) /uL PT (10.1-12.7) SECONDS INR (0.9-1.3) APTT 43 H (26-36) SECONDS D-Dimer (<500) ng/ml Sodium (137-145) mmol/L Potassium (3.4-5.1) mmol/L Chloride (98-107) mmol/L Carbon Dioxide (22-32) mmol/L BUN (9-20) mg/dL Creatinine (0.66-1.25) mg/dL Estimated GFR (>60) mL/min BUN/Creatinine Ratio (6-22) Glucose (80-110) mg/dL Calcium (8.4-10.2) mg/dL Total Bilirubin (0.2-1.3) mg/dL AST (17-59) IU/L ALT (<50) IU/L Alkaline Phosphatase (38-126) U/L Total Creatine Kinase (55-170) U/L CK-MB (CK-2) CK-MB (CK-2) Rel Index Troponin I 2.480 H* (0.01-0.034) ng/mL NT-Pro-B Natriuret Pep (<125) pg/mL Total Protein (6.3-8.2) g/dL Albumin (3.5-5.0) g/dL Globulin (1.7-4.1) g/dL Albumin/Globulin Ratio (1.0-2.8) Lipase (23-300) U/L Urine Color Urine Appearance Urine pH (4.5-8.0) Ur Specific [place] (1.000-1.035) Urine Protein (Negative) Urine Glucose (UA) (Negative) g/dL Urine Ketones (NEGATIVE) Urine Occult Blood (Negative) Urine Nitrate (Negative) Urine Bilirubin (NEGATIVE) Urine Urobilinogen (0.2) E.U./dL Ur Leukocyte Esterase (NEGATIVE) Urine RBC (0-5/HPF) Urine WBC (0-5/HPF) Ur Squamous Epith Cells (0-5/HPF) Other Crystals Urine Bacteria (None) Ur Culture Indicated? SARS-CoV-2 (PCR) (Negative) Influenza A (RT-PCR) (NEGATIVE) Influenza B (RT-PCR) (NEGATIVE) RSV (PCR) (Negative) 01/23/22 01/23/22 01/23/22 Range/Units 08:51 08:58 16:30 WBC (4.5-11.0) X10^3/uL RBC (4.5-5.9) X10^6/uL Hgb (13.5-17.5) g/dL Hct (41-53) % MCV (80-100) fL MCH (26-34) PG MCHC (30-36) % RDW (11.6-14.8) % Plt Count (150-400) X10^3/uL Neut % (Auto) (50-75) % Lymph % (Auto) (25-40) % [place] % (Auto) (3-14) % Eos % (Auto) (2-4) % Baso % (Auto) (0-2) % Neut # (Auto) (1074-7281) /uL Lymph # (Auto) (8839-0006) /uL [place] # (Auto) (0-900) /uL Eos # (Auto) (0-450) /uL Baso # (Auto) (0-100) /uL PT (10.1-12.7) SECONDS INR (0.9-1.3) APTT 45 H 39 H (26-36) SECONDS D-Dimer (<500) ng/ml Sodium 140 (137-145) mmol/L Potassium 3.8 (3.4-5.1) mmol/L Chloride 104 (98-107) mmol/L Carbon Dioxide 27 (22-32) mmol/L BUN 18 (9-20) mg/dL Creatinine 1.28 H (0.66-1.25) mg/dL Estimated GFR 59 L (>60) mL/min BUN/Creatinine Ratio 14.1 (6-22) Glucose 88 (80-110) mg/dL Calcium 8.6 (8.4-10.2) mg/dL Total Bilirubin 0.4 (0.2-1.3) mg/dL AST 22 (17-59) IU/L ALT 18 (<50) IU/L Alkaline Phosphatase 75 (38-126) U/L Total Creatine Kinase 29 L (55-170) U/L CK-MB (CK-2) TNP CK-MB (CK-2) Rel Index TNP Troponin I 1.410 H* (0.01-0.034) ng/mL NT-Pro-B Natriuret Pep 2570 H (<125) pg/mL Total Protein 6.6 (6.3-8.2) g/dL Albumin 3.6 (3.5-5.0) g/dL Globulin 3.0 (1.7-4.1) g/dL Albumin/Globulin Ratio 1.2 (1.0-2.8) Lipase (23-300) U/L Urine Color Urine Appearance Urine pH (4.5-8.0) Ur Specific [place] (1.000-1.035) Urine Protein (Negative) Urine Glucose (UA) (Negative) g/dL Urine Ketones (NEGATIVE) Urine Occult Blood (Negative) Urine Nitrate (Negative) Urine Bilirubin (NEGATIVE) Urine Urobilinogen (0.2) E.U./dL Ur Leukocyte Esterase (NEGATIVE) Urine RBC (0-5/HPF) Urine WBC (0-5/HPF) Ur Squamous Epith Cells (0-5/HPF) Other Crystals Urine Bacteria (None) Ur Culture Indicated? SARS-CoV-2 (PCR) (Negative) Influenza A (RT-PCR) (NEGATIVE) Influenza B (RT-PCR) (NEGATIVE) RSV (PCR) (Negative) 01/23/22 01/23/22 01/24/22 Range/Units 16:40 23:20 05:55 WBC (4.5-11.0) X10^3/uL RBC (4.5-5.9) X10^6/uL Hgb (13.5-17.5) g/dL Hct (41-53) % MCV (80-100) fL MCH (26-34) PG MCHC (30-36) % RDW (11.6-14.8) % Plt Count (150-400) X10^3/uL Neut % (Auto) (50-75) % Lymph % (Auto) (25-40) % [place] % (Auto) (3-14) % Eos % (Auto) (2-4) % Baso % (Auto) (0-2) % Neut # (Auto) (9652-5436) /uL Lymph # (Auto) (6334-4963) /uL [place] # (Auto) (0-900) /uL Eos # (Auto) (0-450) /uL Baso # (Auto) (0-100) /uL PT (10.1-12.7) SECONDS INR (0.9-1.3) APTT 37 H 49 H D (26-36) SECONDS D-Dimer (<500) ng/ml Sodium (137-145) mmol/L Potassium (3.4-5.1) mmol/L Chloride (98-107) mmol/L Carbon Dioxide (22-32) mmol/L BUN (9-20) mg/dL Creatinine (0.66-1.25) mg/dL Estimated GFR (>60) mL/min BUN/Creatinine Ratio (6-22) Glucose (80-110) mg/dL Calcium (8.4-10.2) mg/dL Total Bilirubin (0.2-1.3) mg/dL AST (17-59) IU/L ALT (<50) IU/L Alkaline Phosphatase (38-126) U/L Total Creatine Kinase (55-170) U/L CK-MB (CK-2) CK-MB (CK-2) Rel Index Troponin I (0.01-0.034) ng/mL NT-Pro-B Natriuret Pep (<125) pg/mL Total Protein (6.3-8.2) g/dL Albumin (3.5-5.0) g/dL Globulin (1.7-4.1) g/dL Albumin/Globulin Ratio (1.0-2.8) Lipase (23-300) U/L Urine Color Yellow Urine Appearance Sl cloudy Urine pH 5.0 (4.5-8.0) Ur Specific [place] 1.025 (1.000-1.035) Urine Protein 1+ H (Negative) Urine Glucose (UA) Negative (Negative) g/dL Urine Ketones Trace H (NEGATIVE) Urine Occult Blood 3+ H (Negative) Urine Nitrate Negative (Negative) Urine Bilirubin Negative (NEGATIVE) Urine Urobilinogen 0.2 (0.2) E.U./dL Ur Leukocyte Esterase Negative (NEGATIVE) Urine RBC >100/hpf H (0-5/HPF) Urine WBC 5-10/hpf H (0-5/HPF) Ur Squamous Epith Cells 0-1 /hpf (0-5/HPF) Other Crystals 1+ amorphous Urine Bacteria Few (2-10) H (None) Ur Culture Indicated? Specimen cultured SARS-CoV-2 (PCR) (Negative) Influenza A (RT-PCR) (NEGATIVE) Influenza B (RT-PCR) (NEGATIVE) RSV (PCR) (Negative) 01/24/22 01/24/22 01/24/22 Range/Units 07:25 07:25 13:05 WBC (4.5-11.0) X10^3/uL RBC (4.5-5.9) X10^6/uL Hgb (13.5-17.5) g/dL Hct (41-53) % MCV (80-100) fL MCH (26-34) PG MCHC (30-36) % RDW (11.6-14.8) % Plt Count (150-400) X10^3/uL Neut % (Auto) (50-75) % Lymph % (Auto) (25-40) % [place] % (Auto) (3-14) % Eos % (Auto) (2-4) % Baso % (Auto) (0-2) % Neut # (Auto) (6498-5189) /uL Lymph # (Auto) (0234-9058) /uL [place] # (Auto) (0-900) /uL Eos # (Auto) (0-450) /uL Baso # (Auto) (0-100) /uL PT (10.1-12.7) SECONDS INR (0.9-1.3) APTT 49 H (26-36) SECONDS D-Dimer (<500) ng/ml Sodium (137-145) mmol/L Potassium (3.4-5.1) mmol/L Chloride (98-107) mmol/L Carbon Dioxide (22-32) mmol/L BUN (9-20) mg/dL Creatinine (0.66-1.25) mg/dL Estimated GFR (>60) mL/min BUN/Creatinine Ratio (6-22) Glucose (80-110) mg/dL Calcium (8.4-10.2) mg/dL Total Bilirubin (0.2-1.3) mg/dL AST (17-59) IU/L ALT (<50) IU/L Alkaline Phosphatase (38-126) U/L Total Creatine Kinase (55-170) U/L CK-MB (CK-2) CK-MB (CK-2) Rel Index Troponin I 1.450 H* (0.01-0.034) ng/mL NT-Pro-B Natriuret Pep 2640 H (<125) pg/mL Total Protein (6.3-8.2) g/dL Albumin (3.5-5.0) g/dL Globulin (1.7-4.1) g/dL Albumin/Globulin Ratio (1.0-2.8) Lipase (23-300) U/L Urine Color Urine Appearance Urine pH (4.5-8.0) Ur Specific [place] (1.000-1.035) Urine Protein (Negative) Urine Glucose (UA) (Negative) g/dL Urine Ketones (NEGATIVE) Urine Occult Blood (Negative) Urine Nitrate (Negative) Urine Bilirubin (NEGATIVE) Urine Urobilinogen (0.2) E.U./dL Ur Leukocyte Esterase (NEGATIVE) Urine RBC (0-5/HPF) Urine WBC (0-5/HPF) Ur Squamous Epith Cells (0-5/HPF) Other Crystals Urine Bacteria (None) Ur Culture Indicated? SARS-CoV-2 (PCR) (Negative) Influenza A (RT-PCR) (NEGATIVE) Influenza B (RT-PCR) (NEGATIVE) RSV (PCR) (Negative) 01/25/22 01/25/22 01/25/22 Range/Units 06:06 06:06 06:06 WBC 5.6 (4.5-11.0) X10^3/uL RBC 4.82 (4.5-5.9) X10^6/uL Hgb 13.4 L (13.5-17.5) g/dL Hct 40.5 L (41-53) % MCV 83.9 (80-100) fL MCH 27.7 (26-34) PG MCHC 33.0 (30-36) % RDW 14.8 (11.6-14.8) % Plt Count 122 L (150-400) X10^3/uL Neut % (Auto) 62.5 (50-75) % Lymph % (Auto) 21.5 L (25-40) % [place] % (Auto) 14.8 H (3-14) % Eos % (Auto) 0.9 L (2-4) % Baso % (Auto) 0.3 (0-2) % Neut # (Auto) 3500 (8328-3635) /uL Lymph # (Auto) 1200 (2515-7378) /uL [place] # (Auto) 800 (0-900) /uL Eos # (Auto) 0 (0-450) /uL Baso # (Auto) 0 (0-100) /uL PT (10.1-12.7) SECONDS INR (0.9-1.3) APTT 52 H (26-36) SECONDS D-Dimer (<500) ng/ml Sodium 140 (137-145) mmol/L Potassium 3.8 (3.4-5.1) mmol/L Chloride 103 (98-107) mmol/L Carbon Dioxide 28 (22-32) mmol/L BUN 23 H (9-20) mg/dL Creatinine 1.39 H (0.66-1.25) mg/dL Estimated GFR 54 L (>60) mL/min BUN/Creatinine Ratio 16.5 (6-22) Glucose 109 (80-110) mg/dL Calcium 9.0 (8.4-10.2) mg/dL Total Bilirubin (0.2-1.3) mg/dL AST (17-59) IU/L ALT (<50) IU/L Alkaline Phosphatase (38-126) U/L Total Creatine Kinase (55-170) U/L CK-MB (CK-2) CK-MB (CK-2) Rel Index Troponin I (0.01-0.034) ng/mL NT-Pro-B Natriuret Pep (<125) pg/mL Total Protein (6.3-8.2) g/dL Albumin (3.5-5.0) g/dL Globulin (1.7-4.1) g/dL Albumin/Globulin Ratio (1.0-2.8) Lipase (23-300) U/L Urine Color Urine Appearance Urine pH (4.5-8.0) Ur Specific [place] (1.000-1.035) Urine Protein (Negative) Urine Glucose (UA) (Negative) g/dL Urine Ketones (NEGATIVE) Urine Occult Blood (Negative) Urine Nitrate (Negative) Urine Bilirubin (NEGATIVE) Urine Urobilinogen (0.2) E.U./dL Ur Leukocyte Esterase (NEGATIVE) Urine RBC (0-5/HPF) Urine WBC (0-5/HPF) Ur Squamous Epith Cells (0-5/HPF) Other Crystals Urine Bacteria (None) Ur Culture Indicated? SARS-CoV-2 (PCR) (Negative) Influenza A (RT-PCR) (NEGATIVE) Influenza B (RT-PCR) (NEGATIVE) RSV (PCR) (Negative) 01/25/22 01/26/22 01/26/22 Range/Units 06:06 06:30 06:30 WBC 5.7 (4.5-11.0) X10^3/uL RBC 4.73 (4.5-5.9) X10^6/uL Hgb 13.0 L (13.5-17.5) g/dL Hct 39.9 L (41-53) % MCV 84.4 (80-100) fL MCH 27.4 (26-34) PG MCHC 32.5 (30-36) % RDW 14.8 (11.6-14.8) % Plt Count 126 L (150-400) X10^3/uL Neut % (Auto) 63.8 (50-75) % Lymph % (Auto) 21.8 L (25-40) % [place] % (Auto) 13.2 (3-14) % Eos % (Auto) 0.7 L (2-4) % Baso % (Auto) 0.5 (0-2) % Neut # (Auto) 3600 (1186-9361) /uL Lymph # (Auto) 1200 (5499-6449) /uL [place] # (Auto) 800 (0-900) /uL Eos # (Auto) 0 (0-450) /uL Baso # (Auto) 0 (0-100) /uL PT (10.1-12.7) SECONDS INR (0.9-1.3) APTT (26-36) SECONDS D-Dimer (<500) ng/ml Sodium 141 (137-145) mmol/L Potassium 3.5 (3.4-5.1) mmol/L Chloride 101 (98-107) mmol/L Carbon Dioxide 31 (22-32) mmol/L BUN 29 H (9-20) mg/dL Creatinine 1.53 H (0.66-1.25) mg/dL Estimated GFR 48 L (>60) mL/min BUN/Creatinine Ratio 19.0 (6-22) Glucose 154 H (80-110) mg/dL Calcium 8.9 (8.4-10.2) mg/dL Total Bilirubin (0.2-1.3) mg/dL AST (17-59) IU/L ALT (<50) IU/L Alkaline Phosphatase (38-126) U/L Total Creatine Kinase (55-170) U/L CK-MB (CK-2) CK-MB (CK-2) Rel Index Troponin I 1.180 H* 0.733 H* (0.01-0.034) ng/mL NT-Pro-B Natriuret Pep 2000 H (<125) pg/mL Total Protein (6.3-8.2) g/dL Albumin (3.5-5.0) g/dL Globulin (1.7-4.1) g/dL Albumin/Globulin Ratio (1.0-2.8) Lipase (23-300) U/L Urine Color Urine Appearance Urine pH (4.5-8.0) Ur Specific [place] (1.000-1.035) Urine Protein (Negative) Urine Glucose (UA) (Negative) g/dL Urine Ketones (NEGATIVE) Urine Occult Blood (Negative) Urine Nitrate (Negative) Urine Bilirubin (NEGATIVE) Urine Urobilinogen (0.2) E.U./dL Ur Leukocyte Esterase (NEGATIVE) Urine RBC (0-5/HPF) Urine WBC (0-5/HPF) Ur Squamous Epith Cells (0-5/HPF) Other Crystals Urine Bacteria (None) Ur Culture Indicated? SARS-CoV-2 (PCR) (Negative) Influenza A (RT-PCR) (NEGATIVE) Influenza B (RT-PCR) (NEGATIVE) RSV (PCR) (Negative) 01/26/22 Range/Units 06:30 WBC (4.5-11.0) X10^3/uL RBC (4.5-5.9) X10^6/uL Hgb (13.5-17.5) g/dL Hct (41-53) % MCV (80-100) fL MCH (26-34) PG MCHC (30-36) % RDW (11.6-14.8) % Plt Count (150-400) X10^3/uL Neut % (Auto) (50-75) % Lymph % (Auto) (25-40) % [place] % (Auto) (3-14) % Eos % (Auto) (2-4) % Baso % (Auto) (0-2) % Neut # (Auto) (6558-2690) /uL Lymph # (Auto) (0571-2742) /uL [place] # (Auto) (0-900) /uL Eos # (Auto) (0-450) /uL Baso # (Auto) (0-100) /uL PT (10.1-12.7) SECONDS INR (0.9-1.3) APTT 61 H D (26-36) SECONDS D-Dimer (<500) ng/ml Sodium (137-145) mmol/L Potassium (3.4-5.1) mmol/L Chloride (98-107) mmol/L Carbon Dioxide (22-32) mmol/L BUN (9-20) mg/dL Creatinine (0.66-1.25) mg/dL Estimated GFR (>60) mL/min BUN/Creatinine Ratio (6-22) Glucose (80-110) mg/dL Calcium (8.4-10.2) mg/dL Total Bilirubin (0.2-1.3) mg/dL AST (17-59) IU/L ALT (<50) IU/L Alkaline Phosphatase (38-126) U/L Total Creatine Kinase (55-170) U/L CK-MB (CK-2) CK-MB (CK-2) Rel Index Troponin I (0.01-0.034) ng/mL NT-Pro-B Natriuret Pep (<125) pg/mL Total Protein (6.3-8.2) g/dL Albumin (3.5-5.0) g/dL Globulin (1.7-4.1) g/dL Albumin/Globulin Ratio (1.0-2.8) Lipase (23-300) U/L Urine Color Urine Appearance Urine pH (4.5-8.0) Ur Specific [place] (1.000-1.035) Urine Protein (Negative) Urine Glucose (UA) (Negative) g/dL Urine Ketones (NEGATIVE) Urine Occult Blood (Negative) Urine Nitrate (Negative) Urine Bilirubin (NEGATIVE) Urine Urobilinogen (0.2) E.U./dL Ur Leukocyte Esterase (NEGATIVE) Urine RBC (0-5/HPF) Urine WBC (0-5/HPF) Ur Squamous Epith Cells (0-5/HPF) Other Crystals Urine Bacteria (None) Ur Culture Indicated? SARS-CoV-2 (PCR) (Negative) Influenza A (RT-PCR) (NEGATIVE) Influenza B (RT-PCR) (NEGATIVE) RSV (PCR) (Negative) <Jo Saucedo MD - Last Filed: 02/07/22 18:30> Lab Data Labs: Lab Results 11/15/22 11/15/22 11/15/22 Range/Units 10:50 10:50 10:50 WBC 6.5 (4.5-11.0) X10^3/uL RBC 4.41 L (4.5-5.9) X10^6/uL Hgb 12.2 L (13.5-17.5) g/dL Hct 37.8 L (41-53) % MCV 85.6 (80-100) fL MCH 27.7 (26-34) PG MCHC 32.4 (30-36) % RDW 14.9 H (11.6-14.8) % Plt Count 134 L (150-400) X10^3/uL Neut % (Auto) 69.6 (50-75) % Lymph % (Auto) 17.5 L (25-40) % [place] % (Auto) 12.1 (3-14) % Eos % (Auto) 0.6 L (2-4) % Baso % (Auto) 0.2 (0-2) % Neut # (Auto) 4500 (4807-7179) /uL Lymph # (Auto) 1100 (2237-9742) /uL [place] # (Auto) 800 (0-900) /uL Eos # (Auto) 0 (0-450) /uL Baso # (Auto) 0 (0-100) /uL PT 13.4 H (10.1-12.7) SECONDS INR 1.2 (0.9-1.3) APTT 29 (26-36) SECONDS D-Dimer 620 H (<500) ng/ml Sodium 139 (137-145) mmol/L Potassium 4.4 (3.4-5.1) mmol/L Chloride 105 (98-107) mmol/L Carbon Dioxide 24 (22-32) mmol/L BUN 23 H (9-20) mg/dL Creatinine 1.25 (0.66-1.25) mg/dL Estimated GFR > 60 (>60) mL/min BUN/Creatinine Ratio 18.4 (6-22) Glucose 103 (80-110) mg/dL Calcium 8.7 (8.4-10.2) mg/dL Total Bilirubin 0.6 (0.2-1.3) mg/dL AST 29 (17-59) IU/L ALT 21 (<50) IU/L Alkaline Phosphatase 74 (38-126) U/L Total Creatine Kinase 60 (55-170) U/L CK-MB (CK-2) TNP CK-MB (CK-2) Rel Index TNP Troponin I 2.820 H* (0.01-0.034) ng/mL NT-Pro-B Natriuret Pep 2070 H (<125) pg/mL Total Protein 6.8 (6.3-8.2) g/dL Albumin 3.7 (3.5-5.0) g/dL Globulin 3.1 (1.7-4.1) g/dL Albumin/Globulin Ratio 1.2 (1.0-2.8) Lipase 107 (23-300) U/L Urine Color Urine Appearance Urine pH (4.5-8.0) Ur Specific [place] (1.000-1.035) Urine Protein (Negative) Urine Glucose (UA) (Negative) g/dL Urine Ketones (NEGATIVE) Urine Occult Blood (Negative) Urine Nitrate (Negative) Urine Bilirubin (NEGATIVE) Urine Urobilinogen (0.2) E.U./dL Ur Leukocyte Esterase (NEGATIVE) Urine RBC (0-5/HPF) Urine WBC (0-5/HPF) Ur Squamous Epith Cells (0-5/HPF) Other Crystals Urine Bacteria (None) Ur Culture Indicated? SARS-CoV-2 (PCR) (Negative) Influenza A (RT-PCR) (NEGATIVE) Influenza B (RT-PCR) (NEGATIVE) RSV (PCR) (Negative) 01/22/22 01/22/22 01/22/22 Range/Units 12:25 14:28 19:30 WBC (4.5-11.0) X10^3/uL RBC (4.5-5.9) X10^6/uL Hgb (13.5-17.5) g/dL Hct (41-53) % MCV (80-100) fL MCH (26-34) PG MCHC (30-36) % RDW (11.6-14.8) % Plt Count (150-400) X10^3/uL Neut % (Auto) (50-75) % Lymph % (Auto) (25-40) % [place] % (Auto) (3-14) % Eos % (Auto) (2-4) % Baso % (Auto) (0-2) % Neut # (Auto) (5424-1105) /uL Lymph # (Auto) (9836-8004) /uL [place] # (Auto) (0-900) /uL Eos # (Auto) (0-450) /uL Baso # (Auto) (0-100) /uL PT (10.1-12.7) SECONDS INR (0.9-1.3) APTT 42 H D (26-36) SECONDS D-Dimer (<500) ng/ml Sodium (137-145) mmol/L Potassium (3.4-5.1) mmol/L Chloride (98-107) mmol/L Carbon Dioxide (22-32) mmol/L BUN (9-20) mg/dL Creatinine (0.66-1.25) mg/dL Estimated GFR (>60) mL/min BUN/Creatinine Ratio (6-22) Glucose (80-110) mg/dL Calcium (8.4-10.2) mg/dL Total Bilirubin (0.2-1.3) mg/dL AST (17-59) IU/L ALT (<50) IU/L Alkaline Phosphatase (38-126) U/L Total Creatine Kinase (55-170) U/L CK-MB (CK-2) CK-MB (CK-2) Rel Index Troponin I 2.940 H* (0.01-0.034) ng/mL NT-Pro-B Natriuret Pep (<125) pg/mL Total Protein (6.3-8.2) g/dL Albumin (3.5-5.0) g/dL Globulin (1.7-4.1) g/dL Albumin/Globulin Ratio (1.0-2.8) Lipase (23-300) U/L Urine Color Urine Appearance Urine pH (4.5-8.0) Ur Specific [place] (1.000-1.035) Urine Protein (Negative) Urine Glucose (UA) (Negative) g/dL Urine Ketones (NEGATIVE) Urine Occult Blood (Negative) Urine Nitrate (Negative) Urine Bilirubin (NEGATIVE) Urine Urobilinogen (0.2) E.U./dL Ur Leukocyte Esterase (NEGATIVE) Urine RBC (0-5/HPF) Urine WBC (0-5/HPF) Ur Squamous Epith Cells (0-5/HPF) Other Crystals Urine Bacteria (None) Ur Culture Indicated? SARS-CoV-2 (PCR) Positive H (Negative) Influenza A (RT-PCR) Flu a negative (NEGATIVE) Influenza B (RT-PCR) Flu b negative (NEGATIVE) RSV (PCR) Negative (Negative) 01/22/22 01/23/22 01/23/22 Range/Units 20:30 01:31 08:51 WBC 5.8 (4.5-11.0) X10^3/uL RBC 4.47 L (4.5-5.9) X10^6/uL Hgb 12.3 L (13.5-17.5) g/dL Hct 38.1 L (41-53) % MCV 85.0 (80-100) fL MCH 27.5 (26-34) PG MCHC 32.3 (30-36) % RDW 15.0 H (11.6-14.8) % Plt Count 112 L (150-400) X10^3/uL Neut % (Auto) 68.1 (50-75) % Lymph % (Auto) 17.5 L (25-40) % [place] % (Auto) 13.4 (3-14) % Eos % (Auto) 0.8 L (2-4) % Baso % (Auto) 0.2 (0-2) % Neut # (Auto) 3900 (0321-2031) /uL Lymph # (Auto) 1000 L (7135-2064) /uL [place] # (Auto) 800 (0-900) /uL Eos # (Auto) 0 (0-450) /uL Baso # (Auto) 0 (0-100) /uL PT (10.1-12.7) SECONDS INR (0.9-1.3) APTT 43 H (26-36) SECONDS D-Dimer (<500) ng/ml Sodium (137-145) mmol/L Potassium (3.4-5.1) mmol/L Chloride (98-107) mmol/L Carbon Dioxide (22-32) mmol/L BUN (9-20) mg/dL Creatinine (0.66-1.25) mg/dL Estimated GFR (>60) mL/min BUN/Creatinine Ratio (6-22) Glucose (80-110) mg/dL Calcium (8.4-10.2) mg/dL Total Bilirubin (0.2-1.3) mg/dL AST (17-59) IU/L ALT (<50) IU/L Alkaline Phosphatase (38-126) U/L Total Creatine Kinase (55-170) U/L CK-MB (CK-2) CK-MB (CK-2) Rel Index Troponin I 2.480 H* (0.01-0.034) ng/mL NT-Pro-B Natriuret Pep (<125) pg/mL Total Protein (6.3-8.2) g/dL Albumin (3.5-5.0) g/dL Globulin (1.7-4.1) g/dL Albumin/Globulin Ratio (1.0-2.8) Lipase (23-300) U/L Urine Color Urine Appearance Urine pH (4.5-8.0) Ur Specific [place] (1.000-1.035) Urine Protein (Negative) Urine Glucose (UA) (Negative) g/dL Urine Ketones (NEGATIVE) Urine Occult Blood (Negative) Urine Nitrate (Negative) Urine Bilirubin (NEGATIVE) Urine Urobilinogen (0.2) E.U./dL Ur Leukocyte Esterase (NEGATIVE) Urine RBC (0-5/HPF) Urine WBC (0-5/HPF) Ur Squamous Epith Cells (0-5/HPF) Other Crystals Urine Bacteria (None) Ur Culture Indicated? SARS-CoV-2 (PCR) (Negative) Influenza A (RT-PCR) (NEGATIVE) Influenza B (RT-PCR) (NEGATIVE) RSV (PCR) (Negative) 01/23/22 01/23/22 01/23/22 Range/Units 08:51 08:58 16:30 WBC (4.5-11.0) X10^3/uL RBC (4.5-5.9) X10^6/uL Hgb (13.5-17.5) g/dL Hct (41-53) % MCV (80-100) fL MCH (26-34) PG MCHC (30-36) % RDW (11.6-14.8) % Plt Count (150-400) X10^3/uL Neut % (Auto) (50-75) % Lymph % (Auto) (25-40) % [place] % (Auto) (3-14) % Eos % (Auto) (2-4) % Baso % (Auto) (0-2) % Neut # (Auto) (2302-3733) /uL Lymph # (Auto) (7564-3714) /uL [place] # (Auto) (0-900) /uL Eos # (Auto) (0-450) /uL Baso # (Auto) (0-100) /uL PT (10.1-12.7) SECONDS INR (0.9-1.3) APTT 45 H 39 H (26-36) SECONDS D-Dimer (<500) ng/ml Sodium 140 (137-145) mmol/L Potassium 3.8 (3.4-5.1) mmol/L Chloride 104 (98-107) mmol/L Carbon Dioxide 27 (22-32) mmol/L BUN 18 (9-20) mg/dL Creatinine 1.28 H (0.66-1.25) mg/dL Estimated GFR 59 L (>60) mL/min BUN/Creatinine Ratio 14.1 (6-22) Glucose 88 (80-110) mg/dL Calcium 8.6 (8.4-10.2) mg/dL Total Bilirubin 0.4 (0.2-1.3) mg/dL AST 22 (17-59) IU/L ALT 18 (<50) IU/L Alkaline Phosphatase 75 (38-126) U/L Total Creatine Kinase 29 L (55-170) U/L CK-MB (CK-2) TNP CK-MB (CK-2) Rel Index TNP Troponin I 1.410 H* (0.01-0.034) ng/mL NT-Pro-B Natriuret Pep 2570 H (<125) pg/mL Total Protein 6.6 (6.3-8.2) g/dL Albumin 3.6 (3.5-5.0) g/dL Globulin 3.0 (1.7-4.1) g/dL Albumin/Globulin Ratio 1.2 (1.0-2.8) Lipase (23-300) U/L Urine Color Urine Appearance Urine pH (4.5-8.0) Ur Specific [place] (1.000-1.035) Urine Protein (Negative) Urine Glucose (UA) (Negative) g/dL Urine Ketones (NEGATIVE) Urine Occult Blood (Negative) Urine Nitrate (Negative) Urine Bilirubin (NEGATIVE) Urine Urobilinogen (0.2) E.U./dL Ur Leukocyte Esterase (NEGATIVE) Urine RBC (0-5/HPF) Urine WBC (0-5/HPF) Ur Squamous Epith Cells (0-5/HPF) Other Crystals Urine Bacteria (None) Ur Culture Indicated? SARS-CoV-2 (PCR) (Negative) Influenza A (RT-PCR) (NEGATIVE) Influenza B (RT-PCR) (NEGATIVE) RSV (PCR) (Negative) 01/23/22 01/23/22 01/24/22 Range/Units 16:40 23:20 05:55 WBC (4.5-11.0) X10^3/uL RBC (4.5-5.9) X10^6/uL Hgb (13.5-17.5) g/dL Hct (41-53) % MCV (80-100) fL MCH (26-34) PG MCHC (30-36) % RDW (11.6-14.8) % Plt Count (150-400) X10^3/uL Neut % (Auto) (50-75) % Lymph % (Auto) (25-40) % [place] % (Auto) (3-14) % Eos % (Auto) (2-4) % Baso % (Auto) (0-2) % Neut # (Auto) (0527-6606) /uL Lymph # (Auto) (7490-1444) /uL [place] # (Auto) (0-900) /uL Eos # (Auto) (0-450) /uL Baso # (Auto) (0-100) /uL PT (10.1-12.7) SECONDS INR (0.9-1.3) APTT 37 H 49 H D (26-36) SECONDS D-Dimer (<500) ng/ml Sodium (137-145) mmol/L Potassium (3.4-5.1) mmol/L Chloride (98-107) mmol/L Carbon Dioxide (22-32) mmol/L BUN (9-20) mg/dL Creatinine (0.66-1.25) mg/dL Estimated GFR (>60) mL/min BUN/Creatinine Ratio (6-22) Glucose (80-110) mg/dL Calcium (8.4-10.2) mg/dL Total Bilirubin (0.2-1.3) mg/dL AST (17-59) IU/L ALT (<50) IU/L Alkaline Phosphatase (38-126) U/L Total Creatine Kinase (55-170) U/L CK-MB (CK-2) CK-MB (CK-2) Rel Index Troponin I (0.01-0.034) ng/mL NT-Pro-B Natriuret Pep (<125) pg/mL Total Protein (6.3-8.2) g/dL Albumin (3.5-5.0) g/dL Globulin (1.7-4.1) g/dL Albumin/Globulin Ratio (1.0-2.8) Lipase (23-300) U/L Urine Color Yellow Urine Appearance Sl cloudy Urine pH 5.0 (4.5-8.0) Ur Specific [place] 1.025 (1.000-1.035) Urine Protein 1+ H (Negative) Urine Glucose (UA) Negative (Negative) g/dL Urine Ketones Trace H (NEGATIVE) Urine Occult Blood 3+ H (Negative) Urine Nitrate Negative (Negative) Urine Bilirubin Negative (NEGATIVE) Urine Urobilinogen 0.2 (0.2) E.U./dL Ur Leukocyte Esterase Negative (NEGATIVE) Urine RBC >100/hpf H (0-5/HPF) Urine WBC 5-10/hpf H (0-5/HPF) Ur Squamous Epith Cells 0-1 /hpf (0-5/HPF) Other Crystals 1+ amorphous Urine Bacteria Few (2-10) H (None) Ur Culture Indicated? Specimen cultured SARS-CoV-2 (PCR) (Negative) Influenza A (RT-PCR) (NEGATIVE) Influenza B (RT-PCR) (NEGATIVE) RSV (PCR) (Negative) 01/24/22 01/24/22 01/24/22 Range/Units 07:25 07:25 13:05 WBC (4.5-11.0) X10^3/uL RBC (4.5-5.9) X10^6/uL Hgb (13.5-17.5) g/dL Hct (41-53) % MCV (80-100) fL MCH (26-34) PG MCHC (30-36) % RDW (11.6-14.8) % Plt Count (150-400) X10^3/uL Neut % (Auto) (50-75) % Lymph % (Auto) (25-40) % [place] % (Auto) (3-14) % Eos % (Auto) (2-4) % Baso % (Auto) (0-2) % Neut # (Auto) (1551-4788) /uL Lymph # (Auto) (6780-9842) /uL [place] # (Auto) (0-900) /uL Eos # (Auto) (0-450) /uL Baso # (Auto) (0-100) /uL PT (10.1-12.7) SECONDS INR (0.9-1.3) APTT 49 H (26-36) SECONDS D-Dimer (<500) ng/ml Sodium (137-145) mmol/L Potassium (3.4-5.1) mmol/L Chloride (98-107) mmol/L Carbon Dioxide (22-32) mmol/L BUN (9-20) mg/dL Creatinine (0.66-1.25) mg/dL Estimated GFR (>60) mL/min BUN/Creatinine Ratio (6-22) Glucose (80-110) mg/dL Calcium (8.4-10.2) mg/dL Total Bilirubin (0.2-1.3) mg/dL AST (17-59) IU/L ALT (<50) IU/L Alkaline Phosphatase (38-126) U/L Total Creatine Kinase (55-170) U/L CK-MB (CK-2) CK-MB (CK-2) Rel Index Troponin I 1.450 H* (0.01-0.034) ng/mL NT-Pro-B Natriuret Pep 2640 H (<125) pg/mL Total Protein (6.3-8.2) g/dL Albumin (3.5-5.0) g/dL Globulin (1.7-4.1) g/dL Albumin/Globulin Ratio (1.0-2.8) Lipase (23-300) U/L Urine Color Urine Appearance Urine pH (4.5-8.0) Ur Specific [place] (1.000-1.035) Urine Protein (Negative) Urine Glucose (UA) (Negative) g/dL Urine Ketones (NEGATIVE) Urine Occult Blood (Negative) Urine Nitrate (Negative) Urine Bilirubin (NEGATIVE) Urine Urobilinogen (0.2) E.U./dL Ur Leukocyte Esterase (NEGATIVE) Urine RBC (0-5/HPF) Urine WBC (0-5/HPF) Ur Squamous Epith Cells (0-5/HPF) Other Crystals Urine Bacteria (None) Ur Culture Indicated? SARS-CoV-2 (PCR) (Negative) Influenza A (RT-PCR) (NEGATIVE) Influenza B (RT-PCR) (NEGATIVE) RSV (PCR) (Negative) 01/25/22 01/25/22 01/25/22 Range/Units 06:06 06:06 06:06 WBC 5.6 (4.5-11.0) X10^3/uL RBC 4.82 (4.5-5.9) X10^6/uL Hgb 13.4 L (13.5-17.5) g/dL Hct 40.5 L (41-53) % MCV 83.9 (80-100) fL MCH 27.7 (26-34) PG MCHC 33.0 (30-36) % RDW 14.8 (11.6-14.8) % Plt Count 122 L (150-400) X10^3/uL Neut % (Auto) 62.5 (50-75) % Lymph % (Auto) 21.5 L (25-40) % [place] % (Auto) 14.8 H (3-14) % Eos % (Auto) 0.9 L (2-4) % Baso % (Auto) 0.3 (0-2) % Neut # (Auto) 3500 (8046-7522) /uL Lymph # (Auto) 1200 (6185-5770) /uL [place] # (Auto) 800 (0-900) /uL Eos # (Auto) 0 (0-450) /uL Baso # (Auto) 0 (0-100) /uL PT (10.1-12.7) SECONDS INR (0.9-1.3) APTT 52 H (26-36) SECONDS D-Dimer (<500) ng/ml Sodium 140 (137-145) mmol/L Potassium 3.8 (3.4-5.1) mmol/L Chloride 103 (98-107) mmol/L Carbon Dioxide 28 (22-32) mmol/L BUN 23 H (9-20) mg/dL Creatinine 1.39 H (0.66-1.25) mg/dL Estimated GFR 54 L (>60) mL/min BUN/Creatinine Ratio 16.5 (6-22) Glucose 109 (80-110) mg/dL Calcium 9.0 (8.4-10.2) mg/dL Total Bilirubin (0.2-1.3) mg/dL AST (17-59) IU/L ALT (<50) IU/L Alkaline Phosphatase (38-126) U/L Total Creatine Kinase (55-170) U/L CK-MB (CK-2) CK-MB (CK-2) Rel Index Troponin I (0.01-0.034) ng/mL NT-Pro-B Natriuret Pep (<125) pg/mL Total Protein (6.3-8.2) g/dL Albumin (3.5-5.0) g/dL Globulin (1.7-4.1) g/dL Albumin/Globulin Ratio (1.0-2.8) Lipase (23-300) U/L Urine Color Urine Appearance Urine pH (4.5-8.0) Ur Specific [place] (1.000-1.035) Urine Protein (Negative) Urine Glucose (UA) (Negative) g/dL Urine Ketones (NEGATIVE) Urine Occult Blood (Negative) Urine Nitrate (Negative) Urine Bilirubin (NEGATIVE) Urine Urobilinogen (0.2) E.U./dL Ur Leukocyte Esterase (NEGATIVE) Urine RBC (0-5/HPF) Urine WBC (0-5/HPF) Ur Squamous Epith Cells (0-5/HPF) Other Crystals Urine Bacteria (None) Ur Culture Indicated? SARS-CoV-2 (PCR) (Negative) Influenza A (RT-PCR) (NEGATIVE) Influenza B (RT-PCR) (NEGATIVE) RSV (PCR) (Negative) 01/25/22 01/26/22 01/26/22 Range/Units 06:06 06:30 06:30 WBC 5.7 (4.5-11.0) X10^3/uL RBC 4.73 (4.5-5.9) X10^6/uL Hgb 13.0 L (13.5-17.5) g/dL Hct 39.9 L (41-53) % MCV 84.4 (80-100) fL MCH 27.4 (26-34) PG MCHC 32.5 (30-36) % RDW 14.8 (11.6-14.8) % Plt Count 126 L (150-400) X10^3/uL Neut % (Auto) 63.8 (50-75) % Lymph % (Auto) 21.8 L (25-40) % [place] % (Auto) 13.2 (3-14) % Eos % (Auto) 0.7 L (2-4) % Baso % (Auto) 0.5 (0-2) % Neut # (Auto) 3600 (6094-8480) /uL Lymph # (Auto) 1200 (3239-9996) /uL [place] # (Auto) 800 (0-900) /uL Eos # (Auto) 0 (0-450) /uL Baso # (Auto) 0 (0-100) /uL PT (10.1-12.7) SECONDS INR (0.9-1.3) APTT (26-36) SECONDS D-Dimer (<500) ng/ml Sodium 141 (137-145) mmol/L Potassium 3.5 (3.4-5.1) mmol/L Chloride 101 (98-107) mmol/L Carbon Dioxide 31 (22-32) mmol/L BUN 29 H (9-20) mg/dL Creatinine 1.53 H (0.66-1.25) mg/dL Estimated GFR 48 L (>60) mL/min BUN/Creatinine Ratio 19.0 (6-22) Glucose 154 H (80-110) mg/dL Calcium 8.9 (8.4-10.2) mg/dL Total Bilirubin (0.2-1.3) mg/dL AST (17-59) IU/L ALT (<50) IU/L Alkaline Phosphatase (38-126) U/L Total Creatine Kinase (55-170) U/L CK-MB (CK-2) CK-MB (CK-2) Rel Index Troponin I 1.180 H* 0.733 H* (0.01-0.034) ng/mL NT-Pro-B Natriuret Pep 2000 H (<125) pg/mL Total Protein (6.3-8.2) g/dL Albumin (3.5-5.0) g/dL Globulin (1.7-4.1) g/dL Albumin/Globulin Ratio (1.0-2.8) Lipase (23-300) U/L Urine Color Urine Appearance Urine pH (4.5-8.0) Ur Specific [place] (1.000-1.035) Urine Protein (Negative) Urine Glucose (UA) (Negative) g/dL Urine Ketones (NEGATIVE) Urine Occult Blood (Negative) Urine Nitrate (Negative) Urine Bilirubin (NEGATIVE) Urine Urobilinogen (0.2) E.U./dL Ur Leukocyte Esterase (NEGATIVE) Urine RBC (0-5/HPF) Urine WBC (0-5/HPF) Ur Squamous Epith Cells (0-5/HPF) Other Crystals Urine Bacteria (None) Ur Culture Indicated? SARS-CoV-2 (PCR) (Negative) Influenza A (RT-PCR) (NEGATIVE) Influenza B (RT-PCR) (NEGATIVE) RSV (PCR) (Negative) 01/26/22 Range/Units 06:30 WBC (4.5-11.0) X10^3/uL RBC (4.5-5.9) X10^6/uL Hgb (13.5-17.5) g/dL Hct (41-53) % MCV (80-100) fL MCH (26-34) PG MCHC (30-36) % RDW (11.6-14.8) % Plt Count (150-400) X10^3/uL Neut % (Auto) (50-75) % Lymph % (Auto) (25-40) % [place] % (Auto) (3-14) % Eos % (Auto) (2-4) % Baso % (Auto) (0-2) % Neut # (Auto) (0131-3698) /uL Lymph # (Auto) (2748-0443) /uL [place] # (Auto) (0-900) /uL Eos # (Auto) (0-450) /uL Baso # (Auto) (0-100) /uL PT (10.1-12.7) SECONDS INR (0.9-1.3) APTT 61 H D (26-36) SECONDS D-Dimer (<500) ng/ml Sodium (137-145) mmol/L Potassium (3.4-5.1) mmol/L Chloride (98-107) mmol/L Carbon Dioxide (22-32) mmol/L BUN (9-20) mg/dL Creatinine (0.66-1.25) mg/dL Estimated GFR (>60) mL/min BUN/Creatinine Ratio (6-22) Glucose (80-110) mg/dL Calcium (8.4-10.2) mg/dL Total Bilirubin (0.2-1.3) mg/dL AST (17-59) IU/L ALT (<50) IU/L Alkaline Phosphatase (38-126) U/L Total Creatine Kinase (55-170) U/L CK-MB (CK-2) CK-MB (CK-2) Rel Index Troponin I (0.01-0.034) ng/mL NT-Pro-B Natriuret Pep (<125) pg/mL Total Protein (6.3-8.2) g/dL Albumin (3.5-5.0) g/dL Globulin (1.7-4.1) g/dL Albumin/Globulin Ratio (1.0-2.8) Lipase (23-300) U/L Urine Color Urine Appearance Urine pH (4.5-8.0) Ur Specific [place] (1.000-1.035) Urine Protein (Negative) Urine Glucose (UA) (Negative) g/dL Urine Ketones (NEGATIVE) Urine Occult Blood (Negative) Urine Nitrate (Negative) Urine Bilirubin (NEGATIVE) Urine Urobilinogen (0.2) E.U./dL Ur Leukocyte Esterase (NEGATIVE) Urine RBC (0-5/HPF) Urine WBC (0-5/HPF) Ur Squamous Epith Cells (0-5/HPF) Other Crystals Urine Bacteria (None) Ur Culture Indicated? SARS-CoV-2 (PCR) (Negative) Influenza A (RT-PCR) (NEGATIVE) Influenza B (RT-PCR) (NEGATIVE) RSV (PCR) (Negative) [facility] Narrative Medical decision making narrative: This is a 71-year-old male with persistent shortness of breath post COVID with recent NSTEMI patient was seen yesterday returns with increasing shortness of breath and an episode of no chest pain or pressure but sudden shortness of breath and diaphoresis. Patient is not hypoxic, was slightly hypotensive initially. Respond to fluids. EKG does not show dynamic changes but troponin is positive today. He does have some potential for pulmonary emboli with his recent COVID infection and hospitalization so PE scan was obtained. Patient PE scan is negative, troponin continues to trend upwards patient had heparin initiated, aspirin, statin was increased 80 mg plan to reinitiate patient's Coreg was given a dose of Lasix. Case was discussed with Cardiology [facility] as well as both agree with current plan. Patient has been chest pain free and not really more short of breath during his stay so nitro was not initiated. Patient is full code. Is quite anxious about possibly catheterization but we discussed that he would very much benefit from this. Patient did have run of tachycardia, he felt tight in his throat for 2nd but no other changes. EKG was repeated. Patient continues to be positive for COVID he is within 10-12 days of his initial test. Echo was obtained does show mild concentric left hypertrophy, EF is 50-55% regional wall abnormalities can not be excluded secondary to limited visualization. Right ventricle mildly dilated, left atrium severely dilated and mildly dilated right atrium. Pericardial effusion or pleural effusion appreciated on ECHO. Patient signed out to Dr. Alas, while awaiting potential transfer. [0700] (Marco A) Patient received in sign out from [Bishop]. I have reviewed the clinical course and performed an independent history and physical exam. Patient in no significant current distress. He is made aware of or current status and plan, he is in agreement and questions have been answered. 01/24/22 Mank:? Patient signed out to myself by Dr. Julian.? Patient is known to myself from his initial evaluation in the emergency department.? He had recent COVID infection, NSTEMI was discharged home labs had trended down and returned and now has a new NSTEMI with significantly higher troponins.? He is on, aspirin, atorvastatin, carvedilol and we are currently seeking placement.? Patient is otherwise asymptomatic.? He does get very anxious and finds Valium to be helpful and has had several doses during his stay.? Patient had a dose Lasix today added as his BNP is elevated.? We also added back his spironolactone, finasteride.? Patient signed out to Dr. Saucedo while awaiting possible transfer. 01/25/22 Mank: Patient signed back out to myself by Dr. Saucedo. Patient overnight had no acute events troponin continues to trend down words. Echo result are appreciated. Patient has been in the department 70 hours with downward trending troponin who continues to be asymptomatic on and heparin. We have been unable to get him transferred to anywhere despite multiple times throughout the region. Will reach out to patients personal cardiology team to see if appropriate for discharge home with outpatient follow up and catherization vs. continue to hold and seek placement for cardiac catherization. Spoke with Dr. Randall Cardiology at [facility], he would recommend new med stress test if shows reversible ischemia then patient does need cardiac catheterization if it does not could be discharged home. Spoke with administration, DI were unable to get new med is resting today for through the weekend until Friday. I spoke with Dr. Martínez, cards at [facility] and Dr. Randall again at [facility], they were unable to do a ship and return for new med we also asked at [facility] see regional hotline. Patient is reportedly 1st on list for [facility] for transfer hopefully today or tomorrow. Patient signed out to Dr. Saucedo while hopefully going to have transfer shortly. 01/25 1020 pm patient urine culture from the returns with greater than 100,000 colony-forming units of Gram-negative bacilli. This is treated with 2 g of IV ceftriaxone. Patient is asymptomatic at this time. Critical Care Time <Joi Goodwin, DO - Last Filed: 01/26/22 14:52> Critical Care Time Critical Care Time: Yes Total Critical Care Time: 250 Attestation: The high probability of a clinically significant, sudden or life threatening deterioration of the [cardiac] system(s) required my full and direct attention, intervention and personal management. The aggregate critical care time was [] minutes. This time is in addition to time spent performing reported procedures but includes the following: [x] Data Review and interpretation [x] Patient assessment and monitoring of vital signs [x] Documentation [x] Medication orders and management Discharge Plan Departure Patient Disposition: Xfer [facility] Clinical Impression: Non-ST elevation MO (NSTEMI), CHF (congestive heart failure), Post covid-19 condition, unspecified, Acute UTI Prescriptions: No Action tamsulosin 0.4 mg capsule 0.8 mg PO BEDTIME Qty: 28 0RF temazepam 30 mg capsule 30 mg PO BEDTIME PRN (Reason: sleep) Qty: 30 5RF cholecalciferol (vitamin D3) 125 mcg (5,000 unit) capsule 125 mcg PO DAILY metoprolol tartrate 50 mg tablet 50 mg PO BID clopidogrel 75 mg tablet 75 mg PO DAILY buspirone 10 mg tablet 10 mg PO BID valsartan 40 mg tablet 20 mg PO DAILY rosuvastatin 40 mg tablet 40 mg PO DAILY ipratropium bromide 42 mcg (0.06 %) spray,non-aerosol intranasal amlodipine 5 mg tablet 5 mg PO DAILY nitroglycerin 0.4 mg/hr patch 24 hour 1 patch transdermal DAILY aspirin 81 mg tablet,delayed release (DR/EC) 81 mg PO DAILY Qty: 30 0RF melatonin 3 mg Tablet 3 mg PO BEDTIME PRN (Reason: Insomnia) magnesium citrate 4 gram Packet 400 mg PO DAILY vitamin K2 100 mcg Capsule 480 mcg PO DAILY finasteride 5 mg tablet 5 mg PO DAILY Qty: 90 3RF Referrals: Koko Ramires MD [Primary Care Provider] -
--- NOTE | 2022-01-22 12:15 | DI.RAD.S_ITS ---
PROCEDURE: XR CHEST 1V INDICATIONS: Shortness of breath TECHNIQUE: One view of the chest was acquired. COMPARISON: [facility], CR, XR CHEST 2V, 01/21/2022, 8:28. [facility], CR, XR CHEST 1V, 01/11/2022, 18:06. FINDINGS: Surgical changes and devices: Median sternotomy and CABG changes. Lungs and pleura: Small bilateral pleural effusions. No pneumothorax. No acute airspace opacity. Mediastinum: Mediastinal contours appear normal. Heart size is normal. Bones and chest wall: No suspicious bony lesions. Overlying soft tissues appear unremarkable. IMPRESSION: New small bilateral pleural effusions. Dictated by: Porfirio Arzola M.D. on 01/22/2022 at 12:54 Approved by: Porfirio Arzola M.D. on 01/22/2022 at 12:55
[2022-01-22 12:22] LABS: Add Manual Diff / Slide Review NO; Basophils Absolute Auto 0 /uL (0-100); Basophils Percent Auto 0.2 % (0-2); Eosinophils Absolute Auto 0 /uL (0-450); Eosinophils Percent Auto 0.6 % (2-4); Hematocrit 37.8 % (41-53); Hemoglobin 12.2 g/dL (13.5-17.5); Lymphocytes Absolute Auto 1100 /uL (1100-4500); Lymphocytes Percent Auto 17.5 % (25-40); Mean Corpuscular HGB Conc 32.4 % (30-36); Mean Corpuscular Hemoglobin 27.7 PG (26-34); Mean Corpuscular Volume 85.6 fL (80-100); Monocytes Absolute Auto 800 /uL (0-900); Monocytes Percent Auto 12.1 % (3-14); Neutrophils Absolute Auto 4500 /uL (1500-7000); Neutrophils Percent Auto 69.6 % (50-75); Platelet Count 134 X10^3/uL (150-400); Red Blood Cell Count 4.41 X10^6/uL (4.5-5.9); Red Cell Distribution Width 14.9 % (11.6-14.8); White Blood Cell Count 6.5 X10^3/uL (4.5-11.0)
[2022-01-22 12:23] LABS: INR 1.2 (0.9-1.3); Prothrombin Time 13.4 SECONDS (10.1-12.7)
[2022-01-22 12:25] LABS: D Dimer 620 ng/ml (<500)
[2022-01-22 12:26] LABS: PTT Partial Thromboplastin Tim 29 SECONDS (26-36)
[2022-01-22 12:27] LABS: Alanine Aminotransferase 21 IU/L (<50); Albumin 3.7 g/dL (3.5-5.0); Albumin Globulin Ratio 1.2 (1.0-2.8); Alkaline Phosphatase 74 U/L (38-126); Aspartate Aminotransferase 29 IU/L (17-59); BUN Creatinine Ratio 18.4 (6-22); Bilirubin Total 0.6 mg/dL (0.2-1.3); Blood Urea Nitrogen 23 mg/dL (9-20); Calcium 8.7 mg/dL (8.4-10.2); Carbon Dioxide 24 mmol/L (22-32); Chloride 105 mmol/L (98-107); Creatine Kinase 60 U/L (55-170); Estimated Glomerular Filt Rate > 60 mL/min (>60); Globulin 3.1 g/dL (1.7-4.1); Glucose 103 mg/dL (80-110); HEMOLYSIS < 15 (0-50); Lipase 107 U/L (23-300); Potassium 4.4 mmol/L (3.4-5.1); Sodium 139 mmol/L (137-145); Total Protein 6.8 g/dL (6.3-8.2)
[2022-01-22] MEDS: SODIUM CHLORIDE 0.9% 1,000 ML 500 ML IV (12:38)
[2022-01-22 12:39] LABS: NT-proBNP (BNP-Adult 18+) 2070 pg/mL (<125)
--- NOTE | 2022-01-22 12:44 | DI.CT.S_ITS ---
PROCEDURE: CT ANGIO CHEST PE PROTOCOL INDICATIONS: sob, + trop TECHNIQUE: After the administration of intravenous contrast, 2 mm thick sections acquired from the pulmonary apices to the posterior costophrenic angles. 3-dimensional maximum intensity projection (MIP) coronal and sagittal reformats were then acquired through the thorax. For radiation dose reduction, the following was used: automated exposure control, adjustment of mA and/or kV according to patient size. COMPARISON: [facility], CT, CT ANGIO CHEST PE PROTOCOL, 12/16/2021, 2:05. FINDINGS: Image quality: Excellent. Pulmonary arteries: Pulmonary arteries are normal in size, and demonstrate no intraluminal filling defects to suggest central pulmonary embolism. Lungs and pleura: Significant improvement in left basilar consolidation. Minimal bibasilar atelectasis. Bibasilar bronchiectasis. No pleural effusions or pneumothorax. Central and peripheral airways are patent. Mediastinum: Mild cardiomegaly. Remote CABG. Coronary artery calcifications and probable stent. No mediastinal or hilar adenopathy. Thoracic aorta is normal in caliber and enhancement. Esophagus is normal in caliber, without hiatal hernia. Bones and chest wall: No suspicious bony lesions. Ribs and thoracic spine appear intact throughout. Thyroid gland is grossly unremarkable. No axillary or supraclavicular adenopathy. Abdomen: Large left renal stone. No hydronephrosis. IMPRESSION: 1. No evidence of acute pulmonary emboli. 2. Significant improvement in left basilar infiltrate. 3. Mild bibasilar atelectasis, bibasilar bronchiectasis. 4. Mild cardiomegaly, remote CABG, coronary artery calcifications and probable coronary stent. Dictated by: Yeyo Valenzuela M.D. on 01/22/2022 at 13:26 Approved by: Yeyo Valenzuela M.D. on 01/22/2022 at 13:52
[2022-01-22] MEDS: ASPIRIN 81 MG CHEW TAB 324 MG PO (13:23)
[2022-01-22] MEDS: HEPARIN 5,000 UNIT/ML VIAL 5000 UNIT IV (13:28)
[2022-01-22] MEDS: HEPARIN DRIP 25,000 UNIT/500 ML IV.SOLN 20 UNIT IV (13:28)
[2022-01-22 13:49] LABS: Influenza A - CEPHEID Flu A NEGATIVE (NEGATIVE); Influenza B - CEPHEID Flu B NEGATIVE (NEGATIVE); Respiratory Syncytial Virus Negative (Negative)
[2022-01-22 14:59] LABS: COVID-19 CEPHEID 4-PLEX PCR POSITIVE (Negative)
--- NOTE | 2022-01-22 15:44 | DI.ECHO.S_ITS ---
[facility] +---------+ : : [address] : [place] : : : : [id number] : : : : Phone: [phone]+ Echocardiogram Report + + :Name: RYAN PARKER Study Date: 01/22/2022 Height: 72 in : :[facility] [employer] [facility] ReadingLocation: Weight: 240 lb : : Gender: Male BSA: 2.3 m2 : :: 1950 Age: 71 yrs BP: 117/67 mmHg: :Reason For Study: NSTEMI, COVID 2 WEEKS AGO, NSTEMI AT THAT : :TIME ALSO : :Ordering Physician: MARK, : :MARY Performed By: Nohelia Herrera : :Referring: MARY FLORES : + + Interpretation Summary There is mild concentric left ventricular hypertrophy. The left ventricle is mildly dilated. The ejection fraction is estimated to be 50-55%. Regional wall motion abnormalities cannot be excluded due to limited visualization. Diastolic function could not be accurately assessed due to unobtainable data. The left atrium is severely dilated. The right ventricle is mildly dilated. The right ventricular systolic function is normal. The right atrium is mildly dilated. There is mild mitral regurgitation. There is mild aortic regurgitation. Pulmonary artery pressures cannot be estimated because of the lack of a measurable TR jet velocity. Compared to the prior study dated 01/12/2022, there is a slight improvement in ejection fraction. Procedure: A two-dimensional transthoracic echocardiogram with color flow and Doppler was performed. The study quality was technically adequate. Comparison is made with the echocardiogram of 01/12/2022. The patient had occasional PVCs during the exam. The patient was in sinus bradycardia with heart rates between 48-87 bpm during the exam. Left Ventricle: There is mild concentric left ventricular hypertrophy. The estimated left ventricular end diastolic volume is 180 ml. The left ventricle is mildly dilated. The ejection fraction is estimated to be 50-55%. Regional wall motion abnormalities cannot be excluded due to limited visualization. Diastolic function could not be accurately assessed due to unobtainable data. Right Ventricle: The right ventricle is mildly dilated. The right ventricular systolic function is normal. Atria: The left atrium is severely dilated. The right atrium is mildly dilated. There is no Doppler evidence for an interatrial shunt. Mitral Valve: The mitral valve leaflets appear mildly thickened, but open well. There is mild mitral regurgitation. Aortic Valve: The aortic valve is mildly calcified. The aortic valve is trileaflet. The aortic valve opens well. There is no aortic valve stenosis. There is mild aortic regurgitation. Tricuspid Valve: The tricuspid valve is normal in structure and function. There is a trace or physiologic amount of tricuspid regurgitation. Pulmonary artery pressures cannot be estimated because of the lack of a measurable TR jet velocity. Pulmonic Valve: The pulmonic valve leaflets are thin and pliable; valve motion is normal. There is trace pulmonic regurgitation. Great Vessels: The aortic root is borderline dilated. The dimensions of the ascending aorta are normal. The IVC is of normal diameter and collapses greater than 50% with a sniff. This suggests a low right atrial pressure of 3 mm Hg. Pericardium/ Pleura There is no pericardial effusion. There is no pleural effusion. MMode/2D Measurements & Calculations LVIDd: 5.9 cm LVOT diam: 2.4 cm LVIDs: 4.7 cm Ao root diam: 3.9 cm FS: 19.6 % asc Aorta Diam: 3.8 cm IVSd: 1.2 cm Ao Arch Diam (Prox Trans): 3.2 cm LVPWd: 1.3 cm LV sow. diameter/BSA (cm/m^2): 2.6 LV sys. diameter/BSA (cm/m^2): 2.1 LA A2 area: 30.2 cm2 RA long axis: 6.0 cm LA A4 area: 26.7 cm2 RA area: 24.6 cm2 LA length (vol): 5.7 cm RA vol: 86.0 ml LA vol: 120.2 ml RA : 37.4 ml/m2 LA vol index: 52.2 ml/m2 IVC diam: 1.5 cm RVD1 (basal): 4.3 cm RVD2 (mid): 4.0 cm TAPSE: 2.4 cm Doppler Measurements & Calculations Ao V2 max: 107.4 cm/sec LVOT Max Jeremie: 69.0 cm/sec Ao V2 mean: 80.8 cm/sec LV V1 max P.9 mmHg Ao max P.7 mmHg LV V1 VTI: 17.2 cm Ao mean P.9 mmHg VERONICA(I,D): 3.4 cm2 Ao V2 VTI: 23.1 cm VERONICA(V,D): 2.9 cm2 sev ratio: 0.75 VERONICA indexed to BSA (cm^2/m^2): 1.5 MV E max jeremie: 61.8 cm/sec PA V2 max: 83.4 cm/sec MV A max jeremie: 64.9 cm/sec PA V2 mean: 61.6 cm/sec MV E/A: 0.95 PA mean P.7 mmHg Med Peak E' Jeremie: 5.3 cm/sec PA pr(Accel): 49.9 mmHg E/E' med: 11.6 Lat Peak E' Jeremie: 7.5 cm/sec E/E' lat: 8.3 E/e' average: 9.9 MV dec time: 0.34 sec SV(LVOT): 78.1 ml Reading Physician:05:35 PM
[2022-01-22] MEDS: FUROSEMIDE 40 MG/4 ML VIAL IV (16:03)
[2022-01-22] MEDS: carvediloL 12.5 MG TABLET 25 MG PO (19:42)
[2022-01-22 20:02] LABS: PTT Partial Thromboplastin Tim 42 SECONDS (26-36)
[2022-01-22] MEDS: ATORVASTATIN 20 MG TABLET 80 MG PO (21:17)
--- NOTE | 2022-01-22 21:22 | PC.NURSE ---
He had a patch of nitroglycerin. Patient reports that it the patch is 4mg and that he wears one daily and takes it off nightly prior to bed. Dr. Alas was consulted and he advised to remove the patch and educate the patient to immediately inform nursing staff with any new onset of pain. Patient agreed and removed patch himself. I disposed of this patch. Patient educated and doctor informed that patch removed.
[2022-01-22] MEDS: NITROGLYCERIN 0.4 MG SL TAB SL (22:38)
[2022-01-23] VITALS (49 sets, daily range): BP systolic 89–172; BP diastolic 51–86; PULSE 54–114; RESP 17–31; O2SAT 90–99
[2022-01-23 01:50] LABS: PTT Partial Thromboplastin Tim 43 SECONDS (26-36)
[2022-01-23] MEDS: TEMAZEPAM 15 MG CAPSULE PO ×2 (04:10→21:53)
[2022-01-23 09:12] LABS: Add Manual Diff / Slide Review NO; Basophils Absolute Auto 0 /uL (0-100); Basophils Percent Auto 0.2 % (0-2); Eosinophils Absolute Auto 0 /uL (0-450); Eosinophils Percent Auto 0.8 % (2-4); Hematocrit 38.1 % (41-53); Hemoglobin 12.3 g/dL (13.5-17.5); Lymphocytes Absolute Auto 1000 /uL (1100-4500); Lymphocytes Percent Auto 17.5 % (25-40); Mean Corpuscular HGB Conc 32.3 % (30-36); Mean Corpuscular Hemoglobin 27.5 PG (26-34); Monocytes Absolute Auto 800 /uL (0-900); Monocytes Percent Auto 13.4 % (3-14); Neutrophils Absolute Auto 3900 /uL (1500-7000); Neutrophils Percent Auto 68.1 % (50-75); Platelet Count 112 X10^3/uL (150-400); Red Blood Cell Count 4.47 X10^6/uL (4.5-5.9); White Blood Cell Count 5.8 X10^3/uL (4.5-11.0)
[2022-01-23 09:16] LABS: PTT Partial Thromboplastin Tim 45 SECONDS (26-36)
[2022-01-23] MEDS: carvediloL 12.5 MG TABLET 25 MG PO ×2 (09:21→21:53)
[2022-01-23] MEDS: ASPIRIN EC 325 MG TABLET PO (09:21)
[2022-01-23 09:24] LABS: Alanine Aminotransferase 18 IU/L (<50); Albumin 3.6 g/dL (3.5-5.0); Albumin Globulin Ratio 1.2 (1.0-2.8); Alkaline Phosphatase 75 U/L (38-126); Aspartate Aminotransferase 22 IU/L (17-59); BUN Creatinine Ratio 14.1 (6-22); Bilirubin Total 0.4 mg/dL (0.2-1.3); Blood Urea Nitrogen 18 mg/dL (9-20); Calcium 8.6 mg/dL (8.4-10.2); Carbon Dioxide 27 mmol/L (22-32); Chloride 104 mmol/L (98-107); Creatine Kinase 29 U/L (55-170); Estimated Glomerular Filt Rate 59 mL/min (>60); Glucose 88 mg/dL (80-110); HEMOLYSIS < 15 (0-50); Potassium 3.8 mmol/L (3.4-5.1); Sodium 140 mmol/L (137-145); Total Protein 6.6 g/dL (6.3-8.2)
[2022-01-23 09:36] LABS: NT-proBNP (BNP-Adult 18+) 2570 pg/mL (<125)
[2022-01-23] MEDS: diazePAM 10 MG/2 ML SYRINGE 2 MG IV ×2 (10:04→12:52)
[2022-01-23] MEDS: HEPARIN DRIP 25,000 UNIT/500 ML IV.SOLN 23 UNIT IV (12:11)
[2022-01-23 16:57] LABS: Appearance Urine UA SL CLOUDY; Bilirubin Urine UA NEGATIVE (NEGATIVE); Color Urine UA YELLOW; Glucose Urine UA NEGATIVE (Negative); Ketones Urine UA TRACE (NEGATIVE); Leukocyte Esterase Urine UA NEGATIVE (NEGATIVE); Nitrite Urine UA NEGATIVE (Negative); Occult Blood Urine UA 3+ (Negative); Protein Urine UA 1+ (Negative); Specific Gravity Urine UA 1.025 (1.000-1.035); Urobilinogen Urine UA 0.2 E.U./dL (0.2)
[2022-01-23 17:06] LABS: Bacteria Urine Few (2-10); Culture Indicated Urine Specimen Cultured; RBC Urine >100/HPF (0-5/HPF); Squamous Epithelial Cell Urine 0-1 /HPF (0-5/HPF); WBC Urine 5-10/HPF (0-5/HPF)
[2022-01-23 17:14] LABS: PTT Partial Thromboplastin Tim 39 SECONDS (26-36)
[2022-01-23] MEDS: cefTRIAXone 1,000 MG in SODIUM CHLORIDE 0.9% 100 ML 200 MG IV (19:46)
[2022-01-23] MEDS: ATORVASTATIN 20 MG TABLET 80 MG PO (21:53)
[2022-01-23 23:45] LABS: PTT Partial Thromboplastin Tim 37 SECONDS (26-36)
[2022-01-24] VITALS (70 sets, daily range): BP systolic 85–158; BP diastolic 44–88; PULSE 52–98; RESP 20–22; O2SAT 89–100
[2022-01-24] MEDS: TEMAZEPAM 15 MG CAPSULE PO (01:52)
--- NOTE | 2022-01-24 02:18 | PC.NURSE ---
0200 [facility] checking on pt status. CC states Still no Beds
[2022-01-24] MEDS: diazePAM 5 MG TABLET PO ×4 (05:04→23:28)
[2022-01-24 06:22] LABS: PTT Partial Thromboplastin Tim 49 SECONDS (26-36)
[2022-01-24 08:09] LABS: NT-proBNP (BNP-Adult 18+) 2640 pg/mL (<125)
[2022-01-24] MEDS: HEPARIN DRIP 25,000 UNIT/500 ML IV.SOLN 25 UNIT IV (09:21)
[2022-01-24] MEDS: carvediloL 12.5 MG TABLET 25 MG PO ×2 (10:29→23:29)
[2022-01-24] MEDS: ASPIRIN EC 325 MG TABLET PO (10:30)
[2022-01-24] MEDS: FUROSEMIDE 40 MG/4 ML VIAL IV (10:46)
[2022-01-24 13:33] LABS: PTT Partial Thromboplastin Tim 49 SECONDS (26-36)
[2022-01-24] MEDS: SPIRONOLACTONE 25 MG TABLET PO (14:11)
[2022-01-24] MEDS: FINASTERIDE 5 MG TABLET PO (14:11)
--- NOTE | 2022-01-24 17:27 | PC.NURSE ---
Summary note: Pt is a/o x 4. Ambulates w/ walker and stand by assist. Has been up ad paula to bathroom as well as walking around unit multiple times a shift w/ mask. Pt verbalized anxiety and frustration at wait for transfer to higher level of care for cardiac care. Denies chest pain / shortness of breath w/ ambulation. Does c/o fatigue. Skin is pink/warm/dry. BS decreased bilaterally. Taking po well. Denies nausea/vomiting. Reviewed medications w/ Dr. Goodwin. Will continue to hold nitro patch related to blood pressure and continued painfree status. Reassurance given.
--- NOTE | 2022-01-24 19:30 | PC.NURSE ---
pt sitting up in chair at this time, no c/o
[2022-01-24] MEDS: TAMSULOSIN 0.4 MG CAPSULE 0.8 MG PO (23:29)
[2022-01-24] MEDS: ATORVASTATIN 20 MG TABLET 80 MG PO (23:30)
[2022-01-25] VITALS (51 sets, daily range): BP systolic 107–151; BP diastolic 51–68; PULSE 37–97; O2SAT 92–97
[2022-01-25] MEDS: FUROSEMIDE 100 MG/10 ML VIAL 80 MG IV (00:50)
[2022-01-25] MEDS: HEPARIN DRIP 25,000 UNIT/500 ML IV.SOLN 25 UNIT IV ×2 (02:33→22:47)
--- NOTE | 2022-01-25 02:37 | PC.NURSE ---
pt ambulatory to bathroom without difficulty, no c/o c/p or sob
[2022-01-25 06:43] LABS: Add Manual Diff / Slide Review NO; Basophils Absolute Auto 0 /uL (0-100); Basophils Percent Auto 0.3 % (0-2); Eosinophils Absolute Auto 0 /uL (0-450); Eosinophils Percent Auto 0.9 % (2-4); Hematocrit 40.5 % (41-53); Hemoglobin 13.4 g/dL (13.5-17.5); Lymphocytes Absolute Auto 1200 /uL (1100-4500); Lymphocytes Percent Auto 21.5 % (25-40); Mean Corpuscular Hemoglobin 27.7 PG (26-34); Mean Corpuscular Volume 83.9 fL (80-100); Monocytes Absolute Auto 800 /uL (0-900); Monocytes Percent Auto 14.8 % (3-14); Neutrophils Absolute Auto 3500 /uL (1500-7000); Neutrophils Percent Auto 62.5 % (50-75); Platelet Count 122 X10^3/uL (150-400); Red Blood Cell Count 4.82 X10^6/uL (4.5-5.9); Red Cell Distribution Width 14.8 % (11.6-14.8); White Blood Cell Count 5.6 X10^3/uL (4.5-11.0)
[2022-01-25 06:44] LABS: PTT Partial Thromboplastin Tim 52 SECONDS (26-36)
[2022-01-25 06:45] LABS: BUN Creatinine Ratio 16.5 (6-22); Blood Urea Nitrogen 23 mg/dL (9-20); Carbon Dioxide 28 mmol/L (22-32); Chloride 103 mmol/L (98-107); Estimated Glomerular Filt Rate 54 mL/min (>60); Glucose 109 mg/dL (80-110); HEMOLYSIS 16 (0-50); Potassium 3.8 mmol/L (3.4-5.1); Sodium 140 mmol/L (137-145)
[2022-01-25] MEDS: ASPIRIN EC 325 MG TABLET PO (09:22)
[2022-01-25] MEDS: SPIRONOLACTONE 25 MG TABLET PO (09:22)
[2022-01-25] MEDS: carvediloL 12.5 MG TABLET 25 MG PO ×2 (09:22→21:32)
[2022-01-25] MEDS: FINASTERIDE 5 MG TABLET PO (09:22)
--- NOTE | 2022-01-25 15:18 | PC.NURSE ---
Pt ambulated 3x around ED with cardiac monitor technician with front wheeled walker. Tolerated well.
[2022-01-25] MEDS: ATORVASTATIN 20 MG TABLET 80 MG PO (21:32)
[2022-01-25] MEDS: TAMSULOSIN 0.4 MG CAPSULE 0.8 MG PO (21:32)
[2022-01-25] MEDS: diazePAM 5 MG TABLET PO (22:46)
[2022-01-25] MEDS: cefTRIAXone 2,000 MG in SODIUM CHLORIDE 0.9% 100 ML 200 MG IV (22:46)
[2022-01-26] VITALS (9 sets, daily range): BP systolic 113–119; BP diastolic 57–73; PULSE 61–103; RESP 16; O2SAT 93–99
--- NOTE | 2022-01-26 02:47 | PC.NURSE ---
Dr Saucedo aware of pts heart rhythm. No new orders and does not want a repeat ekg at this time. Pt having very frequent PVC's
[2022-01-26 06:45] LABS: Add Manual Diff / Slide Review NO; Basophils Absolute Auto 0 /uL (0-100); Basophils Percent Auto 0.5 % (0-2); Eosinophils Absolute Auto 0 /uL (0-450); Eosinophils Percent Auto 0.7 % (2-4); Hematocrit 39.9 % (41-53); Lymphocytes Absolute Auto 1200 /uL (1100-4500); Lymphocytes Percent Auto 21.8 % (25-40); Mean Corpuscular HGB Conc 32.5 % (30-36); Mean Corpuscular Hemoglobin 27.4 PG (26-34); Mean Corpuscular Volume 84.4 fL (80-100); Monocytes Absolute Auto 800 /uL (0-900); Monocytes Percent Auto 13.2 % (3-14); Neutrophils Absolute Auto 3600 /uL (1500-7000); Neutrophils Percent Auto 63.8 % (50-75); Platelet Count 126 X10^3/uL (150-400); Red Blood Cell Count 4.73 X10^6/uL (4.5-5.9); Red Cell Distribution Width 14.8 % (11.6-14.8); White Blood Cell Count 5.7 X10^3/uL (4.5-11.0)
[2022-01-26 06:56] LABS: PTT Partial Thromboplastin Tim 61 SECONDS (26-36)
[2022-01-26 07:01] LABS: Blood Urea Nitrogen 29 mg/dL (9-20); Calcium 8.9 mg/dL (8.4-10.2); Carbon Dioxide 31 mmol/L (22-32); Chloride 101 mmol/L (98-107); Estimated Glomerular Filt Rate 48 mL/min (>60); Glucose 154 mg/dL (80-110); HEMOLYSIS < 15 (0-50); Potassium 3.5 mmol/L (3.4-5.1); Sodium 141 mmol/L (137-145)
[2022-01-26 07:14] LABS: NT-proBNP (BNP-Adult 18+) 2000 pg/mL (<125)
[2022-01-26 07:15] LABS: Troponin I 0.733 ng/mL (0.01-0.034)
[2022-01-26] MEDS: SPIRONOLACTONE 25 MG TABLET PO (09:58)
[2022-01-26] MEDS: carvediloL 12.5 MG TABLET 25 MG PO (09:58)
[2022-01-26] MEDS: ASPIRIN EC 325 MG TABLET PO (09:59)
[2022-01-26] MEDS: FINASTERIDE 5 MG TABLET PO (09:59)
--- NOTE | 2022-01-26 10:14 | PC.NURSE ---
Called [facility] for bed/transfer update. Coord stated no beds currently but they may have some discharges this afternoon. Call back between 2-3 for update.
--- NOTE | 2022-01-26 10:45 | PC.NURSE ---
Pt ambulated around department with daughter 4x. Tolerated well.
[2022-01-26] MEDS: diazePAM 5 MG TABLET PO (15:22)
== END 2022-01-26 15:35 | disposition short-term general hospital (02) ==
PROVIDERS: Emergency Medicine; Emergency Provider Emergency Medicine; Family Provider Internal Medicine Nephrology; PCP Internal Medicine
DX: I21.4 Non-ST elevation (NSTEMI) myocardial infarction (principal); I50.9 Heart failure, unspecified; N39.0 Urinary tract infection, site not specified; U09.9 Post COVID-19 condition, unspecified; I95.9 Hypotension, unspecified; R00.0 Tachycardia, unspecified
CPT/HCPCS: 0241U; 36415; 71045; 71275; 80048; 80053; 81001; 82550; 83690; 83880; 84484; 85025; 85379; 85610; 85730; 87040; 87077; 87086; 87186; 93005; 93010; 93306; 96365; 96366; 96368; 96375; 96376; 99285; 99291; 99292; J0696; J1644; J1940; J3360; Q9967

== ENCOUNTER → 2022-02-23 09:04 | Outpatient (CLI) | payer MEDICARE, OTHER, SELFPAY ==
[2022-01-11 21:53] VITALS: BMI 30.8
[2022-02-23 10:42] LABS: Albumin 3.9 g/dL (3.5-5.0); BUN Creatinine Ratio 23.4 (6-22); Blood Urea Nitrogen 30 mg/dL (9-20); Calcium 9.3 mg/dL (8.4-10.2); Carbon Dioxide 27 mmol/L (22-32); Chloride 98 mmol/L (98-107); Estimated Glomerular Filt Rate 59 mL/min (>60); Glucose 112 mg/dL (80-110); HEMOLYSIS < 15 (0-50); Phosphorous 3.9 mg/dL (2.3-3.7); Potassium 4.8 mmol/L (3.4-5.1); Sodium 137 mmol/L (137-145)
== END ==
PROVIDERS: Family Provider Internal Medicine Nephrology; PCP Internal Medicine; Referring Provider Urology; Visit Provider Urology
DX: N20.0 Calculus of kidney (principal)
CPT/HCPCS: 36415; 80069

== ENCOUNTER 2022-03-13 10:33 | Emergency (ER) | payer MEDICARE, OTHER, SELFPAY ==
[2022-01-11 21:53] VITALS: BMI 30.8
[2022-03-13] VITALS (13 sets, daily range): BP systolic 123–137; BP diastolic 69–98; PULSE 70–115; RESP 15–30; TEMP 36.7; O2SAT 97–99; BMI 30.8
--- NOTE | 2022-03-13 10:55 | ED.ARRPALP ---
HPI - Arrhythmia/Palpitations <Eleuterio Strickland DO - Last Filed: 03/14/22 19:19> General Chief Complaint: Arrhythmia/Palpitations Stated Complaint: light headed Time Seen by Provider: 03/13/22 10:54 Source: patient Mode of arrival: Wheelchair History of Present Illness HPI narrative: 71-year-old male former smoker with history of kidney stones, cardiac disease with prior NSTEMI, and chronic kidney disease presents?from cardiac rehab with complaints of intermittent dizziness and SOB over at least the past few days. He reports some left sided chest pain last night. He states that he has been having episodes dizziness and lightheadedness off and on ever since he had stents placed at [facility] just before . He states that he is managed by Dr. Blanco locally and they have been ?tinkering? with his medications off an on ever since with little improvement. He denies any obvious provocation or palliation of these symptoms. He is currently asymptomatic and denies any dizziness, weakness or lightheadedness. He has no chest pain or shortness of breath. He denies fever chills nor nausea or vomiting. Patient states that he was awoken from sleep with chest pressure at about 330 this morning and lasted an hour to until he put on a nitro patch and states it went away within 20-30 minutes and has been gone ever since. He denies any obvious provocation or radiation nor additional symptoms at that time. He can not state that he is had any exercise intolerance or exertional symptoms but states he is felt generally poor since his heart catheterization. He was at cardiac rehab and sent here for reports of runs of ventricular tachycardia Related Data Home Medications Medication Instructions Recorded Confirmed cholecalciferol (vitamin D3) 125 125 mcg PO DAILY 06/11/19 01/24/22 mcg (5,000 unit) capsule carvedilol 25 mg tablet 25 mg BID 12/16/21 01/24/22 nitroglycerin 0.4 mg/hr 1 patch transdermal DAILY 12/16/21 01/24/22 transdermal 24 hour patch spironolactone 25 mg tablet 75 mg PO DAILY 12/16/21 01/24/22 magnesium citrate 4 gram oral 400 mg PO DAILY 01/24/22 01/24/22 packet melatonin 3 mg tablet 3 mg PO BEDTIME PRN Insomnia 01/24/22 01/24/22 temazepam 15 mg capsule 15 mg PO BEDTIME PRN Insomnia 01/24/22 01/24/22 vitamin K2 100 mcg capsule 480 mcg PO DAILY 01/24/22 01/24/22 Previous Rx's Medication Instructions Recorded finasteride 5 mg tablet 5 mg PO DAILY #90 tabs 03/28/21 tamsulosin 0.4 mg capsule 0.8 mg PO BEDTIME #28 caps 10/15/21 aspirin 81 mg tablet,delayed 81 mg PO DAILY #30 tabs 01/14/22 release atorvastatin 20 mg tablet (Lipitor) 40 mg PO BEDTIME #30 tabs 01/14/22 benzonatate 100 mg capsule 100 mg PO QID PRN cough #14 caps 01/21/22 Allergies Allergy/AdvReac Type Severity Reaction Status Date / Time gabapentin Allergy Verified 01/22/22 10:35 Review of Systems <Eleuterio Strickland DO - Last Filed: 03/14/22 19:19> Review of Systems Narrative: GENERAL: Denies chills, fatigue, malaise, fever, sweats. HEENT: Denies sinus pain, ear pain, sore throat, difficulty swallowing, dizziness. RESPIRATORY: See HPI CARDIOVASCULAR: See HPI GASTROINTESTINAL: Denies nausea, vomiting, abdominal pain, diarrhea, constipation, melena. : Denies dysuria, frequency, incontinence, hematuria, urinary retention. MUSCULOSKELETAL: denies weakness, joint pain, or bony pain SKIN: Denies rash, skin lesions, or other NEUROLOGIC: Denies weakness, headache, numbness, change in speech, confusion, seizures, incoordination. PSYCHIATRIC: No concerning psychosocial issues. 12 point review of systems is negative except for those stated above Patient History <Eleuterio Strickland DO - Last Filed: 03/14/22 19:19> Medical History Anemia Angina pectoris Arthritis Atrial fibrillation Bilateral nephrolithiasis BPH (benign prostatic hyperplasia) BPH w urinary obs/LUTS CAD (coronary artery disease) Cardiomyopathy Cataracts, bilateral Chicken pox Chronic kidney disease Detached retina, right (~1983) Diabetes Duodenal ulcer hemorrhage Hearing loss (~2012) HLD (hyperlipidemia) Hx of nephrolithotomy with removal of calculi (2008) Hyperaldosteronism Hypertension Measles Mumps Myocardial infarction (~2016) Nephrolithiasis ANA (obstructive sleep apnea) Osteoarthritis Partial blindness (~1949) Peptic ulcer disease (~2016) Peripheral neuropathy Right renal mass Sleep apnea Staph infection (1979) Tinnitus Upper GI bleed Vision disorder Surgical History Anesthesia H/O circumcision H/O lithotripsy H/O vasectomy History of appendectomy Hx of coronary angioplasty Hx of heart artery stent S/P CABG x 3 (1991) Family History Father History of heart disease Aneurysm Mother History of heart disease Hypertension Heart failure Brother Leukemia Social History household members: none Smoking Status: Former smoker alcohol intake: current substance use type: does not use Smoking Status: Former smoker alcohol intake frequency: holidays/special occasions only Substance Use Type: does not use Exam <Eleuterio Strickland DO - Last Filed: 03/14/22 19:19> Narrative Exam Narrative: GENERAL: [72] year old patient appears stated age. Well-developed patient, in mild distress. HEAD: Atraumatic. Normocephalic. EYES: Pupils unequal (chronic per patient) Round and reactive. Extraocular motions intact. No scleral icterus. No injection or drainage. ENT: Nose without bleeding, purulent drainage. Throat without erythema, tonsillar hypertrophy or exudate. Airway patent. NECK: Trachea midline. Non tender CARDIOVASCULAR: Irregularly irregular rhythm without murmurs, gallops, or rubs. RESPIRATORY: Clear to auscultation. Breath sounds equal bilaterally. No wheezes, rales, or rhonchi. GASTROINTESTINAL: Abdomen soft, non-tender, nondistended. EXTREMITIES: No edema or joint tenderness. BACK: Nontender without deformity or crepitance. No flank tenderness. NEURO: AOx3. SKIN: No rash or erythema of visible areas Initial Vital Signs Initial Vital Signs: Vital Signs Temperature 98.1 F 03/13/22 10:39 Pulse Rate 70 03/13/22 10:39 Respiratory Rate 18 03/13/22 10:39 Blood Pressure 137/69 03/13/22 10:39 Pulse Oximetry 99 03/13/22 10:39 Oxygen Delivery Method 03/13/22 10:39 <Koko Geronimo MD - Last Filed: 03/13/22 15:39> Initial Vital Signs Initial Vital Signs: Vital Signs Temperature 98.1 F 03/13/22 10:39 Pulse Rate 70 03/13/22 10:39 Respiratory Rate 18 03/13/22 10:39 Blood Pressure 137/69 03/13/22 10:39 Pulse Oximetry 99 03/13/22 10:39 Oxygen Delivery Method 03/13/22 10:39 Scores <Eleuterio Strickland DO - Last Filed: 03/14/22 19:19> CHADS-VASc Congestive heart failure: yes Hypertension: yes Age 75 years or older: no Diabetes mellitus: no Stroke, TIA, or TE: no Vascular disease: no Age 65 to 74 years: yes Sex category (female): Male CHADS-VASc Score: 3 <Koko Geronimo MD - Last Filed: 03/13/22 15:39> CHADS-VASc CHADS-VASc Score: 3 Course <Eleuterio Strickland DO - Last Filed: 03/14/22 19:19> Orders Ordered: Discontinued Medications Magnesium Sulfate (Magnesium Sulfate) 2 gm in 50 mls @ 150 mls/hr IV NOW ONE Stop: 03/13/22 15:23 Last Infusion: 03/13/22 16:04 Dose: 0 mls/hr Documented By: MINERVA Co-signed By: ZAINAB Admin: 03/13/22 15:30 Dose: 150 mls/hr Documented By: ZAINAB Co-signed By: MINERVA Reevaluation(s) Reevaluation #1: patient continues to be asymptomatic Consultations Consultation #1: call placed to PCP office to get chart note call placed to [facility] Consultation #2: repeat call to [facility] Time: 14:46 Vital Signs Vital signs: Vital Signs - 8 hr 03/13/22 10:39 03/13/22 11:29 03/13/22 11:30 Temperature 98.1 F Pulse Rate 70 99 H 98 H Respiratory Rate 18 18 20 Blood Pressure 137/69 Pulse Oximetry 99 98 98 Oxygen Delivery Method Room Air 03/13/22 11:31 03/13/22 11:31 03/13/22 12:00 Temperature Pulse Rate 100 H 104 H Respiratory Rate 15 22 Blood Pressure 134/88 Pulse Oximetry 98 Oxygen Delivery Method Room Air 03/13/22 12:30 03/13/22 13:00 03/13/22 13:30 Temperature Pulse Rate 103 H 99 H 109 H Respiratory Rate 30 H 19 Blood Pressure Pulse Oximetry Oxygen Delivery Method 03/13/22 14:00 03/13/22 14:30 Temperature Pulse Rate 112 H 115 H Respiratory Rate Blood Pressure Pulse Oximetry Oxygen Delivery Method <Koko Geronimo MD - Last Filed: 03/13/22 15:39> Course Course Narrative: 03/13/22 @15:30. Care was assumed from Dr. Strickland upon his departure from the ER. Patient came in with concerns of tachyarrhythmia, status post non-STEMI with 2 stents placed. The patient he is not experiencing chest pain, weakness or dyspnea. He may had a brief episode of dizziness. Vital signs have been stable here. He is not experiencing chest pain, palpitations, dyspnea or other symptoms at this time. EKG x2 shows normal sinus rhythm with frequent PVCs. Troponin is negative x2. Potassium level is 4.6. Magnesium level is 1.8. Dr. Bowers from the patient's cardiology group returned our call. He requested the patient receive additional magnesium, 2 g IV was given. Dr. Bowers will arrange outpatient follow-up with his group.- Ashely DURAND Orders Ordered: Discontinued Medications Magnesium Sulfate (Magnesium Sulfate) 2 gm in 50 mls @ 150 mls/hr IV NOW ONE Stop: 03/13/22 15:23 Last Infusion: 03/13/22 16:04 Dose: 0 mls/hr Documented By: MINERVA Co-signed By: ZAINAB Admin: 03/13/22 15:30 Dose: 150 mls/hr Documented By: ZAINAB Co-signed By: MINERVA Vital Signs Vital signs: Vital Signs - 8 hr 03/13/22 10:39 03/13/22 11:29 03/13/22 11:30 Temperature 98.1 F Pulse Rate 70 99 H 98 H Respiratory Rate 18 18 20 Blood Pressure 137/69 Pulse Oximetry 99 98 98 Oxygen Delivery Method Room Air 03/13/22 11:31 03/13/22 11:31 03/13/22 12:00 Temperature Pulse Rate 100 H 104 H Respiratory Rate 15 22 Blood Pressure 134/88 Pulse Oximetry 98 Oxygen Delivery Method Room Air 03/13/22 12:30 03/13/22 13:00 03/13/22 13:30 Temperature Pulse Rate 103 H 99 H 109 H Respiratory Rate 30 H 19 Blood Pressure Pulse Oximetry Oxygen Delivery Method 03/13/22 14:00 03/13/22 14:30 Temperature Pulse Rate 112 H 115 H Respiratory Rate Blood Pressure Pulse Oximetry Oxygen Delivery Method MDM - Arrhythmia/Palpitations <Eleuterio Strickland DO - Last Filed: 03/14/22 19:19> Lab Data Result diagrams: 03/13/22 10:50 03/13/22 10:50 Labs: Lab Results 03/13/22 03/13/22 03/13/22 Range/Units 10:50 10:50 10:50 WBC 6.3 (4.5-11.0) X10^3/uL RBC 4.78 (4.5-5.9) X10^6/uL Hgb 13.2 L (13.5-17.5) g/dL Hct 41.4 (41-53) % MCV 86.6 (80-100) fL MCH 27.7 (26-34) PG MCHC 32.0 (30-36) % RDW 14.8 (11.6-14.8) % Plt Count 142 L (150-400) X10^3/uL Neut % (Auto) 64.4 (50-75) % Lymph % (Auto) 19.6 L (25-40) % [place] % (Auto) 12.3 (3-14) % Eos % (Auto) 2.7 (2-4) % Baso % (Auto) 1.0 (0-2) % Neut # (Auto) 4000 (8586-0077) /uL Lymph # (Auto) 1200 (0179-1123) /uL [place] # (Auto) 800 (0-900) /uL Eos # (Auto) 200 (0-450) /uL Baso # (Auto) 100 (0-100) /uL PT 13.2 H (10.1-12.7) SECONDS INR 1.2 (0.9-1.3) APTT 33 (26-36) SECONDS Sodium 138 (137-145) mmol/L Potassium 4.6 (3.4-5.1) mmol/L Chloride 103 (98-107) mmol/L Carbon Dioxide 26 (22-32) mmol/L BUN 26 H (9-20) mg/dL Creatinine 1.18 (0.66-1.25) mg/dL Estimated GFR > 60 (>60) mL/min BUN/Creatinine Ratio 22.0 (6-22) Glucose 107 (80-110) mg/dL Lactate (0.7-2.1) mmol/L Calcium 9.0 (8.4-10.2) mg/dL Magnesium 1.8 (1.6-2.3) mg/dL Total Bilirubin 0.5 (0.2-1.3) mg/dL AST 25 (17-59) IU/L ALT 13 (<50) IU/L Alkaline Phosphatase 78 (38-126) U/L Total Creatine Kinase 40 L (55-170) U/L CK-MB (CK-2) TNP CK-MB (CK-2) Rel Index TNP Troponin I 0.015 (0.01-0.034) ng/mL NT-Pro-B Natriuret Pep 1220 H (<125) pg/mL Total Protein 7.2 (6.3-8.2) g/dL Albumin 4.0 (3.5-5.0) g/dL Globulin 3.2 (1.7-4.1) g/dL Albumin/Globulin Ratio 1.3 (1.0-2.8) Lipase 81 (23-300) U/L 03/13/22 03/13/22 Range/Units 10:50 12:50 WBC (4.5-11.0) X10^3/uL RBC (4.5-5.9) X10^6/uL Hgb (13.5-17.5) g/dL Hct (41-53) % MCV (80-100) fL MCH (26-34) PG MCHC (30-36) % RDW (11.6-14.8) % Plt Count (150-400) X10^3/uL Neut % (Auto) (50-75) % Lymph % (Auto) (25-40) % [place] % (Auto) (3-14) % Eos % (Auto) (2-4) % Baso % (Auto) (0-2) % Neut # (Auto) (4235-6586) /uL Lymph # (Auto) (5909-4065) /uL [place] # (Auto) (0-900) /uL Eos # (Auto) (0-450) /uL Baso # (Auto) (0-100) /uL PT (10.1-12.7) SECONDS INR (0.9-1.3) APTT (26-36) SECONDS Sodium (137-145) mmol/L Potassium (3.4-5.1) mmol/L Chloride (98-107) mmol/L Carbon Dioxide (22-32) mmol/L BUN (9-20) mg/dL Creatinine (0.66-1.25) mg/dL Estimated GFR (>60) mL/min BUN/Creatinine Ratio (6-22) Glucose (80-110) mg/dL Lactate 0.8 (0.7-2.1) mmol/L Calcium (8.4-10.2) mg/dL Magnesium (1.6-2.3) mg/dL Total Bilirubin (0.2-1.3) mg/dL AST (17-59) IU/L ALT (<50) IU/L Alkaline Phosphatase (38-126) U/L Total Creatine Kinase 38 L (55-170) U/L CK-MB (CK-2) TNP CK-MB (CK-2) Rel Index TNP Troponin I 0.014 (0.01-0.034) ng/mL NT-Pro-B Natriuret Pep (<125) pg/mL Total Protein (6.3-8.2) g/dL Albumin (3.5-5.0) g/dL Globulin (1.7-4.1) g/dL Albumin/Globulin Ratio (1.0-2.8) Lipase (23-300) U/L Imaging Data Chest x-ray: Radiologist's Impresson: [address] [address] XRay Report Signed Patient: Rc Bray MR#: [id number] : 1950 Acct:[id number] Age/Sex: 72 / M Date of Service: 03/13/22 Loc: ED Accession Number: [id number] ?? Procedure: XR chest 1V Ordering Provider: Eleuterio Strickland D.O. PROCEDURE:? XR CHEST 1V ? INDICATIONS:? weak/lightheaded ? TECHNIQUE:? One view of the chest was acquired.? ? COMPARISON:? [facility], CR, XR CHEST 1V, 01/22/2022, 12:21. ? FINDINGS:? ? Surgical changes and devices:? Patient is status post median sternotomy and CABG. ? Lungs and pleura:? Lungs are clear.? No pleural effusions or pneumothorax.? ? Mediastinum:? Mediastinal contours appear normal.? Heart size is normal.? ? Bones and chest wall:? No suspicious bony lesions.? Overlying soft tissues appear unremarkable.? ? IMPRESSION:? No acute cardiopulmonary findings. ? ? Dictated by: Allyson Huang M.D. on 03/13/2022 at 11:33 ? ? Approved by: Allyson Huang M.D. on 03/13/2022 at 11:33 ? ECG Data Interpretation: EKG 1: Sinus rhythm, first-degree block with [place] interval prolonged, frequent PVCs. No other signs of ectopy, ischemia. No ST elevations or depressions. No T-wave inversions or hyperacuity EKG 2: Sinus rhythm with frequent PVCs. essentially unchanged from prior <Koko Greonimo MD - Last Filed: 03/13/22 15:39> Lab Data Labs: Lab Results 03/13/22 03/13/22 03/13/22 Range/Units 10:50 10:50 10:50 WBC 6.3 (4.5-11.0) X10^3/uL RBC 4.78 (4.5-5.9) X10^6/uL Hgb 13.2 L (13.5-17.5) g/dL Hct 41.4 (41-53) % MCV 86.6 (80-100) fL MCH 27.7 (26-34) PG MCHC 32.0 (30-36) % RDW 14.8 (11.6-14.8) % Plt Count 142 L (150-400) X10^3/uL Neut % (Auto) 64.4 (50-75) % Lymph % (Auto) 19.6 L (25-40) % [place] % (Auto) 12.3 (3-14) % Eos % (Auto) 2.7 (2-4) % Baso % (Auto) 1.0 (0-2) % Neut # (Auto) 4000 (3804-4715) /uL Lymph # (Auto) 1200 (6462-1259) /uL [place] # (Auto) 800 (0-900) /uL Eos # (Auto) 200 (0-450) /uL Baso # (Auto) 100 (0-100) /uL PT 13.2 H (10.1-12.7) SECONDS INR 1.2 (0.9-1.3) APTT 33 (26-36) SECONDS Sodium 138 (137-145) mmol/L Potassium 4.6 (3.4-5.1) mmol/L Chloride 103 (98-107) mmol/L Carbon Dioxide 26 (22-32) mmol/L BUN 26 H (9-20) mg/dL Creatinine 1.18 (0.66-1.25) mg/dL Estimated GFR > 60 (>60) mL/min BUN/Creatinine Ratio 22.0 (6-22) Glucose 107 (80-110) mg/dL Lactate (0.7-2.1) mmol/L Calcium 9.0 (8.4-10.2) mg/dL Magnesium 1.8 (1.6-2.3) mg/dL Total Bilirubin 0.5 (0.2-1.3) mg/dL AST 25 (17-59) IU/L ALT 13 (<50) IU/L Alkaline Phosphatase 78 (38-126) U/L Total Creatine Kinase 40 L (55-170) U/L CK-MB (CK-2) TNP CK-MB (CK-2) Rel Index TNP Troponin I 0.015 (0.01-0.034) ng/mL NT-Pro-B Natriuret Pep 1220 H (<125) pg/mL Total Protein 7.2 (6.3-8.2) g/dL Albumin 4.0 (3.5-5.0) g/dL Globulin 3.2 (1.7-4.1) g/dL Albumin/Globulin Ratio 1.3 (1.0-2.8) Lipase 81 (23-300) U/L 03/13/22 03/13/22 Range/Units 10:50 12:50 WBC (4.5-11.0) X10^3/uL RBC (4.5-5.9) X10^6/uL Hgb (13.5-17.5) g/dL Hct (41-53) % MCV (80-100) fL MCH (26-34) PG MCHC (30-36) % RDW (11.6-14.8) % Plt Count (150-400) X10^3/uL Neut % (Auto) (50-75) % Lymph % (Auto) (25-40) % [place] % (Auto) (3-14) % Eos % (Auto) (2-4) % Baso % (Auto) (0-2) % Neut # (Auto) (2989-3319) /uL Lymph # (Auto) (4882-9127) /uL [place] # (Auto) (0-900) /uL Eos # (Auto) (0-450) /uL Baso # (Auto) (0-100) /uL PT (10.1-12.7) SECONDS INR (0.9-1.3) APTT (26-36) SECONDS Sodium (137-145) mmol/L Potassium (3.4-5.1) mmol/L Chloride (98-107) mmol/L Carbon Dioxide (22-32) mmol/L BUN (9-20) mg/dL Creatinine (0.66-1.25) mg/dL Estimated GFR (>60) mL/min BUN/Creatinine Ratio (6-22) Glucose (80-110) mg/dL Lactate 0.8 (0.7-2.1) mmol/L Calcium (8.4-10.2) mg/dL Magnesium (1.6-2.3) mg/dL Total Bilirubin (0.2-1.3) mg/dL AST (17-59) IU/L ALT (<50) IU/L Alkaline Phosphatase (38-126) U/L Total Creatine Kinase 38 L (55-170) U/L CK-MB (CK-2) TNP CK-MB (CK-2) Rel Index TNP Troponin I 0.014 (0.01-0.034) ng/mL NT-Pro-B Natriuret Pep (<125) pg/mL Total Protein (6.3-8.2) g/dL Albumin (3.5-5.0) g/dL Globulin (1.7-4.1) g/dL Albumin/Globulin Ratio (1.0-2.8) Lipase (23-300) U/L ECG Data Attestation: I personally reviewed and interpreted this ECG as follows: (EKG 1.: Normal sinus rhythm rate 86 beats per minute. Frequent PVCs. No acute ST T wave changes. EKG 2.: Unchanged from EKG 1.) Discharge Plan Departure Patient Disposition: Home Clinical Impression: Frequent PVCs Instructions: Premature Ventricular Beats Activity Restrictions/Additional Instructions: Continue current medications. Your cardiology group will arrange follow-up following today's ER visit. If you look chest pain, weakness, or dizziness, contact your doctor and/or consider returning to the ER. Prescriptions: No Action tamsulosin 0.4 mg capsule 0.8 mg PO BEDTIME Qty: 28 0RF cholecalciferol (vitamin D3) 125 mcg (5,000 unit) capsule 125 mcg PO DAILY carvedilol 25 mg tablet 25 mg BID spironolactone 25 mg tablet 75 mg PO DAILY nitroglycerin 0.4 mg/hr patch 24 hour 1 patch transdermal DAILY benzonatate 100 mg capsule 100 mg PO QID PRN (Reason: cough) Qty: 14 0RF atorvastatin [Lipitor] 20 mg Tablet 40 mg PO BEDTIME Qty: 30 0RF aspirin 81 mg tablet,delayed release (DR/EC) 81 mg PO DAILY Qty: 30 0RF melatonin 3 mg Tablet 3 mg PO BEDTIME PRN (Reason: Insomnia) temazepam 15 mg capsule 15 mg PO BEDTIME PRN (Reason: Insomnia) Label Comments: TAKE ONE CAPSULE BY MOUTH EVERY NIGHT NEEDED FOR SLEEP/INSOMNIA magnesium citrate 4 gram Packet 400 mg PO DAILY vitamin K2 100 mcg Capsule 480 mcg PO DAILY finasteride 5 mg tablet 5 mg PO DAILY Qty: 90 3RF Referrals: Koko Ramires MD [Primary Care Provider] - Stand Alone Forms: Patient Portal/API
--- NOTE | 2022-03-13 10:56 | DI.RAD.S_ITS ---
PROCEDURE: XR CHEST 1V INDICATIONS: weak/lightheaded TECHNIQUE: One view of the chest was acquired. COMPARISON: , , XR CHEST 1V, 01/22/2022, 12:21. FINDINGS: Surgical changes and devices: Patient is status post median sternotomy and CABG. Lungs and pleura: Lungs are clear. No pleural effusions or pneumothorax. Mediastinum: Mediastinal contours appear normal. Heart size is normal. Bones and chest wall: No suspicious bony lesions. Overlying soft tissues appear unremarkable. IMPRESSION: No acute cardiopulmonary findings. Dictated by: Allyson Huang M.D. on 03/13/2022 at 11:33 Approved by: Allyson Huang M.D. on 03/13/2022 at 11:33
[2022-03-13 11:14] LABS: INR 1.2 (0.9-1.3); Prothrombin Time 13.2 SECONDS (10.1-12.7)
[2022-03-13 11:15] LABS: Add Manual Diff / Slide Review NO; Basophils Absolute Auto 100 /uL (0-100); Eosinophils Absolute Auto 200 /uL (0-450); Eosinophils Percent Auto 2.7 % (2-4); Hematocrit 41.4 % (41-53); Hemoglobin 13.2 g/dL (13.5-17.5); Lymphocytes Absolute Auto 1200 /uL (1100-4500); Lymphocytes Percent Auto 19.6 % (25-40); Mean Corpuscular Hemoglobin 27.7 PG (26-34); Mean Corpuscular Volume 86.6 fL (80-100); Monocytes Absolute Auto 800 /uL (0-900); Monocytes Percent Auto 12.3 % (3-14); Neutrophils Absolute Auto 4000 /uL (1500-7000); Neutrophils Percent Auto 64.4 % (50-75); Platelet Count 142 X10^3/uL (150-400); Red Blood Cell Count 4.78 X10^6/uL (4.5-5.9); Red Cell Distribution Width 14.8 % (11.6-14.8); White Blood Cell Count 6.3 X10^3/uL (4.5-11.0)
[2022-03-13 11:16] LABS: PTT Partial Thromboplastin Tim 33 SECONDS (26-36)
[2022-03-13 11:18] LABS: Alanine Aminotransferase 13 IU/L (<50); Albumin Globulin Ratio 1.3 (1.0-2.8); Alkaline Phosphatase 78 U/L (38-126); Aspartate Aminotransferase 25 IU/L (17-59); Bilirubin Total 0.5 mg/dL (0.2-1.3); Blood Urea Nitrogen 26 mg/dL (9-20); Carbon Dioxide 26 mmol/L (22-32); Chloride 103 mmol/L (98-107); Creatine Kinase 40 U/L (55-170); Estimated Glomerular Filt Rate > 60 mL/min (>60); Globulin 3.2 g/dL (1.7-4.1); Glucose 107 mg/dL (80-110); HEMOLYSIS 17 (0-50); Lactate (Lactic Acid) 0.8 mmol/L (0.7-2.1); Lipase 81 U/L (23-300); Magnesium 1.8 mg/dL (1.6-2.3); Potassium 4.6 mmol/L (3.4-5.1); Sodium 138 mmol/L (137-145); Total Protein 7.2 g/dL (6.3-8.2)
[2022-03-13 11:29] LABS: NT-proBNP (BNP-Adult 18+) 1220 pg/mL (<125); Troponin I 0.015 ng/mL (0.01-0.034)
[2022-03-13 13:25] LABS: Creatine Kinase 38 U/L (55-170)
[2022-03-13 13:38] LABS: Troponin I 0.014 ng/mL (0.01-0.034)
[2022-03-13] MEDS: MAGNESIUM SULFATE 2 GM/50 ML PIGGYBACK IV (15:30)
== END 2022-03-13 16:06 | disposition home or self-care (01) ==
PROVIDERS: Emergency Provider Emergency Medicine; Family Provider Internal Medicine Nephrology; PCP Internal Medicine
DX: I49.3 Ventricular premature depolarization (principal); R07.9 Chest pain, unspecified; R06.02 Shortness of breath
CPT/HCPCS: 36415; 71045; 80053; 82550; 83605; 83690; 83735; 83880; 84484; 85025; 85610; 85730; 87040; 93005; 93010; 96360; 99284; J3475

== ENCOUNTER → 2022-04-10 11:17 | Outpatient (CLI) | payer MEDICARE, OTHER, SELFPAY ==
[2022-01-11 21:53] VITALS: BMI 30.8
[2022-04-10 13:02] LABS: Bilirubin Urine UA NEGATIVE (NEGATIVE); Color Urine UA YELLOW; Glucose Urine UA NEGATIVE (Negative); Ketones Urine UA NEGATIVE (NEGATIVE); Leukocyte Esterase Urine UA 1+ (NEGATIVE); Nitrite Urine UA NEGATIVE (Negative); Occult Blood Urine UA NEGATIVE (Negative); Protein Urine UA NEGATIVE (Negative); Specific Gravity Urine UA 1.025 (1.000-1.035); Urobilinogen Urine UA 0.2 E.U./dL (0.2); pH Urine UA 5.5 (4.5-8.0)
[2022-04-10 13:04] LABS: Appearance Urine UA Slightly Cloudy
[2022-04-10 13:14] LABS: Bacteria Urine None Seen; Culture Indicated Urine Specimen Cultured; RBC Urine None Seen (0-5/HPF); Squamous Epithelial Cell Urine None Seen (0-5/HPF); WBC Urine 5-10/HPF (0-5/HPF)
== END ==
PROVIDERS: Family Provider Internal Medicine Nephrology; PCP Internal Medicine; Referring Provider Specialist; Visit Provider Specialist
DX: R30.0 Dysuria (principal)
CPT/HCPCS: 81001; 87086

== ENCOUNTER → 2022-04-16 15:59 | Outpatient (CLI) | payer MEDICARE, OTHER, SELFPAY ==
[2022-01-11 21:53] VITALS: BMI 30.8
--- NOTE | 2022-04-16 16:02 | DI.RAD.S_ITS ---
PROCEDURE: XR KUB INDICATIONS: Kidney stone TECHNIQUE: One view of the abdomen acquired. COMPARISON: [facility], CT, CT ABDOMEN PELVIS W CON, 01/11/2022, 18:55. [facility], CR, XR KUB, 03/27/2021, 9:12. FINDINGS: Surgical changes and devices: None. Bowel: Bowel gas pattern is nonspecific. There are multiple air-fluid levels in left upper abdomen with mildly dilated small intestine. There is, however, colonic gas and a large amount of stool. Soft tissues: No suspicious abdominal calcifications. Visualized solid organ contours appear normal in size. 0.8 cm calcification projected over the mid pole of the left kidney which is partially obscured by overlying bowel gas. Multiple pelvic calcifications likely phleboliths. Bones: No suspicious bony lesions. IMPRESSION: 1. 1.8 cm calcification projected over the mid pole of the left kidney which is partially obscured by overlying bowel gas. 2. Question small bowel obstruction versus ileus. Dictated by: Jean Claude Yanez [facility] Interpreted: Autumn Storm MD on 04/16/2022 at 16:22 Transcribed by: ROSS on 04/16/2022 at 16:24 Approved by: Autunm Storm M.D. on 04/16/2022 at 17:24
== END ==
PROVIDERS: Family Provider Internal Medicine Nephrology; PCP Family Medicine; Referring Provider Specialist; Visit Provider Specialist
DX: N40.1 Benign prostatic hyperplasia with lower urinary tract symptoms (principal); N18.9 Chronic kidney disease, unspecified; N20.0 Calculus of kidney; N13.8 Other obstructive and reflux uropathy
CPT/HCPCS: 36415; 74018; 84153

== ENCOUNTER → 2022-04-18 09:38 | Outpatient (CLI) | payer MEDICARE, OTHER, SELFPAY ==
[2022-01-11 21:53] VITALS: BMI 30.8
[2022-04-18 10:44] LABS: Alanine Aminotransferase 15 IU/L (<50); Albumin 3.6 g/dL (3.5-5.0); Albumin Globulin Ratio 1.5 (1.0-2.8); Alkaline Phosphatase 73 U/L (38-126); Aspartate Aminotransferase 14 IU/L (17-59); BUN Creatinine Ratio 21.1 (6-22); Bilirubin Total 0.5 mg/dL (0.2-1.3); Blood Urea Nitrogen 23 mg/dL (9-20); Carbon Dioxide 26 mmol/L (22-32); Chloride 106 mmol/L (98-107); Cholesterol 100 mg/dL (140-199); Estimated Glomerular Filt Rate > 60 mL/min (>60); Globulin 2.4 g/dL (1.7-4.1); Glucose 109 mg/dL (80-110); HDL Cholesterol 35 mg/dL (40-60); HEMOLYSIS < 15 (0-50); LDL Cholesterol Calculated 51 mg/dL (<100); Potassium 4.7 mmol/L (3.4-5.1); Sodium 139 mmol/L (137-145); Triglycerides 69 mg/dL (35-150)
== END ==
PROVIDERS: Family Provider Internal Medicine Nephrology; PCP Family Medicine; Referring Provider Nurse Practitioner; Visit Provider Nurse Practitioner
DX: E78.00 Pure hypercholesterolemia, unspecified (principal); I20.9 Angina pectoris, unspecified; I25.118 Atherosclerotic heart disease of native coronary artery with other forms of angina pectoris; Z13.220 Encounter for screening for lipoid disorders
CPT/HCPCS: 36415; 80053; 80061

== ENCOUNTER 2022-05-09 21:14 | Emergency (ER) | payer MEDICARE, OTHER, SELFPAY ==
[2022-01-11 21:53] VITALS: BMI 30.8
[2022-05-09 21:20] VITALS: BP 149/79; PULSE 68; RESP 18; TEMP 36.6; O2SAT 98; BMI 31.4
--- NOTE | 2022-05-09 21:31 | ED.GENADULT ---
HPI - General Adult General Chief complaint: Toxicology Problem Stated complaint: thinks he took too much medication Time Seen by Provider: 05/09/22 21:31 History of Present Illness HPI narrative: 71-year-old male former smoker with history of kidney stones, cardiac disease with prior NSTEMI, and chronic kidney disease presents?with the chief complaint of concern about an accidental overdose. He states that he routinely takes 1-2 Seroquel 25 mg tablets per night and tonight thinks he might have taken for. He feels fine unwell and denies any dizziness, weakness or lightheadedness. He states he did it about 45 minutes prior to arrival. He very strongly denies any desire to hurt himself or anyone else. He denies any chest pain or shortness of breath and has no nausea, vomiting or diarrhea. Related Data Home Medications Medication Instructions Recorded Confirmed cholecalciferol (vitamin D3) 125 125 mcg PO DAILY 06/11/19 05/02/22 mcg (5,000 unit) capsule nitroglycerin 0.4 mg/hr 1 patch transdermal DAILY 12/16/21 05/02/22 transdermal 24 hour patch magnesium citrate 4 gram oral 400 mg PO DAILY 01/24/22 05/02/22 packet melatonin 3 mg tablet 3 mg PO BEDTIME PRN Insomnia 01/24/22 05/02/22 vitamin K2 100 mcg capsule 480 mcg PO DAILY 01/24/22 05/02/22 amlodipine 5 mg tablet 5 mg PO DAILY 04/16/22 05/02/22 buspirone 10 mg tablet 10 mg PO BID 04/16/22 05/02/22 clopidogrel 75 mg tablet 75 mg PO DAILY 04/16/22 05/02/22 ipratropium bromide 42 mcg (0.06 intranasal 04/16/22 05/02/22 %) nasal spray metoprolol tartrate 50 mg tablet 50 mg PO BID 04/16/22 05/02/22 rosuvastatin 40 mg tablet 40 mg PO DAILY 04/16/22 05/02/22 valsartan 40 mg tablet 20 mg PO DAILY 04/16/22 05/02/22 Previous Rx's Medication Instructions Recorded finasteride 5 mg tablet 5 mg PO DAILY #90 tabs 03/28/21 tamsulosin 0.4 mg capsule 0.8 mg PO BEDTIME #28 caps 08/08/22 aspirin 81 mg tablet,delayed 81 mg PO DAILY #30 tabs 01/14/22 release Allergies Allergy/AdvReac Type Severity Reaction Status Date / Time gabapentin Allergy Verified 05/02/22 08:17 Review of Systems Review of Systems Narrative: GENERAL: Denies chills, fatigue, malaise, fever, sweats. HEENT: Denies sinus pain, ear pain, sore throat, difficulty swallowing, dizziness. RESPIRATORY: Denies dyspnea, cough, wheezing, hemoptysis, sputum. CARDIOVASCULAR: Denies chest pain, palpitations, orthopnea, edema, GASTROINTESTINAL: Denies nausea, vomiting, abdominal pain, diarrhea, constipation, melena. : Denies dysuria, frequency, incontinence, hematuria, urinary retention. MUSCULOSKELETAL: denies weakness, joint pain, or bony pain SKIN: Denies rash, skin lesions, or other NEUROLOGIC: Denies weakness, headache, numbness, change in speech, confusion, seizures, incoordination. PSYCHIATRIC: No concerning psychosocial issues. 12 point review of systems is negative except for those stated above Patient History Medical History Anemia Angina pectoris Arthritis Atrial fibrillation Bilateral nephrolithiasis BPH (benign prostatic hyperplasia) BPH w urinary obs/LUTS CAD (coronary artery disease) CAD (coronary artery disease) Cardiomyopathy Chicken pox Chronic kidney disease Detached retina, right (~1983) Diabetes Duodenal ulcer hemorrhage Grieving History of nephrolithiasis HLD (hyperlipidemia) Hx of nephrolithotomy with removal of calculi (2008) Hyperaldosteronism Hypertension Insomnia Measles Mumps Myocardial infarction (~2017) ANA (obstructive sleep apnea) Partial blindness (~1949) Peptic ulcer disease (~2015) Peripheral arterial disease Peripheral neuropathy Right renal mass Sleep apnea Staph infection (1979) Tinnitus Upper GI bleed Surgical History Anesthesia H/O circumcision H/O lithotripsy H/O vasectomy History of appendectomy Hx of coronary angioplasty Hx of heart artery stent S/P CABG x 3 (1991) Family History Father History of heart disease Aneurysm Mother History of heart disease Hypertension Heart failure Brother Leukemia Social History household members: none Smoking Status: Former smoker alcohol intake: current substance use type: does not use Smoking Status: Former smoker alcohol intake frequency: holidays/special occasions only Substance Use Type: does not use Exam Narrative Exam Narrative: GENERAL: [72] year old patient appears stated age. Well-developed patient, in mild distress. GCS 15, speaking clearly, walking straight line HEAD: Atraumatic. Normocephalic. EYES: Pupils equal round and reactive. Extraocular motions intact. No scleral icterus. No injection or drainage. ENT: Nose without bleeding, purulent drainage. Throat without erythema, tonsillar hypertrophy or exudate. Airway patent. NECK: Trachea midline. Non tender CARDIOVASCULAR: Regular rate and rhythm without murmurs, gallops, or rubs. RESPIRATORY: Clear to auscultation. Breath sounds equal bilaterally. No wheezes, rales, or rhonchi. GASTROINTESTINAL: Abdomen soft, non-tender, nondistended. EXTREMITIES: No edema or joint tenderness. BACK: Nontender without deformity or crepitance. No flank tenderness. NEURO: AOx3. SKIN: No rash or erythema of visible areas Initial Vital Signs Initial Vital Signs: Vital Signs Temperature 98 F 05/09/22 21:20 Pulse Rate 68 05/09/22 21:20 Respiratory Rate 18 05/09/22 21:20 Blood Pressure 149/79 H 05/09/22 21:20 Pulse Oximetry 98 05/09/22 21:20 Oxygen Delivery Method Room Air 05/09/22 21:20 Course Course Course Narrative: Nursing has placed a call to poison control for completeness sake, they very quickly respond that this is from a significant dose in the patient without further workup or observation Medical Decision Making MDM Narrative Medical decision making narrative: [72] year old patient presents with concern of possible accidental overdose Multiple etiologies for patient's symptoms considered including, but not limited to: [Accidental overdose, suicidal ideation versus other] Prior Charts reviewed in our EMR Primary Historian: patient Consultations: Poison control Patient's symptoms improved over duration of stay with above-stated therapies. Patient without suicidal or homicidal ideation. Nonsignificant possible accidental overdose. Patient alert and oriented, speaking clearly and able to walk a straight line. No need for further evaluation, labs or other. Patient appropriate for discharge Findings and discharge diagnosis discussed with patient/family followed by verbalization of understanding Return precautions discussed with patient/family whom verbalize understanding of diagnosis and plan Discharge Plan Departure Patient Disposition: Home Clinical Impression: Accidental overdose Instructions: DI for Accidental Ingestion -- Adult Activity Restrictions/Additional Instructions: *You have been diagnosed with [accidental overdose of Seroquel] *What to do: *Please continue to take your regular medications as directed. *Please follow up with your primary care provider in 2-3 days, call for an appointment. Let them know you were seen in the Emergency Department and that we ask that you be seen in follow up. We will electronically transmit a record of today's note if your PCP is in our system *If you do not have a primary care provider please contact the [facility] Resource line at [phone]. They will ask some questions about your medical history and help get you set up with a doctor in the community. *Return to Emergency Department if you should have any new, worsening or concerning symptoms, such as [fever greater than 101 F, shaking chills, worsening pain, persistent vomiting or other bothersome symptoms] Prescriptions: No Action tamsulosin 0.4 mg capsule 0.8 mg PO BEDTIME Qty: 28 0RF cholecalciferol (vitamin D3) 125 mcg (5,000 unit) capsule 125 mcg PO DAILY metoprolol tartrate 50 mg tablet 50 mg PO BID clopidogrel 75 mg tablet 75 mg PO DAILY buspirone 10 mg tablet 10 mg PO BID valsartan 40 mg tablet 20 mg PO DAILY rosuvastatin 40 mg tablet 40 mg PO DAILY ipratropium bromide 42 mcg (0.06 %) spray,non-aerosol intranasal amlodipine 5 mg tablet 5 mg PO DAILY nitroglycerin 0.4 mg/hr patch 24 hour 1 patch transdermal DAILY aspirin 81 mg tablet,delayed release (DR/EC) 81 mg PO DAILY Qty: 30 0RF melatonin 3 mg Tablet 3 mg PO BEDTIME PRN (Reason: Insomnia) magnesium citrate 4 gram Packet 400 mg PO DAILY vitamin K2 100 mcg Capsule 480 mcg PO DAILY finasteride 5 mg tablet 5 mg PO DAILY Qty: 90 3RF Referrals: Hyun Rahman DO [Primary Care Provider] - Stand Alone Forms: Patient Portal/API
--- NOTE | 2022-05-09 21:50 | PC.NURSE ---
poison control pharmacist Remberto stated this is well below a toxic dose and ok to monitor at home.
[2022-05-09 22:30] VITALS: BP 130/70; PULSE 76; RESP 18; O2SAT 98
== END 2022-05-09 22:31 | disposition home or self-care (01) ==
PROVIDERS: Emergency Provider Emergency Medicine; Family Provider Internal Medicine Nephrology; PCP Family Medicine
DX: T43.591A Poisoning by other antipsychotics and neuroleptics, accidental (unintentional), initial encounter (principal)
CPT/HCPCS: 99282

== ENCOUNTER → 2022-05-22 11:26 | Outpatient (CLI) | payer MEDICARE, OTHER, SELFPAY ==
[2022-01-11 21:53] VITALS: BMI 30.8
[2022-05-22 13:09] LABS: Alanine Aminotransferase 13 IU/L (<50); Albumin 4.3 g/dL (3.5-5.0); Albumin Globulin Ratio 1.3 (1.0-2.8); Alkaline Phosphatase 98 U/L (38-126); Aspartate Aminotransferase 18 IU/L (17-59); Bilirubin Total 0.4 mg/dL (0.2-1.3); Blood Urea Nitrogen 39 mg/dL (9-20); Calcium 9.3 mg/dL (8.4-10.2); Carbon Dioxide 26 mmol/L (22-32); Chloride 103 mmol/L (98-107); Cholesterol 116 mg/dL (140-199); Estimated Glomerular Filt Rate 58 mL/min (>60); Globulin 3.3 g/dL (1.7-4.1); Glucose 103 mg/dL (80-110); HDL Cholesterol 35 mg/dL (40-60); HEMOLYSIS < 15 (0-50); LDL Cholesterol Calculated 63 mg/dL (<100); Potassium 4.6 mmol/L (3.4-5.1); Sodium 140 mmol/L (137-145); Total Protein 7.6 g/dL (6.3-8.2); Triglycerides 91 mg/dL (35-150)
== END ==
PROVIDERS: Family Provider Internal Medicine Nephrology; PCP Family Medicine; Referring Provider Nurse Practitioner; Visit Provider Nurse Practitioner
DX: I20.9 Angina pectoris, unspecified (principal); I25.118 Atherosclerotic heart disease of native coronary artery with other forms of angina pectoris; E78.00 Pure hypercholesterolemia, unspecified; Z13.220 Encounter for screening for lipoid disorders
CPT/HCPCS: 36415; 80053; 80061

== ENCOUNTER 2022-06-05 10:15 | Outpatient (RCR) | payer MEDICARE, OTHER, SELFPAY ==
[2022-01-11 21:53] VITALS: BMI 30.8
== END 2022-06-05 12:15 ==
LOC: CAR 10:15
PROVIDERS: Family Provider Internal Medicine Nephrology; PCP Internal Medicine; Referring Provider Internal Medicine; Visit Provider Internal Medicine
DX: Z95.5 Presence of coronary angioplasty implant and graft (principal)
CPT/HCPCS: 93798

== ENCOUNTER 2022-07-10 16:49 | Emergency (ER) | payer MEDICARE, OTHER, SELFPAY ==
[2022-01-11 21:53] VITALS: BMI 30.8
[2022-07-10 17:31] VITALS: BP 117/66; PULSE 64; RESP 16; TEMP 35.9; O2SAT 97; BMI 31.8
[2022-07-10 18:24] LABS: Bacteria Urine Moderate (10-30); Culture Indicated Urine Specimen Cultured; RBC Urine 5-10/HPF (0-5/HPF); Squamous Epithelial Cell Urine None Seen (0-5/HPF); WBC Urine 10-30/HPF (0-5/HPF)
[2022-07-10 18:39] LABS: Add Manual Diff / Slide Review NO; Basophils Absolute Auto 100 /uL (0-100); Basophils Percent Auto 0.8 % (0-2); Eosinophils Absolute Auto 100 /uL (0-450); Eosinophils Percent Auto 1.4 % (2-4); Hematocrit 39.2 % (41-53); Lymphocytes Absolute Auto 1700 /uL (1100-4500); Lymphocytes Percent Auto 20.4 % (25-40); Mean Corpuscular HGB Conc 33.3 % (30-36); Mean Corpuscular Hemoglobin 27.5 PG (26-34); Mean Corpuscular Volume 82.5 fL (80-100); Monocytes Absolute Auto 1100 /uL (0-900); Monocytes Percent Auto 12.7 % (3-14); Neutrophils Absolute Auto 5500 /uL (1500-7000); Neutrophils Percent Auto 64.7 % (50-75); Platelet Count 162 X10^3/uL (150-400); Red Blood Cell Count 4.75 X10^6/uL (4.5-5.9); Red Cell Distribution Width 15.2 % (11.6-14.8); White Blood Cell Count 8.5 X10^3/uL (4.5-11.0)
[2022-07-10 18:47] LABS: Alanine Aminotransferase 18 IU/L (<50); Albumin 4.2 g/dL (3.5-5.0); Albumin Globulin Ratio 1.4 (1.0-2.8); Alkaline Phosphatase 83 U/L (38-126); Aspartate Aminotransferase 22 IU/L (17-59); Bilirubin Total 0.4 mg/dL (0.2-1.3); Blood Urea Nitrogen 31 mg/dL (9-20); Calcium 9.2 mg/dL (8.4-10.2); Carbon Dioxide 28 mmol/L (22-32); Chloride 102 mmol/L (98-107); Estimated Glomerular Filt Rate 55 mL/min (>60); Globulin 3.1 g/dL (1.7-4.1); Glucose 89 mg/dL (80-110); HEMOLYSIS < 15 (0-50); Magnesium 2.1 mg/dL (1.6-2.3); Potassium 4.7 mmol/L (3.4-5.1); Sodium 138 mmol/L (137-145); Total Protein 7.3 g/dL (6.3-8.2)
--- NOTE | 2022-07-10 19:29 | ED_ITS ---
HPI - Extremity Problem General Chief complaint: Extremity Problem,Nontraumatic Stated complaint: sent from [facility], cardiac hx, cramping in legs Time Seen by Provider: 07/10/22 18:04 Source: patient Mode of arrival: Ambulatory Limitations: no limitations History of Present Illness HPI Narrative: This is a 71-year-old former smoker with NSTEMI and cardiac stents placed in May, history kidney stones, chronic kidney disease who presents with complaint of bilateral lower extremity cramping at nighttime for the past week. Patient states in legs all the way down. He states he was told he did not have neuropathy in the past but he has had hot and cold sensation in his feet in the past that radiates upwards. He states the cramping seems to be at nighttime when he gets up to go to the bathroom otherwise he is not really having during the daytime. He states it feels like a Charley horse. He is not sure if the muscles actually feel tight are hard. He denies any swelling of his legs. He denies any cyanosis, pallor, erythema or other skin changes. No new numbness, tingling or weakness. He has been able to ambulate without issues. Nothing else seems to make it better or worse he denies fevers or chills. No chest pain, no shortness of breath, no nausea, vomiting, no diarrhea constipation. Patient is currently on aspirin, Plavix both, he is on rosuvastatin was decreased from 40 mg to 20 mg as they thought he was having cramping before and had actually been switched from atorvastatin rosuvastatin because they suspected he was having cramping from his statin. Patient states this feels very similar. He was at the walk-in clinic and sent here for evaluation. Patient's notes he went to [place] he had a 3 hour flight but states he has been taking his blood thinners regularly. No history of blood clots. Related Data Home Medications Medication Instructions Recorded Confirmed cholecalciferol (vitamin D3) 125 125 mcg PO DAILY 06/11/19 07/12/22 mcg (5,000 unit) capsule nitroglycerin 0.4 mg/hr 1 patch transdermal DAILY 12/16/21 07/12/22 transdermal 24 hour patch magnesium citrate 4 gram oral 400 mg PO DAILY 01/24/22 07/12/22 packet melatonin 3 mg tablet 3 mg PO BEDTIME PRN Insomnia 01/24/22 07/12/22 vitamin K2 100 mcg capsule 480 mcg PO DAILY 01/24/22 07/12/22 amlodipine 5 mg tablet 5 mg PO DAILY 04/16/22 07/12/22 buspirone 10 mg tablet 10 mg PO BID 04/16/22 07/12/22 clopidogrel 75 mg tablet 75 mg PO DAILY 04/16/22 07/12/22 ipratropium bromide 42 mcg (0.06 intranasal 04/16/22 07/12/22 %) nasal spray metoprolol tartrate 50 mg tablet 50 mg PO BID 04/16/22 07/12/22 valsartan 40 mg tablet 20 mg PO DAILY 04/16/22 07/12/22 Previous Rx's Medication Instructions Recorded tamsulosin 0.4 mg capsule 0.8 mg PO BEDTIME #28 caps 10/15/21 aspirin 81 mg tablet,delayed 81 mg PO DAILY #30 tabs 01/14/22 release finasteride 5 mg tablet 5 mg PO DAILY #90 tabs 07/02/22 finasteride 5 mg tablet 5 mg PO DAILY prostate #30 tabs 07/02/22 rosuvastatin 20 mg tablet (Crestor) 20 mg PO DAILY cholesterol #30 tabs 07/12/22 temazepam 15 mg capsule 45 mg PO BEDTIME PRN sleep #90 caps 07/12/22 Allergies Allergy/AdvReac Type Severity Reaction Status Date / Time gabapentin Allergy Verified 07/12/22 15:32 Review of Systems Review of Systems ROS Unobtainable: All systems reviewed & are unremarkable except as noted in HPI and below Patient History Medical History Anemia Angina pectoris Arthritis Atrial fibrillation Benign essential HTN Bilateral nephrolithiasis BPH w urinary obs/LUTS CAD (coronary artery disease) CAD (coronary artery disease) (~1991) Cardiomyopathy Chicken pox Chronic kidney disease Detached retina, right (~1983) Diabetes Duodenal ulcer hemorrhage Grieving Hearing loss Hemorrhoid History of nephrolithiasis HLD (hyperlipidemia) Hx of nephrolithotomy with removal of calculi (2008) Hyperaldosteronism Hypertension Insomnia Measles Mumps Myocardial infarction (~2016) ANA (obstructive sleep apnea) Partial blindness (~1949) Peptic ulcer disease (~2015) Peripheral arterial disease Peripheral neuropathy Right renal mass Sleep apnea Staph infection (1979) Tinnitus Upper GI bleed Surgical History Anesthesia H/O circumcision H/O lithotripsy H/O vasectomy History of appendectomy Hx of coronary angioplasty Hx of heart artery stent S/P CABG x 3 (1991) Family History Father History of heart disease Aneurysm Mother History of heart disease Hypertension Heart failure Brother Leukemia Social History household members: none Smoking Status: Former smoker alcohol intake: current substance use type: does not use Smoking Status: Former smoker alcohol intake frequency: holidays/special occasions only Substance Use Type: does not use Exam Narrative Exam Narrative: GENERAL: Alert and oriented x three, male in mild distress. HEENT: Head normocephalic, atraumatic, EOMI, pupils reactive, face symmetric, moist mucous membranes NECK: Supple, full range of motion CARDIOVASCULAR: Regular rate and rhythm without murmurs, rubs or gallops. RESPIRATORY: Breath sounds equal bilaterally, no wheezes rales or rhonchi. ABDOMEN: Soft, nontender. Normoactive bowel sounds all 4 quadrants. No guarding or rebound, rigidity, no mass : No CVA tenderness EXTREMITIES: Normal range of motion, no clubbing or edema. Neurovascularly intact. Patient has positive dorsalis pedis and posterior tibialis bilaterally. Normal range of motion. 5/5 muscle strength. No pallor, erythema or cyanosis. Cap refill is less than 2 seconds in all 10 toes. NEUROLOGICAL: Cranial nerves II through XII grossly intact. Moving all extremities SKIN: Warm, dry, no petechiae, no rashes or lesions. Initial Vital Signs Initial Vital Signs: Vital Signs Temperature 96.7 F L 07/10/22 17:31 Pulse Rate 64 07/10/22 17:31 Respiratory Rate 16 07/10/22 17:31 Blood Pressure 117/66 07/10/22 17:31 Pulse Oximetry 97 07/10/22 17:31 Oxygen Delivery Method Room Air 07/10/22 17:31 Course Orders Ordered: ED Orders 07/10/22 17:40 Urine Culture Stat Urine Microscopic Stat 07/10/22 18:20 CBC Auto Diff [Complete Blood Count AUTO DIFF] Stat CMP [Comprehensive Metabolic Panel] Stat MAG [Magnesium] Stat 07/10/22 19:44 CK [Creatine Kinase] Stat Vital Signs Vital signs: Vital Signs - 8 hr 07/10/22 17:31 Temperature 96.7 F L Pulse Rate 64 Respiratory Rate 16 Blood Pressure 117/66 Pulse Oximetry 97 Oxygen Delivery Method Room Air MDM - Extremity (Nontraumatic) Lab Data 07/10/22 18:20 07/10/22 18:20 Labs: Lab Results 07/10/22 07/10/22 07/10/22 Range/Units 17:40 18:20 18:20 WBC 8.5 (4.5-11.0) X10^3/uL RBC 4.75 (4.5-5.9) X10^6/uL Hgb 13.0 L (13.5-17.5) g/dL Hct 39.2 L (41-53) % MCV 82.5 (80-100) fL MCH 27.5 (26-34) PG MCHC 33.3 (30-36) % RDW 15.2 H (11.6-14.8) % Plt Count 162 (150-400) X10^3/uL Neut % (Auto) 64.7 (50-75) % Lymph % (Auto) 20.4 L (25-40) % [place] % (Auto) 12.7 (3-14) % Eos % (Auto) 1.4 L (2-4) % Baso % (Auto) 0.8 (0-2) % Neut # (Auto) 5500 (5452-8913) /uL Lymph # (Auto) 1700 (0055-4345) /uL [place] # (Auto) 1100 H (0-900) /uL Eos # (Auto) 100 (0-450) /uL Baso # (Auto) 100 (0-100) /uL Sodium 138 (137-145) mmol/L Potassium 4.7 (3.4-5.1) mmol/L Chloride 102 (98-107) mmol/L Carbon Dioxide 28 (22-32) mmol/L BUN 31 H (9-20) mg/dL Creatinine 1.35 H (0.66-1.25) mg/dL Estimated GFR 55 L (>60) mL/min BUN/Creatinine Ratio 23.0 H (6-22) Glucose 89 (80-110) mg/dL Calcium 9.2 (8.4-10.2) mg/dL Magnesium 2.1 (1.6-2.3) mg/dL Total Bilirubin 0.4 (0.2-1.3) mg/dL AST 22 (17-59) IU/L ALT 18 (<50) IU/L Alkaline Phosphatase 83 (38-126) U/L Total Creatine Kinase (55-170) U/L Total Protein 7.3 (6.3-8.2) g/dL Albumin 4.2 (3.5-5.0) g/dL Globulin 3.1 (1.7-4.1) g/dL Albumin/Globulin Ratio 1.4 (1.0-2.8) Urine RBC 5-10/hpf H (0-5/HPF) Urine WBC 10-30/hpf H (0-5/HPF) Ur Squamous Epith Cells None seen (0-5/HPF) Urine Bacteria Moderate (10-30) H (None) Ur Culture Indicated? Specimen cultured 07/10/22 Range/Units 18:20 WBC (4.5-11.0) X10^3/uL RBC (4.5-5.9) X10^6/uL Hgb (13.5-17.5) g/dL Hct (41-53) % MCV (80-100) fL MCH (26-34) PG MCHC (30-36) % RDW (11.6-14.8) % Plt Count (150-400) X10^3/uL Neut % (Auto) (50-75) % Lymph % (Auto) (25-40) % [place] % (Auto) (3-14) % Eos % (Auto) (2-4) % Baso % (Auto) (0-2) % Neut # (Auto) (6234-1600) /uL Lymph # (Auto) (0955-8123) /uL [place] # (Auto) (0-900) /uL Eos # (Auto) (0-450) /uL Baso # (Auto) (0-100) /uL Sodium (137-145) mmol/L Potassium (3.4-5.1) mmol/L Chloride (98-107) mmol/L Carbon Dioxide (22-32) mmol/L BUN (9-20) mg/dL Creatinine (0.66-1.25) mg/dL Estimated GFR (>60) mL/min BUN/Creatinine Ratio (6-22) Glucose (80-110) mg/dL Calcium (8.4-10.2) mg/dL Magnesium (1.6-2.3) mg/dL Total Bilirubin (0.2-1.3) mg/dL AST (17-59) IU/L ALT (<50) IU/L Alkaline Phosphatase (38-126) U/L Total Creatine Kinase 109 (55-170) U/L Total Protein (6.3-8.2) g/dL Albumin (3.5-5.0) g/dL Globulin (1.7-4.1) g/dL Albumin/Globulin Ratio (1.0-2.8) Urine RBC (0-5/HPF) Urine WBC (0-5/HPF) Ur Squamous Epith Cells (0-5/HPF) Urine Bacteria (None) Ur Culture Indicated? Urine Dip Bedside Urine Glucose Negative Bedside Urine Bilirubin - Negative Bedside Urine Ketone - Negative Urine Specific [place] 1.015 Bedside Urine Occult Blood + Bedside Urine pH 6.0 Bedside Urine Protein - Negative Bedside Urine Urobilinogen - Negative Bedside Urine Nitrite - Negative Bedside Urine Leukocytes - Negative Esterase MDM Narrative Medical decision making narrative: This is a 72-year-old male who presents with bilateral cramping in his lower extremities at nighttime only. Patient states he did have his statin switched from atorvastatin to rosuvastatin for possible cramping it seemed to be helpful and they decreased his dose from 40-20 mg. He has not had any swelling, no skin changes he has good pulses he appears to have good vascular flow, he seems to be low risk from a DVT perspective we did discuss ultrasound but he defers at this time. We discussed risks, signs and symptoms to watch for, reasons to returns. We did send a CK level to see if this would be helpful. Patient will follow up with his physician. He would like to return home before this is resulted and I think this is appropriate he is not had any changes that would be consistent with rhabdo. Discharge Plan Departure Patient Disposition: Home Clinical Impression: Bilateral leg cramps Instructions: DI for Nocturnal Leg Cramps Activity Restrictions/Additional Instructions: Follow-up with your physician for recheck, a CK level was sent and is currently pending. Your electrolytes show no major changes. You could talk with your physician about decreasing your rosuvastatin or trying every other day to see if this improves your symptoms. Your temazepam maybe helpful you can take 1 extra dose in the evening to see if this helps. Some people find tonic water (quinine) helpful. Please return for fevers increasing swelling, color changes such as cyanosis or blue discoloration, very pale, or red legs, worsening cramping, new weakness, numbness or skin changes, chest pain, shortness of breath or other new or concerning changes. Prescriptions: No Action tamsulosin 0.4 mg capsule 0.8 mg PO BEDTIME Qty: 28 0RF cholecalciferol (vitamin D3) 125 mcg (5,000 unit) capsule 125 mcg PO DAILY metoprolol tartrate 50 mg tablet 50 mg PO BID clopidogrel 75 mg tablet 75 mg PO DAILY buspirone 10 mg tablet 10 mg PO BID valsartan 40 mg tablet 20 mg PO DAILY ipratropium bromide 42 mcg (0.06 %) spray,non-aerosol intranasal amlodipine 5 mg tablet 5 mg PO DAILY finasteride 5 mg tablet 5 mg PO DAILY Qty: 90 3RF finasteride 5 mg tablet 5 mg PO DAILY Qty: 30 0RF temazepam 15 mg capsule 45 mg PO BEDTIME PRN (Reason: sleep) Qty: 90 5RF rosuvastatin [Crestor] 20 mg tablet 20 mg PO DAILY Qty: 30 11RF nitroglycerin 0.4 mg/hr patch 24 hour 1 patch transdermal DAILY aspirin 81 mg tablet,delayed release (DR/EC) 81 mg PO DAILY Qty: 30 0RF melatonin 3 mg Tablet 3 mg PO BEDTIME PRN (Reason: Insomnia) magnesium citrate 4 gram Packet 400 mg PO DAILY vitamin K2 100 mcg Capsule 480 mcg PO DAILY Referrals: Hyun Rahman DO [Primary Care Provider] - Stand Alone Forms: Patient Portal/API
[2022-07-10 19:59] LABS: Creatine Kinase 109 U/L (55-170)
[2022-07-10 20:08] VITALS: BP 101/62; PULSE 72
== END 2022-07-10 20:10 | disposition home or self-care (01) ==
PROVIDERS: Emergency Medicine; Emergency Provider Emergency Medicine; Family Provider Internal Medicine Nephrology; PCP Family Medicine
DX: R25.2 Cramp and spasm (principal)
CPT/HCPCS: 36415; 80053; 81003; 81015; 82550; 83735; 85025; 87077; 87086; 87147; 87186; 99281; 99283

== ENCOUNTER → 2022-08-02 08:55 | Outpatient (CLI) | payer MEDICARE, OTHER, SELFPAY ==
[2022-01-11 21:53] VITALS: BMI 30.8
[2022-08-02 10:25] LABS: Creatinine Urine Random 84.9 mg/dL
[2022-08-02 10:29] LABS: Microalbumi Creatinin Ratio Ur 29.4 ug/mg CR (<30); Microalbumin Urine Random 2.5 mg/dL (0-1.6)
[2022-08-02 11:05] LABS: Prostate Specific Antigen 0.393 ng/mL (0.10-4.00)
[2022-08-03 03:36] LABS: x Labcorp Estim. Avg Glu (eAG) 131 mg/dL (.); x Labcorp Hemoglobin A1c 6.2 % (4.8-5.6)
== END ==
PROVIDERS: Family Provider Internal Medicine Nephrology; PCP Family Medicine; Referring Provider Specialist; Visit Provider Specialist
DX: N40.1 Benign prostatic hyperplasia with lower urinary tract symptoms (principal); N13.8 Other obstructive and reflux uropathy; I10 Essential (primary) hypertension; E11.9 Type 2 diabetes mellitus without complications
CPT/HCPCS: 36415; 82043; 82570; 83036; 84153

== ENCOUNTER → 2022-08-07 09:37 | Outpatient (CLI) | payer MEDICARE, OTHER, SELFPAY ==
[2022-01-11 21:53] VITALS: BMI 30.8
== END ==
PROVIDERS: Family Provider Internal Medicine Nephrology; PCP Family Medicine; Visit Provider Specialist
DX: N40.1 Benign prostatic hyperplasia with lower urinary tract symptoms (principal); N13.8 Other obstructive and reflux uropathy; Z87.442 Personal history of urinary calculi; N20.0 Calculus of kidney
CPT/HCPCS: 51798; 81002; 87086; 99214

== ENCOUNTER → 2022-09-04 10:12 | Outpatient (CLI) | payer MEDICARE, OTHER, SELFPAY ==
[2022-01-11 21:53] VITALS: BMI 30.8
--- NOTE | 2022-09-04 | DI.US.S_ITS ---
PROCEDURE: US RENAL COMPLETE INDICATIONS: NEPHROLITHIASIS TECHNIQUE: Real-time scanning was performed of the kidneys and bladder, with image documentation. COMPARISON: [facility], , US RENAL COMPLETE, 09/20/2021, 16:56. FINDINGS: Study is significantly limited by patient body habitus Kidneys: Kidneys are normal in size. Right kidney measures 11.5 cm long; left kidney measures 13.5 cm long. Right renal cortical thickness is 1.4 cm; left renal cortical thickness is 1.2 cm. On the right, in renal collecting system, there is a 1 cm possible mass versus artifact not well visualized. Additionally, there is a possible 1.2 cm echogenic calculus as well as additional smaller calculi. On the left, several simple cortical cysts present measuring up to 4.5. Additionally, in the anterolateral mid kidney, there is a hypoechoic complex cystic structure 1.7 cm, possibly reflecting mass lesion. Echogenic 3.7 cm structure inferiorly within the kidney and a 2nd echogenic structure measuring 1.2 cm in the collecting system may reflect calculi nonobstructing. Bladder: Pre-void bladder volume is 210 mL. Post-void residual is 122 mL. Pre-void images demonstrate no intraluminal masses or stones. On pre-void images, bilateral ureteral jets are noted with color Doppler interrogation. (Of note, ureteral jets may not be detectable in up to 25% of cases due to insufficient differences in specific gravity between ureteral and bladder urine). Miscellaneous: No free pelvic fluid. IMPRESSION: Significantly limited exam related to body habitus. Focal solid-appearing lesion in the upper pole right kidney reflects mass versus artifact Bilateral nonobstructing renal calculi Left renal 1.7 cm complex cyst versus mass noted as well. Consider follow-up CT abdomen and pelvis with contrast to further assess Approved by: Dusty Powers M.D. on 09/04/2022 at 18:21
[2022-09-04 13:20] LABS: BUN Creatinine Ratio 20.1 (6-22); Blood Urea Nitrogen 27 mg/dL (9-20); Calcium 8.9 mg/dL (8.4-10.2); Carbon Dioxide 29 mmol/L (22-32); Chloride 104 mmol/L (98-107); Estimated Glomerular Filt Rate 56 mL/min (>60); Glucose 100 mg/dL (80-110); HEMOLYSIS < 15 (0-50); Potassium 4.5 mmol/L (3.4-5.1); Sodium 138 mmol/L (137-145)
== END ==
PROVIDERS: Family Provider Internal Medicine Nephrology; PCP Family Medicine; Referring Provider Physician Assistant Surgical; Visit Provider Physician Assistant Surgical
DX: N20.0 Calculus of kidney (principal); N28.1 Cyst of kidney, acquired
CPT/HCPCS: 36415; 76770; 80048

== ENCOUNTER → 2023-01-03 11:37 | Outpatient (CLI) | payer MEDICARE, OTHER, SELFPAY ==
[2022-01-11 21:53] VITALS: BMI 30.8
== END ==
PROVIDERS: Family Provider Family Medicine; PCP Family Medicine; Visit Provider Specialist
DX: N40.1 Benign prostatic hyperplasia with lower urinary tract symptoms (principal); N13.8 Other obstructive and reflux uropathy; N20.0 Calculus of kidney; Z87.442 Personal history of urinary calculi
CPT/HCPCS: 51798; 81002; 87086; 99214

== ENCOUNTER → 2023-02-10 09:51 | Outpatient (CLI) | payer MEDICARE, OTHER, SELFPAY ==
[2022-01-11 21:53] VITALS: BMI 30.8
[2023-02-10 10:55] LABS: Alanine Aminotransferase 19 IU/L (<50); Albumin 4.1 g/dL (3.5-5.0); Albumin Globulin Ratio 1.3 (1.0-2.8); Alkaline Phosphatase 83 U/L (38-126); Aspartate Aminotransferase 29 IU/L (17-59); BUN Creatinine Ratio 26.1 (6-22); Bilirubin Total 0.7 mg/dL (0.2-1.3); Blood Urea Nitrogen 31 mg/dL (9-20); Calcium 9.4 mg/dL (8.4-10.2); Carbon Dioxide 27 mmol/L (22-32); Chloride 105 mmol/L (98-107); Estimated Glomerular Filt Rate > 60 mL/min (>60); Globulin 3.1 g/dL (1.7-4.1); Glucose 103 mg/dL (80-110); HEMOLYSIS 41 (0-50); Potassium 4.5 mmol/L (3.4-5.1); Sodium 139 mmol/L (137-145); Total Protein 7.2 g/dL (6.3-8.2)
[2023-02-10 11:14] LABS: Magnesium 1.8 mg/dL (1.6-2.3)
[2023-02-10 11:24] LABS: NT-proBNP (BNP-Adult 18+) 2080 pg/mL (<125)
[2023-02-10 12:00] LABS: Appearance Urine UA CLEAR; Bilirubin Urine UA NEGATIVE (NEGATIVE); Color Urine UA YELLOW; Glucose Urine UA NEGATIVE (Negative); Ketones Urine UA NEGATIVE (NEGATIVE); Leukocyte Esterase Urine UA 1+ (NEGATIVE); Nitrite Urine UA NEGATIVE (Negative); Occult Blood Urine UA 1+ (Negative); Protein Urine UA NEGATIVE (Negative); Specific Gravity Urine UA 1.025 (1.000-1.035); Urobilinogen Urine UA 0.2 E.U./dL (0.2)
[2023-02-10 12:08] LABS: Bacteria Urine Moderate (10-30); Culture Indicated Urine Specimen Cultured; RBC Urine 5-10/HPF (0-5/HPF); Squamous Epithelial Cell Urine 0-1 /HPF (0-5/HPF); WBC Urine 10-30/HPF (0-5/HPF)
== END ==
PROVIDERS: Family Provider Family Medicine; PCP Family Medicine; Referring Provider Urology; Visit Provider Urology
DX: N20.0 Calculus of kidney (principal); R06.09 Other forms of dyspnea; I49.3 Ventricular premature depolarization; I25.10 Atherosclerotic heart disease of native coronary artery without angina pectoris
CPT/HCPCS: 36415; 80053; 81001; 83735; 83880; 87086

== ENCOUNTER 2023-02-20 09:00 | Outpatient (RCR) | payer MEDICARE, OTHER, SELFPAY ==
[2022-01-11 21:53] VITALS: BMI 30.8
--- NOTE | 2023-02-06 16:26 | PT.OIE ---
Current Diagnoses Other idiopathic scoliosis, lumbar region (02/11/23) Spondylosis without myelopathy or radiculopathy, lumbar region (02/11/23) Sacrococcygeal disorders, not elsewhere classified (02/11/23) Past Medical History (Last Updated 01/03/23 @ 12:37 by Malik Campo MD) Anemia Angina pectoris Arthritis Atrial fibrillation Benign essential HTN BPH w urinary obs/LUTS CAD (coronary artery disease) CAD (coronary artery disease) (~1991) Cardiomyopathy Chicken pox Chronic kidney disease Detached retina, right (~1983) Diabetes Duodenal ulcer hemorrhage Grieving Hearing loss Hemorrhoid History of nephrolithiasis HLD (hyperlipidemia) Hx of nephrolithotomy with removal of calculi (2008) Hyperaldosteronism Hypertension Insomnia Left nephrolithiasis Measles Mumps Myocardial infarction (~2016) ANA (obstructive sleep apnea) Partial blindness (~194) Peptic ulcer disease (~2015) Peripheral arterial disease Peripheral neuropathy Right renal mass Sleep apnea Staghorn calculus Staph infection (1979) Tinnitus Upper GI bleed Past Surgical History (Last Reviewed 01/03/23 @ 12:35 by Malik Campo MD) Anesthesia H/O circumcision H/O lithotripsy H/O vasectomy History of appendectomy Hx of coronary angioplasty Hx of heart artery stent S/P CABG x 3 (1991) Visit Care Team Role Provider Type Hyun Rahman DO Family Provider Physician Primary Care Provider Specialty: Family Practice Address: [address] [place] [address], [address], [facility] Email: [email or web address] Attending Provider Physician Referring Provider Specialty: Orthopedics Orthopedic Surgery Address: [address] [place] [address], [address] Email: [email or web address] Physical Therapy Initial Evaluation PT-OP-A Visit Information Start: 02/06/23 09:04 Freq: Status: Active Protocol: Document 02/06/23 09:06 [facility] (Rec: 02/06/23 09:20 [facility] [id number]) Out-Patient Physical Therapy Visit Information Visit Information Visit Type Initial Evaluation Visit Start Time 09:05 Visit Stop Time 09:45 Total Visit Minutes 40 Visit Number 1 Evaluation Information Evaluation Date 02/06/23 PT-OP-B Current Condition Start: 02/06/23 09:04 Freq: Status: Active Protocol: Document 02/06/23 09:00 [facility] (Rec: 02/11/23 16:24 [facility] [id number]) Current Condition History of Current Condition Onset Date chronic but work in the past year Current Complaints cocccyx pain limiting sitting duration History of Current Condition pt notes pain in the coccyx and has pain with sitting. He has had previous injections without any relief. Pain has been going on 15-20 years but worse in the past year. He has to sit with a donut pillow . Rc does describes some referral of pain into the left hip. Treatment Goals Patient/Caregiver Goals Pt's goals include decreasing pain with sitting so that he can sit through a movie pain free PT-OP-C Subjective Start: 02/06/23 09:04 Freq: Status: Active Protocol: Document 02/06/23 09:00 [facility] (Rec: 02/06/23 09:20 [facility] [id number]) OP-PT Subjective Patient Comments Patient Comments pt notes pain in the coccyx and he has pain with sitting. He has had a injection last summer which didn't seem to do much. The pain has been going on for 15-20 years, He is able to sit for approx 1/2 hour, he reports stiffness in his neck. He does sit with a donut pillow. Rc walks a hour per day he notes he likes to watch a lot of netficks. He does have a history of kidney stones and a prostate issue that is benine . He will be having a minimally invasive surgery for Kidney stones. He does go to the bathroom quite often. No pain with sit-stand. He does have some referall of pain to the left hip and he feels the tailbone pain may be a little more to the left. Patient Questionnaires Oswestry Low Back Index Oswestry Score 17 Oswestry Impairment 1 to 19% Impaired (Score 1-19) OP-PT Pain Assessment Pain Assessment Grid Paper Pain Assessment Grid Completed Yes Location coccyx bone Pain Location Details coccyx bone Intensity 7 Scale Used Numeric (0 - 10) Description Aching,Throbbing Description- Other pain with sitting Pain Aggravating Factors Position PT-OP-F Manual Assessment Start: 02/06/23 09:04 Freq: Status: Active Protocol: Document 02/06/23 09:00 [facility] (Rec: 02/11/23 15:55 [facility] [id number]) Manual Assessments Soft Tissue Assessment Soft Tissue Mobility Assessment Tightness of the coccygeus R>L , piriformis tightness R>L with decreased fascial mobility Joint Mobility Assessment Joint Mobility Assessment coccyx joint assessment presets with the coccyx sidebent to the right Other Manual Assessments Other Manual Assessments Left ischium and PSIS rests higher than the right side PT-OP-G Mobility & Gait Start: 02/06/23 09:04 Freq: Status: Active Protocol: Document 02/06/23 09:00 [facility] (Rec: 02/11/23 15:58 [facility] [id number]) OP Mobility Evaluation Functional Movements Squats pt has difficulty with seating the femoral head and has a posterior pelvic tilt for squats, he sacral sits when sitting PT-OP-J Posture/Palpation/Skin Start: 02/06/23 09:04 Freq: Status: Active Protocol: Document 02/06/23 09:00 [facility] (Rec: 02/11/23 15:55 [facility] [id number]) Posture Evaluation Position Standing Pelvis Posture Posterior Tilted Comments Posture Comments Rc stands in a posteriorly rotated position with gluteal tightness in standing and femoral head in a anterior position, he has a forward shoulder posture PT-OP-K Range of Motion Start: 02/06/23 09:04 Freq: Status: Active Protocol: Document 02/06/23 09:00 [facility] (Rec: 02/11/23 15:55 [facility] [id number]) Lumbar Spine Range of Motion Lumbar Spine Active Testing Position Supine Flexion 40 Lateral Flexion Left 10 Lateral Flexion Right 10 ROM Limitations Soft Tissue Tightness Comments pt has increased pain with lumbar extension to neutral, he stands in a forward shoulder and forward lean piosture Hip Goniometric Range of Motion Hip Left Hip ROM WFL No Testing Position Supine Flexion w/Knee Flexed 100 Straight Leg Raise 45 Abduction 20 External Rotation 10 Right Hip ROM WFL No Testing Position Supine Flexion w/Knee Flexed 95 Straight Leg Raise 45 Abduction 20 External Rotation 10 Comments pt is very restricted in flexion and hip ER PT-OP-Q Treatments Start: 02/06/23 09:04 Freq: Status: Active Protocol: Document 02/06/23 09:00 [facility] (Rec: 02/11/23 11:36 [facility] [id number]) Therapeutic Exercises Supine Exercises supine hamstring stretch with hands behind knee and flossing the LE Side bilateral Reps/Minutes 10-20 reps supine pulling knee across the chest Reps/Minutes 30 sec x 2 sigle knee to chest stretch Reps/Minutes 30 sec x 2 reps PT-OP-T Assessment and Plan Start: 02/06/23 09:04 Freq: Status: Active Protocol: Document 02/06/23 09:00 [facility] (Rec: 02/11/23 16:06 [facility] [id number]) Physical Therapy Assessment Rehab Potential Rehabilitation Potential Good Evaluation Complexity Number of Personal Factors/Comorbidities 0 Number of Body Systems Impaired 1-2 Clinical Presentation at Evaluation Stable Impairments Impairments Activity Tolerance,Functional Activities,Pain,Posture,Soft Tissue Mobility,Strength,Tone Goals 3 Impairment Rc has postural habits that include standing in a posteriorly tilted position with gluteal tightness and anterior hip displacement Short Term Goal (STG) Rc is educated on seating his femoral heads and reducing posterior gluteal tightness in standing STG Duration 4 weeks Media Services Director Goal (LTG) Rc is able to perform a squat and return to standing without going into a posterly rotated position LTG Duration 8 weeks 2 Impairment Decreased hip ROM and SLR of 45 degrees B Short Term Goal (STG) Rc is educated on a HEP for hip mobility and stretches STG Duration 4 weeks Media Services Director Goal (LTG) Rc presents with improved hamstring length to 50 degrees or better and is able to perform single knee to chest with 100 degrees hip ROM or better B LTG Duration 8 weeks 1 Impairment Rc is unable to sit more than 1/2 hour due to coccxy pain Short Term Goal (STG) Rc is educated in proper sitting position to avoid sacral sitting and he is educated on stretches to help open up the posterior hip and coccygeus musculature STG Duration 4 weeks Media Services Director Goal (LTG) Rc reports he has improved tolerance for sitting and is able to sit through a movie without increased coccyx pain LTG Duration 8 weeks Assessment Summary Assessment Rc is a 72 year old male who presents to PT with coccyx pain primarily with sitting positions. He reports pain comes on after a 1/2 hour of sitting. Standing also increases pain in his back and neck. He uses [employer] poles for walking and is walking a hour per day. With exam today Rc stands in a posterior pelvic tilt with anterior displacement of the femoral heads and gluteal tightness. With sitting, Rc sacral sits with pressure on his sacrum. He has decreased hip rom into hip flexion and hip ER and tightness in the posterior gluteals. It is difficult for him to perform a squat in a functional position as he has difficulty seating the femoral heads (posterior femoral mobility). There is tenderness to palpation along the sacral borders B R>L and the coccyx feels sidebent to the right. There is tightness of the coccygeus noted bilaterally. Rc was educated in stretches for his hips and was educated in a proper sitting position to decrease sacral sitting and tightness of the posterior hips. He tolerated treatment well today and is a good candidate for PT Physical Therapy Plan Frequency and Duration Frequency of Treatment 2x/Week Duration of treatment (weeks) 8 Plan of Care Start Date 02/06/23 Plan of Care End Date 04/03/23 Therapeutic Interventions Therapeutic Interventions Home Exercise Program,Manual Therapy,Patient/Caregiver Education,Self-Care/Home Management,Soft Tissue Mobilization,Therapeutic Exercises Next Visit Focus/Plan Next Note Type Treatment Note Next Visit Plan work on stretches to release the posterior hip and piriformis, work on standing posture and seating the femoral head, proper squat position
--- NOTE | 2023-02-06 16:26 | PT.OPPOC ---
Physical, Occupational & Speech Therapy At [facility] Current Diagnoses Other idiopathic scoliosis, lumbar region (02/11/23) Spondylosis without myelopathy or radiculopathy, lumbar region (02/11/23) Sacrococcygeal disorders, not elsewhere classified (02/11/23) Visit Care Team Role Provider Type Hyun Rahman DO Family Provider Physician Primary Care Provider Specialty: Family Practice Address: [address] [place] [address], [place] [facility] [address], [place], [address] Email: [email or web address] Leonardo Wilkes MD Attending Provider Physician Referring Provider Specialty: Orthopedics Orthopedic Surgery Address: [address] [place] [address], [address] Email: [email or web address] PT-OP-T Assessment and Plan Start: 02/06/23 09:04 Freq: Status: Active Protocol: Document 02/06/23 09:00 [facility] (Rec: 02/11/23 16:06 [facility] [id number]) Physical Therapy Assessment Rehab Potential Rehabilitation Potential Good Evaluation Complexity Number of Personal Factors/Comorbidities 0 Number of Body Systems Impaired 1-2 Clinical Presentation at Evaluation Stable Impairments Impairments Activity Tolerance,Functional Activities,Pain,Posture,Soft Tissue Mobility,Strength,Tone Goals 3 Impairment Rc has postural habits that include standing in a posteriorly tilted position with gluteal tightness and anterior hip displacement Short Term Goal (STG) Rc is educated on seating his femoral heads and reducing posterior gluteal tightness in standing STG Duration 4 weeks Board Certified Arts Therapist Goal (LTG) Rc is able to perform a squat and return to standing without going into a posteriorly rotated position LTG Duration 8 weeks 2 Impairment Decreased hip ROM and SLR of 45 degrees B Short Term Goal (STG) Rc is educated on a HEP for hip mobility and stretches STG Duration 4 weeks Board Certified Arts Therapist Goal (LTG) Rc presents with improved hamstring length to 50 degrees or better and is able to perform single knee to chest with 100 degrees hip ROM or better B LTG Duration 8 weeks 1 Impairment Rc is unable to sit more than 1/2 hour due to coccyx pain Short Term Goal (STG) Rc is educated in proper sitting position to avoid sacral sitting and he is educated on stretches to help open up the posterior hip and coccygeus musculature STG Duration 4 weeks Board Certified Arts Therapist Goal (LTG) Rc reports he has improved tolerance for sitting and is able to sit through a movie without increased coccyx pain LTG Duration 8 weeks Assessment Summary Assessment Rc is a 72 year old male who presents to PT with coccyx pain primarily with sitting positions. He reports pain comes on after a 1/2 hour of sitting. Standing also increases pain in his back and neck. He uses [employer] poles for walking and is walking a hour per day. With exam today Rc stands in a posterior pelvic tilt with anterior displacement of the femoral heads and gluteal tightness. With sitting, Rc sacral sits with pressure on his sacrum. He has decreased hip rom into hip flexion and hip ER and tightness in the posterior gluteals. It is difficult for him to perform a squat in a functional position as he has difficulty seating the femoral heads (posterior femoral mobility). There is tenderness to palpation along the sacral borders B R>L and the coccyx feels sidebent to the right. There is tightness of the coccygeus noted bilaterally. Rc was educated in stretches for his hips and was educated in a proper sitting position to decrease sacral sitting and tightness of the posterior hips. He tolerated treatment well today and is a good candidate for PT Physical Therapy Plan Frequency and Duration Frequency of Treatment 2x/Week Duration of treatment (weeks) 8 Plan of Care Start Date 02/06/23 Plan of Care End Date 04/03/23 Therapeutic Interventions Therapeutic Interventions Home Exercise Program,Manual Therapy,Patient/Caregiver Education,Self-Care/Home Management,Soft Tissue Mobilization,Therapeutic Exercises Next Visit Focus/Plan Next Note Type Treatment Note Next Visit Plan work on stretches to release the posterior hip and piriformis, work on standing posture and seating the femoral head, proper squat position Plan of Care Dates Plan of Care Start Date 02/06/23 Plan of Care End Date 04/03/23 Electronically Signed by: Marie Arroyo, PT 02/11/23 1676 If you are in agreement with this Plan of Care, please return a signed and dated copy. I have reviewed this Plan of Care and certify that the skilled therapy services above are required to meet the patient?s needs. Physician Signature Date Printed Name and Credentials Clinical Instructor Signature Printed Name and Credentials
--- NOTE | 2023-02-11 16:40 | PT.OTN ---
Current Diagnoses Other idiopathic scoliosis, lumbar region (02/11/23) Spondylosis without myelopathy or radiculopathy, lumbar region (02/11/23) Sacrococcygeal disorders, not elsewhere classified (02/11/23) Physical Therapy Treatment Note PT-OP-A Visit Information Start: 02/06/23 09:04 Freq: Status: Active Protocol: Document 02/11/23 11:15 [facility] (Rec: 02/11/23 16:39 [facility] [id number]) Out-Patient Physical Therapy Visit Information Visit Information Visit Type Treatment Note Visit Start Time 11:15 Visit Stop Time 12:00 Total Visit Minutes 45 Visit Number 2 PT-OP-B Current Condition Start: 02/06/23 09:04 Freq: Status: Active Protocol: Document 02/06/23 09:00 [facility] (Rec: 02/11/23 16:24 [facility] [id number]) Current Condition History of Current Condition Onset Date chronic but work in the past year Current Complaints cocccyx pain limiting sitting duration History of Current Condition pt notes pain in the coccyx and has pain with sitting. He has had previous injections without any relief. Pain has been going on 15-20 years but worse in the past year. He has to sit with a donut pillow . Rc does describes some referral of pain into the left hip. Treatment Goals Patient/Caregiver Goals Pt's goals include decreasing pain with sitting so that he can sit through a movie pain free PT-OP-C Subjective Start: 02/06/23 09:04 Freq: Status: Active Protocol: Document 02/11/23 11:15 [facility] (Rec: 02/11/23 16:39 [facility] [id number]) OP-PT Subjective Patient Comments Patient Comments Rc notes he hasn't started the stretches yet but he knows he needs to start PT-OP-F Manual Assessment Start: 02/06/23 09:04 Freq: Status: Active Protocol: Document 02/06/23 09:00 [facility] (Rec: 02/11/23 15:55 [facility] [id number]) Manual Assessments Soft Tissue Assessment Soft Tissue Mobility Assessment Tightness of the coccygeus R>L , piriformis tightness R>L with decreased fascial mobility Joint Mobility Assessment Joint Mobility Assessment coccyx joint assessment presets with the coccyx sidebent to the right Other Manual Assessments Other Manual Assessments Left ischium and PSIS rests higher than the right side PT-OP-G Mobility & Gait Start: 02/06/23 09:04 Freq: Status: Active Protocol: Document 02/06/23 09:00 [facility] (Rec: 02/11/23 15:58 [facility] [id number]) OP Mobility Evaluation Functional Movements Squats pt has difficulty with seating the femoral head and has a posterior pelvic tilt for squats, he sacral sits when sitting PT-OP-J Posture/Palpation/Skin Start: 02/06/23 09:04 Freq: Status: Active Protocol: Document 02/06/23 09:00 [facility] (Rec: 02/11/23 15:55 [facility] [id number]) Posture Evaluation Position Standing Pelvis Posture Posterior Tilted Comments Posture Comments Rc stands in a posteriorly rotated position with gluteal tightness in standing and femoral head in a anterior position, he has a forward shoulder posture PT-OP-K Range of Motion Start: 02/06/23 09:04 Freq: Status: Active Protocol: Document 02/06/23 09:00 [facility] (Rec: 02/11/23 15:55 [facility] [id number]) Lumbar Spine Range of Motion Lumbar Spine Active Testing Position Supine Flexion 40 Lateral Flexion Left 10 Lateral Flexion Right 10 ROM Limitations Soft Tissue Tightness Comments pt has increased pain with lumbar extension to neutral, he stands in a forward shoulder and forward lean piosture Hip Goniometric Range of Motion Hip Left Hip ROM WFL No Testing Position Supine Flexion w/Knee Flexed 100 Straight Leg Raise 45 Abduction 20 External Rotation 10 Right Hip ROM WFL No Testing Position Supine Flexion w/Knee Flexed 95 Straight Leg Raise 45 Abduction 20 External Rotation 10 Comments pt is very restricted in flexion and hip ER PT-OP-Q Treatments Start: 02/06/23 09:04 Freq: Status: Active Protocol: Document 02/11/23 11:15 [facility] (Rec: 02/11/23 16:39 [facility] [id number]) Therapeutic Exercises Supine Exercises supine piriformis stretch Reps/Minutes hold 30 seconds to 1 min Comments heel rests on opp knee supine hamstring stretch with hands behind knee and flossing the LE Side bilateral Reps/Minutes 10-20 reps supine pulling knee across the chest Reps/Minutes 30 sec x 2 sigle knee to chest stretch Reps/Minutes 30 sec x 2 reps Standing Exercises work on standing posture and standing squats seating the femoral head Reps/Minutes x 10 reps Comments cues to seat the femoral head Manual Therapy Treatment Soft Tissue Mobilization piriformis release Comments worked in left sidelying today to release the right piriformis Self-Care/Home Management Treatment Education Patient Education Home Exercise Program Other Education Rc was educated in using the miracle balls or a tennis ball for self release of the gluteal muscles PT-OP-T Assessment and Plan Start: 02/06/23 09:04 Freq: Status: Active Protocol: Document 02/11/23 11:15 [facility] (Rec: 02/11/23 16:39 [facility] [id number]) Physical Therapy Assessment Assessment Summary Assessment Rc has difficulty performing a squat with posterior seating of the femoral head and he required verbal cueing. Time was spent on postural modification to get him out of the posterior pelvic tilt posture Physical Therapy Plan Frequency and Duration Frequency of Treatment 2x/Week Duration of treatment (weeks) 8 Plan of Care Start Date 02/06/23 Plan of Care End Date 04/03/23 Therapeutic Interventions Therapeutic Interventions Home Exercise Program,Manual Therapy,Patient/Caregiver Education,Self-Care/Home Management,Soft Tissue Mobilization,Therapeutic Exercises Next Visit Focus/Plan Next Note Type Treatment Note Next Visit Plan continue with standing posture adjustments, sit-stand and squats, stretches for the hips and manual therapy techniques to release the posterior gluteals
--- NOTE | 2023-02-13 17:32 | PT.OTN ---
Current Diagnoses Other idiopathic scoliosis, lumbar region (02/13/23) Spondylosis without myelopathy or radiculopathy, lumbar region (02/13/23) Sacrococcygeal disorders, not elsewhere classified (02/13/23) Physical Therapy Treatment Note PT-OP-A Visit Information Start: 02/06/23 09:04 Freq: Status: Active Protocol: Document 02/13/23 09:01 [facility] (Rec: 02/13/23 09:22 [facility] [id number]) Out-Patient Physical Therapy Visit Information Visit Information Visit Type Treatment Note Visit Start Time 09:00 Visit Stop Time 09:45 Total Visit Minutes 45 Visit Number 3 PT-OP-B Current Condition Start: 02/06/23 09:04 Freq: Status: Active Protocol: Document 02/06/23 09:00 [facility] (Rec: 02/11/23 16:24 [facility] [id number]) Current Condition History of Current Condition Onset Date chronic but work in the past year Current Complaints cocccyx pain limiting sitting duration History of Current Condition pt notes pain in the coccyx and has pain with sitting. He has had previous injections without any relief. Pain has been going on 15-20 years but worse in the past year. He has to sit with a donut pillow . Rc tsai describes some referral of pain into the left hip. Treatment Goals Patient/Caregiver Goals Pt's goals include decreasing pain with sitting so that he can sit through a movie pain free PT-OP-C Subjective Start: 02/06/23 09:04 Freq: Status: Active Protocol: Document 02/13/23 09:01 [facility] (Rec: 02/13/23 09:22 [facility] [id number]) OP-PT Subjective Patient Comments Patient Comments cR notafteres he was a little sore after last visit from stretching in the front of his hips but is better now Patient Reported Progress Same PT-OP-F Manual Assessment Start: 02/06/23 09:04 Freq: Status: Active Protocol: Document 02/06/23 09:00 [facility] (Rec: 02/11/23 15:55 [facility] [id number]) Manual Assessments Soft Tissue Assessment Soft Tissue Mobility Assessment Tightness of the coccygeus R>L , piriformis tightness R>L with decreased fascial mobility Joint Mobility Assessment Joint Mobility Assessment coccyx joint assessment presets with the coccyx sidebent to the right Other Manual Assessments Other Manual Assessments Left ischium and PSIS rests higher than the right side PT-OP-G Mobility & Gait Start: 02/06/23 09:04 Freq: Status: Active Protocol: Document 02/06/23 09:00 [facility] (Rec: 02/11/23 15:58 [facility] [id number]) OP Mobility Evaluation Functional Movements Squats pt has difficulty with seating the femoral head and has a posterior pelvic tilt for squats, he sacral sits when sitting PT-OP-J Posture/Palpation/Skin Start: 02/06/23 09:04 Freq: Status: Active Protocol: Document 02/06/23 09:00 [facility] (Rec: 02/11/23 15:55 [facility] [id number]) Posture Evaluation Position Standing Pelvis Posture Posterior Tilted Comments Posture Comments Rc stands in a posteriorly rotated position with gluteal tightness in standing and femoral head in a anterior position, he has a forward shoulder posture PT-OP-K Range of Motion Start: 02/06/23 09:04 Freq: Status: Active Protocol: Document 02/06/23 09:00 [facility] (Rec: 02/11/23 15:55 [facility] [id number]) Lumbar Spine Range of Motion Lumbar Spine Active Testing Position Supine Flexion 40 Lateral Flexion Left 10 Lateral Flexion Right 10 ROM Limitations Soft Tissue Tightness Comments pt has increased pain with lumbar extension to neutral, he stands in a forward shoulder and forward lean piosture Hip Goniometric Range of Motion Hip Left Hip ROM WFL No Testing Position Supine Flexion w/Knee Flexed 100 Straight Leg Raise 45 Abduction 20 External Rotation 10 Right Hip ROM WFL No Testing Position Supine Flexion w/Knee Flexed 95 Straight Leg Raise 45 Abduction 20 External Rotation 10 Comments pt is very restricted in flexion and hip ER PT-OP-Q Treatments Start: 02/06/23 09:04 Freq: Status: Active Protocol: Document 02/13/23 09:01 [facility] (Rec: 02/13/23 09:22 [facility] [id number]) Therapeutic Exercises Supine Exercises supine piriformis stretch Reps/Minutes hold 30 seconds to 1 min Comments heel rests on opp knee supine hamstring stretch with hands behind knee and flossing the LE Side bilateral Reps/Minutes 10-20 reps supine pulling knee across the chest Reps/Minutes 30 sec x 2 sigle knee to chest stretch Reps/Minutes 30 sec x 2 reps Standing Exercises standing rows Reps/Minutes 20# with cables 3x10 reps work on standing posture and standing squats seating the femoral head Reps/Minutes x 10 reps Comments cues to seat the femoral head Manual Therapy Treatment Soft Tissue Mobilization piriformis release Mobilization Type Myofascial Release Intensity/Depth Moderate Comments worked in right sidelying today to release the left piriformis PT-OP-T Assessment and Plan Start: 02/06/23 09:04 Freq: Status: Active Protocol: Document 02/13/23 09:00 [facility] (Rec: 02/16/23 17:32 [facility] [id number]) Physical Therapy Assessment Assessment Summary Assessment Some improvement with form with squats today. Rc tends to round his upper back verses hinging from the hips for a squat. He was given cues for posture and I added in standing rows which he will work on at the gym Physical Therapy Plan Frequency and Duration Frequency of Treatment 2x/Week Duration of treatment (weeks) 8 Plan of Care Start Date 02/06/23 Plan of Care End Date 04/03/23 Therapeutic Interventions Therapeutic Interventions Home Exercise Program,Manual Therapy,Patient/Caregiver Education,Self-Care/Home Management,Soft Tissue Mobilization,Therapeutic Exercises Next Visit Focus/Plan Next Note Type Treatment Note Next Visit Plan continue with standing posture adjustments, sit-stand and squats, stretches for the hips and manual therapy technqiues to release the posterior gluteals
--- NOTE | 2023-02-20 16:45 | PT.OTN ---
Current Diagnoses Other idiopathic scoliosis, lumbar region (02/20/23) Spondylosis without myelopathy or radiculopathy, lumbar region (02/20/23) Sacrococcygeal disorders, not elsewhere classified (02/20/23) Physical Therapy Treatment Note PT-OP-A Visit Information Start: 02/06/23 09:04 Freq: Status: Active Protocol: Document 02/20/23 08:51 [facility] (Rec: 02/20/23 09:47 [facility] [id number]) Out-Patient Physical Therapy Visit Information Visit Information Visit Type Treatment Note Visit Start Time 09:00 Visit Stop Time 09:45 Total Visit Minutes 45 Visit Number 4 PT-OP-B Current Condition Start: 02/06/23 09:04 Freq: Status: Active Protocol: Document 02/06/23 09:00 [facility] (Rec: 02/11/23 16:24 [facility] [id number]) Current Condition History of Current Condition Onset Date chronic but work in the past year Current Complaints cocccyx pain limiting sitting duration History of Current Condition pt notes pain in the coccyx and has pain with sitting. He has had previous injections without any relief. Pain has been going on 15-20 years but worse in the past year. He has to sit with a donut pillow . Rc does describes some referral of pain into the left hip. Treatment Goals Patient/Caregiver Goals Pt's goals include decreasing pain with sitting so that he can sit through a movie pain free PT-OP-C Subjective Start: 02/06/23 09:04 Freq: Status: Active Protocol: Document 02/20/23 08:51 [facility] (Rec: 02/20/23 09:47 [facility] [id number]) OP-PT Subjective Patient Comments Patient Comments Rc notes the day after PT he is a little sore in the front of his hip but then it gets better PT-OP-F Manual Assessment Start: 02/06/23 09:04 Freq: Status: Active Protocol: Document 02/06/23 09:00 [facility] (Rec: 02/11/23 15:55 [facility] [id number]) Manual Assessments Soft Tissue Assessment Soft Tissue Mobility Assessment Tightness of the coccygeus R>L , piriformis tightness R>L with decreased fascial mobility Joint Mobility Assessment Joint Mobility Assessment coccyx joint assessment presets with the coccyx sidebent to the right Other Manual Assessments Other Manual Assessments Left ischium and PSIS rests higher than the right side PT-OP-G Mobility & Gait Start: 02/06/23 09:04 Freq: Status: Active Protocol: Document 02/06/23 09:00 [facility] (Rec: 02/11/23 15:58 [facility] [id number]) OP Mobility Evaluation Functional Movements Squats pt has difficulty with seating the femoral head and has a posterior pelvic tilt for squats, he sacral sits when sitting PT-OP-J Posture/Palpation/Skin Start: 02/06/23 09:04 Freq: Status: Active Protocol: Document 02/06/23 09:00 [facility] (Rec: 02/11/23 15:55 [facility] [id number]) Posture Evaluation Position Standing Pelvis Posture Posterior Tilted Comments Posture Comments Rc stands in a posteriorly rotated position with gluteal tightness in standing and femoral head in a anterior position, he has a forward shoulder posture PT-OP-K Range of Motion Start: 02/06/23 09:04 Freq: Status: Active Protocol: Document 02/06/23 09:00 [facility] (Rec: 02/11/23 15:55 [facility] [id number]) Lumbar Spine Range of Motion Lumbar Spine Active Testing Position Supine Flexion 40 Lateral Flexion Left 10 Lateral Flexion Right 10 ROM Limitations Soft Tissue Tightness Comments pt has increased pain with lumbar extension to neutral, he stands in a forward shoulder and forward lean piosture Hip Goniometric Range of Motion Hip Left Hip ROM WFL No Testing Position Supine Flexion w/Knee Flexed 100 Straight Leg Raise 45 Abduction 20 External Rotation 10 Right Hip ROM WFL No Testing Position Supine Flexion w/Knee Flexed 95 Straight Leg Raise 45 Abduction 20 External Rotation 10 Comments pt is very restricted in flexion and hip ER PT-OP-Q Treatments Start: 02/06/23 09:04 Freq: Status: Active Protocol: Document 02/20/23 08:51 [facility] (Rec: 02/20/23 09:47 [facility] [id number]) Therapeutic Exercises Supine Exercises supine piriformis stretch Reps/Minutes hold 30 seconds to 1 min Comments heel rests on opp knee supine hamstring stretch with hands behind knee and flossing the LE Side bilateral Reps/Minutes 10-20 reps supine pulling knee across the chest Reps/Minutes 30 sec x 2 sigle knee to chest stretch Reps/Minutes 30 sec x 2 reps Standing Exercises standing modified down dog Standing Exercise Name modified at the [facility] standing rows Reps/Minutes 20# with cables 3x10 reps work on standing posture and standing squats seating the femoral head Reps/Minutes x 10 reps Comments cues to seat the femoral head Manual Therapy Treatment Soft Tissue Mobilization piriformis release Mobilization Type Myofascial Release Intensity/Depth Moderate Comments worked in prone on piriformis release bilaterally, left greater than right sided tightness present PT-OP-T Assessment and Plan Start: 02/06/23 09:04 Freq: Status: Active Protocol: Document 02/20/23 08:51 [facility] (Rec: 02/20/23 16:45 [facility] [id number]) Physical Therapy Assessment Assessment Summary Assessment pt still having difficulty with not standing in a posteriorly rotated position with gluteal tightness but he has been able to take cues to seat the femoral heads with squats. He really likes the TRX at the gym so he was shown how to do standing squats in proper form with TRX bands. I started modified down dog today with hands on table to help relax the gluteal attachments to coccyx Physical Therapy Plan Frequency and Duration Frequency of Treatment 2x/Week Duration of treatment (weeks) 8 Plan of Care Start Date 02/06/23 Plan of Care End Date 04/03/23 Next Visit Focus/Plan Next Note Type Treatment Note Next Visit Plan continue with standing posture adjustments, sit-stand and squats, stretches for the hips and manual therapy technqiues to release the posterior gluteals
--- NOTE | 2023-04-08 09:38 | PT.OPDS ---
Current Diagnoses Other idiopathic scoliosis, lumbar region (02/20/23) Spondylosis without myelopathy or radiculopathy, lumbar region (02/20/23) Sacrococcygeal disorders, not elsewhere classified (02/20/23) Visit Care Team Role Provider Type Hyun Rahman DO Family Provider Physician Primary Care Provider Specialty: Family Practice Address: [address] [place] [address], [address], [address] Email: [email or web address] Leonardo Wilkes MD Attending Provider Physician Referring Provider Specialty: Orthopedics Orthopedic Surgery Address: [address] [place] [address], [id number] Email: [email or web address] Visit Number Visit Number 4 Discharge Summary PT-OP-B Current Condition Start: 02/06/23 09:04 Freq: Status: Active Protocol: Document 02/06/23 09:00 [facility] (Rec: 02/11/23 16:24 [facility] [id number]) Current Condition History of Current Condition Onset Date chronic but work in the past year Current Complaints cocccyx pain limiting sitting duration History of Current Condition pt notes pain in the coccyx and has pain with sitting. He has had previous injections without any relief. Pain has been going on 15-20 years but worse in the past year. He has to sit with a donut pillow . Rc does describes some referral of pain into the left hip. Treatment Goals Patient/Caregiver Goals Pt's goals include decreasing pain with sitting so that he can sit through a movie pain free PT-OP-C Subjective Start: 02/06/23 09:04 Freq: Status: Active Protocol: Document 02/20/23 08:51 [facility] (Rec: 02/20/23 09:47 [facility] [id number]) OP-PT Subjective Patient Comments Patient Comments Rc notes the day after PT he is a little sore in the front of his hip but then it gets better PT-OP-F Manual Assessment Start: 02/06/23 09:04 Freq: Status: Active Protocol: Document 02/06/23 09:00 [facility] (Rec: 02/11/23 15:55 [facility] [id number]) Manual Assessments Soft Tissue Assessment Soft Tissue Mobility Assessment Tightness of the coccygeus R>L , piriformis tightness R>L with decreased fascial mobility Joint Mobility Assessment Joint Mobility Assessment coccyx joint assessment presets with the coccyx sidebent to the right Other Manual Assessments Other Manual Assessments Left ischium and PSIS rests higher than the right side PT-OP-G Mobility & Gait Start: 02/06/23 09:04 Freq: Status: Active Protocol: Document 02/06/23 09:00 [facility] (Rec: 02/11/23 15:58 [facility] [id number]) OP Mobility Evaluation Functional Movements Squats pt has difficulty with seating the femoral head and has a posterior pelvic tilt for squats, he sacral sits when sitting PT-OP-J Posture/Palpation/Skin Start: 02/06/23 09:04 Freq: Status: Active Protocol: Document 02/06/23 09:00 [facility] (Rec: 02/11/23 15:55 [facility] [id number]) Posture Evaluation Position Standing Pelvis Posture Posterior Tilted Comments Posture Comments Rc stands in a posteriorly rotated position with gluteal tightness in standing and femoral head in a anterior position, he has a forward shoulder posture PT-OP-K Range of Motion Start: 02/06/23 09:04 Freq: Status: Active Protocol: Document 02/06/23 09:00 [facility] (Rec: 02/11/23 15:55 [facility] [id number]) Lumbar Spine Range of Motion Lumbar Spine Active Testing Position Supine Flexion 40 Lateral Flexion Left 10 Lateral Flexion Right 10 ROM Limitations Soft Tissue Tightness Comments pt has increased pain with lumbar extension to neutral, he stands in a forward shoulder and forward lean piosture Hip Goniometric Range of Motion Hip Left Hip ROM WFL No Testing Position Supine Flexion w/Knee Flexed 100 Straight Leg Raise 45 Abduction 20 External Rotation 10 Right Hip ROM WFL No Testing Position Supine Flexion w/Knee Flexed 95 Straight Leg Raise 45 Abduction 20 External Rotation 10 Comments pt is very restricted in flexion and hip ER PT-OP-T Assessment and Plan Start: 02/06/23 09:04 Freq: Status: Active Protocol: Document 04/08/23 09:36 [facility] (Rec: 04/08/23 09:38 [facility] [id number]) Physical Therapy Assessment Assessment Summary Assessment As of last visit Rc was still having difficulty not standing in a posterior rotated position with gluteal tightness but was doing better with his squats and the ability to hinge at his hips. Unfortunately he is not able to finish his course of PT at this time and has needed to cx his remaining PT visits. I would be happy to restart PT for him in the future Physical Therapy Plan Discharge Physical Therapy Discharge Reasons No Longer Attending PT
== END 2023-04-10 11:03 | disposition home or self-care (01) ==
LOC: PHYS 09:00
PROVIDERS: Family Provider Family Medicine; PCP Family Medicine; Referring Provider Physical Medicine & Rehabilitation; Visit Provider Physical Medicine & Rehabilitation
DX: M47.816 Spondylosis without myelopathy or radiculopathy, lumbar region (principal); M41.26 Other idiopathic scoliosis, lumbar region; M53.3 Sacrococcygeal disorders, not elsewhere classified
CPT/HCPCS: 97110; 97140; 97161

== ENCOUNTER → 2023-02-21 08:49 | Outpatient (CLI) | payer MEDICARE, OTHER, SELFPAY ==
[2022-01-11 21:53] VITALS: BMI 30.8
--- NOTE | 2023-02-21 | DI.CT.S_ITS ---
PROCEDURE: CT ABDOMEN RENAL PROTOCOL INDICATIONS: RIGHT RENAL MASS / ACQUIRED RENAL CYST OF L KIDNEY TECHNIQUE: Optional 5 mm thick noncontrast images acquired from the diaphragm to the iliac crests. After the administration of intravenous contrast, 5 mm thick images again acquired from the diaphragm to the iliac crests in the arterial and urographic phases. 5 mm thick coronal and sagittal reformats were then acquired. For radiation dose reduction, the following was used: automated exposure control, adjustment of mA and/or kV according to patient size. COMPARISON: [facility], CT, CT KIDNEY URETER BLADDER (KUB), 05/18/2020, 13:26. [facility], CT, CT KIDNEY URETER BLADDER (KUB), 10/24/2021, 11:17. [facility], CT, CT ABDOMEN PELVIS W CON, 01/11/2022, 18:55. [facility], US, US RENAL COMPLETE, 09/04/2022, 10:40. FINDINGS: Image quality: Excellent. Lung bases: Lung bases are clear. Heart size is prominent. Gynecomastia. Genitourinary: No solid renal mass. No suspicious enhancement. Right mid kidney dense cyst measuring 0.7 cm, (2/30), appears unchanged. This measures 52 Hounsfield units. No convincing enhancement. Benign left renal cyst measuring 3.7 cm. Additional small subcentimeter cysts at the inferior pole the left kidney are unchanged. No hydronephrosis. Staghorn calculus in the left kidney, unchanged. No proximal hydroureter. Other solid organs: Liver is prominent in size. Hepatic steatosis. Gallbladder is decompressed . Biliary system is non dilated. Pancreas enhances normally. Spleen is normal in size and enhancement. No adrenal nodules. Peritoneum and bowel: Stomach is not significantly distended. There are prominent loops of fluid-filled small bowel in the left abdomen. Similar to prior CT. Colon is within normal limits. No free fluid or air. Nodes and vessels: No retroperitoneal or mesenteric adenopathy by size criteria. Aorta and inferior vena cava are normal in caliber. Bones: No suspicious bony lesions. No vertebral body compression fractures. Miscellaneous: No ventral hernias. IMPRESSION: 1. No solid renal mass. 2. Mid right kidney cyst with increased density measuring 0.7 cm is similar in size dating back to at least 2020. This likely represents a hemorrhagic/proteinaceous cysts. 3. Left kidney staghorn calculus. No hydronephrosis. 4. Prominent loops of small bowel in the left abdomen are again seen. Lower suspicion for obstruction. Recommend clinical correlation. Dictated by: Elmer Hinojosa M.D. on 02/21/2023 at 9:48 Approved by: Elmer Hinojosa M.D. on 02/21/2023 at 10:05
== END ==
PROVIDERS: Family Provider Family Medicine; PCP Family Medicine; Referring Provider Physician Assistant Surgical; Visit Provider Physician Assistant Surgical
DX: N28.89 Other specified disorders of kidney and ureter (principal); N28.1 Cyst of kidney, acquired
CPT/HCPCS: 74170; Q9967

== ENCOUNTER → 2023-03-11 15:44 | Outpatient (CLI) | payer MEDICARE, OTHER, SELFPAY ==
[2022-01-11 21:53] VITALS: BMI 30.8
[2023-03-11 17:07] LABS: Appearance Urine UA SL CLOUDY; Bilirubin Urine UA NEGATIVE (NEGATIVE); Color Urine UA YELLOW; Glucose Urine UA NEGATIVE (Negative); Ketones Urine UA NEGATIVE (NEGATIVE); Leukocyte Esterase Urine UA 1+ (NEGATIVE); Nitrite Urine UA NEGATIVE (Negative); Occult Blood Urine UA 3+ (Negative); Protein Urine UA 2+ (Negative); Specific Gravity Urine UA 1.025 (1.000-1.035); Urobilinogen Urine UA 0.2 E.U./dL (0.2)
[2023-03-11 17:20] LABS: Bacteria Urine Moderate (10-30); Culture Indicated Urine Specimen Cultured; RBC Urine >100/HPF (0-5/HPF); Squamous Epithelial Cell Urine 0-1 /HPF (0-5/HPF); WBC Urine 10-30/HPF (0-5/HPF)
== END ==
LOC: LAB 15:48
PROVIDERS: Family Provider Family Medicine; PCP Family Medicine; Referring Provider Physician Assistant Surgical; Visit Provider Physician Assistant Surgical
DX: N20.0 Calculus of kidney (principal); R30.0 Dysuria; R39.15 Urgency of urination
CPT/HCPCS: 81001; 87086

== ENCOUNTER → 2023-04-14 09:49 | Outpatient (CLI) | payer MEDICARE, OTHER, SELFPAY ==
[2022-01-11 21:53] VITALS: BMI 30.8
--- NOTE | 2023-04-14 09:51 | DI.CT.S_ITS ---
PROCEDURE: CT KIDNEY URETER BLADDER (KUB) INDICATIONS: Calculus of kidney TECHNIQUE: Axial sections were acquired from the lung bases to the pubic symphysis. Coronal and sagittal reformats were performed. For radiation dose reduction, the following was used: automated exposure control, adjustment of mA and/or kV according to patient size. COMPARISON: [facility], CT, CT ABDOMEN RENAL PROTOCOL, 02/21/2023, 9:00. [facility], CT, CT KIDNEY URETER BLADDER (KUB), 10/24/2021, 11:17. FINDINGS: Image quality: Diagnostic. Lower Chest: No significant findings. URINARY: Right Kidney: Mild renal atrophy. No obstruction. 2 punctate calcifications are present. Stable appearance 4 mm exophytic hyperdense focus possibly cyst. Right Ureter: No hydroureter. Left Kidney: Interval ureterovesicular stent is present. Stent is present proximally at the ureteropelvic junction and distal aspect within the bladder. There is no gross obstruction although slight prominence of the renal pelvis is unchanged. Previous staghorn calculus remains present although decreased compared to prior exam. 2 foci remain measuring 1.2 x 0.7 cm and 1.0 x 0.8 cm. Compared to 3.9 x 1.6 cm and 2.7 x 1.4 cm. Unchanged simple left renal cyst. Left Ureter: No hydroureter. Bladder: Normal wall thickness. No stones. ABDOMEN: Liver: No contour-deforming solid mass. Gallbladder: No radiopaque gallstones or wall thickening. Biliary ducts: No biliary dilation. Pancreas: No ductal dilation. Spleen: Size is within normal limits. Adrenal Glands: No adrenal nodules. Stomach and Bowel: Normal colonic caliber, without significant wall thickening. Peritoneum: No abnormal intraperitoneal fluid. No free air. Ventral Wall: No hernia. Abdominal Nodes: No enlarged retroperitoneal or mesenteric lymph nodes. Vessels: Aorta and inferior vena cava are normal in size. PELVIS: Pelvic Organs: Unremarkable. Pelvic Nodes: Unremarkable. Miscellaneous: Bilateral fat containing inguinal hernias are seen. Bones: Unremarkable. IMPRESSION: Persistent although decreased left renal staghorn calculus. Ureterovesicular stent as above with proximal aspect at the ureteropelvic junction. Dictated by: Allyson Huang M.D. on 04/14/2023 at 16:47 Approved by: Mary Watts M.D. on 04/15/2023 at 9:33
== END ==
LOC: CT 09:50
PROVIDERS: Family Provider Family Medicine; PCP Family Medicine; Referring Provider Urology; Visit Provider Urology
DX: N20.0 Calculus of kidney (principal); Z96.0 Presence of urogenital implants
CPT/HCPCS: 74176

== ENCOUNTER → 2023-05-13 08:45 | Outpatient (CLI) | payer MEDICARE, OTHER, SELFPAY ==
[2022-01-11 21:53] VITALS: BMI 30.8
--- NOTE | 2023-05-13 08:47 | DI.CT.S_ITS ---
PROCEDURE: CT KIDNEY URETER BLADDER (KUB) INDICATIONS: Calculus of kidney TECHNIQUE: Axial sections were acquired from the lung bases to the pubic symphysis. Coronal and sagittal reformats were performed. For radiation dose reduction, the following was used: automated exposure control, adjustment of mA and/or kV according to patient size. COMPARISON: [facility], CT, CT KIDNEY URETER BLADDER (KUB), 10/24/2021, 11:17. [facility], CT, CT KIDNEY URETER BLADDER (KUB), 04/14/2023, 9:59. FINDINGS: Image quality: Diagnostic. Lower Chest: No significant findings. URINARY: Right Kidney: There is moderate renal atrophy and moderate perinephric fat stranding. A 3 mm hyperdense cyst is redemonstrated within the right midpole unchanged from the study dated October 24, 2021. No nephrolithiasis or hydronephrosis. Right Ureter: No hydroureter. No ureterolithiasis Left Kidney: There is moderate left renal atrophy and moderate left perinephric fat stranding. A low-density cyst is present within the midpole, as before. There is mild left pelviectasis. A left double-J ureteral stent is present with the distal aspect of the bladder. No nephrolithiasis. Left Ureter: No hydroureter. No ureterolithiasis Bladder: The bladder is moderately distended and thin walled. No bladder calculi. ABDOMEN: Liver: No contour-deforming solid mass. Gallbladder: No radiopaque gallstones or wall thickening. Biliary ducts: No biliary dilation. Pancreas: No ductal dilation. Spleen: Size is within normal limits. Adrenal Glands: No adrenal nodules. Stomach and Bowel: Normal colonic caliber, without significant wall thickening. The appendix is not visualized; however there is no discrete right lower quadrant fluid or fat stranding to suggest acute appendicitis. Peritoneum: No abnormal intraperitoneal fluid. No free air. Ventral Wall: No hernia. Abdominal Nodes: No enlarged retroperitoneal or mesenteric lymph nodes. Vessels: Aorta and inferior vena cava are normal in size. There are scattered atheromatous calcifications throughout the aorta and iliac arteries bilaterally. PELVIS: Pelvic Organs: Unremarkable. Pelvic Nodes: Unremarkable. Miscellaneous: There is a moderate right and a large left fat containing inguinal hernia. Bones: Unremarkable. IMPRESSION: 1. No residual calculi visualized within the renal collecting systems. No bladder calculi. 2. Mild left pelviectasis. Left double-J ureteral stent appears appropriately placed. Dictated by: Allyson Huang M.D. on 05/13/2023 at 10:43 Approved by: Allyson Huang M.D. on 05/13/2023 at 10:48
== END ==
PROVIDERS: Family Provider Family Medicine; PCP Family Medicine; Referring Provider Urology; Visit Provider Urology
DX: N20.0 Calculus of kidney (principal); N26.1 Atrophy of kidney (terminal); N28.1 Cyst of kidney, acquired; N32.89 Other specified disorders of bladder; K40.20 Bilateral inguinal hernia, without obstruction or gangrene, not specified as recurrent; Z96.0 Presence of urogenital implants
CPT/HCPCS: 74176

== ENCOUNTER → 2023-06-10 09:51 | Outpatient (CLI) | payer MEDICARE, OTHER, SELFPAY ==
[2022-01-11 21:53] VITALS: BMI 30.8
[2023-06-10 12:00] LABS: Prostate Specific Antigen 0.509 ng/mL (0.10-4.00)
== END ==
PROVIDERS: Family Provider Family Medicine; PCP Family Medicine; Referring Provider Specialist; Visit Provider Specialist
DX: N40.1 Benign prostatic hyperplasia with lower urinary tract symptoms (principal); N13.8 Other obstructive and reflux uropathy
CPT/HCPCS: 36415; 84153

== ENCOUNTER → 2023-09-12 10:26 | Outpatient (CLI) | payer MEDICARE, OTHER, SELFPAY ==
[2022-01-11 21:53] VITALS: BMI 30.8
[2023-09-12 11:18] LABS: Hematocrit 39.3 % (41-53); Mean Corpuscular Hemoglobin 27.5 PG (26-34); Mean Corpuscular Volume 83.3 fL (80-100); Platelet Count 147 X10^3/uL (150-400); Red Blood Cell Count 4.72 X10^6/uL (4.5-5.9); Red Cell Distribution Width 16.2 % (11.6-14.8); White Blood Cell Count 6.8 X10^3/uL (4.5-11.0)
[2023-09-12 11:18] LABS: Add Manual Diff / Slide Review NO; Basophils Absolute Auto 100 /uL (0-100); Basophils Percent Auto 0.9 % (0-2); Eosinophils Absolute Auto 200 /uL (0-450); Eosinophils Percent Auto 2.6 % (2-4); Hematocrit 39.2 % (41-53); Hemoglobin 12.9 g/dL (13.5-17.5); Lymphocytes Absolute Auto 1200 /uL (1100-4500); Lymphocytes Percent Auto 18.4 % (25-40); Mean Corpuscular HGB Conc 32.9 % (30-36); Mean Corpuscular Hemoglobin 27.3 PG (26-34); Monocytes Absolute Auto 700 /uL (0-900); Monocytes Percent Auto 10.9 % (3-14); Neutrophils Absolute Auto 4500 /uL (1500-7000); Neutrophils Percent Auto 67.2 % (50-75); Platelet Count 150 X10^3/uL (150-400); Red Blood Cell Count 4.72 X10^6/uL (4.5-5.9); Red Cell Distribution Width 15.9 % (11.6-14.8); White Blood Cell Count 6.7 X10^3/uL (4.5-11.0)
[2023-09-12 11:53] LABS: BUN Creatinine Ratio 20.3 (6-22); Blood Urea Nitrogen 27 mg/dL (9-20); Calcium 8.9 mg/dL (8.4-10.2); Carbon Dioxide 26 mmol/L (22-32); Chloride 108 mmol/L (98-107); Estimated Glomerular Filt Rate 56 mL/min (>60); Glucose 98 mg/dL (80-110); HEMOLYSIS < 15 (0-50); Potassium 4.8 mmol/L (3.4-5.1); Sodium 138 mmol/L (137-145)
[2023-09-12 11:55] LABS: Alanine Aminotransferase 18 IU/L (<50); Albumin 3.8 g/dL (3.5-5.0); Albumin Globulin Ratio 1.4 (1.0-2.8); Alkaline Phosphatase 89 U/L (38-126); Aspartate Aminotransferase 23 IU/L (17-59); BUN Creatinine Ratio 20.3 (6-22); Bilirubin Total 0.6 mg/dL (0.2-1.3); Blood Urea Nitrogen 27 mg/dL (9-20); Calcium 9.2 mg/dL (8.4-10.2); Carbon Dioxide 27 mmol/L (22-32); Chloride 108 mmol/L (98-107); Cholesterol 125 mg/dL (140-199); Estimated Glomerular Filt Rate 56 mL/min (>60); Globulin 2.7 g/dL (1.7-4.1); Glucose 97 mg/dL (80-110); HDL Cholesterol 30 mg/dL (40-60); HEMOLYSIS < 15 (0-50); LDL Cholesterol Calculated 81 mg/dL (<100); Potassium 4.7 mmol/L (3.4-5.1); Sodium 137 mmol/L (137-145); Total Protein 6.5 g/dL (6.3-8.2); Triglycerides 72 mg/dL (35-150)
[2023-09-12 12:01] LABS: NT-proBNP (BNP-Adult 18+) 2970 pg/mL (<450)
[2023-09-12 14:22] LABS: Hemoglobin A1C% w Est Avg Glu 5.8 % (4.0-6.0)
== END ==
LOC: LAB 10:28
PROVIDERS: Family Provider Family Medicine; PCP Family Medicine; Referring Provider Internal Medicine Cardiovascular Disease; Visit Provider Internal Medicine Cardiovascular Disease
DX: I25.119 Atherosclerotic heart disease of native coronary artery with unspecified angina pectoris (principal); E11.9 Type 2 diabetes mellitus without complications; I12.9 Hypertensive chronic kidney disease with stage 1 through stage 4 chronic kidney disease, or unspecified chronic kidney disease; N18.9 Chronic kidney disease, unspecified; I20.89 Other forms of angina pectoris
CPT/HCPCS: 36415; 80048; 80053; 80061; 83036; 83880; 85025; 85027

== ENCOUNTER 2023-09-20 07:02 | Emergency (ER) | payer MEDICARE, OTHER, SELFPAY ==
[2022-01-11 21:53] VITALS: BMI 30.8
[2023-09-20] VITALS (20 sets, daily range): BP systolic 143–169; BP diastolic 64–75; PULSE 54–65; RESP 10–37; TEMP 36.5; O2SAT 94–98; BMI 33.3
--- NOTE | 2023-09-20 07:10 | DI.RAD.S_ITS ---
PROCEDURE: XR CHEST 1V INDICATIONS: sob TECHNIQUE: One view of the chest was acquired. COMPARISON: [facility], CR, XR CHEST 1V, 03/13/2022, 11:06. FINDINGS: Surgical changes and devices: Median sternotomy wires and surgical clips are seen. Lungs and pleura: There is suggestion of mild pulmonary vascular congestion. No definite focal infiltrate. No pleural effusions or pneumothorax. Mediastinum: Mediastinal contours appear normal. Heart size is enlarged. Bones and chest wall: No suspicious bony lesions. Overlying soft tissues appear unremarkable. IMPRESSION: Cardiomegaly and mild congestion. No definite focal infiltrate. No pleural effusion or pneumothorax. Dictated by: Ben Montilla M.D. on 09/20/2023 at 8:14 Approved by: Ben Montilla M.D. on 09/20/2023 at 8:15
--- NOTE | 2023-09-20 07:19 | ED_ITS ---
HPI - General Adult General Chief complaint: Shortness of Breath/Dyspnea Stated complaint: SOB, post cardiac catheter yesterday Time Seen by Provider: 09/20/23 07:07 Source: patient Mode of arrival: Ambulatory Limitations: no limitations History of Present Illness HPI narrative: 73-year-old male. Known history of coronary artery disease. Had a cardiac catheterization performed yesterday. He states there were 2 stents placed. He was here for evaluation of shortness of breath. 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 He denies chest pain. Does have lower extremity swelling with this is not new. He states he was actually shortness of breath with rest and with exertion for several months but it has actually been worsening over the past 2 days. It is worse now than what it was yesterday prior to the catheterization. No abdominal pain but is having some nausea. No coughing. No fevers. Related Data Home Medications Medication Instructions Recorded Confirmed cholecalciferol (vitamin D3) 125 125 mcg PO DAILY 06/11/19 09/16/23 mcg (5,000 unit) capsule nitroglycerin 0.4 mg/hr 1 patch transdermal DAILY 12/16/21 09/16/23 transdermal 24 hour patch magnesium citrate 4 gram oral 400 mg PO DAILY 01/24/22 09/16/23 packet melatonin 3 mg tablet 3 mg PO BEDTIME PRN Insomnia 01/24/22 09/16/23 vitamin K2 100 mcg capsule 480 mcg PO DAILY 01/24/22 09/16/23 amlodipine 5 mg tablet 5 mg PO DAILY 04/16/22 09/16/23 valsartan 40 mg tablet 20 mg PO DAILY 04/16/22 09/16/23 spironolactone 25 mg tablet 25 mg PO DAILY 08/07/22 09/16/23 metoprolol succinate 100 mg 100 mg PO DAILY 09/17/22 09/16/23 tablet,extended release 24 hr nitroglycerin 0.4 mg sublingual mg sublingual 05/27/23 09/16/23 tablet clopidogrel 75 mg tablet 75 mg PO DAILY 09/09/23 09/16/23 rosuvastatin 20 mg tablet 20 mg PO ONCE PM 09/09/23 09/16/23 Previous Rx's Medication Instructions Recorded aspirin 81 mg tablet,delayed 81 mg PO DAILY #30 tabs 01/14/22 release finasteride 5 mg tablet 5 mg PO DAILY #90 tabs 01/12/23 tamsulosin 0.4 mg capsule 0.8 mg (2 x 0.4 mg) PO BEDTIME 05/08/23 #180 caps vibegron 75 mg tablet (Gemtesa) 75 mg PO DAILY #90 tabs 06/17/23 tolterodine 4 mg capsule,extended 4 mg PO DAILY #90 caps 08/11/23 release 24 hr doxepin 3 mg tablet 3 mg PO BEDTIME PRN sleep #30 tabs 09/09/23 furosemide 20 mg tablet (Lasix) 20 mg PO DAILY #30 tabs 09/20/23 Allergies Allergy/AdvReac Type Severity Reaction Status Date / Time gabapentin Allergy Verified 09/16/23 10:44 lisinopril AdvReac Cough Verified 09/20/23 07:32 phenazopyridine AdvReac Diarrhea Verified 09/20/23 07:32 Review of Systems Review of Systems Narrative: See HPI Patient History Medical History BPH loc w urin obs/LUTS Urge incontinence History of UTI Stable angina Benign essential HTN Hearing loss Hemorrhoid History of nephrolithiasis Grieving Peripheral arterial disease CAD (coronary artery disease) (~1991) Insomnia Sleep apnea Mumps Measles Chicken pox Tinnitus Partial blindness (~1948) Peptic ulcer disease (~2015) Detached retina, right (~1983) Anemia Right renal mass Hyperaldosteronism Cardiomyopathy Hx of nephrolithotomy with removal of calculi (2008) Upper GI bleed Peripheral neuropathy HLD (hyperlipidemia) Staph infection (1979) Duodenal ulcer hemorrhage Atrial fibrillation Arthritis Angina pectoris ANA (obstructive sleep apnea) Myocardial infarction (~2016) CAD (coronary artery disease) BPH w urinary obs/LUTS Hypertension Diabetes Chronic kidney disease Surgical History Anesthesia Hx of coronary angioplasty Hx of heart artery stent S/P CABG x 3 (1991) H/O circumcision H/O vasectomy H/O lithotripsy History of appendectomy Family History Father History of heart disease Aneurysm Mother History of heart disease Hypertension Heart failure Brother Leukemia Social History household members: none Smoking Status: Former smoker alcohol intake: current substance use type: does not use Smoking Status: Former smoker alcohol intake frequency: holidays/special occasions only Substance Use Type: does not use Exam Initial Vital Signs Initial Vital Signs: Vital Signs Temperature 97.7 F 09/20/23 07:10 Pulse Rate 59 L 09/20/23 07:10 Respiratory Rate 15 09/20/23 07:10 Blood Pressure 169/75 H 09/20/23 07:10 Pulse Oximetry 98 09/20/23 07:10 Oxygen Delivery Method Room Air 09/20/23 07:10 HENMT Head: normal to inspection and normocephalic Resp Effort & Inspection: normal respiratory effort Auscultation: clear to auscultation bilaterally Cardio Rate: regular rate Rhythm: regular rhythm GI Inspection: normal to inspection and non-distended Skin General: no rashes or lesions noted Neuro General: patient alert, patient awake and moves all extremities Extrem General: edema Course Orders Ordered: ED Orders 09/20/23 07:10 XR chest 1V Stat EKG-12 Lead Stat 09/20/23 07:21 Complete Blood Count AUTO DIFF Stat 09/20/23 08:05 Comprehensive Metabolic Panel Stat Lipase Stat Magnesium Stat NT-proBNP (BNP-Adult 18+) Stat Troponin & CK Cardiac Panel Stat 09/20/23 10:15 Troponin & CK Cardiac Panel Stat Ondansetron HCl (Ondansetron 4 Mg/2 Ml Inj) 4 mg IV Q4HR PRN PRN Reason: Nausea And Vomiting Last Admin: 09/20/23 07:59 Dose: 4 mg Documented By: NOELLE Discontinued Medications Furosemide 60 mg/ Sodium (Chloride) 56 mls @ 112 mls/hr IV NOW ONE Stop: 09/20/23 09:03 Last Infusion: 09/20/23 10:18 Dose: Infused Documented By: Admin: 09/20/23 09:41 Dose: 112 mls/hr Documented By: CATHERINE Lorazepam (Lorazepam 0.5 Mg Tablet) 1 mg PO NOW ONE Stop: 09/20/23 08:09 Last Admin: 09/20/23 08:23 Dose: 1 mg Documented By: NOELLE Vital Signs Vital signs: Vital Signs - 8 hr 09/20/23 07:10 09/20/23 07:39 09/20/23 08:00 Temperature 97.7 F Pulse Rate 59 L 60 59 L Respiratory Rate 15 30 H 37 H Blood Pressure 169/75 H Pulse Oximetry 98 98 97 Oxygen Delivery Method Room Air 09/20/23 08:01 09/20/23 08:01 09/20/23 08:30 Temperature Pulse Rate 59 L 58 L Respiratory Rate 30 H 13 Blood Pressure 159/70 H Pulse Oximetry 97 96 Oxygen Delivery Method Room Air 09/20/23 08:31 09/20/23 08:31 09/20/23 09:00 Temperature Pulse Rate 57 L 57 L Respiratory Rate 12 12 Blood Pressure 144/67 H Pulse Oximetry 95 96 Oxygen Delivery Method 09/20/23 09:01 09/20/23 09:01 09/20/23 09:30 Temperature Pulse Rate 57 L 58 L Respiratory Rate 24 10 L Blood Pressure 166/71 H Pulse Oximetry 96 96 Oxygen Delivery Method 09/20/23 09:31 09/20/23 09:31 09/20/23 10:00 Temperature Pulse Rate 56 L 59 L Respiratory Rate 13 13 Blood Pressure 163/70 H Pulse Oximetry 96 97 Oxygen Delivery Method Room Air 09/20/23 10:05 09/20/23 10:05 09/20/23 10:30 Temperature Pulse Rate 59 L 57 L Respiratory Rate 23 12 Blood Pressure 146/71 H Pulse Oximetry 96 96 Oxygen Delivery Method Room Air 09/20/23 10:31 09/20/23 10:31 09/20/23 11:00 Temperature Pulse Rate 65 60 Respiratory Rate 16 16 Blood Pressure 160/70 H Pulse Oximetry 94 97 Oxygen Delivery Method Room Air Room Air 09/20/23 11:05 09/20/23 11:05 09/20/23 11:27 Temperature Pulse Rate 56 L 57 L Respiratory Rate 14 19 Blood Pressure 161/70 H Pulse Oximetry 94 96 Oxygen Delivery Method 09/20/23 11:27 09/20/23 11:30 09/20/23 11:31 Temperature Pulse Rate 62 55 L Respiratory Rate 13 15 Blood Pressure 147/64 H Pulse Oximetry 96 96 Oxygen Delivery Method Room Air Room Air 09/20/23 11:31 Temperature Pulse Rate Respiratory Rate Blood Pressure 143/67 H Pulse Oximetry Oxygen Delivery Method Medical Decision Making Lab Data 09/20/23 07:21 09/20/23 08:05 Labs: Lab Results 09/20/23 09/20/23 09/20/23 Range/Units 07:21 08:05 10:15 WBC 9.2 (4.5-11.0) X10^3/uL RBC 5.31 (4.5-5.9) X10^6/uL Hgb 14.7 (13.5-17.5) g/dL Hct 43.9 (41-53) % MCV 82.7 (80-100) fL MCH 27.6 (26-34) PG MCHC 33.4 (30-36) % RDW 16.2 H (11.6-14.8) % Plt Count 169 (150-400) X10^3/uL Neut % (Auto) 72.4 (50-75) % Lymph % (Auto) 14.1 L (25-40) % Geary % (Auto) 10.3 (3-14) % Eos % (Auto) 2.3 (2-4) % Baso % (Auto) 0.9 (0-2) % Neut # (Auto) 6700 (0776-3457) /uL Lymph # (Auto) 1300 (9225-0312) /uL Geary # (Auto) 1000 H (0-900) /uL Eos # (Auto) 200 (0-450) /uL Baso # (Auto) 100 (0-100) /uL Sodium 139 (137-145) mmol/L Potassium 4.2 (3.4-5.1) mmol/L Chloride 110 H (98-107) mmol/L Carbon Dioxide 25 (22-32) mmol/L BUN 21 H (9-20) mg/dL Creatinine 1.22 (0.66-1.25) mg/dL Estimated GFR > 60 (>60) mL/min BUN/Creatinine Ratio 17.2 (6-22) Glucose 97 (80-110) mg/dL Calcium 8.9 (8.4-10.2) mg/dL Magnesium 1.9 (1.6-2.3) mg/dL Total Bilirubin 0.8 (0.2-1.3) mg/dL AST 23 (17-59) IU/L ALT 16 (<50) IU/L Alkaline Phosphatase 83 (38-126) U/L Total Creatine Kinase 56 52 L (55-170) U/L Troponin I 0.319 H* 0.350 H* (0.01-0.034) ng/mL NT-Pro-B Natriuret Pep 4280 H (<450) pg/mL Total Protein 6.8 (6.3-8.2) g/dL Albumin 3.8 (3.5-5.0) g/dL Globulin 3.0 (1.7-4.1) g/dL Albumin/Globulin Ratio 1.3 (1.0-2.8) Lipase 63 (23-300) U/L Urine Dip Bedside Urine Glucose Negative Bedside Urine Bilirubin - Negative Bedside Urine Ketone - Negative Urine Specific [place] 1.015 Bedside Urine Occult Blood - Negative Bedside Urine pH 6.0 Bedside Urine Protein - Negative Bedside Urine Urobilinogen - Negative Bedside Urine Nitrite - Negative Bedside Urine Leukocytes - Negative Esterase Point of care testing: Urine Dip Bedside Urine Glucose Negative Bedside Urine Bilirubin - Negative Bedside Urine Ketone - Negative Urine Specific [place] 1.015 Bedside Urine Occult Blood - Negative Bedside Urine pH 6.0 Bedside Urine Protein - Negative Bedside Urine Urobilinogen - Negative Bedside Urine Nitrite - Negative Bedside Urine Leukocytes - Negative Esterase Imaging Data Chest x-ray: Radiologist's Impression: ROCEDURE: XR CHEST 1V INDICATIONS: sob TECHNIQUE: One view of the chest was acquired. COMPARISON: [facility], , XR CHEST 1V, 03/13/2022, 11:06. FINDINGS: Surgical changes and devices: Median sternotomy wires and surgical clips are seen. Lungs and pleura: There is suggestion of mild pulmonary vascular congestion. No definite focal infiltrate. No pleural effusions or pneumothorax. Mediastinum: Mediastinal contours appear normal. Heart size is enlarged. Bones and chest wall: No suspicious bony lesions. Overlying soft tissues appear unremarkable. IMPRESSION: Cardiomegaly and mild congestion. No definite focal infiltrate. No pleural effusion or pneumothorax. ECG Data Attestation: I personally reviewed and interpreted this ECG as follows: Interpretation: Sinus rhythm Ventricular rate is 60 First-degree AV block Frequent PVCs Inverted T-waves V4 V5 V6 MDM Narrative Medical decision making narrative: Patient does have 2 troponins that are positive but they are unchanged with repeat and he did just have a cardiac catheterization yesterday. His BNP today is twice what his baseline is. He does have lower extremity edema. He was given Lasix here in the ER. After diuresis he stated that he was feeling much better. Discussed the case with Cardiology with the [facility] group. They recommended sending home with Lasix. Daily weight measurements in the will contact the patient at the beginning of next week for a follow-up. Patient was given return precautions. He expressed understanding and agreement. Discharge Plan Departure Patient Disposition: Home Clinical Impression: Shortness of breath Instructions: DI for Shortness of Breath Activity Restrictions/Additional Instructions: Your cardiology group would like you to continue all of your medications as directed. We are going to add a new medicine today called furosemide/Lasix. This is a 1 time a day medication that will cause you to urinate. They would like you to keep a daily log of your weight. You should be receiving a call from them at the beginning of next week for a follow-up. Return to the emergency department for worsening symptoms. Prescriptions: New furosemide [Lasix] 20 mg tablet 20 mg PO DAILY Qty: 30 0RF No Action finasteride 5 mg tablet 5 mg PO DAILY Qty: 90 3RF tamsulosin 0.4 mg capsule 0.8 mg PO BEDTIME Qty: 180 3RF Rx Instructions: Take two caps by mouth daily at bedtime tolterodine 4 mg capsule,extended release 24hr 4 mg PO DAILY Qty: 90 3RF cholecalciferol (vitamin D3) 125 mcg (5,000 unit) capsule 125 mcg PO DAILY valsartan 40 mg tablet 20 mg PO DAILY amlodipine 5 mg tablet 5 mg PO DAILY metoprolol succinate 100 mg tablet extended release 24 hr 100 mg PO DAILY clopidogrel 75 mg tablet 75 mg PO DAILY rosuvastatin 20 mg tablet 20 mg PO ONCE PM doxepin 3 mg tablet 3 mg PO BEDTIME PRN (Reason: sleep) Qty: 30 11RF nitroglycerin 0.4 mg tablet, sublingual sublingual nitroglycerin 0.4 mg/hr patch 24 hour 1 patch transdermal DAILY aspirin 81 mg tablet,delayed release (DR/EC) 81 mg PO DAILY Qty: 30 0RF melatonin 3 mg Tablet 3 mg PO BEDTIME PRN (Reason: Insomnia) magnesium citrate 4 gram Packet 400 mg PO DAILY vitamin K2 100 mcg Capsule 480 mcg PO DAILY spironolactone 25 mg tablet 25 mg PO DAILY Gemtesa 75 mg tablet 75 mg PO DAILY Qty: 90 3RF Referrals: Hyun Rahman DO [Primary Care Provider] - Stand Alone Forms: Patient Portal/API
--- NOTE | 2023-09-20 07:20 | EKG_ITS ---
[facility] [id number] [place] [id number] Test Date: 2023-09-20 Pat Name: cR Bray Department: Room: Gender: Male [employer]: CHOLO : 1950 Requested By: Order Number: [id number] Reading MD: Mor Saucedo MD Measurements Intervals [place] Rate: 60 P: -29 ND: 248 QRS: -4 QRSD: 106 T: 191 QT: 434 QTc: 434 Interpretive Statements Sinus rhythm with 1st degree AV block with frequent premature ventricular complexes ST & T wave abnormality, consider inferolateral ischemia Electronically Signed On 09-20-2023 22:34:20 PDT by Mor Saucedo MD
[2023-09-20 07:29] LABS: Add Manual Diff / Slide Review NO; Basophils Absolute Auto 100 /uL (0-100); Basophils Percent Auto 0.9 % (0-2); Eosinophils Absolute Auto 200 /uL (0-450); Eosinophils Percent Auto 2.3 % (2-4); Hematocrit 43.9 % (41-53); Hemoglobin 14.7 g/dL (13.5-17.5); Lymphocytes Absolute Auto 1300 /uL (1100-4500); Lymphocytes Percent Auto 14.1 % (25-40); Mean Corpuscular HGB Conc 33.4 % (30-36); Mean Corpuscular Hemoglobin 27.6 PG (26-34); Mean Corpuscular Volume 82.7 fL (80-100); Monocytes Absolute Auto 1000 /uL (0-900); Monocytes Percent Auto 10.3 % (3-14); Neutrophils Absolute Auto 6700 /uL (1500-7000); Neutrophils Percent Auto 72.4 % (50-75); Platelet Count 169 X10^3/uL (150-400); Red Blood Cell Count 5.31 X10^6/uL (4.5-5.9); Red Cell Distribution Width 16.2 % (11.6-14.8); White Blood Cell Count 9.2 X10^3/uL (4.5-11.0)
--- NOTE | 2023-09-20 07:45 | PC.NURSE ---
PT denies headache, chest pain. He has been feeling SOB for months and prior to his cardiac catheterization yesterday. Persistent SOB he reports is worse when staying still and may feel dizzy.
[2023-09-20] MEDS: ONDANSETRON 4 MG/2 ML INJ IV (07:59)
[2023-09-20] MEDS: LORazepam 0.5 MG TABLET 1 MG PO (08:23)
[2023-09-20 08:39] LABS: Alanine Aminotransferase 16 IU/L (<50); Albumin 3.8 g/dL (3.5-5.0); Albumin Globulin Ratio 1.3 (1.0-2.8); Alkaline Phosphatase 83 U/L (38-126); Aspartate Aminotransferase 23 IU/L (17-59); BUN Creatinine Ratio 17.2 (6-22); Bilirubin Total 0.8 mg/dL (0.2-1.3); Blood Urea Nitrogen 21 mg/dL (9-20); Calcium 8.9 mg/dL (8.4-10.2); Carbon Dioxide 25 mmol/L (22-32); Chloride 110 mmol/L (98-107); Creatine Kinase 56 U/L (55-170); Estimated Glomerular Filt Rate > 60 mL/min (>60); Glucose 97 mg/dL (80-110); HEMOLYSIS 19 (0-50); Lipase 63 U/L (23-300); Magnesium 1.9 mg/dL (1.6-2.3); Potassium 4.2 mmol/L (3.4-5.1); Sodium 139 mmol/L (137-145); Total Protein 6.8 g/dL (6.3-8.2)
[2023-09-20 08:50] LABS: NT-proBNP (BNP-Adult 18+) 4280 pg/mL (<450)
[2023-09-20 08:55] LABS: Troponin I 0.319 ng/mL (0.01-0.034)
[2023-09-20] MEDS: FUROSEMIDE 60 MG in SODIUM CHLORIDE 0.9% 50 ML 112 MG IV (09:41)
[2023-09-20 10:43] LABS: Creatine Kinase 52 U/L (55-170)
--- NOTE | 2023-09-20 11:10 | PC.NURSE ---
Bed linens and brief heavily saturated with urine. Pt states just went in my brief since I was wearing it. Pt assisted out of bed and bed linens changed, pt used urinal while standing, brief and gown changed. Pt moved back into bed. Urinal at bedside. Pt instructed to call when needing to urinate.
--- NOTE | 2023-09-20 11:35 | PC.NURSE ---
Pt reports breathing significantly better after urinating.
== END 2023-09-20 12:17 | disposition home or self-care (01) ==
PROVIDERS: Emergency Provider Emergency Medicine; Family Provider Family Medicine; PCP Family Medicine
DX: R06.02 Shortness of breath (principal); I44.0 Atrioventricular block, first degree; Z95.5 Presence of coronary angioplasty implant and graft; R79.89 Other specified abnormal findings of blood chemistry
CPT/HCPCS: 36415; 71045; 80053; 81003; 82550; 83690; 83735; 83880; 84484; 85025; 93005; 96365; 96375; 99284; J1940; J2405

== ENCOUNTER → 2024-01-14 09:28 | Outpatient (CLI) | payer MEDICARE, OTHER, SELFPAY ==
[2023-10-08 14:05] VITALS: BMI 30.8
[2024-01-14 10:16] LABS: Add Manual Diff / Slide Review NO; Basophils Absolute Auto 100 /uL (0-100); Basophils Percent Auto 0.7 % (0-2); Eosinophils Absolute Auto 200 /uL (0-450); Eosinophils Percent Auto 2.5 % (2-4); Hematocrit 38.6 % (41-53); Hemoglobin 12.9 g/dL (13.5-17.5); Lymphocytes Absolute Auto 1400 /uL (1100-4500); Lymphocytes Percent Auto 16.5 % (25-40); Mean Corpuscular HGB Conc 33.5 % (30-36); Mean Corpuscular Hemoglobin 28.2 PG (26-34); Mean Corpuscular Volume 84.2 fL (80-100); Monocytes Absolute Auto 800 /uL (0-900); Monocytes Percent Auto 9.5 % (3-14); Neutrophils Absolute Auto 6100 /uL (1500-7000); Neutrophils Percent Auto 70.8 % (50-75); Platelet Count 169 X10^3/uL (150-400); Red Blood Cell Count 4.58 X10^6/uL (4.5-5.9); Red Cell Distribution Width 14.7 % (11.6-14.8); White Blood Cell Count 8.6 X10^3/uL (4.5-11.0)
[2024-01-14 10:22] LABS: Hemoglobin A1C% w Est Avg Glu 6.1 % (4.0-6.0)
[2024-01-14 10:32] LABS: Alanine Aminotransferase 20 IU/L (<50); Albumin 3.8 g/dL (3.5-5.0); Albumin Globulin Ratio 1.4 (1.0-2.8); Alkaline Phosphatase 99 U/L (38-126); Aspartate Aminotransferase 22 IU/L (17-59); BUN Creatinine Ratio 17.3 (6-22); Bilirubin Total 0.3 mg/dL (0.2-1.3); Blood Urea Nitrogen 27 mg/dL (9-20); Calcium 9.2 mg/dL (8.4-10.2); Carbon Dioxide 24 mmol/L (22-32); Chloride 109 mmol/L (98-107); Estimated Glomerular Filt Rate 46 mL/min (>60); Globulin 2.8 g/dL (1.7-4.1); Glucose 104 mg/dL (80-110); HEMOLYSIS < 15 (0-50); Lipase 82 U/L (23-300); Potassium 4.8 mmol/L (3.4-5.1); Sodium 138 mmol/L (137-145); Total Protein 6.6 g/dL (6.3-8.2)
== END ==
PROVIDERS: Family Provider Family Medicine; PCP Family Medicine; Referring Provider Family Medicine; Visit Provider Family Medicine
DX: E11.9 Type 2 diabetes mellitus without complications (principal); R10.11 Right upper quadrant pain; R14.0 Abdominal distension (gaseous)
CPT/HCPCS: 36415; 80053; 83036; 83690; 85025

== ENCOUNTER 2024-01-19 08:30 | Outpatient (RCR) | payer MEDICARE, OTHER, SELFPAY ==
[2022-01-11 21:53] VITALS: BMI 30.8
[2023-10-08 14:05] VITALS: BMI 30.8
--- NOTE | 2023-10-29 07:35 | PC.NURSE ---
Fax sent to Dr. Blanca of EKG strips. Discussed with collection officer need for clearance prior to admitting pt into program.
== END 2024-01-19 10:30 ==
LOC: CAR 08:30
PROVIDERS: Family Provider Family Medicine; PCP Family Medicine; Referring Provider Internal Medicine; Visit Provider Internal Medicine
DX: Z95.5 Presence of coronary angioplasty implant and graft (principal)
CPT/HCPCS: 93798

== ENCOUNTER → 2024-01-19 09:46 | Outpatient (CLI) | payer MEDICARE, OTHER, SELFPAY ==
[2023-10-08 14:05] VITALS: BMI 30.8
--- NOTE | 2024-01-19 09:47 | DI.CT.S_ITS ---
PROCEDURE: CT ABDOMEN PELVIS W CON INDICATIONS: pain, bloating. ? mass Rt side TECHNIQUE: After the administration of intravenous contrast, axial sections acquired from the lung bases to the pubic symphysis. Coronal and sagittal reformats were performed. For radiation dose reduction, the following was used: automated exposure control, adjustment of mA and/or kV according to patient size. COMPARISON: [facility], CT, CT ABDOMEN PELVIS W CON, 01/11/2022, 18:55. [facility], CT, CT KIDNEY URETER BLADDER (KUB), 05/13/2023, 8:57. FINDINGS: Image quality: Diagnostic. Lower Chest: Bibasilar atelectasis. ABDOMEN: Liver: No solid mass. Gallbladder: No radiopaque gallstones or wall thickening. Biliary ducts: No biliary dilation. Pancreas: No ductal dilation. Spleen: Size is within normal limits. Adrenal Glands: No adrenal nodules. Kidneys and Ureters: No hydronephrosis. No solid mass. Bilateral renal atrophy with simple cysts. Stomach and Bowel: There is mild distended loop of small bowel within the mid/right hemiabdomen. There appears to be air within the wall and small cluster of free air identified most prominently on series 2, image 87. Additional punctate foci of free air are identified in the non dependent anterior aspects the abdomen. Ventral Wall: No significant ventral hernia. Abdominal Nodes: No retroperitoneal or mesenteric adenopathy by size criteria. Vessels: Aorta and inferior vena cava are normal in size. PELVIS: Pelvic Organs: Unremarkable. Bladder: No bladder wall thickening, accounting for underdistention. Pelvic Nodes: No enlarged lymph nodes. Miscellaneous: Bilateral fat containing inguinal hernias are seen. Bones: No aggressive osseous abnormality. IMPRESSION: Mild air within the wall of a small bowel loop of the mid hemiabdomen with small scattered areas of free intraperitoneal air. Etiology is uncertain although pneumatosis secondary to infection/inflammation should be considered. The above findings were discussed with Dr. Sim on 01/19/2024 at 10:12 p.m.. Dictated by: Mary Watts M.D. on 01/19/2024 at 21:59 Approved by: Mary Watts M.D. on 01/19/2024 at 22:19
== END ==
PROVIDERS: Family Provider Family Medicine; PCP Family Medicine; Referring Provider Family Medicine; Visit Provider Family Medicine
DX: K40.20 Bilateral inguinal hernia, without obstruction or gangrene, not specified as recurrent (principal); N28.1 Cyst of kidney, acquired; R14.0 Abdominal distension (gaseous); R10.11 Right upper quadrant pain
CPT/HCPCS: 74177; Q9967

== ENCOUNTER 2024-01-20 07:20 | Inpatient (IN) | payer MEDICARE, OTHER, SELFPAY ==
[2023-10-08 14:05] VITALS: BMI 30.8
[2024-01-20] VITALS (46 sets, daily range): BP systolic 108–162; BP diastolic 53–101; PULSE 52–69; RESP 10–26; TEMP 36.2–36.8; O2SAT 87–98; BMI 34.7; BMI 28.2
--- NOTE | 2024-01-20 | PATH_ITS ---
[facility] Accession Number: [id number] No. of containers..01 Tissue . 01 Material submitted: . small bowel - SMALL BOWEL . 01 Diagnosis: SMALL BOWEL, SEGMENTAL RESECTION: Segment of small bowel with mild active mucosal inflammation and markedly dilated lymphatic channels, consistent with pneumatosis/bowel ischemia. One benign mesenteric lymph node. Negative for dysplasia or malignancy. MRV 01/22/2024 1234 Local . 01 Electronically signed: . Wicho Benito MD, PhD, Pathologist NPI- [id number] . 01 Gross description: . Received in formalin with two identifiers and small bowel, is a distended portion of bowel 27.2 cm in length and averaging 4.5 cm in diameter. The serosa is pink to violacesous and diffusely covered with small raised air bubbles. The attached mesentery extends out to 3.4 cm. One staple line is inked blue with the opposite staple line is inked black (Note: A detached black suture is found within the container). . The lumen contains green-brown mucoid material. Mucosa is curtis to brown and velvety with a patch of punctate hemorrhage 6.2 x 5.5 cm located 5.0 cm from the nearest blue-inked margin. Mucosal folds are attenuated and no polyps or masses are identified. The jessica average 0.4 cm thick with no perforations identified. . Palpation reveals two lymph node candidates. The first is 0.3 cm in greatest dimension and is curtis, while the second is white and firm 0.6 x 0.3 x 0.3 cm. . Knuckle Bender sections are submitted as follows: A1: Knuckle Bender margins en face. A2: Punctate hemorrhagic to normal mucosa. A3: Punctated hemorrhagic mucosa. A4: Full thickness sections with serosal air bubbles. A5: Normal full thickness sections. A6: Intact white lymph node candidate. A7: Intact smaller curtis lymph node candidate. ([id number]) /MANI 01/21/2024 [facility] Local . 01 Pathologist provided ICD-10: K55.9 . 01 CPT . 278274 Specimen Comment: A courtesy copy of this report has been sent to [phone] Performed at: [address] [facility] [address], [place], [place] [id number] MD Rc Berry MD Phone: [phone]
--- NOTE | 2024-01-20 07:47 | ED.GENADULT ---
HPI - General Adult General Chief complaint: Abdominal Pain Stated complaint: ct scan yesterday, tear in intestine Time Seen by Provider: 01/20/24 07:35 Source: patient Mode of arrival: Ambulatory History of Present Illness HPI narrative: 73-year-old gentleman with a complex vascular history including CABG, stenting, atrial fibrillation currently on amiodarone, congestive heart failure COPD, hypertension who has been having general right upper abdominal pain for a couple of weeks and in retrospect his probably been longer, review this with his primary care physician and a CT scan of the abdomen was ordered and showed pneumobilia. Suggested that he come to the ER for further evaluation. He has not in pain, no fevers, he notes that he does frequently get nauseated with eating tends to avoid eating and does have some abdominal pain with eating. No change to bowels no recent weight loss Related Data Home Medications Medication Instructions Recorded Confirmed cholecalciferol (vitamin D3) 125 125 mcg PO DAILY 06/11/19 01/20/24 mcg (5,000 unit) capsule nitroglycerin 0.4 mg/hr 1 patch transdermal DAILY 12/16/21 01/20/24 transdermal 24 hour patch magnesium citrate 4 gram oral 400 mg PO DAILY 01/24/22 01/20/24 packet vitamin K2 100 mcg capsule 480 mcg PO DAILY 01/24/22 01/20/24 valsartan 40 mg tablet 20 mg PO DAILY 04/16/22 01/20/24 nitroglycerin 0.4 mg sublingual mg sublingual 05/27/23 01/12/24 tablet amlodipine 2.5 mg tablet 2.5 mg PO DAILY 10/06/23 01/20/24 atorvastatin 20 mg tablet 20 mg PO DAILY 10/06/23 01/20/24 prasugrel 10 mg tablet 10 mg PO DAILY 10/06/23 01/20/24 metoprolol succinate 100 mg 50 mg PO DAILY 12/09/23 01/20/24 tablet,extended release 24 hr tolterodine 4 mg capsule,extended 4 mg PO DAILY 12/09/23 01/20/24 release 24 hr amiodarone 200 mg tablet 200 mg PO DAILY 01/12/24 01/20/24 Previous Rx's Medication Instructions Recorded aspirin 81 mg tablet,delayed 81 mg PO DAILY #30 tabs 01/14/22 release finasteride 5 mg tablet 5 mg PO DAILY #90 tabs 01/12/23 tamsulosin 0.4 mg capsule 0.8 mg (2 x 0.4 mg) PO BEDTIME 05/08/23 #180 caps furosemide 20 mg tablet (Lasix) 20 mg PO DAILY PRN edema, weight 10/06/23 gain #30 tabs spironolactone 25 mg tablet 25 mg PO DAILY #90 tabs 10/06/23 ipratropium bromide 42 mcg (0.06 2 spray intranasal TID PRN allergy 12/22/23 %) nasal spray symptoms #15 mL Allergies Allergy/AdvReac Type Severity Reaction Status Date / Time gabapentin Allergy Verified 01/20/24 15:17 lisinopril AdvReac Cough Verified 01/20/24 15:17 phenazopyridine AdvReac Diarrhea Verified 01/20/24 15:17 Review of Systems Review of Systems Narrative: Pertinent positive and negative findings as per HPI Patient History Medical History Bradycardia Dyspnea BPH loc w urin obs/LUTS Urge incontinence History of UTI Stable angina Benign essential HTN Hearing loss Hemorrhoid History of nephrolithiasis Grieving Peripheral arterial disease CAD (coronary artery disease) (~1991) Insomnia Sleep apnea Mumps Measles Chicken pox Tinnitus Partial blindness (~1948) Peptic ulcer disease (~2015) Detached retina, right (~1983) Anemia Right renal mass Hyperaldosteronism Cardiomyopathy Hx of nephrolithotomy with removal of calculi (2008) Upper GI bleed Peripheral neuropathy HLD (hyperlipidemia) Staph infection (1979) Duodenal ulcer hemorrhage Atrial fibrillation Arthritis Angina pectoris ANA (obstructive sleep apnea) Myocardial infarction (~2016) CAD (coronary artery disease) BPH w urinary obs/LUTS Hypertension Diabetes Chronic kidney disease Surgical History Anesthesia Hx of coronary angioplasty Hx of heart artery stent S/P CABG x 3 (1991) H/O circumcision H/O vasectomy H/O lithotripsy History of appendectomy Family History Father History of heart disease Aneurysm Mother History of heart disease Hypertension Heart failure Brother Leukemia Social History household members: none Smoking Status: Former smoker alcohol intake: current substance use type: does not use Smoking Status: Former smoker alcohol intake frequency: holidays/special occasions only Substance Use Type: does not use Exam Initial Vital Signs Initial Vital Signs: Vital Signs Pulse Oximetry 94 01/20/24 07:25 General: Healthy appearing, in no acute distress. Able to give a complete and coherent history. Well-nourished well-developed HEENT: Moist mucous membranes, normal sclera right eye is blind, permanently dilated pupil left pupil is reactive to light Respiratory: Lungs are clear to auscultation, no wheezing no rales no rhonchi. Full and symmetrical air movement Cardiac: Regular rate and rhythm no murmurs no bruits Abdomen: Soft, nontender, , no flank pain Skin: Warm and dry, no rashes Neurologic: Grossly neurologically intact with no obvious asymmetries or abnormalities Extremities: No trauma, well perfused Psych: Cooperative, appropriate insight and affect Course Orders Ordered: ED Orders 01/20/24 07:44 Complete Blood Count AUTO DIFF Stat Comprehensive Metabolic Panel Stat Lactate (Lactic Acid) Stat Lipase Stat 01/20/24 07:46 EKG-12 Lead Stat 01/20/24 08:05 CT angio abdomen pelvis Stat Lactated Ringer's (Lactated Ringers) 1,000 mls @ 42 mls/hr IV CONT KELLE Last Admin: 01/20/24 15:44 Dose: 42 mls/hr Documented By: ALISE Ondansetron HCl (Ondansetron 4 Mg/2 Ml Inj) 4 mg IV NOW PRN PRN Reason: Nausea And Vomiting Ondansetron HCl (Ondansetron 4 Mg Odt) 4 mg PO NOW PRN PRN Reason: Nausea And Vomiting Discontinued Medications Sodium Chloride (Normal Saline 0.9%) 1,000 mls @ 1,000 mls/hr IV BOLUS ONE Stop: 01/20/24 09:04 Last Infusion: 01/20/24 10:03 Dose: Infused Documented By: Admin: 01/20/24 08:22 Dose: 1,000 mls/hr Documented By: YAZMIN Vital Signs Vital signs: Vital Signs - 8 hr 01/20/24 08:00 01/20/24 08:00 01/20/24 08:30 Pulse Rate 59 L 59 L Respiratory Rate 21 22 Blood Pressure 138/91 H Pulse Oximetry 95 96 01/20/24 08:30 01/20/24 08:56 01/20/24 08:56 Pulse Rate 59 L Respiratory Rate 20 Blood Pressure 140/63 162/73 H Pulse Oximetry 97 01/20/24 09:00 01/20/24 09:01 01/20/24 09:01 Pulse Rate 57 L 57 L Respiratory Rate 26 H 19 Blood Pressure 139/62 Pulse Oximetry 97 97 01/20/24 09:30 01/20/24 10:32 01/20/24 10:34 Pulse Rate 55 L 56 L 56 L Respiratory Rate 20 19 Blood Pressure 120/56 L Pulse Oximetry 95 95 96 01/20/24 10:34 01/20/24 11:00 01/20/24 11:01 Pulse Rate 54 L Respiratory Rate 21 Blood Pressure 120/56 L 108/53 L Pulse Oximetry 96 01/20/24 11:01 01/20/24 11:14 01/20/24 11:14 Pulse Rate 55 L 53 L Respiratory Rate 24 20 Blood Pressure 134/60 Pulse Oximetry 95 96 01/20/24 11:30 01/20/24 11:30 01/20/24 12:00 Pulse Rate 53 L 53 L Respiratory Rate 20 19 Blood Pressure 124/60 Pulse Oximetry 97 96 01/20/24 12:01 01/20/24 12:01 01/20/24 12:30 Pulse Rate 54 L 55 L Respiratory Rate 18 15 Blood Pressure 123/56 L Pulse Oximetry 97 96 01/20/24 12:31 01/20/24 12:31 01/20/24 12:34 Pulse Rate 55 L 54 L Respiratory Rate 21 17 Blood Pressure 130/101 H Pulse Oximetry 95 95 01/20/24 12:34 01/20/24 13:00 01/20/24 13:00 Pulse Rate 54 L Respiratory Rate 13 Blood Pressure 149/67 H 147/90 H Pulse Oximetry 95 Medical Decision Making Lab Data 01/20/24 07:44 01/20/24 07:44 Labs: Lab Results 01/20/24 Range/Units 07:44 WBC 7.3 (4.5-11.0) X10^3/uL RBC 5.10 (4.5-5.9) X10^6/uL Hgb 14.4 (13.5-17.5) g/dL Hct 42.8 (41-53) % MCV 84.0 (80-100) fL MCH 28.3 (26-34) PG MCHC 33.7 (30-36) % RDW 15.0 H (11.6-14.8) % Plt Count 165 (150-400) X10^3/uL Neut % (Auto) 68.8 (50-75) % Lymph % (Auto) 16.8 L (25-40) % [place] % (Auto) 10.6 (3-14) % Eos % (Auto) 2.7 (2-4) % Baso % (Auto) 1.1 (0-2) % Neut # (Auto) 5000 (4589-5438) /uL Lymph # (Auto) 1200 (1792-0529) /uL [place] # (Auto) 800 (0-900) /uL Eos # (Auto) 200 (0-450) /uL Baso # (Auto) 100 (0-100) /uL Sodium 139 (137-145) mmol/L Potassium 4.2 (3.4-5.1) mmol/L Chloride 107 (98-107) mmol/L Carbon Dioxide 25 (22-32) mmol/L BUN 29 H (9-20) mg/dL Creatinine 1.58 H (0.66-1.25) mg/dL Estimated GFR 45 L (>60) mL/min BUN/Creatinine Ratio 18.4 (6-22) Glucose 98 (80-110) mg/dL Lactate 0.7 (0.7-2.1) mmol/L Calcium 9.7 (8.4-10.2) mg/dL Total Bilirubin 0.5 (0.2-1.3) mg/dL AST 22 (17-59) IU/L ALT 19 (<50) IU/L Alkaline Phosphatase 103 (38-126) U/L Total Protein 7.1 (6.3-8.2) g/dL Albumin 4.1 (3.5-5.0) g/dL Globulin 3.0 (1.7-4.1) g/dL Albumin/Globulin Ratio 1.4 (1.0-2.8) Lipase 76 (23-300) U/L Urine Dip Bedside Urine Glucose Negative Bedside Urine Bilirubin - Negative Bedside Urine Ketone - Negative Urine Specific [place] 1.015 Bedside Urine Occult Blood - Negative Bedside Urine pH 5.5 Bedside Urine Protein - Negative Bedside Urine Urobilinogen - Negative Bedside Urine Nitrite - Negative Bedside Urine Leukocytes - Negative Esterase Point of care testing: Urine Dip Bedside Urine Glucose Negative Bedside Urine Bilirubin - Negative Bedside Urine Ketone - Negative Urine Specific [place] 1.015 Bedside Urine Occult Blood - Negative Bedside Urine pH 5.5 Bedside Urine Protein - Negative Bedside Urine Urobilinogen - Negative Bedside Urine Nitrite - Negative Bedside Urine Leukocytes - Negative Esterase Imaging Data CT scan - abdomen/pelvis: Radiologist's Impression: CT angiogram of the abdomen PROCEDURE: CT ANGIO ABDOMEN PELVIS INDICATIONS: mesenteric ischemia TECHNIQUE: After the administration of intravenous contrast, 2.5 mm sections acquired from the diaphragm to the iliac crests. 10 mm maximum intensity projection (MIP) coronal and sagittal reformats were then performed. For radiation dose reduction, the following was used: automated exposure control. COMPARISON: Formerly [facility], CT, CT KIDNEY URETER BLADDER (KUB), 05/13/2023, 8:57. Former[facility], CT, CT ABDOMEN RENAL PROTOCOL, 02/21/2023, 9:00. Former[facility], CT, CT ABDOMEN PELVIS W CON, 01/19/2024, 10:56. FINDINGS: Image quality: Diagnostic. Abdominal aorta: No aortic aneurysm or evidence of acute aortic syndrome. Mesenteric arteries: Patent without hemodynamically significant stenosis. Renal arteries: Radial arteries are patent. Soft and calcified atherosclerotic plaque in the proximal right renal artery which causes moderate to high-grade stenosis. No hemodynamically significant stenosis involving the left renal artery. Lower chest: Unremarkable. ABDOMEN: Liver: No solid mass. No portal venous gas. Gallbladder: No radiopaque gallstones or wall thickening. Biliary ducts: No biliary dilation. Pancreas: No ductal dilation. Spleen: Size is within normal limits. Adrenal Glands: No adrenal nodules. Kidneys and Ureters: No hydronephrosis. No solid mass. Bilateral simple renal cyst which require no additional imaging. No complex renal cystic lesion which requires follow up. Stomach and Bowel: Dilated loops of small bowel with pneumatosis involving the dilated loops of bowel without significant change. Peritoneum: No abnormal intraperitoneal fluid. Scattered free intraperitoneal air locules are without significant change compared to January 19, 2024. Ventral Wall: No hernia. Abdominal Nodes: No retroperitoneal or mesenteric adenopathy by size criteria. Vessels: Aorta, as above. Normal IVC. PELVIS: Pelvic Organs: Unremarkable. Bladder: Unremarkable. Pelvic Nodes: No enlarged lymph nodes. Miscellaneous: Stable bilateral fat containing inguinal hernias. Bones: No aggressive osseous abnormality. Spine degenerative disc disease and facet arthropathy. IMPRESSION: No large vessel occlusion, vascular dissection or aneurysm. No significant mesenteric artery stenosis. Moderate to severe stenosis of the proximal right renal artery. Dilated loops of small bowel which could be secondary to obstruction or ileus. Non-specific small bowel pneumatosis without significant change. Pneumoperitoneum concerning for bowel perforation is without significant change. Dictated by: Neisha Romo MD, PhD on 01/20/2024 at 10:2 MDM Narrative Medical decision making narrative: CC: Abdominal pain, abnormal findings on CT done yesterday sent to the ER for further evaluation Complicating co-morbidities: Coronary artery disease, currently on Plavix, cardiac stents placed in September, post CABG, post appendectomy, history of claudication Data collected from: patient Medical records reviewed: CT scan done yesterday is reviewed Differential considered: Mesenteric ischemia, bowel obstruction, neoplastic process bowel perforation Exam documented above, pertinent findings include: Patient has some mild right-sided abdominal tenderness otherwise exam is relatively benign. He does not have an acute surgical abdomen at this time Lab Test results independently reviewed as above. Pertinent findings: CBC is reassuring with white count at 7.3 Chemistries are notable for unchanged creatinine, no other acute abnormalities. Lipase is unremarkable Lactic acid is not elevated Independently reviewed EKG: Sinus rhythm at a rate of 58. No ischemic changes. Imaging studies independently reviewed: CT done 01/19/24 PROCEDURE: CT ABDOMEN PELVIS W CON INDICATIONS: pain, bloating. ? mass Rt side TECHNIQUE: After the administration of intravenous contrast, axial sections acquired from the lung bases to the pubic symphysis. Coronal and sagittal reformats were performed. For radiation dose reduction, the following was used: automated exposure control, adjustment of mA and/or kV according to patient size. COMPARISON: [facility], CT, CT ABDOMEN PELVIS W CON, 01/11/2022, 18:55. [facility], CT, CT KIDNEY URETER BLADDER (KUB), 05/13/2023, 8:57. FINDINGS: Image quality: Diagnostic. Lower Chest: Bibasilar atelectasis. ABDOMEN: Liver: No solid mass. Gallbladder: No radiopaque gallstones or wall thickening. Biliary ducts: No biliary dilation. Pancreas: No ductal dilation. Spleen: Size is within normal limits. Adrenal Glands: No adrenal nodules. Kidneys and Ureters: No hydronephrosis. No solid mass. Bilateral renal atrophy with simple cysts. Stomach and Bowel: There is mild distended loop of small bowel within the mid/right hemiabdomen. There appears to be air within the wall and small cluster of free air identified most prominently on series 2, image 87. Additional punctate foci of free air are identified in the non dependent anterior aspects the abdomen. Ventral Wall: No significant ventral hernia. Abdominal Nodes: No retroperitoneal or mesenteric adenopathy by size criteria. Vessels: Aorta and inferior vena cava are normal in size. PELVIS: Pelvic Organs: Unremarkable. Bladder: No bladder wall thickening, accounting for underdistention. Pelvic Nodes: No enlarged lymph nodes. Miscellaneous: Bilateral fat containing inguinal hernias are seen. Bones: No aggressive osseous abnormality. IMPRESSION: Mild air within the wall of a small bowel loop of the mid hemiabdomen with small scattered areas of free intraperitoneal air. Etiology is uncertain although pneumatosis secondary to infection/inflammation should be considered. The above findings were discussed with Dr. Sim on 01/19/2024 at 10:12 p.m.. Dictated by: Mary Watts M.D. on 01/19/2024 at 21:59 Consultations: Discussed with Dr Langford, he evaluates patient in the emergency department. Given the pneumobilia he likely will plan on exploratory laparoscopy later this evening to confirm the absence of bowel ischemia. Given the complex medical history and multiple medications this gentleman is on he will be admitted by Dr. Meza to the medical service with Dr. Delgadillo consulting Discussion: 73-year-old gentleman with significant vascular disease, low-grade right upper quadrant abdominal pain with pneumobilia appreciated on CT scan yesterday, CT angiogram today does not suggest acute arterial occlusion to bowel. Exam is quite benign, there is no evidence that he is having significant pain or has an acute surgical abdomen. Discussion with both surgery and Medicine, patient is updated on plans and anticipated exploratory laparoscopy later today and hospital admission for further evaluation and diagnosis. Discharge Plan Departure Patient Disposition: Admitted As Inpatient Clinical Impression: Pneumatosis intestinalis Admit Date/Time: 01/20/24 14:30 Admit Provider: Alfonso Meza
--- NOTE | 2024-01-20 07:50 | EKG_ITS ---
[place] [address] [address] [place] [id number] Test Date: 2024-01-20 Pat Name: Rc Bray Department: [facility] Room: Gender: Male Web User Experience Strategist: MADY : 1950 Requested By: Order Number: [id number] Reading MD: Mor Saucedo MD Measurements Intervals [place] Rate: 58 P: -15 [place]: 336 QRS: -10 QRSD: 110 T: 149 QT: 430 QTc: 422 Interpretive Statements Sinus bradycardia with 1st degree AV block Left ventricular hypertrophy with repolarization abnormality ( R in aVL ) Electronically Signed On 01-20-2024 11:34:44 PST by Mor Saucedo MD
[2024-01-20 07:52] LABS: Add Manual Diff / Slide Review NO; Basophils Absolute Auto 100 /uL (0-100); Basophils Percent Auto 1.1 % (0-2); Eosinophils Absolute Auto 200 /uL (0-450); Eosinophils Percent Auto 2.7 % (2-4); Hematocrit 42.8 % (41-53); Hemoglobin 14.4 g/dL (13.5-17.5); Lymphocytes Absolute Auto 1200 /uL (1100-4500); Lymphocytes Percent Auto 16.8 % (25-40); Mean Corpuscular HGB Conc 33.7 % (30-36); Mean Corpuscular Hemoglobin 28.3 PG (26-34); Monocytes Absolute Auto 800 /uL (0-900); Monocytes Percent Auto 10.6 % (3-14); Neutrophils Absolute Auto 5000 /uL (1500-7000); Neutrophils Percent Auto 68.8 % (50-75); Platelet Count 165 X10^3/uL (150-400); White Blood Cell Count 7.3 X10^3/uL (4.5-11.0)
[2024-01-20 08:03] LABS: Alanine Aminotransferase 19 IU/L (<50); Albumin 4.1 g/dL (3.5-5.0); Albumin Globulin Ratio 1.4 (1.0-2.8); Alkaline Phosphatase 103 U/L (38-126); Aspartate Aminotransferase 22 IU/L (17-59); BUN Creatinine Ratio 18.4 (6-22); Bilirubin Total 0.5 mg/dL (0.2-1.3); Blood Urea Nitrogen 29 mg/dL (9-20); Calcium 9.7 mg/dL (8.4-10.2); Carbon Dioxide 25 mmol/L (22-32); Chloride 107 mmol/L (98-107); Estimated Glomerular Filt Rate 45 mL/min (>60); Glucose 98 mg/dL (80-110); HEMOLYSIS < 15 (0-50); Lipase 76 U/L (23-300); Potassium 4.2 mmol/L (3.4-5.1); Sodium 139 mmol/L (137-145); Total Protein 7.1 g/dL (6.3-8.2)
[2024-01-20 08:04] LABS: Lactate (Lactic Acid) 0.7 mmol/L (0.7-2.1)
--- NOTE | 2024-01-20 08:05 | DI.CT.S_ITS ---
PROCEDURE: CT ANGIO ABDOMEN PELVIS INDICATIONS: mesenteric ischemia TECHNIQUE: After the administration of intravenous contrast, 2.5 mm sections acquired from the diaphragm to the iliac crests. 10 mm maximum intensity projection (MIP) coronal and sagittal reformats were then performed. For radiation dose reduction, the following was used: automated exposure control. COMPARISON: [facility], CT, CT KIDNEY URETER BLADDER (KUB), 05/13/2023, 8:57. [facility], CT, CT ABDOMEN RENAL PROTOCOL, 02/21/2023, 9:00. [facility], CT, CT ABDOMEN PELVIS W CON, 01/19/2024, 10:56. FINDINGS: Image quality: Diagnostic. Abdominal aorta: No aortic aneurysm or evidence of acute aortic syndrome. Mesenteric arteries: Patent without hemodynamically significant stenosis. Renal arteries: Radial arteries are patent. Soft and calcified atherosclerotic plaque in the proximal right renal artery which causes moderate to high-grade stenosis. No hemodynamically significant stenosis involving the left renal artery. Lower chest: Unremarkable. ABDOMEN: Liver: No solid mass. No portal venous gas. Gallbladder: No radiopaque gallstones or wall thickening. Biliary ducts: No biliary dilation. Pancreas: No ductal dilation. Spleen: Size is within normal limits. Adrenal Glands: No adrenal nodules. Kidneys and Ureters: No hydronephrosis. No solid mass. Bilateral simple renal cyst which require no additional imaging. No complex renal cystic lesion which requires follow up. Stomach and Bowel: Dilated loops of small bowel with pneumatosis involving the dilated loops of bowel without significant change. Peritoneum: No abnormal intraperitoneal fluid. Scattered free intraperitoneal air locules are without significant change compared to January 19, 2024. Ventral Wall: No hernia. Abdominal Nodes: No retroperitoneal or mesenteric adenopathy by size criteria. Vessels: Aorta, as above. Normal IVC. PELVIS: Pelvic Organs: Unremarkable. Bladder: Unremarkable. Pelvic Nodes: No enlarged lymph nodes. Miscellaneous: Stable bilateral fat containing inguinal hernias. Bones: No aggressive osseous abnormality. Spine degenerative disc disease and facet arthropathy. IMPRESSION: No large vessel occlusion, vascular dissection or aneurysm. No significant mesenteric artery stenosis. Moderate to severe stenosis of the proximal right renal artery. Dilated loops of small bowel which could be secondary to obstruction or ileus. Non-specific small bowel pneumatosis without significant change. Pneumoperitoneum concerning for bowel perforation is without significant change. Dictated by: Neisha Romo MD, PhD on 01/20/2024 at 10:21 Approved by: Neisha Romo MD, PhD on 01/20/2024 at 10:37
[2024-01-20] MEDS: SODIUM CHLORIDE 0.9% 1,000 ML 1000 ML IV (08:22)
--- NOTE | 2024-01-20 15:38 | SUR.OPER ---
Supine on padded OR bed, head on pillow, arms secured on padded arm boards at <90 degrees abduction, legs uncrossed, safety belt at thigh, tape over blanket over lower legs.
--- NOTE | 2024-01-20 15:43 | P.CONS_ITS ---
History of Present Illness Consult details Date Patient Seen: 01/20/24 Time Patient Seen: 15:43 Chief complaint: ct scan yesterday, tear in intestine Narrative: 73-year-old man extensive cardiac history who presents to the emergency department with right-sided abdominal pain. He has a associated bloating of the abdomen no hematochezia melena nausea or emesis. A CT abdomen pelvis demonstrates pneumatosis of the small bowel no free air or free fluid there is extensive vascular calcifications. A CTA does not demonstrate any large mesenteric vessel obstruction. He describes history of postprandial abdominal pain. At admission afebrile pulse 52 blood pressure 140/70 WBC 7 lactate 0.7, creatinine 1.6. His vascular history is notable for a CABG 1991 followed by multiple coronary artery stents followed by Dr Mae. He has calf claudication no previous lower extremity bypass or stent placement. Meds Home Medications and Allergies Home Medications Medication Instructions Recorded Confirmed Type cholecalciferol (vitamin D3) 125 125 mcg PO DAILY 06/11/19 01/20/24 History mcg (5,000 unit) capsule nitroglycerin 0.4 mg/hr 1 patch transdermal DAILY 12/16/21 01/20/24 History transdermal 24 hour patch aspirin 81 mg tablet,delayed 81 mg PO DAILY #30 tabs 01/14/22 01/20/24 Rx release magnesium citrate 4 gram oral 400 mg PO DAILY 01/24/22 01/20/24 History packet vitamin K2 100 mcg capsule 480 mcg PO DAILY 01/24/22 01/20/24 History valsartan 40 mg tablet 20 mg PO DAILY 04/16/22 01/20/24 History finasteride 5 mg tablet 5 mg PO DAILY #90 tabs 01/12/23 01/20/24 Rx tamsulosin 0.4 mg capsule 0.8 mg (2 x 0.4 mg) PO BEDTIME 05/08/23 01/20/24 Rx #180 caps nitroglycerin 0.4 mg sublingual mg sublingual 05/27/23 01/12/24 History tablet amlodipine 2.5 mg tablet 2.5 mg PO DAILY 10/06/23 01/20/24 History atorvastatin 20 mg tablet 20 mg PO DAILY 10/06/23 01/20/24 History furosemide 20 mg tablet (Lasix) 20 mg PO DAILY PRN edema, weight 10/06/23 01/20/24 Rx gain #30 tabs prasugrel 10 mg tablet 10 mg PO DAILY 10/06/23 01/20/24 History spironolactone 25 mg tablet 25 mg PO DAILY #90 tabs 10/06/23 01/20/24 Rx metoprolol succinate 100 mg 50 mg PO DAILY 12/09/23 01/20/24 History tablet,extended release 24 hr tolterodine 4 mg capsule,extended 4 mg PO DAILY 12/09/23 01/20/24 History release 24 hr ipratropium bromide 42 mcg (0.06 2 spray intranasal TID PRN allergy 12/22/23 01/20/24 Rx %) nasal spray symptoms #15 mL amiodarone 200 mg tablet 200 mg PO DAILY 01/12/24 01/20/24 History Allergies Allergy/AdvReac Type Severity Reaction Status Date / Time gabapentin Allergy Verified 01/20/24 15:17 lisinopril AdvReac Cough Verified 01/20/24 15:17 phenazopyridine AdvReac Diarrhea Verified 01/20/24 15:17 Exam Vital Signs (past 8 hours): - 01/20/24 08:00 01/20/24 08:00 01/20/24 08:30 Temperature Pulse Rate 59 L 59 L Respiratory Rate 21 22 Blood Pressure 138/91 H Pulse Oximetry 95 96 Oxygen Delivery Method 01/20/24 08:30 01/20/24 08:56 01/20/24 08:56 Temperature Pulse Rate 59 L Respiratory Rate 20 Blood Pressure 140/63 162/73 H Pulse Oximetry 97 Oxygen Delivery Method 01/20/24 09:00 01/20/24 09:01 01/20/24 09:01 Temperature Pulse Rate 57 L 57 L Respiratory Rate 26 H 19 Blood Pressure 139/62 Pulse Oximetry 97 97 Oxygen Delivery Method 01/20/24 09:30 01/20/24 10:32 01/20/24 10:34 Temperature Pulse Rate 55 L 56 L 56 L Respiratory Rate 20 19 Blood Pressure 120/56 L Pulse Oximetry 95 95 96 Oxygen Delivery Method 01/20/24 10:34 01/20/24 11:00 01/20/24 11:01 Temperature Pulse Rate 54 L Respiratory Rate 21 Blood Pressure 120/56 L 108/53 L Pulse Oximetry 96 Oxygen Delivery Method 01/20/24 11:01 01/20/24 11:14 01/20/24 11:14 Temperature Pulse Rate 55 L 53 L Respiratory Rate 24 20 Blood Pressure 134/60 Pulse Oximetry 95 96 Oxygen Delivery Method 01/20/24 11:30 01/20/24 11:30 01/20/24 12:00 Temperature Pulse Rate 53 L 53 L Respiratory Rate 20 19 Blood Pressure 124/60 Pulse Oximetry 97 96 Oxygen Delivery Method 01/20/24 12:01 01/20/24 12:01 01/20/24 12:30 Temperature Pulse Rate 54 L 55 L Respiratory Rate 18 15 Blood Pressure 123/56 L Pulse Oximetry 97 96 Oxygen Delivery Method 01/20/24 12:31 01/20/24 12:31 01/20/24 12:34 Temperature Pulse Rate 55 L 54 L Respiratory Rate 21 17 Blood Pressure 130/101 H Pulse Oximetry 95 95 Oxygen Delivery Method 01/20/24 12:34 01/20/24 13:00 01/20/24 13:00 Temperature Pulse Rate 54 L Respiratory Rate 13 Blood Pressure 149/67 H 147/90 H Pulse Oximetry 95 Oxygen Delivery Method 01/20/24 14:48 Temperature 98.1 F Pulse Rate 52 L Respiratory Rate 12 Blood Pressure 161/67 H Pulse Oximetry 97 Oxygen Delivery Method Room Air Oxygen Delivery Method Room Air Narrative Exam Narrative: GENERAL: elderly man alert oriented, in no acute distress. HEENT: Normocephalic, atraumatic. No scleral icterus CHEST: Rising symmetrically. No audible wheezes CARDIOVASCULAR: Warm and well perfused. Regular rate ABDOMEN: right-sided tenderness no peritonitis, distended EXTREMITIES: Normal tone and without edema. NEUROLOGIC: Moving all extremities spontaneously. No gross motor deficits. Objective Labs 01/20/24 07:44 01/20/24 07:44 Labs: Laboratory Results - last 24 hr 01/20/24 07:44 WBC 7.3 RBC 5.10 Hgb 14.4 Hct 42.8 MCV 84.0 MCH 28.3 MCHC 33.7 RDW 15.0 H Plt Count 165 Neut % (Auto) 68.8 Lymph % (Auto) 16.8 L [place] % (Auto) 10.6 Eos % (Auto) 2.7 Baso % (Auto) 1.1 Neut # (Auto) 5000 Lymph # (Auto) 1200 [place] # (Auto) 800 Eos # (Auto) 200 Baso # (Auto) 100 Sodium 139 Potassium 4.2 Chloride 107 Carbon Dioxide 25 BUN 29 H Creatinine 1.58 H Estimated GFR 45 L BUN/Creatinine Ratio 18.4 Glucose 98 Lactate 0.7 Calcium 9.7 Total Bilirubin 0.5 AST 22 ALT 19 Alkaline Phosphatase 103 Total Protein 7.1 Albumin 4.1 Globulin 3.0 Albumin/Globulin Ratio 1.4 Lipase 76 PFSH Medical History Bradycardia Dyspnea BPH loc w urin obs/LUTS Urge incontinence History of UTI Stable angina Benign essential HTN Hearing loss Hemorrhoid History of nephrolithiasis Grieving Peripheral arterial disease CAD (coronary artery disease) (~1991) Insomnia Sleep apnea Mumps Measles Chicken pox Tinnitus Partial blindness (~1948) Peptic ulcer disease (~2015) Detached retina, right (~1983) Anemia Right renal mass Hyperaldosteronism Cardiomyopathy Hx of nephrolithotomy with removal of calculi (2008) Upper GI bleed Peripheral neuropathy HLD (hyperlipidemia) Staph infection (1979) Duodenal ulcer hemorrhage Atrial fibrillation Arthritis Angina pectoris ANA (obstructive sleep apnea) Myocardial infarction (~2016) CAD (coronary artery disease) BPH w urinary obs/LUTS Hypertension Diabetes Chronic kidney disease Surgical History Anesthesia Hx of coronary angioplasty Hx of heart artery stent S/P CABG x 3 (1991) H/O circumcision H/O vasectomy H/O lithotripsy History of appendectomy Family History Father History of heart disease Aneurysm Mother History of heart disease Hypertension Heart failure Brother Leukemia Social History household members: none Tobacco & Substance Use Smoking Status: Former smoker alcohol intake: current substance use type: does not use Assessment & Plan Assessment and plan (1) Pneumatosis intestinalis: Problem details: 73-year-old man PMH CAD, diabetes, peripheral vascular disease and chronic mesenteric ischemia with abdominal pain and imaging suggesting pneumatosis. Personally reviewed his CT abdomen pelvis as well as CTA which is notable for small bowel pneumatosis no free air or free fluid. There is no findings of large mesenteric vessel obstruction however given history of coronary artery disease and peripheral vascular disease acute mesenteric ischemia certainly possibility. I do not think he has perforated however I think we should proceed to the operating room for diagnostic laparoscopy, possible bowel resection possible laparotomy. He is high-risk for any operation however addressing this issue before he has a arline bowel perforation provides him with the best chance of success. We discussed the nature of the operation as well as its risks including hemorrhage, anastomotic leak, damage to surrounding structures, myocardial infarction, stroke, . His questions have been answered. Following discussion he provides his informed consent to proceed. Status: Acute Time-Based Coding :: [TOTAL MINUTES] spent with patient and on the chart (including review of chart, obtaining history, exam, reviewing outside data, placing orders, documenting exam and treatment plan, and counseling patient) on [DATE].
[2024-01-20] MEDS: LACTATED RINGERS 1,000 ML 42 ML IV (15:44)
[2024-01-20] MEDS: CEFAZOLIN 2 GM/100 ML PREMIX 100 ML IV (16:07)
[2024-01-20] MEDS: BUPIVACAINE 0.25% (PF) VIAL 30 ML INJ (16:22)
--- NOTE | 2024-01-20 17:33 | PM.OP.1 ---
Operative Date/Time/Diagnoses Date of procedure: 01/20/24 Time of procedure: 17:33 Pre-op diagnosis: pneumatosis Post-op diagnosis: other ( mesenteric ischemia) Procedure & Clinicians Procedure: diagnostic laparoscopy enterectomy Same procedure as scheduled: Yes Indications: 73-year-old man with extensive vascular disease presents to the emergency department with a abdominal pain. Imaging suggests pneumatosis of the small bowel no free air or free fluid no large vessel obstruction. On CTA Surgeon: Kiko Langford Click Yes if Unassisted: Yes Anesthesia Type: General Operative Notes Findings: 6 in of ischemic small bowel with obvious pneumatosis no arline perforation yet Specimen(s): other ( small-bowel resection) Estimated Blood Loss (mL): 50 Procedure in detail: patient was brought to the operating room placed supine on the table. Bilateral lower extremity compression devices applied. General anesthesia induced he intubated with an endotracheal tube. He was then prepped and draped in sterile fashion. Time-out was performed. A infraumbilical incision was made the fascia was grasped elevated sharply incised and a incision was made. A balloon trocar was then placed into the abdomen and pneumoperitoneum was established. No evidence of injury upon entry. Additional working ports were placed suprapubic and in the left lower quadrant. We then performed a inspection of the small bowel running it in its entirety from the terminal ileum to the ligament of Treitz. In the mid small bowel there was an isolated segment of approximately 6 in with obvious pneumatosis and ischemia. At this point we extended the infraumbilical incision couple of inches placed a an Yared retractor and the small bowel was eviscerated. A enterectomy was performed to encompass the ischemic area. A window within the mesentery was made on each side and then the bowel was divided using the SANDOVAL stapler 75 mm blue load. The mesentery was divided using the LigaSure and the specimen was passed off the field. The 2 ends were then placed in the [id number] fashion to form of functional end to end anastomosis. A crotch stitch with silk was placed. An enterotomy in each limb was made and then stapler was used to create a common channel. The anastomosis was inspected it was widely patent and hemostatic. We then closed the common opening using a running 3-0 PDS suture. The suture line was imbricated using interrupted silk suture. There was no evidence of leak in content moved across the connection freely. The abdomen was irrigated with saline. The sponge and instrument count was correct x2. Fascia was closed with PDS. Skin was closed with dontrell. He tolerated the operation well was transferred to recovery in stable condition with plan for observation in the intensive care unit postoperatively. Complications: none Post-operative Plan for aftercare: ICU NPO IV fluids
[2024-01-20] MEDS: HYDROMORPHONE 1 MG INJ IV ×2 (17:51→17:58)
[2024-01-20] MEDS: ONDANSETRON 4 MG/2 ML INJ IV (17:55)
--- NOTE | 2024-01-20 18:30 | PM.HP.1 ---
History of Present Illness History of Present Illness Date Patient Seen: 01/20/24 Time Patient Seen: 18:30 Chief complaint: ct scan yesterday, tear in intestine Narrative: The patient is a 73-year-old male with a history of CAD, CABG, stenting, atrial fibrillation, diastolic heart failure, COPD, and hypertension who presented to the ER with a 2 week history of progressive abdominal bloating after eating. He was having a small amount of pain as well as diarrhea for the last week but denies any rectal bleeding. He also denies any vomiting. In the emergency department he was found to have a distended abdomen in his CT was obtained to rule out bowel obstruction. This revealed evidence of ischemic bowel with some pneumobilia. The patient was discussed with General surgery who evaluated the patient and took him to the OR for exploratory laparotomy. He was found to have a small segment of ischemic bowel which was resected. Postoperatively the patient did well in the PACU and was extubated. He was transferred to the medical floor and feels generally okay. He has some abdominal pain at the incisional site but denies any nausea. He also denies any chest pain, or dyspnea. Did take his cardiac medications including Prasugrel and aspirin this morning. [facility] Medical History Bradycardia Dyspnea BPH loc w urin obs/LUTS Urge incontinence History of UTI Stable angina Benign essential HTN Hearing loss Hemorrhoid History of nephrolithiasis Grieving Peripheral arterial disease CAD (coronary artery disease) (~1991) Insomnia Sleep apnea Mumps Measles Chicken pox Tinnitus Partial blindness (~194) Peptic ulcer disease (~2015) Detached retina, right (~1983) Anemia Right renal mass Hyperaldosteronism Cardiomyopathy Hx of nephrolithotomy with removal of calculi (2008) Upper GI bleed Peripheral neuropathy HLD (hyperlipidemia) Staph infection (1979) Duodenal ulcer hemorrhage Atrial fibrillation Arthritis Angina pectoris ANA (obstructive sleep apnea) Myocardial infarction (~2016) CAD (coronary artery disease) BPH w urinary obs/LUTS Hypertension Diabetes Chronic kidney disease Surgical History Anesthesia Hx of coronary angioplasty Hx of heart artery stent S/P CABG x 3 (1991) H/O circumcision H/O vasectomy H/O lithotripsy History of appendectomy Family History Father History of heart disease Aneurysm Mother History of heart disease Hypertension Heart failure Brother Leukemia Social History household members: none Smoking Status: Former smoker alcohol intake: current substance use type: does not use Meds Home Medications and Allergies Home Medications Medication Instructions Recorded Confirmed Type cholecalciferol (vitamin D3) 125 125 mcg PO DAILY 06/11/19 01/20/24 History mcg (5,000 unit) capsule nitroglycerin 0.4 mg/hr 1 patch transdermal DAILY 12/16/21 01/20/24 History transdermal 24 hour patch aspirin 81 mg tablet,delayed 81 mg PO DAILY #30 tabs 01/14/22 01/20/24 Rx release magnesium citrate 4 gram oral 400 mg PO DAILY 01/24/22 01/20/24 History packet vitamin K2 100 mcg capsule 480 mcg PO DAILY 01/24/22 01/20/24 History valsartan 40 mg tablet 20 mg PO DAILY 04/16/22 01/20/24 History finasteride 5 mg tablet 5 mg PO DAILY #90 tabs 01/12/23 01/20/24 Rx tamsulosin 0.4 mg capsule 0.8 mg (2 x 0.4 mg) PO BEDTIME 05/08/23 01/20/24 Rx #180 caps amlodipine 2.5 mg tablet 2.5 mg PO DAILY 10/06/23 01/20/24 History atorvastatin 20 mg tablet 20 mg PO DAILY 10/06/23 01/20/24 History furosemide 20 mg tablet (Lasix) 20 mg PO DAILY PRN edema, weight 10/06/23 01/20/24 Rx gain #30 tabs prasugrel 10 mg tablet 10 mg PO DAILY 10/06/23 01/20/24 History spironolactone 25 mg tablet 25 mg PO DAILY #90 tabs 10/06/23 01/20/24 Rx metoprolol succinate 100 mg 50 mg PO DAILY 12/09/23 01/20/24 History tablet,extended release 24 hr tolterodine 4 mg capsule,extended 4 mg PO DAILY 12/09/23 01/20/24 History release 24 hr ipratropium bromide 42 mcg (0.06 2 spray intranasal TID PRN allergy 12/22/23 01/20/24 Rx %) nasal spray symptoms #15 mL amiodarone 200 mg tablet 200 mg PO DAILY 01/12/24 01/20/24 History Allergies Allergy/AdvReac Type Severity Reaction Status Date / Time gabapentin Allergy Verified 01/20/24 15:17 lisinopril AdvReac Cough Verified 01/20/24 15:17 phenazopyridine AdvReac Diarrhea Verified 01/20/24 15:17 Review of Systems Review of Systems Narrative: All else reviewed and otherwise unremarkable except as noted in the history and physical. Exam Vital Signs (past 8 hours): - 01/20/24 10:32 01/20/24 10:34 01/20/24 10:34 Temperature Pulse Rate 56 L 56 L Respiratory Rate 19 Blood Pressure 120/56 L 120/56 L Pulse Oximetry 95 96 Oxygen Delivery Method 01/20/24 11:00 01/20/24 11:01 01/20/24 11:01 Temperature Pulse Rate 54 L 55 L Respiratory Rate 21 24 Blood Pressure 108/53 L Pulse Oximetry 96 95 Oxygen Delivery Method 01/20/24 11:14 01/20/24 11:14 01/20/24 11:30 Temperature Pulse Rate 53 L Respiratory Rate 20 Blood Pressure 134/60 124/60 Pulse Oximetry 96 Oxygen Delivery Method 01/20/24 11:30 01/20/24 12:00 01/20/24 12:01 Temperature Pulse Rate 53 L 53 L 54 L Respiratory Rate 20 19 18 Blood Pressure Pulse Oximetry 97 96 97 Oxygen Delivery Method 01/20/24 12:01 01/20/24 12:30 01/20/24 12:31 Temperature Pulse Rate 55 L 55 L Respiratory Rate 15 21 Blood Pressure 123/56 L Pulse Oximetry 96 95 Oxygen Delivery Method 01/20/24 12:31 01/20/24 12:34 01/20/24 12:34 Temperature Pulse Rate 54 L Respiratory Rate 17 Blood Pressure 130/101 H 149/67 H Pulse Oximetry 95 Oxygen Delivery Method 01/20/24 13:00 01/20/24 13:00 01/20/24 14:48 Temperature 98.1 F Pulse Rate 54 L 52 L Respiratory Rate 13 12 Blood Pressure 147/90 H 161/67 H Pulse Oximetry 95 97 Oxygen Delivery Method Room Air 01/20/24 15:37 01/20/24 17:31 01/20/24 17:36 Temperature 97.1 F L 97.5 F L Pulse Rate 52 L 63 63 Respiratory Rate 16 13 14 Blood Pressure 139/66 136/69 131/63 Pulse Oximetry 97 95 92 Oxygen Delivery Method Room Air Room Air Room Air 01/20/24 17:42 01/20/24 17:46 01/20/24 17:51 Temperature Pulse Rate 57 L 59 L 57 L Respiratory Rate 12 14 10 L Blood Pressure 132/59 L 132/59 L 140/81 Pulse Oximetry 93 94 96 Oxygen Delivery Method Room Air Room Air Room Air 01/20/24 17:56 01/20/24 18:01 01/20/24 18:07 Temperature 98.2 F Pulse Rate 69 60 59 L Respiratory Rate 16 14 17 Blood Pressure 141/74 H 143/68 H 147/72 H Pulse Oximetry 93 93 93 Oxygen Delivery Method Room Air Room Air Room Air Oxygen Delivery Method Room Air Narrative Exam Narrative: NAD, alert and oriented, fluent speech, calm. Normocephalic skull, EOMI, anicteric sclera, symmetric pupils. Oropharynx unremarkable, no droop. Neck supple, midline trachea, no adenopathy. Lungs clear, normal rate and effort. Heart regular, no murmur gallop or rub. Abdomen is soft, distended and nontender. He was incisional wounds are unremarkable and no drains are in place. He was hypoactive bowel tones. Extremities are free of edema. Skin is free of rash or lesions. Joints are not swollen or deformed. Judgment appears to be normal. Objective ECG Impression: Sinus bradycardia with 1st degree AV block Left ventricular hypertrophy with repolarization abnormality ( R in aVL ) Imaging CT scan - abdomen: Radiologist's impression: No large vessel occlusion, vascular dissection or aneurysm. No significant mesenteric artery stenosis. Moderate to severe stenosis of the proximal right renal artery. Dilated loops of small bowel which could be secondary to obstruction or ileus. Non-specific small bowel pneumatosis without significant change. Pneumoperitoneum concerning for bowel perforation is without significant change. Labs 01/20/24 07:44 01/20/24 07:44 Labs: Laboratory Results - last 24 hr 01/20/24 07:44 WBC 7.3 RBC 5.10 Hgb 14.4 Hct 42.8 MCV 84.0 MCH 28.3 MCHC 33.7 RDW 15.0 H Plt Count 165 Neut % (Auto) 68.8 Lymph % (Auto) 16.8 L [place] % (Auto) 10.6 Eos % (Auto) 2.7 Baso % (Auto) 1.1 Neut # (Auto) 5000 Lymph # (Auto) 1200 [place] # (Auto) 800 Eos # (Auto) 200 Baso # (Auto) 100 Sodium 139 Potassium 4.2 Chloride 107 Carbon Dioxide 25 BUN 29 H Creatinine 1.58 H Estimated GFR 45 L BUN/Creatinine Ratio 18.4 Glucose 98 Lactate 0.7 Calcium 9.7 Total Bilirubin 0.5 AST 22 ALT 19 Alkaline Phosphatase 103 Total Protein 7.1 Albumin 4.1 Globulin 3.0 Albumin/Globulin Ratio 1.4 Lipase 76 Assessment & Plan Assessment & Plan narrative: 1. Ischemic bowel with limited small-bowel resection, present on admission and active. 2. Pneumatosis intestinalis, present on admission and active. 3. Pneumoperitoneum, present on admission and active. 4. CAD with history of CABG and PCI, present on admission and stable. 5. Atrial fibrillation, not present on admission and stable. 6. BPH, present on admission stable. 7. Chronic diastolic heart failure, present on admission stable. 8. COPD, present on admission and stable. 9. Hypertension, present on admission and stable. Plan: -for tonight he is full code -NPO, IV fluids at low rate -resume cardiac medications in the morning, he took all of his medications this morning. -monitor for bleeding or progression of abdominal pain -analgesics as needed -monitor volume status -telemetry -Flomax tonight Full resuscitation, confirmed today Anticipate a 2 midnight stay, inpatient status as supported. His multiple comorbid conditions and abdominal surgery place him at a high risk of adverse outcomes. LÓPEZ is December 21. Time-Based Coding :: 40 min spent with patient and on the chart (including review of chart, obtaining history, exam, reviewing outside data, placing orders, documenting exam and treatment plan, and counseling patient) on 01/19. Quality MIPS - Admit I confirm the patient?s Advance Care Plan is present, Code status is documented, Surrogate decision maker is in patient?s record [If Yes, STOP here]: Yes MIPS - Meds 'Current medications' to include all prescriptions, [id number] products, herbals, cannabis/cannabidiol products, and vitamin/mineral/dietary (nutritional) supplements. I have utilized all available resources to obtain, update, or review the patient?s current medications. [If Yes, STOP here]: Yes
[2024-01-20] MEDS: OXYCODONE IR 5 MG TABLET PO (18:36)
[2024-01-20] MEDS: HYDROMORPHONE 0.5 MG INJ IV (19:30)
[2024-01-20 19:35] LABS: MRSA (Nasal) PCR DETECTED (Not Detect)
[2024-01-20 21:07] LABS: Alanine Aminotransferase 16 IU/L (<50); Albumin 3.3 g/dL (3.5-5.0); Albumin Globulin Ratio 1.3 (1.0-2.8); Alkaline Phosphatase 83 U/L (38-126); Aspartate Aminotransferase 20 IU/L (17-59); Bilirubin Total 0.5 mg/dL (0.2-1.3); Blood Urea Nitrogen 24 mg/dL (9-20); Calcium 8.7 mg/dL (8.4-10.2); Carbon Dioxide 23 mmol/L (22-32); Chloride 108 mmol/L (98-107); Estimated Glomerular Filt Rate 56 mL/min (>60); Globulin 2.6 g/dL (1.7-4.1); Glucose 97 mg/dL (80-110); HEMOLYSIS 15 (0-50); Magnesium 1.6 mg/dL (1.6-2.3); Potassium 4.2 mmol/L (3.4-5.1); Sodium 136 mmol/L (137-145); Total Protein 5.9 g/dL (6.3-8.2)
[2024-01-20] MEDS: HYDROMORPHONE 0.5 MG INJ 1 MG IV (21:28)
[2024-01-20] MEDS: TAMSULOSIN 0.4 MG CAPSULE PO (21:28)
[2024-01-20] MEDS: MAGNESIUM SULFATE 2 GM/50 ML PIGGYBACK IV (21:31)
[2024-01-21] VITALS (27 sets, daily range): BP systolic 93–134; BP diastolic 50–64; PULSE 62–91; RESP 10–22; TEMP 36.6–36.9; O2SAT 90–95
[2024-01-21 05:42] LABS: Add Manual Diff / Slide Review NO; Basophils Absolute Auto 0 /uL (0-100); Basophils Percent Auto 0.3 % (0-2); Eosinophils Absolute Auto 0 /uL (0-450); Hematocrit 36.8 % (41-53); Hemoglobin 12.3 g/dL (13.5-17.5); Lymphocytes Absolute Auto 500 /uL (1100-4500); Lymphocytes Percent Auto 4.5 % (25-40); Mean Corpuscular HGB Conc 33.5 % (30-36); Mean Corpuscular Hemoglobin 28.2 PG (26-34); Monocytes Absolute Auto 800 /uL (0-900); Monocytes Percent Auto 7.3 % (3-14); Neutrophils Absolute Auto 9400 /uL (1500-7000); Neutrophils Percent Auto 87.9 % (50-75); Platelet Count 140 X10^3/uL (150-400); Red Blood Cell Count 4.38 X10^6/uL (4.5-5.9); Red Cell Distribution Width 14.6 % (11.6-14.8); White Blood Cell Count 10.7 X10^3/uL (4.5-11.0)
[2024-01-21 05:44] LABS: BUN Creatinine Ratio 18.7 (6-22); Blood Urea Nitrogen 25 mg/dL (9-20); Calcium 8.6 mg/dL (8.4-10.2); Carbon Dioxide 24 mmol/L (22-32); Chloride 107 mmol/L (98-107); Estimated Glomerular Filt Rate 55 mL/min (>60); Glucose 116 mg/dL (80-110); HEMOLYSIS < 15 (0-50); Potassium 4.2 mmol/L (3.4-5.1); Sodium 136 mmol/L (137-145)
--- NOTE | 2024-01-21 07:44 | PM.PN.1 ---
Subjective Subjective Interval history: S: He was doing well today. Sitting up in a chair. No chest pain, or dyspnea. Some abdominal pain with deep breathing. He was tolerating water without difficulty. No flatus, minimal abdominal pain, and no BM. Exam Vital Signs (past 8 hours): - 01/21/24 00:00 01/21/24 00:01 01/21/24 00:01 Temperature Pulse Rate 65 64 Respiratory Rate 10 L 17 Blood Pressure 101/50 L Pulse Oximetry 92 91 Oxygen Flow Rate 2 01/21/24 01:00 01/21/24 01:00 01/21/24 02:00 Temperature Pulse Rate 64 68 Respiratory Rate 17 Blood Pressure 103/51 L Pulse Oximetry 91 90 L Oxygen Flow Rate 01/21/24 02:01 01/21/24 02:01 01/21/24 03:00 Temperature Pulse Rate 67 Respiratory Rate Blood Pressure 112/56 L 117/58 L Pulse Oximetry 91 Oxygen Flow Rate 01/21/24 03:00 01/21/24 04:00 01/21/24 04:00 Temperature 98.5 F Pulse Rate 71 68 Respiratory Rate 18 22 Blood Pressure 122/58 L Pulse Oximetry 90 L 92 Oxygen Flow Rate 2 01/21/24 05:00 01/21/24 05:00 01/21/24 05:59 Temperature Pulse Rate 67 66 Respiratory Rate 18 16 Blood Pressure 126/60 Pulse Oximetry 91 90 L Oxygen Flow Rate 1 01/21/24 06:00 01/21/24 06:00 01/21/24 06:59 Temperature Pulse Rate 65 66 Respiratory Rate 21 20 Blood Pressure 120/57 L Pulse Oximetry 93 92 Oxygen Flow Rate 01/21/24 07:00 Temperature Pulse Rate Respiratory Rate Blood Pressure 134/63 Pulse Oximetry Oxygen Flow Rate Oxygen Delivery Method Nasal Cannula Oxygen Flow Rate 1 Narrative Exam Narrative: NAD, alert and oriented. Fluent speech. Lungs are clear, normal rate and effort. Heart is regular, no murmur gallop or rub. Abdomen is soft, non distended. Hypoactive bowel tones. Extremities are free of edema. Objective Labs 01/21/24 04:10 01/21/24 04:10 Labs: Laboratory Results - last 24 hr 01/20/24 01/20/24 01/20/24 07:44 18:22 20:30 WBC 7.3 RBC 5.10 Hgb 14.4 Hct 42.8 MCV 84.0 MCH 28.3 MCHC 33.7 RDW 15.0 H Plt Count 165 Neut % (Auto) 68.8 Lymph % (Auto) 16.8 L [place] % (Auto) 10.6 Eos % (Auto) 2.7 Baso % (Auto) 1.1 Neut # (Auto) 5000 Lymph # (Auto) 1200 [place] # (Auto) 800 Eos # (Auto) 200 Baso # (Auto) 100 Sodium 139 136 L Potassium 4.2 4.2 Chloride 107 108 H Carbon Dioxide 25 23 BUN 29 H 24 H Creatinine 1.58 H 1.33 H Estimated GFR 45 L 56 L BUN/Creatinine Ratio 18.4 18.0 Glucose 98 97 Lactate 0.7 Calcium 9.7 8.7 Magnesium 1.6 Total Bilirubin 0.5 0.5 AST 22 20 ALT 19 16 Alkaline Phosphatase 103 83 Total Protein 7.1 5.9 L Albumin 4.1 3.3 L Globulin 3.0 2.6 Albumin/Globulin Ratio 1.4 1.3 Lipase 76 Nasal Screen MRSA (PCR) Detected H 01/21/24 04:10 WBC 10.7 RBC 4.38 L Hgb 12.3 L Hct 36.8 L MCV 84.0 MCH 28.2 MCHC 33.5 RDW 14.6 Plt Count 140 L Neut % (Auto) 87.9 H Lymph % (Auto) 4.5 L [place] % (Auto) 7.3 Eos % (Auto) 0.0 L Baso % (Auto) 0.3 Neut # (Auto) 9400 H Lymph # (Auto) 500 L [place] # (Auto) 800 Eos # (Auto) 0 Baso # (Auto) 0 Sodium 136 L Potassium 4.2 Chloride 107 Carbon Dioxide 24 BUN 25 H Creatinine 1.34 H Estimated GFR 55 L BUN/Creatinine Ratio 18.7 Glucose 116 H Lactate Calcium 8.6 Magnesium 2.0 Total Bilirubin AST ALT Alkaline Phosphatase Total Protein Albumin Globulin Albumin/Globulin Ratio Lipase Nasal Screen MRSA (PCR) [facility] Medical History Bradycardia Dyspnea BPH loc w urin obs/LUTS Urge incontinence History of UTI Stable angina Benign essential HTN Hearing loss Hemorrhoid History of nephrolithiasis Grieving Peripheral arterial disease CAD (coronary artery disease) (~1991) Insomnia Sleep apnea Mumps Measles Chicken pox Tinnitus Partial blindness (~1949) Peptic ulcer disease (~2016) Detached retina, right (~1983) Anemia Right renal mass Hyperaldosteronism Cardiomyopathy Hx of nephrolithotomy with removal of calculi (2008) Upper GI bleed Peripheral neuropathy HLD (hyperlipidemia) Staph infection (1979) Duodenal ulcer hemorrhage Atrial fibrillation Arthritis Angina pectoris ANA (obstructive sleep apnea) Myocardial infarction (~2017) CAD (coronary artery disease) BPH w urinary obs/LUTS Hypertension Diabetes Chronic kidney disease Surgical History Anesthesia Hx of coronary angioplasty Hx of heart artery stent S/P CABG x 3 (1991) H/O circumcision H/O vasectomy H/O lithotripsy History of appendectomy Family History Father History of heart disease Aneurysm Mother History of heart disease Hypertension Heart failure Brother Leukemia Social History household members: none Smoking Status: Former smoker alcohol intake: current substance use type: does not use Assessment & Plan Assessment & Plan narrative: 1. Ischemic bowel with limited small-bowel resection, present on admission and active. 2. Pneumatosis intestinalis, present on admission and active. 3. Pneumoperitoneum, present on admission and active. 4. CAD with history of CABG and PCI, present on admission and stable. 5. Atrial fibrillation, not present on admission and stable. 6. BPH, present on admission stable. 7. Chronic diastolic heart failure, present on admission stable. 8. COPD, present on admission and stable. 9. Hypertension, present on admission and stable. Plan: -resume usual medications. -clear liquid for now. -monitor abdominal exam. -resume most chronic medications other than nitro patch. -monitor blood pressure. Full resuscitation, confirmed today Anticipate a 2 midnight stay, inpatient status as supported. His multiple comorbid conditions and abdominal surgery place him at a high risk of adverse outcomes. LÓPEZ is December 21. Time-Based Coding :: [TOTAL MINUTES] spent with patient and on the chart (including review of chart, obtaining history, exam, reviewing outside data, placing orders, documenting exam and treatment plan, and counseling patient) on [DATE].
[2024-01-21] MEDS: ONDANSETRON 4 MG/2 ML INJ IV ×2 (08:32→15:58)
[2024-01-21] MEDS: LACTATED RINGERS 1,000 ML 42 ML IV (08:49)
[2024-01-21] MEDS: VALSARTAN 80 MG TABLET 20 MG PO (09:26)
[2024-01-21] MEDS: ASPIRIN EC 81 MG TABLET PO (09:31)
[2024-01-21] MEDS: ATORVASTATIN 20 MG TABLET PO (09:31)
[2024-01-21] MEDS: SPIRONOLACTONE 25 MG TABLET PO (09:31)
[2024-01-21] MEDS: FINASTERIDE 5 MG TABLET PO (09:31)
[2024-01-21] MEDS: AMLODIPINE 5 MG TABLET 2.5 MG PO (09:31)
[2024-01-21] MEDS: AMIODARONE 200 MG TABLET PO (09:32)
[2024-01-21] MEDS: METOPROLOL ER 50 MG TABLET PO (09:32)
[2024-01-21] MEDS: ENOXAPARIN 40 MG/0.4 ML SYRINGE SUBCUT (09:33)
[2024-01-21] MEDS: OXYCODONE IR 5 MG TABLET PO ×2 (11:05→21:09)
[2024-01-21] MEDS: HYDROMORPHONE 0.5 MG INJ 1 MG IV (11:51)
--- NOTE | 2024-01-21 12:18 | P.PN_ITS ---
Subjective Subjective Date Patient Seen: 01/21/24 Time Patient Seen: 12:18 Interval history: Postoperative day 1 status post small bowel resection for mesenteric ischemia. No acute overnight events. Exam Vital Signs (past 8 hours): - 01/21/24 05:00 01/21/24 05:00 01/21/24 05:59 Temperature Pulse Rate 67 66 Respiratory Rate 18 16 Blood Pressure 126/60 Pulse Oximetry 91 90 L Oxygen Delivery Method Oxygen Flow Rate 1 01/21/24 06:00 01/21/24 06:00 01/21/24 06:59 Temperature Pulse Rate 65 66 Respiratory Rate 21 20 Blood Pressure 120/57 L Pulse Oximetry 93 92 Oxygen Delivery Method Oxygen Flow Rate 01/21/24 07:00 01/21/24 07:00 01/21/24 07:01 Temperature Pulse Rate 65 Respiratory Rate 19 Blood Pressure 134/63 Pulse Oximetry 92 Oxygen Delivery Method Room Air Oxygen Flow Rate 01/21/24 08:00 01/21/24 08:15 01/21/24 08:15 Temperature 98.0 F Pulse Rate 68 67 Respiratory Rate Blood Pressure 123/59 L Pulse Oximetry 93 93 Oxygen Delivery Method Oxygen Flow Rate 01/21/24 09:00 01/21/24 09:07 01/21/24 09:32 Temperature Pulse Rate 67 64 Respiratory Rate Blood Pressure 123/59 L Pulse Oximetry 93 93 Oxygen Delivery Method Room Air Oxygen Flow Rate 0 01/21/24 10:00 01/21/24 10:38 01/21/24 11:00 Temperature Pulse Rate 68 91 H 65 Respiratory Rate Blood Pressure 124/64 Pulse Oximetry 94 95 Oxygen Delivery Method Oxygen Flow Rate Oxygen Delivery Method Room Air Oxygen Flow Rate 0 Narrative Exam Narrative: General adult man alert oriented no acute distress Abdomen soft appropriately tender to palpation. Objective Labs 01/21/24 04:10 01/21/24 04:10 Labs: Laboratory Results - last 24 hr 01/20/24 01/20/24 01/21/24 18:22 20:30 04:10 WBC 10.7 RBC 4.38 L Hgb 12.3 L Hct 36.8 L MCV 84.0 MCH 28.2 MCHC 33.5 RDW 14.6 Plt Count 140 L Neut % (Auto) 87.9 H Lymph % (Auto) 4.5 L [place] % (Auto) 7.3 Eos % (Auto) 0.0 L Baso % (Auto) 0.3 Neut # (Auto) 9400 H Lymph # (Auto) 500 L [place] # (Auto) 800 Eos # (Auto) 0 Baso # (Auto) 0 Sodium 136 L 136 L Potassium 4.2 4.2 Chloride 108 H 107 Carbon Dioxide 23 24 BUN 24 H 25 H Creatinine 1.33 H 1.34 H Estimated GFR 56 L 55 L BUN/Creatinine Ratio 18.0 18.7 Glucose 97 116 H Calcium 8.7 8.6 Magnesium 1.6 2.0 Total Bilirubin 0.5 AST 20 ALT 16 Alkaline Phosphatase 83 Total Protein 5.9 L Albumin 3.3 L Globulin 2.6 Albumin/Globulin Ratio 1.3 Nasal Screen MRSA (PCR) Detected H PFSH Medical History Bradycardia Dyspnea BPH loc w urin obs/LUTS Urge incontinence History of UTI Stable angina Benign essential HTN Hearing loss Hemorrhoid History of nephrolithiasis Grieving Peripheral arterial disease CAD (coronary artery disease) (~1991) Insomnia Sleep apnea Mumps Measles Chicken pox Tinnitus Partial blindness (~1948) Peptic ulcer disease (~2015) Detached retina, right (~1983) Anemia Right renal mass Hyperaldosteronism Cardiomyopathy Hx of nephrolithotomy with removal of calculi (2008) Upper GI bleed Peripheral neuropathy HLD (hyperlipidemia) Staph infection (1979) Duodenal ulcer hemorrhage Atrial fibrillation Arthritis Angina pectoris ANA (obstructive sleep apnea) Myocardial infarction (~2016) CAD (coronary artery disease) BPH w urinary obs/LUTS Hypertension Diabetes Chronic kidney disease Surgical History Anesthesia Hx of coronary angioplasty Hx of heart artery stent S/P CABG x 3 (1991) H/O circumcision H/O vasectomy H/O lithotripsy History of appendectomy Family History Father History of heart disease Aneurysm Mother History of heart disease Hypertension Heart failure Brother Leukemia Social History household members: none Smoking Status: Former smoker alcohol intake: current substance use type: does not use Assessment & Plan Post-op Postoperative Procedures: Procedures Operation Date: 01/20/24 16:45 Actual Procedure Side Surgeon p Laparoscopy, Diagnostic, SMALL BOWEL RESECTION Kiko Anastasiya, MD Postoperative status narrative: 73-year-old male with mesenteric ischemia postoperative day 1 status post exploratory laparotomy with small-bowel resection. -clear liquid diet but wait to advance given chronic mesenteric ischemia at baseline -SCDs, prophylactic Lovenox and aspirin
--- NOTE | 2024-01-21 15:00 | PT.IIE ---
Current Diagnoses Other specified diseases of intestine (01/20/24) Surgery Performed Operation Date: 01/20/24 16:45 Actual Procedures p Laparoscopy, Diagnostic, SMALL BOWEL RESECTION - Kiko Langford MD Surgical History (Last Reviewed 01/20/24 @ 18:33 by Alfonso Meza MD) Anesthesia H/O circumcision H/O lithotripsy H/O vasectomy History of appendectomy Hx of coronary angioplasty Hx of heart artery stent S/P CABG x 3 (1991) Medical History (Last Reviewed 01/20/24 @ 18:33 by Alfonso Meza MD) Anemia Angina pectoris Arthritis Atrial fibrillation Benign essential HTN BPH loc w urin obs/LUTS BPH w urinary obs/LUTS Bradycardia CAD (coronary artery disease) CAD (coronary artery disease) (~1991) Cardiomyopathy Chicken pox Chronic kidney disease Detached retina, right (~1983) Diabetes Duodenal ulcer hemorrhage Dyspnea Grieving Hearing loss Hemorrhoid History of nephrolithiasis History of UTI HLD (hyperlipidemia) Hx of nephrolithotomy with removal of calculi (2008) Hyperaldosteronism Hypertension Insomnia Measles Mumps Myocardial infarction (~2016) ANA (obstructive sleep apnea) Partial blindness (~1949) Peptic ulcer disease (~2015) Peripheral arterial disease Peripheral neuropathy Right renal mass Sleep apnea Stable angina Staph infection (1979) Tinnitus Upper GI bleed Urge incontinence Physical Therapy Inpatient Evaluation/Re-Eval M1 PT/OT-IP Prior Functional Status Start: 01/21/24 17:58 Freq: NEEDED Status: Active Protocol: Document 01/21/24 15:00 AB (Rec: 01/21/24 18:12 [id number]) Medical Review Prior Functional Status Medical History Reviewed Yes Communication able to make needs known Mobility and Gait pt stated that he was independent with all mobilities and ambulation without AD but uses trekking poles for long distance ambulation Social History Household Members none Living Arrangements House Number of Floors (Floors) One Floor Number of Stairs To Enter/Railing? 3 steps B rails to enter with wide bilateral rails and can only hold on to one rail at a time Home Environment High Toilet,Tub/Shower Home Equipment Hand Held Shower M2 PT-IP Current Condition Start: 01/21/24 17:58 Freq: NEEDED Status: Active Protocol: Document 01/21/24 15:00 AB (Rec: 01/21/24 18:12 AB [id number]) Physical Therapy Current Condition Current Condition Evaluation Date 01/21/24 Treatment Diagnosis s/p small bowel resection for mesenteric ischemia; difficulty in walking Onset Date 01/20/24 M3 PT-IP Subjective Start: 01/21/24 17:58 Freq: NEEDED Status: Active Protocol: Document 01/21/24 15:00 AB (Rec: 01/21/24 18:12 [id number]) Subjective Physical Therapy Visit Type Type Initial Evaluation Visit Start Time 15:00 Visit Stop Time 15:29 Number of ELEVATOR OPERATOR FREIGHT Visits 0 Physical Therapy Visit Comments Patient Comments agreeable to do PT Therapy Pain Assessment Pain When Pain Assessed At Rest Pain Present Pain Present Pain Reported Location Abdomen Intensity 3 Scale Used Numeric (0 - 10) Pain Behaviors Guarding Pain Management Techniques Distraction,Modification of Treatment,Re-positioning, Timing of Activity with Medications M4 PT-IP Mobility and Gait Start: 01/21/24 17:58 Freq: NEEDED Status: Active Protocol: Document 01/21/24 15:00 AB (Rec: 01/21/24 18:12 [id number]) PT-Bed Mobility Assessment Rolling Type of Rolling Log Rolling Level of Assist Maximal Assistance Supine to Sit Supine to Sit Moderate Assistance,Bedrails Sit to Supine Sit to Supine Moderate Assistance,Bedrails PT-Transfer Assessment Sit to and From Stand Sit to and from Stand Contact Guard Assistance,1 Person Assistance,Use of Upper Extremities Equipment Transfer Assistive Device None,Gait Belt Orthotic/Prosthetic Devices or Brace: No Transfers Transfer Destination Bed,Chair Transfer Technique Stand Step Pivot Transfer Ability Level of Assist Contact Guard Assistance,1 Person Assistance,Use of Upper Extremities Comments Mobility Comments pt sitting on the chair and agreeable to do PT. obtained PLOF and home set up. post-op handout provided to pt. educated pt on abdominal precautions and log roll bed mobility. BP sitting on chair: 93/52. pt completed sit to stand from chair CGA and step transfer to bed without AD CGA . pt completed log roll max A and sit<> supine mod A and max cues. pt sat on EOB CGA. BP checked: 106/51. completed sit to stand CGA and ambulated in room without AD ~ 15 ft min A and cues. pt presents with unsteady antalgic gait. pt c/o nausea needing to sit back down on chair. BP checked: 99/54. pt refused further activities. positioned pt on the chair. call light and table placed within reach. informed nurse regarding pt's mobility and c/o nausea. Gait Assessment Gait Gait Assistance Required: Minimum Assistance Distance (Feet) 15 Able to Maintain Weight Bearing Status Yes During Gait Assistive Devices Assistive Device None,Gait Belt Orthotic/Prosthetic Devices or Brace: No Gait Deviations General Gait Pattern Antalgic,Decreased Stride Length,Decreased Feet Clearance Factors Limiting Gait Function Factors Limiting Gait Function Decreased Activity Tolerance, Decreased Strength,Limited Range of Motion,Pain,Poor Balance,Poor Safety Awareness PT-Balance Assessment Sitting Balance and Reactions Static Sitting Balance Ability Good Dynamic Sitting Balance Ability Good Standing Balance and Reactions Static Standing Balance Ability Fair Dynamic Standing Balance Ability Fair Device Used without AD M5 PT-IP Objective Assessments Start: 01/21/24 17:58 Freq: NEEDED Status: Active Protocol: Document 01/21/24 15:00 AB (Rec: 01/21/24 18:12 [id number]) Orientation Orientation/Cognition Level of Alertness Alert Orientation Name,Place,Situation Language Function Ability Hard of Hearing Safety Awareness Decreased Safety Awareness Memory Description Short Term Impaired Gross Range of Motion Lower Extremity ROM Assessment Within Functional Limits Strength Lower Extremity Strength Assessment Within Functional Limits Muscle Tone Muscle Tone WNL Yes M6 PT-IP Treatment Start: 01/21/24 17:58 Freq: NEEDED Status: Active Protocol: Document 01/21/24 15:00 AB (Rec: 01/21/24 18:12 AB [id number]) Physical Therapy Treatment Education Education Provided Precautions,Post-Op Packet, Safety M7 PT-IP Assessment and Plan Start: 01/21/24 17:58 Freq: NEEDED Status: Active Protocol: Document 01/21/24 15:00 AB (Rec: 01/21/24 18:12 [id number]) PT Summary Assessment and Plan Potential Rehabilitation Potential Fair Status of Condition at Evaluation Evolving Summary Impairments Pain,ROM,Strength,Balance, Coordination,Sensation,Tone, Cognition,Bed Mobility, Transfers,Gait,Activity Tolerance Assessment Summary pt is a 73 y/o M who presented to the ED due to abdominal pain. pt underwent small bowel resection for mesenteric ischemia. pt with abdominal precautions. pt requiring min A with ambulation without AD. informed regarding obtaining FWW and use of ambulation for safety. pt agreed. pt with decrease activity tolerance affecting mobility level with c/o nausea during PT session. pt lives alone and will need assistance at this time. d/c plan depending on progress. will continue to assess. Goals Bed Mobility Goal Independent Transfer Goal Independent,Front Wheeled Walker Gait Goal Independent,Front Wheel Walker Gait Distance 200 Other Goals improve transfers, ambulation without AD/LRAD mod I 300 ft up/down 3 steps 1 rail mod I Days to Meet Goals 10 Frequency of Treatment Frequency Of Treatment Once a Day Treatment Plan Physical Therapy Treatment Plan Bed Mobility Training,Transfer Training,Gait Training, Therapeutic Exercise,Balance Retraining,Post Op Education, Discharge Planning,Hot or Cold Pack,Neuromuscular Re-ed, Coordination Retraining,Manual Therapy Precautions Abdominal Surgery Precautions Log Roll,Lifting Restrictions, Gait Belt above Incisional Area Recommendations To Nursing Amount of Assist Needed 1 Person Assist Discharge Recommendations PT Discharge Recommendations Home with Assistance,Home Health,SNF Rehab,Home vs SNF Equipment Needed for Home Before FWW Discharge Transportation Needs at Discharge Private Vehicle,Wheelchair/ Cabulance
--- NOTE | 2024-01-21 17:33 | PC.NURSE ---
Pt alert, oriented throughout shift. Pain and nausea controlled with PRN medications. Pt up to chair stand by assist. Tolerated clear liquid diet.
[2024-01-21] MEDS: DOCUSATE 100 MG CAPSULE PO (21:08)
[2024-01-21] MEDS: ACETAMINOPHEN 325 MG TABLET 650 MG PO (21:09)
[2024-01-21] MEDS: TAMSULOSIN 0.4 MG CAPSULE PO (21:10)
[2024-01-21] MEDS: OXYBUTYNIN 5 MG ER TAB 10 MG PO (21:11)
[2024-01-22] VITALS: BP 128/63; PULSE 61; RESP 18; TEMP 36.7; O2SAT 94
[2024-01-22 04:00] VITALS: BP 126/64; PULSE 53; RESP 18; TEMP 36.3; O2SAT 95
--- NOTE | 2024-01-22 08:49 | PM.PN.1 ---
Subjective Subjective Interval history: Summary: He was admitted with abdominal pain and concern for ischemic bowel. He underwent a laparotomy with a resection of very small segment of ischemic appearing bowel. He was doing well in the postop Phase. Subjective: No abdominal pain, or nausea. he is eating, no flatus or bowel movement. Exam Vital Signs (past 8 hours): - 01/22/24 04:00 Temperature 97.3 F L Pulse Rate 53 L Respiratory Rate 18 Blood Pressure 126/64 Pulse Oximetry 95 Oxygen Flow Rate 0 Oxygen Delivery Method Room Air Oxygen Flow Rate 0 Narrative Exam Narrative: NAD, alert and oriented. Fluent speech. Anisocoria with a large right pupil, this is chronic. Lungs are clear, normal rate and effort. Heart is regular, no murmur gallop or rub. Abdomen is soft,distended. He was nontender, there was minimal discharge from his dressings, he was hypoactive bowel tones. Extremities are free of edema. Objective Labs 01/21/24 04:10 01/21/24 04:10 [facility] Medical History Bradycardia Dyspnea BPH loc w urin obs/LUTS Urge incontinence History of UTI Stable angina Benign essential HTN Hearing loss Hemorrhoid History of nephrolithiasis Grieving Peripheral arterial disease CAD (coronary artery disease) (~1991) Insomnia Sleep apnea Mumps Measles Chicken pox Tinnitus Partial blindness (~1948) Peptic ulcer disease (~2015) Detached retina, right (~1983) Anemia Right renal mass Hyperaldosteronism Cardiomyopathy Hx of nephrolithotomy with removal of calculi (2008) Upper GI bleed Peripheral neuropathy HLD (hyperlipidemia) Staph infection (1979) Duodenal ulcer hemorrhage Atrial fibrillation Arthritis Angina pectoris ANA (obstructive sleep apnea) Myocardial infarction (~2017) CAD (coronary artery disease) BPH w urinary obs/LUTS Hypertension Diabetes Chronic kidney disease Surgical History Anesthesia Hx of coronary angioplasty Hx of heart artery stent S/P CABG x 3 (1991) H/O circumcision H/O vasectomy H/O lithotripsy History of appendectomy Family History Father History of heart disease Aneurysm Mother History of heart disease Hypertension Heart failure Brother Leukemia Social History household members: none Smoking Status: Former smoker alcohol intake: current substance use type: does not use Assessment & Plan Assessment & Plan narrative: 1. Ischemic bowel with limited small-bowel resection, present on admission and active. 2. Pneumatosis intestinalis, present on admission and active. 3. Pneumoperitoneum, present on admission and active. 4. CAD with history of CABG and PCI, present on admission and stable. 5. Atrial fibrillation, not present on admission and stable. 6. BPH, present on admission stable. 7. Chronic diastolic heart failure, present on admission stable. 8. COPD, present on admission and stable. 9. Hypertension, present on admission and stable. Plan: - Continue diet, increase activity today. - Discuss discharge stability with surgery. - Monitor for bowel movement and flatus. Full resuscitation. Anticipate a 2 midnight stay, inpatient status as supported. His multiple comorbid conditions and abdominal surgery place him at a high risk of adverse outcomes. LÓPEZ: Today or tomorrow depending on his progression. Time-Based Coding :: [TOTAL MINUTES] spent with patient and on the chart (including review of chart, obtaining history, exam, reviewing outside data, placing orders, documenting exam and treatment plan, and counseling patient) on [DATE].
[2024-01-22] MEDS: SPIRONOLACTONE 25 MG TABLET PO (09:16)
[2024-01-22] MEDS: FINASTERIDE 5 MG TABLET PO (09:16)
[2024-01-22] MEDS: ASPIRIN EC 81 MG TABLET PO (09:16)
[2024-01-22] MEDS: AMLODIPINE 5 MG TABLET 2.5 MG PO (09:16)
[2024-01-22] MEDS: DOCUSATE 100 MG CAPSULE PO (09:16)
[2024-01-22] MEDS: ENOXAPARIN 40 MG/0.4 ML SYRINGE SUBCUT (09:16)
[2024-01-22] MEDS: AMIODARONE 200 MG TABLET PO (09:16)
[2024-01-22 09:17] VITALS: BP 110/51; PULSE 61
[2024-01-22] MEDS: METOPROLOL ER 50 MG TABLET PO (09:17)
[2024-01-22] MEDS: ATORVASTATIN 20 MG TABLET PO (09:17)
[2024-01-22] MEDS: VALSARTAN 80 MG TABLET 20 MG PO (09:21)
--- NOTE | 2024-01-22 09:25 | CM.DANOTE ---
Initial DCP Assessment Visit Note Reviewed EMR and team rounds for status updates. Met with pt at bedside along with Dr. Langford (Surgeon). Pt was found to be alert/oriented, sitting upright in the recliner. Pt is , he lives alone in his own home independently. He does have family that will transport him home once he's medically cleared for home d/c. Payor: Medicare PCP: Dr. Rahman Pt is a 73 year-old M who presented to the ED 2-days ago with c/o R-upper quadrant pain that has worsened over the last few weeks. He states that he thinks it likely started to slowly begin hurting about a month ago. CT imaging was concerning for small bowel blockage. Surgery was consulted, and the plan was made to bring him to the OR for an exploratory laparotomy. He did end up having a small bowel resection, and is also receiving IV pain and antibiotics. Yesterday he was able to progress with a clear diet, today he will advance to solid foods. If he is able to tolerate food, he will likely d/c home either later today or early tomorrow. DCP will continue to monitor for any further evolving needs, however he is declining any CM needs at this time. Discharge Planning/Care Management CM Discharge Assessment Start: 01/22/24 09:23 Freq: Status: Active Protocol: Document 01/22/24 09:23 DPL (Rec: 01/22/24 09:25 DPL [id number]) Discharge Planning Assessment Assigned Installation Superintendent ALYSON Aldridge Advance Directives? No History Provided By Patient,Medical Record Has Patient been admitted in last 30 No days? Prior Living Arrangements House Household Members none Comment Type of transporation used prior to Drives own vehicle admit Independent with ADL's Yes Is patient alert and oriented? Yes Comment N/A Caregiver for Another No Comment No identified d/c needs at this time. Barriers to Discharge No Comment Home w/family and friends Discharge Plan Home Transportation Arrangement Family Referrals Initiated None needed Whiteboard Updated in Patient Room with Yes name and ext. # of Installation Superintendent Review Status In Process Please Provide Date Initial DC 01/22/24 Assessment Was Performed
--- NOTE | 2024-01-22 10:45 | PT.IPTN ---
Current Diagnoses Other specified diseases of intestine (01/20/24) Surgery Performed Operation Date: 01/20/24 16:45 Actual Procedures p Laparoscopy, Diagnostic, SMALL BOWEL RESECTION - Kiko Langford MD Physical Therapy Treatment Note M2 PT-IP Current Condition Start: 01/21/24 17:58 Freq: NEEDED Status: Active Protocol: Document 01/21/24 15:00 AB (Rec: 01/21/24 18:12 AB [id number]) Physical Therapy Current Condition Current Condition Evaluation Date 01/21/24 Treatment Diagnosis s/p small bowel resection for mesenteric ischemia; difficulty in walking Onset Date 01/20/24 M3 PT-IP Subjective Start: 01/21/24 17:58 Freq: NEEDED Status: Active Protocol: Document 01/22/24 10:50 NM (Rec: 01/22/24 11:04 NM [id number]) Subjective Physical Therapy Visit Type Type Treatment Note Visit Start Time 10:10 Visit Stop Time 10:45 Physical Therapy Visit Comments Patient Comments Pt sitting up in chair upon PT arrival. Agrees to participate in PT today. Has been up to bathroom with nurse . Pt is expecting to take a shower later. Planning to get a FWW from [facility] upon discharge; declines being issued FWW. Reports no pain, no lightheadness Therapy Pain Assessment Pain Present Pain Present Denied Pain M4 PT-IP Mobility and Gait Start: 01/21/24 17:58 Freq: NEEDED Status: Active Protocol: Document 01/22/24 10:50 NM (Rec: 01/22/24 11:14 NM [id number]) PT-Transfer Assessment Sit to and From Stand Sit to and from Stand Standby Assistance,1 Person Assistance,Use of Upper Extremities Equipment Transfer Assistive Device Gait Belt,Front Wheeled Walker Orthotic/Prosthetic Devices or Brace: No Transfers Transfer Destination Chair Transfer Technique ambulation Transfer Ability Level of Assist Standby Assistance,1 Person Assistance,Use of Upper Extremities Comments Mobility Comments Pt sitting up in chair at start of session. Aware of abdominal precautions and able to verbalize. SBA to FWW for sit > stand from chair, using BUE to assist from chair. Demos increased sway with initial standing balance but able to self correct without LOB or assist from PT. Gait Assessment Gait Gait Assistance Required: Standby Assistance Distance (Feet) 200 Able to Maintain Weight Bearing Status Yes During Gait Assistive Devices Assistive Device Gait Belt,Front Wheeled Walker Orthotic/Prosthetic Devices or Brace: No Gait Deviations General Gait Pattern Antalgic,Decreased Feet Clearance Factors Limiting Gait Function Factors Limiting Gait Function Decreased Activity Tolerance, Decreased Strength,Limited Range of Motion,Pain,Poor Balance,Poor Safety Awareness Comments Gait Comments Pt ambulated x200 ft in room and hayes with FWW and close SBA to/from stairs. No increased sway with use of FWW ; does not demo strong UE assist on FWW for gait, only for stability. Pt returned to room at end of session, close SBA for stand > sit to chair. Moderate cueing to remain within FWW while sitting and to reach back to chair after feeling chair position with BLE. Pt BP following ambulation 126/60 mHg, SPo2 96%, 55 bpm. No pain , nausea, or lightheadedness. Pt left sitting in recliner with feet elevated, call light within reach, RN aware and entering room upon PT exit. Stair Climbing Assessment Evaluation Level of Assist On Stairs Contact Guard Assistance,1 Person Assistance Devices Stair Climbing Assistive Devices Right Railing Technique/Endurance Stair Climbing Direction Ascend and Descend Stair Climbing Technique Step Over Step Number of Steps Climbed 3 Stair Climbing Set # Repetitions (reps) 1 Comments Stair Climbing Comments Ascended and descended 3 stairs using R rail with CGA. Cued for foot clearance with ascent. Demos quick descent with decreased control, cueing for tall posture. CGA for light tactile stability at trunk. Reports no pain with stairs. M5 PT-IP Objective Assessments Start: 01/21/24 17:58 Freq: NEEDED Status: Active Protocol: Document 01/21/24 15:00 AB (Rec: 01/21/24 18:12 AB [id number]) Orientation Orientation/Cognition Level of Alertness Alert Orientation Name,Place,Situation Language Function Ability Hard of Hearing Safety Awareness Decreased Safety Awareness Memory Description Short Term Impaired Gross Range of Motion Lower Extremity ROM Assessment Within Functional Limits Strength Lower Extremity Strength Assessment Within Functional Limits Muscle Tone Muscle Tone WNL Yes M6 PT-IP Treatment Start: 01/21/24 17:58 Freq: NEEDED Status: Active Protocol: Document 01/22/24 10:50 NM (Rec: 01/22/24 11:14 NM [id number]) Physical Therapy Treatment Other Treatments Other Treatment Performed see mobility, gait, and stairs above M7 PT-IP Assessment and Plan Start: 01/21/24 17:58 Freq: NEEDED Status: Active Protocol: Document 01/22/24 10:50 NM (Rec: 01/22/24 11:04 NM [id number]) PT Summary Assessment and Plan Potential Rehabilitation Potential Fair Status of Condition at Evaluation Evolving Summary Impairments Pain,ROM,Strength,Balance, Coordination,Sensation,Tone, Cognition,Bed Mobility, Transfers,Gait,Activity Tolerance Assessment Summary Pt is close SBA for transfers and ambulation with FWW and CGA for stairs using rail. Pt progressing with mobility, but still limited by activity tolerance. No nausea, pain, or lightheadedness during session. Compliant with abdominal precautions. PT recommending FWW use for household and community mobility at this time due to initial instability with standing. Pt declines being issued FWW at hospital, planning on getting one after discharge. PT recommending discharge to home with assistance once medically stable. Goals Bed Mobility Goal Independent Transfer Goal Independent,Front Wheeled Walker Gait Goal Independent,Front Wheel Walker Gait Distance 200 Other Goals improve transfers, ambulation without AD/LRAD mod I 300 ft up/down 3 steps 1 rail mod I Days to Meet Goals 10 Frequency of Treatment Frequency Of Treatment Once a Day Treatment Plan Physical Therapy Treatment Plan Bed Mobility Training,Transfer Training,Gait Training, Therapeutic Exercise,Balance Retraining,Post Op Education, Discharge Planning,Hot or Cold Pack,Neuromuscular Re-ed, Coordination Retraining,Manual Therapy Other Recommendations and Next Treatment Gait without AD if appropriate Focus , stairs Precautions Abdominal Surgery Precautions Log Roll,Lifting Restrictions, Gait Belt above Incisional Area Recommendations To Nursing Amount of Assist Needed Standby Assistance,1 Person Assist Discharge Recommendations PT Discharge Recommendations Home with Assistance,Home Health,SNF Rehab,Home vs SNF Equipment Needed for Home Before FWW Discharge Transportation Needs at Discharge Private Vehicle,Wheelchair/ Cabulance
[2024-01-22 12:00] VITALS: BP 109/58; PULSE 80; RESP 16; TEMP 36.8; O2SAT 96
--- NOTE | 2024-01-22 14:05 | PM.PNPO.1 ---
Subjective Subjective Date Patient Seen: 01/22/24 Time Patient Seen: 14:05 Interval history: Postoperative day 2 status post exploratory laparotomy small-bowel resection for mesenteric ischemia Tolerant of clear liquid diet Exam Vital Signs (past 8 hours): - 01/22/24 07:00 01/22/24 09:17 01/22/24 12:00 Temperature 98.3 F Pulse Rate 61 80 Respiratory Rate 16 Blood Pressure 110/51 L 109/58 L Pulse Oximetry 96 Oxygen Delivery Method Room Air Oxygen Delivery Method Room Air Oxygen Flow Rate 0 Narrative Exam Narrative: General adult man alert oriented no acute distress Abdomen soft appropriately tender to palpation. Objective Labs 01/21/24 04:10 01/21/24 04:10 PFSH Medical History Bradycardia Dyspnea BPH loc w urin obs/LUTS Urge incontinence History of UTI Stable angina Benign essential HTN Hearing loss Hemorrhoid History of nephrolithiasis Grieving Peripheral arterial disease CAD (coronary artery disease) (~1991) Insomnia Sleep apnea Mumps Measles Chicken pox Tinnitus Partial blindness (~1948) Peptic ulcer disease (~2015) Detached retina, right (~1983) Anemia Right renal mass Hyperaldosteronism Cardiomyopathy Hx of nephrolithotomy with removal of calculi (2008) Upper GI bleed Peripheral neuropathy HLD (hyperlipidemia) Staph infection (1979) Duodenal ulcer hemorrhage Atrial fibrillation Arthritis Angina pectoris ANA (obstructive sleep apnea) Myocardial infarction (~2016) CAD (coronary artery disease) BPH w urinary obs/LUTS Hypertension Diabetes Chronic kidney disease Surgical History Anesthesia Hx of coronary angioplasty Hx of heart artery stent S/P CABG x 3 (1991) H/O circumcision H/O vasectomy H/O lithotripsy History of appendectomy Family History Father History of heart disease Aneurysm Mother History of heart disease Hypertension Heart failure Brother Leukemia Social History household members: none Smoking Status: Former smoker alcohol intake: current substance use type: does not use Assessment & Plan Post-op Postoperative Procedures: Procedures Operation Date: 01/20/24 16:45 Actual Procedure Side Surgeon p Laparoscopy, Diagnostic, SMALL BOWEL RESECTION Kiko Langford MD Postoperative status narrative: Postoperative day 2 status post small bowel resection for mesenteric ischemia -if tolerant of regular diet may discharge home -knees vascular surgery follow up after discharge for evaluation/management of mesenteric ischemia
--- NOTE | 2024-01-22 14:36 | PM.DS.1 ---
History of Present Illness History of Present Illness Chief complaint: ct scan yesterday, tear in intestine Narrative: The patient is a 73-year-old male with a history of CAD, CABG, stenting, atrial fibrillation, diastolic heart failure, COPD, and hypertension who presented to the ER with a 2 week history of progressive abdominal bloating after eating. He was having a small amount of pain as well as diarrhea for the last week but denies any rectal bleeding. He also denies any vomiting. In the emergency department he was found to have a distended abdomen in his CT was obtained to rule out bowel obstruction. This revealed evidence of ischemic bowel with some pneumobilia. The patient was discussed with General surgery who evaluated the patient and took him to the OR for exploratory laparotomy. He was found to have a small segment of ischemic bowel which was resected. Postoperatively the patient did well in the PACU and was extubated. He was transferred to the medical floor and feels generally okay. He has some abdominal pain at the incisional site but denies any nausea. He also denies any chest pain, or dyspnea. Did take his cardiac medications including Prasugrel and aspirin this morning. Discharge Providers Provider Date of admission: 01/20/24 14:30 Discharge Date: 01/22/24 Primary care physician: Hyun Rahman DO Consults: 01/21/24 12:20 Consult to Physical Therapy Evaluate & Treat Comment: Physician Instructions: Evaluate and Treat Discharge provider: Alfonso Meza MD Summary Hospital Course Discharge Diagnosis: 1. Ischemic bowel with limited small-bowel resection, present on admission and improved ( He had a laparotomy with a small resection of ischemic bowel and reanastomosis). 2. Pneumatosis intestinalis, present on admission and resolved. 3. Pneumoperitoneum, present on admission and resolved. 4. CAD with history of CABG and PCI, present on admission and stable. 5. Atrial fibrillation, not present on admission and stable. 6. BPH, present on admission stable. 7. Chronic diastolic heart failure, present on admission stable. 8. COPD, present on admission and stable. 9. Hypertension, present on admission and stable. Hospital Course: Patient presented with the abdominal pain was found to have pneumatosis on CT scan. He was taken to the operating room by Dr. Delgadillo and found to have a small segment of ischemic bowel. This was resected with a resection length of less than a foot. The patient did well postoperatively was able to advance his diet, had no fevers, had no recurrent abdominal pain was able to mobilize without difficulty. On the day of discharge he was passing gas without difficulty and felt that he was close to his baseline. He was discussed with Dr. Langford, and is felt to be stable for discharge with close surgical follow up. He was advised to come back for vomiting, increased abdominal pain, or fevers. He will follow a soft diet with low residue for several days and then slowly advance. Status at Discharge Cognitive/behavioral status at discharge: oriented Functional status at discharge: independent ambulation Overall status at discharge: patient is progressing back to baseline Time Spent with Patient Time spent: Greater than 30 minutes Exam Vital Signs (past 8 hours): - 01/22/24 07:00 01/22/24 09:17 01/22/24 12:00 Temperature 98.3 F Pulse Rate 61 80 Respiratory Rate 16 Blood Pressure 110/51 L 109/58 L Pulse Oximetry 96 Oxygen Delivery Method Room Air Oxygen Delivery Method Room Air Oxygen Flow Rate 0 Narrative Exam Narrative: NAD, alert and oriented. Fluent speech. Anisocoria with a large right pupil, this is chronic. Lungs are clear, normal rate and effort. Heart is regular, no murmur gallop or rub. Abdomen is soft,distended. He was non tender, there was no discharge from his dressings, he was hypoactive bowel tones. Extremities are free of edema. Objective Labs 01/21/24 04:10 01/21/24 04:10 [facility] Medical History Bradycardia Dyspnea BPH loc w urin obs/LUTS Urge incontinence History of UTI Stable angina Benign essential HTN Hearing loss Hemorrhoid History of nephrolithiasis Grieving Peripheral arterial disease CAD (coronary artery disease) (~1991) Insomnia Sleep apnea Mumps Measles Chicken pox Tinnitus Partial blindness (~1948) Peptic ulcer disease (~2015) Detached retina, right (~1983) Anemia Right renal mass Hyperaldosteronism Cardiomyopathy Hx of nephrolithotomy with removal of calculi (2008) Upper GI bleed Peripheral neuropathy HLD (hyperlipidemia) Staph infection (1979) Duodenal ulcer hemorrhage Atrial fibrillation Arthritis Angina pectoris ANA (obstructive sleep apnea) Myocardial infarction (~2016) CAD (coronary artery disease) BPH w urinary obs/LUTS Hypertension Diabetes Chronic kidney disease Surgical History Anesthesia Hx of coronary angioplasty Hx of heart artery stent S/P CABG x 3 (1991) H/O circumcision H/O vasectomy H/O lithotripsy History of appendectomy Family History Father History of heart disease Aneurysm Mother History of heart disease Hypertension Heart failure Brother Leukemia Social History household members: none Smoking Status: Former smoker alcohol intake: current substance use type: does not use Discharge Assessment & Plan Assessment and Plan Assessment: 1. Ischemic bowel with limited small-bowel resection, present on admission and improved ( He had a laparotomy with a small resection of ischemic bowel and reanastomosis). 2. Pneumatosis intestinalis, present on admission and resolved. 3. Pneumoperitoneum, present on admission and resolved. 4. CAD with history of CABG and PCI, present on admission and stable. 5. Atrial fibrillation, not present on admission and stable. 6. BPH, present on admission stable. 7. Chronic diastolic heart failure, present on admission stable. 8. COPD, present on admission and stable. 9. Hypertension, present on admission and stable. Plan of Treatment: He will discharge home with a soft low residue diet for several days in his slow advance. He will follow up with General surgery within the next couple of weeks for re-evaluation and knows to come back for fevers, chills, vomiting, or abdominal pain. He will also watch his wound to make sure there is no redness or discharge. Discharge Plan Discharge Plan Patient Disposition: Home Provider Discharge Comment: Stable for discharge home with a small amount of pain medicine and close follow up with General surgery. Discharge orders & Medications Prescriptions: New oxycodone 5 mg Tablet 5 mg PO Q3H PRN (Reason: Pain, Moderate (4-6)) Qty: 15 0RF Continued finasteride 5 mg tablet 5 mg PO DAILY Qty: 90 3RF tamsulosin 0.4 mg capsule 0.8 mg PO BEDTIME Qty: 180 3RF Rx Instructions: Take two caps by mouth daily at bedtime ipratropium bromide 42 mcg (0.06 %) spray,non-aerosol 2 spray intranasal TID PRN (Reason: allergy symptoms) Qty: 15 11RF Rx Instructions: administer into each nostril cholecalciferol (vitamin D3) 125 mcg (5,000 unit) capsule 125 mcg PO DAILY valsartan 40 mg tablet 20 mg PO DAILY metoprolol succinate 100 mg tablet extended release 24 hr 50 mg PO DAILY tolterodine 4 mg capsule,extended release 24hr 4 mg PO DAILY prasugrel 10 mg tablet 10 mg PO DAILY atorvastatin 20 mg tablet 20 mg PO DAILY amlodipine 2.5 mg tablet 2.5 mg PO DAILY furosemide [Lasix] 20 mg tablet 20 mg PO DAILY PRN (Reason: edema, weight gain) Qty: 30 5RF spironolactone 25 mg tablet 25 mg PO DAILY Qty: 90 3RF amiodarone 200 mg tablet 200 mg PO DAILY nitroglycerin 0.4 mg/hr patch 24 hour 1 patch transdermal DAILY Patient Comments: nitroglycerin patch removed last PM at 2100 aspirin 81 mg tablet,delayed release (DR/EC) 81 mg PO DAILY Qty: 30 0RF magnesium citrate 4 gram Packet 400 mg PO DAILY vitamin K2 100 mcg Capsule 480 mcg PO DAILY Follow up/Referrals: Hyun Rahman DO [Primary Care Provider] - Discharge Health Status Multidrug resistant organism: No MDRO Diet/Activity/Treatments Diet: Diet as Tolerated Diet comment: Soft foods low residue Activity: as tolerated Skin/Wound/Dressing Care Report to your healthcare provider any signs of infection, such as:: chills, fever and increased pain Visit Report/Discharge Packet Instructions: DI for Laparoscopy, DI for Prescription Opioid Use, [facility]: Wound Care Stand Alone Forms: Patient Portal/API Discharge Data Primary Care Provider: Hyun Rahman
--- NOTE | 2024-01-24 22:37 | PM.CALLCOV.1 ---
Call Coverage Note Note Date of Patient Contact: 01/24/24 Time of Patient Contact: 22:37 Narrative of Care Provided: Patient called answering service with concerns of bruising around his incision. He is taking his prasugrel and ASA. He is tolerating a liquid diet, passing flatus. Denies nausea or emesis. He has been taking miralax, but has not yet had a bowel movement. He denies any bleeding from the incision, lightheadedness, dizzyness. He is making good, light-colored urine. He states that his follow-up with Dr. Langford is Feb 11. He has not arranged follow-up with vascular surgery, yet. I recommended that he call the office Friday if he feels that he needs to be seen sooner. I recommended that he present to the ER if his urine becomes dark, small volume, he has nausea, emesis and cannot keep down liquids, or if the dressings become saturated with fluid or blood. Patient feels reassured and states that he feels well, otherwise.
== END 2024-01-22 15:44 | disposition home or self-care (01) | DRG 330 ==
LOC: ED 14:16 → ICU 14:41 → AC 01-21 11:51 → ICU 01-21 11:51
PROVIDERS: Surgery; Admitting Provider Hospitalist; Emergency Provider Emergency Medicine; Family Provider Family Medicine; PCP Family Medicine; Referring Provider Emergency Medicine; Visit Provider Hospitalist
PROC: 0DB80ZZ Excision of Small Intestine, Open Approach (ICD-10-PCS; CPT 49320; principal; 2024-01-20 16:45)
DX: K63.89 Other specified diseases of intestine (principal); I50.32 Chronic diastolic (congestive) heart failure; K55.1 Chronic vascular disorders of intestine; I25.10 Atherosclerotic heart disease of native coronary artery without angina pectoris; K66.8 Other specified disorders of peritoneum; I48.91 Unspecified atrial fibrillation; N40.0 Benign prostatic hyperplasia without lower urinary tract symptoms; I11.0 Hypertensive heart disease with heart failure; J44.9 Chronic obstructive pulmonary disease, unspecified; I73.9 Peripheral vascular disease, unspecified; E78.5 Hyperlipidemia, unspecified; Z95.1 Presence of aortocoronary bypass graft; Z95.5 Presence of coronary angioplasty implant and graft; Z87.891 Personal history of nicotine dependence; Z79.01 Long term (current) use of anticoagulants
CPT/HCPCS: 36415; 74174; 80048; 80053; 81003; 83605; 83690; 83735; 85025; 87797; 93005; 93010; 96360; 96361; 97162; 97530; 99284; 99285; J0330; J0690; J1171; J1650; J2405; J2704; J3010; J3475; J3490; Q9967

== ENCOUNTER → 2024-05-08 07:26 | Outpatient (CLI) | payer MEDICARE, OTHER, SELFPAY ==
[2024-01-20 18:27] VITALS: BMI 28.2
== END ==
PROVIDERS: Family Provider Family Medicine; PCP Family Medicine; Visit Provider Physician Assistant Surgical
DX: R30.0 Dysuria (principal)
CPT/HCPCS: 87077; 87086; 87186

== ENCOUNTER → 2024-07-01 08:33 | Outpatient (CLI) | payer MEDICARE, OTHER, SELFPAY ==
[2024-06-01 10:10] VITALS: BMI 28.2
== END ==
LOC: LAB 08:33
PROVIDERS: Family Provider Family Medicine; PCP Family Medicine; Visit Provider Nurse Practitioner Family
DX: R30.0 Dysuria (principal)
CPT/HCPCS: 87077; 87086; 87186

== ENCOUNTER → 2024-08-17 07:55 | Outpatient (CLI) | payer MEDICARE, OTHER, SELFPAY ==
[2024-06-01 10:10] VITALS: BMI 28.2
== END ==
LOC: LAB 07:57
PROVIDERS: Family Provider Family Medicine; PCP Family Medicine; Visit Provider Family Medicine
DX: R30.0 Dysuria (principal)
CPT/HCPCS: 87077; 87086

== ENCOUNTER → 2024-08-24 09:32 | Outpatient (CLI) | payer MEDICARE, OTHER, SELFPAY ==
[2024-06-01 10:10] VITALS: BMI 28.2
[2024-08-24 10:14] LABS: Add Manual Diff / Slide Review NO; Basophils Absolute Auto 100 /uL (0-100); Basophils Percent Auto 0.8 % (0-2); Eosinophils Absolute Auto 100 /uL (0-450); Eosinophils Percent Auto 1.4 % (2-4); Hematocrit 42.7 % (41-53); Hemoglobin 13.9 g/dL (13.5-17.5); Lymphocytes Absolute Auto 1300 /uL (1100-4500); Mean Corpuscular HGB Conc 32.6 % (30-36); Mean Corpuscular Hemoglobin 28.8 PG (26-34); Mean Corpuscular Volume 88.3 fL (80-100); Monocytes Absolute Auto 700 /uL (0-900); Monocytes Percent Auto 8.5 % (3-14); Neutrophils Absolute Auto 5800 /uL (1500-7000); Neutrophils Percent Auto 73.3 % (50-75); Platelet Count 176 X10^3/uL (150-400); Red Blood Cell Count 4.83 X10^6/uL (4.5-5.9); Red Cell Distribution Width 15.6 % (11.6-14.8); White Blood Cell Count 7.9 X10^3/uL (4.5-11.0)
[2024-08-24 10:21] LABS: Hemoglobin A1C% w Est Avg Glu 5.4 % (4.0-6.0)
[2024-08-24 10:47] LABS: Alanine Aminotransferase 33 IU/L (<50); Albumin 4.1 g/dL (3.5-5.0); Albumin Globulin Ratio 1.7 (1.0-2.8); Alkaline Phosphatase 82 U/L (38-126); Aspartate Aminotransferase 28 IU/L (17-59); Bilirubin Total 0.7 mg/dL (0.2-1.3); Blood Urea Nitrogen 40 mg/dL (9-20); Calcium 9.7 mg/dL (8.4-10.2); Carbon Dioxide 22 mmol/L (22-32); Chloride 104 mmol/L (98-107); Cholesterol 99 mg/dL (140-199); Estimated Glomerular Filt Rate 32 mL/min (>60); Globulin 2.4 g/dL (1.7-4.1); Glucose 105 mg/dL (70-99); HDL Cholesterol 26 mg/dL (40-60); HEMOLYSIS < 15 (0-50); LDL Cholesterol Calculated 46 mg/dL (<100); Lipase 74 U/L (23-300); Sodium 135 mmol/L (137-145); Total Protein 6.5 g/dL (6.3-8.2); Triglycerides 137 mg/dL (35-150)
[2024-08-24 10:49] LABS: Potassium 6.2 mmol/L (3.4-5.1)
[2024-08-24 11:34] LABS: Hep C Virus Ab w/Reflex Quant NEGATIVE s/c (NEGATIVE)
== END ==
PROVIDERS: Family Provider Family Medicine; PCP Family Medicine; Referring Provider Family Medicine; Visit Provider Family Medicine
DX: N18.30 Chronic kidney disease, stage 3 unspecified (principal); E11.9 Type 2 diabetes mellitus without complications; Z11.59 Encounter for screening for other viral diseases; R11.0 Nausea; I25.10 Atherosclerotic heart disease of native coronary artery without angina pectoris
CPT/HCPCS: 36415; 80053; 80061; 83036; 83690; 85025; 86803

== ENCOUNTER → 2024-08-26 11:38 | Outpatient (CLI) | payer MEDICARE, OTHER, SELFPAY ==
[2024-06-01 10:10] VITALS: BMI 28.2
[2024-08-26 13:00] LABS: BUN Creatinine Ratio 21.5 (6-22); Blood Urea Nitrogen 49 mg/dL (9-20); Calcium 9.9 mg/dL (8.4-10.2); Carbon Dioxide 25 mmol/L (22-32); Chloride 102 mmol/L (98-107); Estimated Glomerular Filt Rate 29 mL/min (>60); Glucose 87 mg/dL (70-99); HEMOLYSIS < 15 (0-50); Sodium 135 mmol/L (137-145)
[2024-08-26 13:07] LABS: Potassium 6.1 mmol/L (3.4-5.1)
[2024-08-26 16:32] LABS: Creatinine Urine Random 90.23 mg/dL
[2024-08-26 16:38] LABS: Microalbumin Urine Random 0.7 mg/dL (0-1.6)
== END ==
PROVIDERS: Family Provider Family Medicine; PCP Family Medicine; Referring Provider Family Medicine; Visit Provider Family Medicine
DX: E87.5 Hyperkalemia (principal); N18.30 Chronic kidney disease, stage 3 unspecified
CPT/HCPCS: 36415; 80048; 82043; 82570; 83735

== ENCOUNTER → 2024-09-02 10:25 | Outpatient (CLI) | payer MEDICARE, OTHER, SELFPAY ==
[2024-06-01 10:10] VITALS: BMI 28.2
[2024-09-02 11:27] LABS: Alanine Aminotransferase 19 IU/L (<50); Albumin 3.7 g/dL (3.5-5.0); Albumin Globulin Ratio 1.5 (1.0-2.8); Alkaline Phosphatase 92 U/L (38-126); Aspartate Aminotransferase 22 IU/L (17-59); BUN Creatinine Ratio 24.1 (6-22); Bilirubin Total 0.4 mg/dL (0.2-1.3); Blood Urea Nitrogen 39 mg/dL (9-20); Carbon Dioxide 21 mmol/L (22-32); Chloride 110 mmol/L (98-107); Estimated Glomerular Filt Rate 44 mL/min (>60); Globulin 2.5 g/dL (1.7-4.1); Glucose 109 mg/dL (70-99); HEMOLYSIS < 15 (0-50); Potassium 5.1 mmol/L (3.4-5.1); Sodium 139 mmol/L (137-145); Total Protein 6.2 g/dL (6.3-8.2)
== END ==
PROVIDERS: Family Provider Family Medicine; PCP Family Medicine; Referring Provider Family Medicine; Visit Provider Family Medicine
DX: N18.30 Chronic kidney disease, stage 3 unspecified (principal); E87.5 Hyperkalemia
CPT/HCPCS: 36415; 80053

== ENCOUNTER → 2024-09-16 10:51 | Outpatient (CLI) | payer MEDICARE, OTHER, SELFPAY ==
[2024-06-01 10:10] VITALS: BMI 28.2
[2024-09-16 11:17] LABS: Appearance Urine UA CLOUDY; Bilirubin Urine UA NEGATIVE (NEGATIVE); Color Urine UA YELLOW; Glucose Urine UA 3+ g/dL (Negative); Ketones Urine UA NEGATIVE (NEGATIVE); Leukocyte Esterase Urine UA 2+ (NEGATIVE); Nitrite Urine UA POSITIVE (Negative); Occult Blood Urine UA 1+ (Negative); Protein Urine UA TRACE (Negative); Specific Gravity Urine UA 1.015 (1.000-1.035); Urobilinogen Urine UA 1.0 E.U./dL (0.2); pH Urine UA 5.5 (4.5-8.0)
[2024-09-16 11:26] LABS: Culture Indicated Urine Specimen Cultured
== END ==
PROVIDERS: Family Provider Family Medicine; PCP Family Medicine; Referring Provider Family Medicine; Visit Provider Family Medicine
DX: N18.30 Chronic kidney disease, stage 3 unspecified (principal); Z87.442 Personal history of urinary calculi; Z87.440 Personal history of urinary (tract) infections; R35.89 Other polyuria; R30.0 Dysuria
CPT/HCPCS: 81003; 81015; 87077; 87086; 87186

== ENCOUNTER → 2024-09-28 08:15 | Outpatient (CLI) | payer MEDICARE, OTHER, SELFPAY ==
[2024-06-01 10:10] VITALS: BMI 28.2
--- NOTE | 2024-09-28 08:16 | DI.CT.S_ITS ---
PROCEDURE: CT ABDOMEN PELVIS W CON INDICATIONS: Nausea TECHNIQUE: After the administration of intravenous contrast, axial sections acquired from the lung bases to the pubic symphysis. Coronal and sagittal reformats were performed. For radiation dose reduction, the following was used: automated exposure control, adjustment of mA and/or kV according to patient size. COMPARISON: [facility], CT, CT ABDOMEN PELVIS W CON, 01/19/2024, 10:56. FINDINGS: Image quality: Diagnostic. Lower Chest: No significant findings. There is moderate bilateral gynecomastia. ABDOMEN: Liver: No solid mass. Gallbladder: No radiopaque gallstones or wall thickening. Biliary ducts: No biliary dilation. Pancreas: No ductal dilation. Spleen: Size is within normal limits. Adrenal Glands: No adrenal nodules. Kidneys and Ureters: No hydronephrosis. No solid mass. No complex renal cystic lesion which requires follow up. Both kidneys are atrophic with small cysts. Stomach and Bowel: Diffuse moderate dilatation throughout the small bowel without obstruction. There is no abnormal dilatation or wall thickening of the colon. Peritoneum: No abnormal intraperitoneal fluid. No free air. Ventral Wall: No significant ventral hernia. Abdominal Nodes: No retroperitoneal or mesenteric adenopathy by size criteria. Vessels: Aorta and inferior vena cava are normal in size. Marked diffuse atherosclerosis. PELVIS: Pelvic Organs: Unremarkable. Bladder: No bladder wall thickening, accounting for underdistention. Pelvic Nodes: No enlarged lymph nodes. Miscellaneous: No inguinal hernias are seen. Bones: No aggressive osseous abnormality. Marked diffuse degenerative disc disease. IMPRESSION: 1. Persistent dilatation throughout the loops of small bowel with resolution of previously demonstrated pneumatosis and with no evidence of obstruction. Differential diagnostic considerations include residual mild gastroenteritis. 2. Medical renal disease. Dictated by: Elly Johnson M.D. on 09/28/2024 at 12:15 Approved by: Elly Johnson M.D. on 09/28/2024 at 13:22
== END ==
LOC: CT 08:16
PROVIDERS: Family Provider Family Medicine; PCP Family Medicine; Referring Provider Family Medicine; Visit Provider Surgery
DX: N28.1 Cyst of kidney, acquired (principal); N26.1 Atrophy of kidney (terminal); R11.0 Nausea
CPT/HCPCS: 74177; Q9967

== ENCOUNTER 2024-11-17 10:15 | Outpatient (RCR) | payer MEDICARE, OTHER, SELFPAY ==
[2024-06-01 10:10] VITALS: BMI 28.2
== END 2024-11-17 12:15 ==
LOC: CAR 10:15
PROVIDERS: Family Provider Family Medicine; PCP Family Medicine; Referring Provider Internal Medicine Cardiovascular Disease; Visit Provider Internal Medicine Cardiovascular Disease
DX: I25.118 Atherosclerotic heart disease of native coronary artery with other forms of angina pectoris (principal)
CPT/HCPCS: 82962; 93798

== ENCOUNTER → 2024-12-13 16:34 | Outpatient (CLI) | payer MEDICARE, OTHER, SELFPAY ==
[2024-06-01 10:10] VITALS: BMI 28.2
[2024-12-13 20:14] LABS: Prostate Specific Antigen 0.283 ng/mL (0.10-4.00)
== END ==
PROVIDERS: Family Provider Family Medicine; PCP Family Medicine; Referring Provider Urology; Visit Provider Urology
DX: N40.1 Benign prostatic hyperplasia with lower urinary tract symptoms (principal)
CPT/HCPCS: 36415; 84153

== ENCOUNTER → 2025-02-08 | Outpatient (CLI) | payer MEDICARE, OTHER, SELFPAY ==
[2024-06-01 10:10] VITALS: BMI 28.2
--- NOTE | 2025-02-08 15:53 | DI.US.S_ITS ---
PROCEDURE: US ARTERIAL DUPLEX LE BI INDICATIONS: PERIPHERAL VASCULAR DISEASE TECHNIQUE: Color and pulse Doppler interrogation was performed of both lower extremity arterial systems, with image documentation. COMPARISON: [facility], US, US ARTERIAL DUPLEX LE BI, 10/04/2021, 13:58. FINDINGS: Right lower extremity: Common femoral artery: 140 cm/sec, with triphasic flow. Deep femoral artery: 72 cm/sec, with triphasic flow. Proximal superficial femoral artery: 74 cm/sec, with triphasic flow. Mid superficial femoral artery: 94 cm/sec, with triphasic flow. Distal superficial femoral artery: 68 cm/sec, with triphasic flow. Popliteal artery: 59 cm/sec, with triphasic flow. Posterior tibial artery: 46 cm/sec, with triphasic flow. Anterior tibial artery/dorsalis pedis: 29 cm/sec, with monophasic flow. Zamudio-scale imaging description: Scattered plaque, most prominent in the calf vasculature. Left lower extremity: Common femoral artery: 105 cm/sec, with triphasic flow. Deep femoral artery: 68 cm/sec, with triphasic flow. Proximal superficial femoral artery: 78 cm/sec, with triphasic flow. Mid superficial femoral artery: 80 cm/sec, with triphasic flow. Distal superficial femoral artery: 83 cm/sec, with triphasic flow. Popliteal artery: 54 cm/sec, with triphasic flow. Posterior tibial artery: 70 cm/sec, with triphasic flow. Anterior tibial artery/dorsalis pedis: 13 cm/sec, with monophasic flow. Zamudio-scale imaging description: Scattered atherosclerotic plaque, most prominent in the calf vasculature. IMPRESSION: No hemodynamically significant stenosis. Scattered atherosclerotic plaque, most prominent in the calf vasculature. Of note, there is a transition from triphasic waveforms in the popliteal arteries to monophasic in the bilateral dorsalis pedis. Dictated by: Faisal Radford M.D. on 02/09/2025 at 16:21 Approved by: Faisal Radford M.D. on 02/09/2025 at 16:23
== END ==
LOC: US 15:53
PROVIDERS: Family Provider Family Medicine; PCP Family Medicine; Referring Provider Podiatrist Foot & Ankle Surgery; Visit Provider Podiatrist Foot & Ankle Surgery
DX: I73.89 Other specified peripheral vascular diseases (principal)
CPT/HCPCS: 93925